=== PATIENT | male | born 1935 | race Caucasian/White ===

== ENCOUNTER → 2019-05-17 15:00 | Outpatient (CLI) | payer MEDICARE, OTHER, SELFPAY ==
--- NOTE | 2019-05-17 15:18 | RAD_ITS ---
STUDY: X-RAY - LUMBAR SPINE REASON FOR EXAM: Male, 83 years old. Low back pain and stenosis TECHNIQUE: 4 view(s) of the lumbar spine were obtained. COMPARISON: None FINDINGS: Normal alignment. Diffuse degenerative disc and facet disease. Multiple lateral and anterior osteophytes. No compression deformities. No abnormal motion between flexion and extension. Left hip arthroplasty. RAD/Lumbar Spine 2 or 3 Views IMPRESSION: Multilevel degenerative disease as described. No abnormal motion between flexion and extension. Electronically Signed: Vince Castillo MD at 16:01 EDT Tel , Service support ,
--- NOTE | 2019-05-17 15:31 | CT_ITS ---
STUDY: CT LUMBAR SPINE WITHOUT CONTRAST REASON FOR EXAM: Male, 83 years old. Spinal stenosis RADIATION DOSAGE (If Supplied By Facility): CTDIvol = ( 35.92 ) mGy, DLP = ( 5291.79 ) mGycm TECHNIQUE: The patient was scanned in a multi detector CT scanner. High resolution transaxial imaging was performed. Images were obtained from L1 to L5. Sagittal and coronal images were reconstructed. Individualized dose optimization techniques were used for this CT. COMPARISON: None FINDINGS: Normal lumbar lordosis. There is no substantial scoliosis. Diffuse lateral and anterior osteophytes. Diffuse demineralization. L1-2: Disc osteophyte complex with mild central canal and bilateral foraminal stenoses. L2-3: Disc osteophyte complex with moderate left foraminal stenosis. L3-4: Disc osteophyte complex with mild central canal and moderate bilateral foraminal stenoses. L4-5: Disc osteophyte complex with moderate central canal and bilateral foraminal stenoses. L5-S1: Disc osteophyte complex with moderate bilateral foraminal stenoses. Normal visualized paraspinous soft tissue structures. Left hip arthroplasty. Bilateral renal cysts. Vascular calcifications. Prostatomegaly and prostate calcifications. CT/Spine Lumbar without Contrast IMPRESSION: Multilevel degenerative disease as described. Moderate foraminal stenoses on the left at L2-3, and bilaterally from L3-4 through L5-S1. Moderate central canal stenosis at L4-5. Electronically Signed: Vince Castillo MD at 16:26 EDT Tel , Service support ,
== END ==
PROVIDERS: Family Provider Family Medicine; PCP Family Medicine
DX: M48.061 Spinal stenosis, lumbar region without neurogenic claudication (principal)
CPT/HCPCS: 72100; 72131

== ENCOUNTER → 2019-05-17 15:36 | Outpatient (CLI) | payer MEDICARE, OTHER, SELFPAY ==
--- NOTE | 2019-05-17 15:51 | MRI_ITS ---
HISTORY:right hip pain, leg weakness, MRI EXAMINATION OF THERight HIP COMPARISON: None TECHNIQUE: Large [id number] coronal T1 STIR and axial STIR and small [id number]-[id number] axial fat-suppressed T2 fat-suppressed proton density and sagittal fat-suppressed proton density # of images including paperwork:210 FINDINGS: Bones: Postsurgical changes of the left. This may be secondary to left femoral head prosthesis or left total hip arthroplasty. Metallic artifact obscures visualization There is no evidence of an acute fracture or dislocation No abnormal signal is seen within the right femur proximally or the acetabulum There is foci of decreased signal on all pulse sequences seen within the right ilium compatible with a bone island. No additional osseous abnormalities are noted.. Musculotendinous structures: Insertional tendinosis is seen involving the left gluteus minimus muscle. There is mild atrophy involving the bilateral gluteus medius and minimus musculature. There is fluid surrounding the gluteus medius tendon at its insertion with probable partial tear. There is also abnormal signal seen at the origin of the conjoined tendon long head of biceps femoris and semitendinosus bilaterally suggesting intrasubstance tear/tendinosis.. Intrapelvic contents: Intrapelvic contents are normal in appearance without mass lesion or other abnormality. Hip joint and bursae: There is no significant right hip joint effusion. No evidence of avascular necrosis of the right femoral head there are small collar osteophyte seen at the head neck junction. Minimal osseous edema is seen at the posterior superior acetabulum. No iliopsoas bursal fluid collection. There is a trace trochanteric bursal fluid collection on the right. Question tiny anterior superior labral tear seen on image 12 series 8 however it does not extend through the labrum and there is no evidence of apparent labral cyst Neurovascular structures: No intrinsic or extrinsic mass along the course of the sciatic or femoral nerve is identified. No arterial aneurysm is identified. MRI/Lower Ext Joint Only (Routine) IMPRESSION: Postsurgical changes of the left hip Bone island within the right ilium Probable insertional tendinosis involving the left gluteus minimus muscle. There is fluid signal surrounding the insertion of the gluteus medius tendon on the right which may represent a small partial tear There is also a trace amount of fluid within the trochanteric bursa on the right Abnormal signal at the origin of the conjoined tendon biceps from Holden and semitendinosus on the ischial tuberosities bilaterally slightly greater on the left. This may be secondary to intrasubstance tear but no avulsion is noted. Question tiny superior anterior partial labral tear without evidence of upper labral cyst Minimal edema is seen within the posterior posterior superior acetabulum Collar osteophytes are seen at the head neck junction of the right hip at 2214 Reported and signed by: Citlalli Love DO Electronically Signed: Citlalli Love DO at 22:13 EDT Tel , Service support ,
== END ==
PROVIDERS: Family Provider Family Medicine; PCP Family Medicine
DX: M48.061 Spinal stenosis, lumbar region without neurogenic claudication (principal)
CPT/HCPCS: 72100; 72131; 73721

== ENCOUNTER 2019-08-03 23:13 | Emergency (ER) | payer MEDICARE, OTHER, SELFPAY ==
[2019-08-03 23:15] VITALS: BP 115/41; PULSE 76; RESP 18; TEMP 36.6; O2SAT 96; BMI 35.9
--- NOTE | 2019-08-04 00:01 | CT_ITS ---
STUDY: CT BRAIN WITHOUT CONTRAST REASON FOR EXAM: Male, 84 years old. Fell flat on face on Wednesday, headache and nausea now RADIATION DOSAGE (If Supplied By Facility): CTDIvol = ( 44.99 ) mGy, DLP = ( 863.60 ) mGycm TECHNIQUE: Transaxial CT imaging of the brain was performed without administration of intravenous contrast material. Individualized dose optimization techniques were used for this CT. COMPARISON: No relevant priors. FINDINGS: Normal soft tissue structures. Normal calvarium. There is mild cerebral atrophy with widening of the extra-axial spaces and ventricular dilatation. There are areas of decreased attenuation within the white matter tracts of the supratentorial brain, consistent with microvascular disease changes. Normal basal ganglia and thalami. Normal brainstem. Normal cerebellum. There is no intracranial hemorrhage. There are no findings of an acute ischemic infarction. There is mucoperiosteal inflammatory disease of the paranasal sinuses consistent with mild chronic sinusitis. The bilateral mastoid air cells are clear. CT/Brain/Head without Contrast IMPRESSION: Chronic involutional changes of the brain. There is no acute intracranial pathology. Electronically Signed: Yadira Dyson MD at 0:35 EST , Service support ,
--- NOTE | 2019-08-04 00:02 | ED.VIS.GEN ---
History of Present Illness Chief Complaint: Head Injury Narrative: Patient is an 84-year-old male who presents after head injury. He fell on Wednesday evening. He was outside. He lost his balance and fell forward hitting his left forehead. No loss of consciousness. Since that time he has had a mild headache which he rates as 2-3 out of 10 as well as some nausea and dizziness. He is not anticoagulated. His family became concerned with his symptoms so brought him here for further evaluation. No vomiting. Patient is on no anticoagulants. Past Medical History - Allergies and Home Meds Allergies/Adverse Reactions: Allergies No Known Allergies Allergy (Verified 08/03/19 23:17) Primary Care Physician: Meño Perea MD [Primary Care Provider] - Past Medical History: - - Hypertension Review of Systems ROS: Unable to Obtain General: Denies: Fever Cardiovascular: Denies: Chest pain Respiratory: Denies: Dyspnea Gastrointestinal: Reports: Nausea Neurological: Reports: Headache Physical Exam Vital Signs/Narrative: Vital Signs Temp Pulse Resp BP Pulse Ox 08/03/19 23:15 97.9 F 76 18 115/41 L 96 Inital Vital Signs reviewed: Yes General: Well nourished Head: Normocephalic Eyes: EOMI ENT: Moist mucous membranes Neck: Supple Cardiovascular: Regular rate, Regular rhythm Respiratory: No distress Skin: Normal color Neurological: Alert, Oriented x3, Normal Strength, Normal Sensation Psychological: Normal affect Diagnostic/Tx/Re-eval Impressions Brain CT 08/04/19 00:01 IMPRESSION: Chronic involutional changes of the brain. There is no acute intracranial pathology. Electronically Signed: Yadira Dyson MD at 0:35 EST , Service support , 08/04/19 00:01 CT Head [Brain/Head without Contrast] [CT] Stat - Medical Decision Making CT shows chronic changes, no acute pathology. Patient was advised on signs and symptoms to monitor for as well as supportive care. Patient discharged. ED Disposition - Plan for ED Patient: Disposition: Home or Assisted Living Diagnosis: Closed head injury Instructions: HEAD INJURY, No Wake-Up (Adult) Referrals: Meño Perea MD [Primary Care Provider] -
[2019-08-04 00:49] VITALS: RESP 18
== END 2019-08-04 00:50 | disposition home or self-care (01) ==
PROVIDERS: Emergency Provider Emergency Medicine; Family Provider Family Medicine; PCP Family Medicine
DX: S09.90XA Unspecified injury of head, initial encounter (principal); W18.39XA Other fall on same level, initial encounter; Y93.9 Activity, unspecified
CPT/HCPCS: 70450; 99282

== ENCOUNTER 2021-09-29 18:30 | Inpatient (IN) | payer MEDICARE, OTHER, SELFPAY ==
[2021-09-29 18:33] VITALS: BP 158/79; PULSE 85; RESP 18; TEMP 36.1; O2SAT 93; BMI 32.8
[2021-09-29 19:26] VITALS: BP 153/78; PULSE 87; RESP 20; O2SAT 96
--- NOTE | 2021-09-29 19:28 | EKG12_ITS ---
Test Reason : CONFUSION Blood Pressure : / mmHG Vent. Rate : 091 BPM Atrial Rate : 091 BPM P-R Int : 144 ms QRS Dur : 088 ms QT Int : 338 ms P-R-T Axes : 049 -36 048 degrees QTc Int : 415 ms Normal sinus rhythm Left axis deviation Nonspecific ST abnormality Abnormal ECG Confirmed by LAUREL BRYANT, TREY ([id number]), science editor MARCI OROZCO ([id number]) on 09/30/2021 11:27:40 AM Referred By: MEAGAN Confirmed By:TREY BARRAGAN MD
--- NOTE | 2021-09-29 19:39 | RAD_ITS ---
STUDY: X-RAY CHEST REASON FOR EXAM: Male, 86 years old. weakness TECHNIQUE: AP portable COMPARISON: None. FINDINGS: There is minor discoid atelectasis or scarring in both lower lobes.. There is no demonstrated pleural abnormality. Heart is mildly enlarged. Normal mediastinum and alfie. Normal visualized pulmonary arteries. Tortuous mildly calcified aortic arch and descending thoracic aorta. Dorsal spine and shoulders demonstrate degenerative change. Normal visualized ribs, and clavicles.. There is no demonstrated abnormality of the visualized soft tissue structures of the upper abdomen. RAD/Chest 1 View (Portable) IMPRESSION: ASHD. Mild bibasilar discoid atelectasis or scarring. Electronically Signed: Calvin Ivan MD at 21:08 EST , Service support ,
--- NOTE | 2021-09-29 19:42 | CT_ITS ---
STUDY: CT BRAIN WITHOUT CONTRAST REASON FOR EXAM: Male, 86 years old. confusion RADIATION DOSAGE (If Supplied By Facility): CTDIvol = ( 44.99 ) mGy, DLP = ( 880.47 ) mGycm TECHNIQUE: Transaxial CT imaging of the brain was performed without administration of intravenous contrast material. Individualized dose optimization techniques were used for this CT. COMPARISON: 08/04/2019. FINDINGS: Normal soft tissue structures. Normal calvarium. Minor calcific plaquing of the cavernous carotids Mild atrophy and periventricular white matter ischemic changes. Normal basal ganglia and thalami. Normal brainstem. Normal cerebellum. There is no intracranial hemorrhage. There are no findings of an acute ischemic infarction. There is moderate mucosal thickening of the ethmoid air cells CT/Brain/Head without Contrast IMPRESSION: Mild atrophy and periventricular white matter ischemic change. No acute bleed. If concern for acute infarct MRI recommended Electronically Signed: Clavin Ivan MD at 21:06 EST , Service support ,
[2021-09-29 20:37] LABS: Mucous, Urine 0 SEEN /hpf (<or=2+); Squamous Epithelial Cells - UA 0 SEEN /hpf (0-5)
[2021-09-29 20:38] LABS: ALB/GLOB Ratio 0.7 RATIO (0.9-2.4); AST(SGOT) 34 U/L (15-37); Alanine Aminotransfer ALT/SGPT 20 U/L (16-61); Albumin, Serum 3.1 g/dL (3.2-5.0); Alkaline Phosphatase 49 U/L (45-117); Anion Gap 8 (5-15); BUN 25 mg/dL (7-18); BUN/Creat Ratio 21.4 RATIO (10-20); Calcium,Total 8.8 mg/dL (8.5-10.1); Chloride 97 mmol/L (98-107); Creatinine, Serum 1.17 mg/dL (0.70-1.30); EST Glomerular Filtration Rate 63 mL/min (>60); Est Glom Filt Rate - Afr Amer 76 mL/min (>60); Estimated Creatinine Clearance 49.74 ml/min; Globulin 4.5 g/dL (2.2-4.2); Glucose 127 mg/dL (74-106); Potassium 4.3 mmol/L (3.5-5.1); Protein, Total 7.6 g/dL (6.4-8.2); Sodium Level 129 mmol/L (136-145); Troponin-I HS 24 pg/mL (3.0-78.0)
[2021-09-29 20:42] LABS: Color, Urine Yellow (Yellow); Glucose, Dipstick Normal (Normal); Ketone-Dipstick 15 mg/dl (Negative); Leukocyte Esterase-Dipstick Negative /ul (Negative); Nitrite-Dipstick Negative (Negative); Occult Blood-Urine 150 /ul (Negative); Protein-Dipstick 100 mg/dl (Negative); Urine Bilirubin Dipstick Negative (Negative); Urine Clarity Clear (Clear); Urine Urobilinogen Normal (Normal)
[2021-09-29 20:52] LABS: Absolute Lymphocyte Count 0.86 X10^3/uL (0.83-4.51); Absolute Neutrophil Count 3.5 X10^3/uL (2.0-7.7); Basophil# 0.01 X10^3/uL; Basophil% 0.2 % (0-1); Hemoglobin 12.9 g/dL (13.0-16.5); Lymphocyte # 0.86 X10^3/ul (0.83-4.51); Lymphocyte % 17.9 % (19-41); Mean Corp Hgb Conc 33.1 g/dL (32-36); Mean Corpuscular Hgb 29.1 pg (27.0-32.0); Mean Corpuscular Volume 87.8 fL (80-94); Mean Platelet Vol. 10.6 fl (6.2-12.0); Monocyte# 0.38 X10^3/uL; Monocyte% 7.9 % (0-10); NRBC Flagged by Analyzer 0 % (0-5); Neutrophil # 3.48 X10^3/uL (2.7-7.7); Neutrophil % 72.3 % (47-70); Platelet Count 208 K/mm3 (150-450); RBC Distribution Width CV 14.4 % (11.6-14.6); RBC Distribution Width SD 46.2 fl (35.1-43.9); Red Blood Count 4.44 M/mm3 (4.6-6.2); White Blood Count 4.8 K/mm3 (4.4-11.0)
[2021-09-29 20:54] LABS: Bacteria RARE /hpf (None Seen); Red Blood Cells-Urine 10-25 SEEN /hpf (0-5); White Blood Cells 0-5 SEEN /hpf (0-5)
--- NOTE | 2021-09-29 21:03 | HP.PCM.HOS_ITS ---
HPI - General General Date of Admission: 09/29/21 HPI Narrative HARINI AUGUSTE, is a 86 M with a significant history of heart disease on spironolactone and tadalafil; and hypertension who presents to the emergency department with a 4-day history of progressively worsening Covid-like symptoms. His Covid-like symptoms are productive cough; weakness; malaise; and anorexia. Patient typically lives alone but he has been too weak to take care of himself. Actually home health care was planned on the same day of presentation. On the same day of presentation the patient was lethargic and confused so a decision was made to bring patient to the hospital. Reportedly patient has actually been fighting off coming to the hospital. COVID-19 vaccination status: Patient is unvaccinated. Son who was at the bedside did not want remdesivir. Patient son asked whether patient will be given monoclonal antibody. [facility] Medical History Anemia Chronic pain Heart failure Hypertension Home Medications lisinopril 5 mg PO DAILY 09/29/21 [History Last Taken Unknown] metoprolol succinate 25 mg PO DAILY 09/29/21 [History Last Taken Unknown] potassium chloride 10 meq PO DAILY 09/29/21 [History Last Taken Unknown] spironolactone 50 mg PO BID 09/29/21 [History Last Taken Unknown] tadalafil 5 mg PO DAILY 09/29/21 [History Last Taken Unknown] tamsulosin 0.8 mg PO DAILY 09/29/21 [History Last Taken Unknown] Allergy/AdvReac Type Severity Reaction Status Date / Time No Known Allergies Allergy Verified 09/29/21 18:37 Family History Other Brain tumor Heart disease Surgical History H/O knee surgery History of hip surgery Previous back surgery Social History Smoking Status: Never smoker ROS ROS Narrative Constitutional: Reports fever and chills. Reports fatigue. Reports anorexia. Eyes: Denies blurry vision, change in eye color, change in vision, discharge from eye(s), double vision, erythema, eye pain, loss of vision or other HEENT: Denies abnormal hearing, dysphagia, ear pain, epistaxis, headache(s), hearing loss, nasal congestion, nasal discharge, post nasal drip, sinus pressure, sore throat or other Cardiovascular: Denies chest pain or palpitations. Respiratory/Chest: Reports shortness of breath. Reports a productive cough. Reports mild wheezes. Gastrointestinal: Denies abdominal pain, coffee ground emesis, constipation, diarrhea, dyspepsia, hematemesis, hematochezia, loose stools, melena, nausea, vomiting or other Genitourinary: Denies burning urination, difficulty urinating, dysuria, hematuria, nocturia, urinary frequency, urinary hesitancy, urinary incontinence, urinary urgency or other Musculoskeletal: Denies arthralgias, back pain, joint pain, joint stiffness, joint swelling, neck pain or other Neurologic: Reports confusion. Denies abnormal gait, abnormal speech, disequilibrium, dizziness, focal weakness, headache(s), numbness, paresthesias, seizure-like activity, seizures, syncope, tingling, tremor(s) or other Psychiatric: Denies anxiety, depression, homicidal ideation, suicidal ideation or other Endocrinology: Denies change in body appearance, cold intolerance, excessive sweating, heat intolerance, polydipsia, polyuria or other Hematologic/Lymphatic: Denies anemia, easy bleeding, easy bruising, lymphadenopathy or other Integumentary: Denies rashes Allergic/Immunologic: Denies rhinitis, hives, eczema, asthma or other Vital Signs Vital Signs Vital Signs: 09/29/21 18:33 09/29/21 18:54 09/29/21 19:26 Temperature 97.0 F L Temperature Source Temporal Pulse Rate 85 87 Respiratory Rate 18 20 H Respiratory Effort Short of Breath Respiratory Pattern Normal Blood Pressure 158/79 H 153/78 H Blood Pressure Mean 105 103 Pulse Ox 93 96 Oxygen Delivery Method Room Air Nasal Cannula Oxygen Flow Rate (L/min) 2 Weight Weight: 110 kg Body Mass Index (BMI) 32.8 Physical Exam Narrative Physical exam: General: Well-nourished, well-developed. Head: Normocephalic, atraumatic, no tenderness Eyes: PERRLA, EOMI ENT, no trauma, moist mucous membranes, no rhinorrhea Neck: Nontender, full range of motion, no spinal tenderness, deformities, step- off CVS: Regular rate and rhythm. S1-S2 present. No murmur, gallop or rub. Respiratory : Tachypnea, mild anterior wheezes. Posterior lung lauren clear. Abdomen: Soft, nontender, nondistended, normal bowel sounds, no masses : Deferred Back: Nontender, no CVA tenderness, no midline spinal tenderness, deformities, step-offs Extremities: Extremities have bilateral edema. Nontender full range of motion, no trauma Skin: Normal color, no trauma, abrasions Neuro: Alert, oriented, cranial nerves II through XII grossly intact. Psychiatry: Normal mood. Normal affect. Not depressed. Not anxious. Results Lab / Micro Data Result Diagrams: 09/29/21 18:55 09/29/21 18:55 Labs: Laboratory Results - last 24 hr 09/29/21 18:55: WBC 4.8, RBC 4.44 L, Hgb 12.9 L, Hct 39.0 L, MCV 87.8, MCH 29.1, MCHC 33.1, RDW Std Deviation 46.2 H, RDW Coeff of Mansi 14.4, Plt Count 208, MPV 10.6, Immature Gran % (Auto) 1.700 H, Neut % (Auto) 72.3 H, Lymph % (Auto) 17.9 L, [place] % (Auto) 7.9, Eos % (Auto) 0.0, Baso % (Auto) 0.2, Absolute Neuts (auto) 3.5, Absolute Lymphs (auto) 0.86, Nucleated RBC % 0 09/29/21 18:55: Sodium 129 L, Potassium 4.3, Chloride 97 L, Carbon Dioxide 24.0, Anion Gap 8, BUN 25 H, Creatinine 1.17, Estim Creat Clear Calc 49.74, Est GFR (MDRD) Af Amer 76, Est GFR (MDRD) Non-Af 63, BUN/Creatinine Ratio 21.4 H, Glucose 127 H, Calcium 8.8, Total Bilirubin 0.40, AST 34, ALT 20, Alkaline Phosphatase 49, Troponin I High Sens 24, Total Protein 7.6, Albumin 3.1 L, Globulin 4.5 H, Albumin/Globulin Ratio 0.7 L 09/29/21 20:30: Urine Color Yellow, Urine Clarity Clear, Urine pH 5.0, Ur S pecific [place] 1.020, Urine Protein 100 H, Urine Glucose (UA) Normal, Urine Ketones 15 H, Urine Occult Blood 150 H, Urine Nitrite Negative, Urine Bilirubin Negative, Urine Urobilinogen Normal, Ur Leukocyte Esterase Negative, Urine RBC 10-25 SEEN, Urine WBC 0-5 SEEN, Ur Squamous Epith Cells 0 SEEN, Urine Bacteria RARE, Urine Mucus 0 SEEN Micro: Microbiology 09/29/21 19:40 Nasal Secretion SARS-CoV-2 Antigen (Rapid) - Final SARS-CoV-2 (COVID 19) Assessment & Plan Assessment/Plan (1) Pneumonia due to COVID-19 virus: PLAN: Pneumonia due to COVID-19 virus Actual chest x-ray image was independently interpreted. Chest x-ray with mild bibasilar infiltrates. Oxygen saturation of 93% on room air. Rapid Covid antigen was positive. Brain CT with no acute disease. Decadron ordered emergency department in continued. Family does not want r emdesivir. CBC reviewed showed normal white count with bandemia of 1.7%; neutrophils 82.3% and lymphopenia of 17.9. Hyponatremia Sodium of 129. Hold diuretics. Trend BMP. Debility secondary Covid PT and OT to evaluate and treat. Hypertension Blood pressure is not within goal Lisinopril and metoprolol continued. Hold diuretics for hyponatremia. As needed hydralazine ordered. Trend blood pressure and adjust blood pressure medications. DVT prophylaxis: Subcutaneous Lovenox ordered. Charges/Coding Visit Charges Inpatient E&M: 61555 Init Hosp L3
--- NOTE | 2021-09-29 21:14 | EX.ED.DYSGE1 ---
HPI History of Present Illness Chief Complaint: Alt LOC Informant: patient and family Narrative Narrative: Patient is an 86-year-old male with history of hypertension and BPH presenting with altered mental status and generalized weakness. Patient is in the ER with his [id number]. She does have a past few days she has had a cold with stuffy nose and generalized weakness. He is also had a cough. Overnight he became lethargic and had decreased responsiveness to others. He had multiple episodes of urinary incontinence today which is abnormal for him. He had decreased oral intake. Earlier this week EMS was called out to the house who did a welfare check and felt that his vital signs are normal. He declined transport at that time. Patient was supposed to have home health start today however he was so ill that he came to the emergency room instead. No known sick exposures reported. [facility] Medical History Anemia Chronic pain Heart failure Hypertension Home Medications lisinopril 5 mg PO DAILY 09/29/21 [History Last Taken Unknown] metoprolol succinate 25 mg PO DAILY 09/29/21 [History Last Taken Unknown] potassium chloride 10 meq PO DAILY 09/29/21 [History Last Taken Unknown] spironolactone 50 mg PO BID 09/29/21 [History Last Taken Unknown] tadalafil 5 mg PO DAILY 09/29/21 [History Last Taken Unknown] tamsulosin 0.8 mg PO DAILY 09/29/21 [History Last Taken Unknown] Allergy/AdvReac Type Severity Reaction Status Date / Time No Known Allergies Allergy Verified 09/29/21 18:37 Family History Other Brain tumor Heart disease Surgical History H/O knee surgery History of hip surgery Previous back surgery Social History Smoking Status: Never smoker ROS ROS ED Review of Systems ROS Unobtainable: due to encephalopathy ENT ENT ED: Reports rhinorrhea Respiratory/Chest Respiratory/Chest: Reports cough Neurologic Neurologic: Reports weakness EXAM Physical Exam Const Vital Signs: 09/29/21 18:33 09/29/21 18:54 09/29/21 19:26 Temperature 97.0 F L Temperature Source Temporal Pulse Rate 85 87 Respiratory Rate 18 20 H Respiratory Effort Short of Breath Respiratory Pattern Normal Blood Pressure 158/79 H 153/78 H Blood Pressure Mean 105 103 Pulse Ox 93 96 Oxygen Delivery Method Room Air Nasal Cannula Oxygen Flow Rate (L/min) 2 Positive well nourished and well developed General Appearance ED: well developed and NAD HEENT Reports dry mucous membranes Negative for trauma Mouth ED: Yes dry mucous membranes Mouth: dry mucous membranes Eyes PERRL and EOMs intact bilaterally Neck supple and no JVD Chest Wall inspection of chest normal Resp Resp Narrative: Diminished and coarse breath sounds throughout. Tachypnea Cardio regular rate, regular rhythm and no murmurs GI normal to inspection, nondistended, normoactive bowel sounds and non-tender Palpation: soft Extremity normal to inspection General Extremety ED: Negative for edema or tenderness General Extremity: Negative for edema Neuro Sensorium / Orientation: alert and orientation impaired Motor Exam: general weakness Psych mental status grossly normal Skin no rashes or lesions noted and no wounds MDM MDM MDM Narrative Medical decision making narrative: Patient evaluated for generalized weakness. In the ER he has coarse breath sounds, wet cough and is tachypneic. His Covid test is positive. X-ray interpreted by myself is appears consistent with a multifocal infiltrate. Patient has a hyponatremia of 129. No other significant electrolyte abnormalities or laboratory abnormalities. Urinalysis is not consistent with infection. Patient is 90% on room air. He is placed on supplemental oxygen. Given his generalized weakness and encephalopathy as well as COVID-19 infection he will be admitted to the hospital. Family is agreeable with this plan of care. Lab Data Attestation: I reviewed the patient's lab results. Labs: Laboratory Results - last 24 hr 09/29/21 09/29/21 09/29/21 18:55 18:55 20:30 WBC 4.8 RBC 4.44 L Hgb 12.9 L Hct 39.0 L MCV 87.8 MCH 29.1 MCHC 33.1 RDW Std Deviation 46.2 H RDW Coeff of Mansi 14.4 Plt Count 208 MPV 10.6 Immature Gran % (Auto) 1.700 H Neut % (Auto) 72.3 H Lymph % (Auto) 17.9 L [place] % (Auto) 7.9 Eos % (Auto) 0.0 Baso % (Auto) 0.2 Absolute Neuts (auto) 3.5 Absolute Lymphs (auto) 0.86 Nucleated RBC % 0 Sodium 129 L Potassium 4.3 Chloride 97 L Carbon Dioxide 24.0 Anion Gap 8 BUN 25 H Creatinine 1.17 Estim Creat Clear Calc 49.74 Est GFR (MDRD) Af Amer 76 Est GFR (MDRD) Non-Af 63 BUN/Creatinine Ratio 21.4 H Glucose 127 H Calcium 8.8 Total Bilirubin 0.40 AST 34 ALT 20 Alkaline Phosphatase 49 Troponin I High Sens 24 Total Protein 7.6 Albumin 3.1 L Globulin 4.5 H Albumin/Globulin Ratio 0.7 L Urine Color Yellow Urine Clarity Clear Urine pH 5.0 Ur Specific [place] 1.020 Urine Protein 100 H Urine Glucose (UA) Normal Urine Ketones 15 H Urine Occult Blood 150 H Urine Nitrite Negative Urine Bilirubin Negative Urine Urobilinogen Normal Ur Leukocyte Esterase Negative Urine RBC 10-25 SEEN Urine WBC 0-5 SEEN Ur Squamous Epith Cells 0 SEEN Urine Bacteria RARE Urine Mucus 0 SEEN Radiography Chest X-Ray - ED: 1 View, Read by ED Physician, Right Infiltrate and Left Infiltrate Diagnostic Testing: Clinical Impression(s) from Imaging Studies Chest X-Ray 09/29/21 19:39 IMPRESSION: ASHD. Mild bibasilar discoid atelectasis or scarring. Electronically Signed: Calvin Ivan MD at 21:08 EST , Service support , Brain CT 09/29/21 19:42 IMPRESSION: Mild atrophy and periventricular white matter ischemic change. No acute bleed. If concern for acute infarct MRI recommended Electronically Signed: Calvin Ivan MD at 21:06 EST , Service support , Rhythm Strip Rhythm Strip: Sinus Rhythm Rate: 91 Ectopy: None EKG Initial EKG: Attestation: I personally reviewed and interpreted this EKG as follows: Interpretation: Sinus Rhythm Comments: Normal sinus rhythm at a rate of 91 Left axis deviation Normal intervals Normal ST segments Poor baseline due to artifact Discharge Plan Triage Chief Complaint: Alt LOC ED Provider: Yarelis Lacy Dx/Rx/DC Orders Clinical Impression: Pneumonia due to COVID-19 virus, Encephalopathy acute, Generalized muscle weakness Primary Care Provider: Meño Perea Disposition Disposition: Acute Care Hospital [facility] [place] Discharge Date/Time: 09/29/21 21:56
[2021-09-29] MEDS: dexAMETHasone 4 MG/ML Vial 6 MG IV (21:19)
[2021-09-29 21:24] VITALS: BP 171/90; PULSE 87; RESP 22; TEMP 36.7; O2SAT 95
[2021-09-29 22:15] VITALS: BMI 32.8
[2021-09-29 22:18] VITALS: BP 177/86; PULSE 96; RESP 18; TEMP 39.3; O2SAT 96
[2021-09-29] MEDS: Ondansetron 4 MG/2 ML Vial IV (23:01)
[2021-09-29] MEDS: 0.9% Saline Lock 10 ML Syringe IV ×2 (23:01→23:23)
[2021-09-29] MEDS: Acetaminophen 325 MG Tablet 650 MG PO (23:17)
[2021-09-29] MEDS: Enoxaparin 30 MG/0.3 ML Syringe SC (23:20)
[2021-09-29 23:23] VITALS: PULSE 85
[2021-09-29] MEDS: guaiFENesin 600 MG Tablet PO (23:23)
[2021-09-29] MEDS: hydrALAZINE 20 MG/ML Vial 10 MG IV (23:23)
[2021-09-29] MEDS: Spironolactone 50 MG Tablet PO (23:23)
[2021-09-29 23:29] VITALS: BP 167/82; PULSE 85; RESP 18; TEMP 39.3; O2SAT 98
[2021-09-30] VITALS (10 sets, daily range): BP systolic 102–126; BP diastolic 55–76; PULSE 66–86; RESP 18–26; TEMP 36.4–37.1; O2SAT 91–97
[2021-09-30] MEDS: Nystatin Powder 15gm Bottle 1 APPLIC TOPICAL ×3 (01:02→20:33)
[2021-09-30] MEDS: Menthol/Lanolin/Calamine/Znox 113 GM Tube 1 APPLIC TOPICAL ×3 (01:02→20:33)
--- NOTE | 2021-09-30 01:24 | PCS.PANDOC ---
PANDEMIC DOCUMENTATION INITIATED: Date: 09/29/2020 Time:
[2021-09-30] MEDS: Acetaminophen 325 MG Tablet 650 MG PO (05:45)
--- NOTE | 2021-09-30 07:52 | PCM.PN.HOSP ---
Subjective Subjective The patient is admitted with 4 days symptoms of cough, weakness malaise, anorexia. Patient was lethargic and confused with increased reaction and respond time. Chest x-ray shows mild bibasilar infiltrates patient has history of heart disease and only spironolactone. Objective Data Objective Data Vital Signs: Vital Signs Temp Pulse Resp BP Pulse Ox 98.6 F 75 18 126/55 H 95 09/30/21 05:48 09/30/21 05:48 09/30/21 05:48 09/30/21 05:48 09/30/21 05:48 Oxygen Flow Rate (L/min) 2 Oxygen Delivery Method Nasal Cannula Weight: 242 lb 8.136 oz Body Mass Index (BMI) 32.8 Lab / Micro Data Result Diagrams: 09/30/21 07:20 09/30/21 07:20 Labs: Laboratory Results - last 24 hr 09/29/21 18:55: WBC 4.8, RBC 4.44 L, Hgb 12.9 L, Hct 39.0 L, MCV 87.8, MCH 29.1, MCHC 33.1, RDW Std Deviation 46.2 H, RDW Coeff of Mansi 14.4, Plt Count 208, MPV 10.6, Immature Gran % (Auto) 1.700 H, Neut % (Auto) 72.3 H, Lymph % (Auto) 17.9 L, [place] % (Auto) 7.9, Eos % (Auto) 0.0, Baso % (Auto) 0.2, Absolute Neuts (auto) 3.5, Absolute Lymphs (auto) 0.86, Nucleated RBC % 0 09/29/21 18:55: Sodium 129 L, Potassium 4.3, Chloride 97 L, Carbon Dioxide 24.0, Anion Gap 8, BUN 25 H, Creatinine 1.17, Estim Creat Clear Calc 49.74, Est GFR (MDRD) Af Amer 76, Est GFR (MDRD) Non-Af 63, BUN/Creatinine Ratio 21.4 H, Glucose 127 H, Calcium 8.8, Total Bilirubin 0.40, AST 34, ALT 20, Alkaline Phosphatase 49, Troponin I High Sens 24, Total Protein 7.6, Albumin 3.1 L, Globulin 4.5 H, Albumin/Globulin Ratio 0.7 L 09/29/21 20:30: Urine Color Yellow, Urine Clarity Clear, Urine pH 5.0, Ur Specific [place] 1.020, Urine Protein 100 H, Urine Glucose (UA) Normal, Urine Ketones 15 H, Urine Occult Blood 150 H, Urine Nitrite Negative, Urine Bilirubin Negative, Urine Urobilinogen Normal, Ur Leukocyte Esterase Negative, Urine RBC 10-25 SEEN, Urine WBC 0-5 SEEN, Ur Squamous Epith Cells 0 SEEN, Urine Bacteria RARE, Urine Mucus 0 SEEN Micro: Microbiology 09/29/21 19:40 Nasal Secretion SARS-CoV-2 Antigen (Rapid) - Final SARS-CoV-2 (COVID 19) Radiography Diagnostic Testing: Radiology Impression Chest X-Ray 09/29/21 19:39 IMPRESSION: ASHD. Mild bibasilar discoid atelectasis or scarring. Electronically Signed: Calvin Ivan MD at 21:08 EST , Service support , Brain CT 09/29/21 19:42 IMPRESSION: Mild atrophy and periventricular white matter ischemic change. No acute bleed. If concern for acute infarct MRI recommended Electronically Signed: Calvin Ivan MD at 21:06 EST , Service support , Rhythm Strip Rhythm Strip: Sinus Rhythm Rate: 91 Ectopy: None Physical Exam Narrative General: Awake but confused and disoriented to time. Increased time to respond and understand. HEENT: Atraumatic, PERRLA, EOMI, Normocephalic Oral: No Gingival or Mucosal Lesions/ Ulcerations Neck: Supple, No JVD, Negative Carotid Bruits Lungs: Air entry diminished in bilateral lung bases. Mild expiratory rhonchi on lung bases on 3 L of oxygen Cardiovascular: Regular rate, Regular Rhythm, Normal S1, Normal S2, No murmurs Abdomen: Bowel Sounds Present, Soft, Non Tender, Non-Distended : No renal angle tenderness. No suprapubic tenderness. Extremities: No edema, Capillary Refill Less than 3 Seconds Skin: No rashes, No breakdown Musculoskeletal: No Tenderness to Palpation of Joints or Extremities Neurological: Cranial nerves II-XII grossly intact, DTR 2+/4 and Symmetrical, no focal deficit Psych/Mental Status: Flat affect. Needs multiple repetitions to understand Assessment & Plan Assessment/Plan (1) Pneumonia due to COVID-19 virus: PLAN: Pneumonia due to COVID-19 virus: Chest x-ray shows mild bibasilar infiltrates clinically reviewed. Inflammatory markers procalcitonin, ferritin, LDH, D-dimer ordered. Rapid COVID-[address] brain does not show acute intracranial abnormality. Family does not want remdesivir. CBC reviewed showed normal white count with bandemia of 1.7%; neutrophils 82.3% and lymphopenia of 5%, ALC 0.34 thousand Hyponatremia: Admitted with sodium 129, repeat sodium 131.Hold diuretics. K4.2. Discontinue spironolactone as Lasix was discontinued which might result in 2 hyperkalemia Trend BMP. Debility secondary Covid PT and OT to evaluate and treat. Hypertension: Blood pressure was elevated at time of admission. Most recent 126/76 Lisinopril and metoprolol continued. Hold diuretics for hyponatremia. As needed hydralazine ordered. DVT prophylaxis: Subcutaneous Lovenox ordered. Charges/Coding Visit Charges Inpatient E&M: 61413 Subs Hosp L2
[2021-09-30 07:58] LABS: Absolute Lymphocyte Count 0.34 X10^3/uL (0.83-4.51); Absolute Neutrophil Count 5.9 X10^3/uL (2.0-7.7); Basophil# 0.01 X10^3/uL; Basophil% 0.1 % (0-1); Hematocrit 37.3 % (40-54); Hemoglobin 12.3 g/dL (13.0-16.5); Lymphocyte # 0.34 X10^3/ul (0.83-4.51); Mean Platelet Vol. 9.7 fl (6.2-12.0); Monocyte# 0.37 X10^3/uL; Monocyte% 5.5 % (0-10); NRBC Flagged by Analyzer 0 % (0-5); Neutrophil # 5.94 X10^3/uL (2.7-7.7); Neutrophil % 88.2 % (47-70); POSITIVE DIFFERENTIAL YES; Platelet Count 163 K/mm3 (150-450); RBC Distribution Width CV 14.4 % (11.6-14.6); RBC Distribution Width SD 46.4 fl (35.1-43.9); Red Blood Count 4.24 M/mm3 (4.6-6.2); White Blood Count 6.7 K/mm3 (4.4-11.0)
[2021-09-30 08:03] LABS: Differential Indicated SCAN CRITERIA MET
[2021-09-30 08:32] LABS: ALB/GLOB Ratio 0.6 RATIO (0.9-2.4); AST(SGOT) 30 U/L (15-37); Alanine Aminotransfer ALT/SGPT 18 U/L (16-61); Albumin, Serum 2.5 g/dL (3.2-5.0); Alkaline Phosphatase 39 U/L (45-117); Anion Gap 9 (5-15); BUN 25 mg/dL (7-18); BUN/Creat Ratio 23.8 RATIO (10-20); Calcium,Total 8.2 mg/dL (8.5-10.1); Chloride 100 mmol/L (98-107); Creatinine, Serum 1.05 mg/dL (0.70-1.30); EST Glomerular Filtration Rate 71 mL/min (>60); Est Glom Filt Rate - Afr Amer 86 mL/min (>60); Estimated Creatinine Clearance 55.43 ml/min; Globulin 4.1 g/dL (2.2-4.2); Glucose 178 mg/dL (74-106); Potassium 4.2 mmol/L (3.5-5.1); Protein, Total 6.6 g/dL (6.4-8.2); Sodium Level 131 mmol/L (136-145)
[2021-09-30 08:40] LABS: Differential Comment SCANNED
[2021-09-30] MEDS: Enoxaparin 30 MG/0.3 ML Syringe SC ×2 (09:36→20:34)
[2021-09-30] MEDS: Metoprolol(XL)Succ 25 MG Tablet PO (09:37)
[2021-09-30] MEDS: dexAMETHasone 4 MG Tablet 6 MG PO (09:37)
[2021-09-30] MEDS: Lisinopril 5 MG Tablet PO (09:37)
[2021-09-30] MEDS: Tamsulosin HCl 0.4 MG Capsule 0.8 MG PO (09:38)
[2021-09-30] MEDS: guaiFENesin 600 MG Tablet PO ×2 (09:38→20:34)
[2021-09-30] MEDS: Spironolactone 50 MG Tablet PO (09:38)
[2021-09-30 09:51] LABS: D-Dimer Quantitative (DVT/PE) 7.98 FEU/ug/m (0.27-0.49)
[2021-09-30 09:57] LABS: Procalcitonin 1.14 ng/mL (0.00-0.09)
--- NOTE | 2021-09-30 09:57 | CT_ITS ---
STUDY: CTA CHEST REASON FOR EXAM: Male, 86 years old. COVID 19 PNEUMONIA With high D-Dimer RADIATION DOSAGE (If Supplied By Facility): CTDIvol = ( 15.04 ) mGy, DLP = ( 499.78 ) mGycm TECHNIQUE: The examination was performed with the intravenous administration of IV 100mL Isovue-370. Post-processing of the angiographic images was performed, with multiplanar reformation and 3D reconstruction. Individualized dose optimization techniques were used for this CT. COMPARISON: Comparison is made with prior chest radiograph dated 09/29/2021. FINDINGS: Normal enhancement of the main pulmonary artery and right and left pulmonary arteries. Normal enhancement of the bilateral peripheral pulmonary arteries. There is no demonstrated pulmonary embolism. Normal thoracic aorta and visualized great vessels. There is no demonstrated aortic dissection. There are calcifications of the coronary arteries. Normal mediastinum. Normal hilar regions. Normal visualized trachea and bronchi. The lungs are well expanded. Left lower lobe consolidation. Patchy infiltrates in the right lower lobe as well as in the posterior aspect of the right upper lobe. Normal pleura. Normal chest wall structures. There are degenerative changes of thoracic spine. Degenerative changes of the shoulder joints. Nodular enlargement of the left adrenal gland suggestive of possible adenoma. CT/CTA Chest W/WO Contrast IMPRESSION: Left lower lobe consolidation. Patchy infiltrates in the right lower lobe as well as in the posterior aspect of the right upper lobe. Electronically Signed: Ken Mott MD at 11:03 EST , Service support ,
[2021-09-30 09:59] LABS: Ferritin 1506 ng/mL (26-388); LDH 282 U/L (87-241); Magnesium 2.4 mg/dL (1.6-2.6); Phosphorus 3.5 mg/dL (2.5-4.9)
--- NOTE | 2021-09-30 11:45 | CASEMGMT ---
Addendum entered by China Perrin 09/30/21 16:07: TC from pt son who states he prefers HHC in the following order: [facility], [facility] and [facility]. Made him aware this RN CM will discuss with patient for final decision. He verbalizes understanding. Addendum entered by China Perrin 09/30/21 13:19: TC to pt son Jerry. He states pt has hired private aides through [facility]. Pt is not receiving skilled HHC. Discussed this as an option. He requested that this RN CM email him the list that will be given to the patient. Emailed at this time. Original Note: RN CM Assessment: Face to Face with pt for initial transition planning/care coordination assessment. RN JENA introduced self and role at [facility], pt voices understanding and consents to assessment. Pt is A/O x and answers all questions appropriately at this time, although slow to respond. Care providers, pharmacy, and demographics verified/updated. Admitting Dx: COVID PNA PCP:[facility] Specialists: Pt denies. Preferred Pharmacy: [facility] Insurance: [facility] Prescription Benefit: yes LW/HPOA: Pt states that he does have a LW/DPOA and his DPOA is his son Jerry Knight. He is aware that this is not on file at [facility] and he may bring in to be scanned into the chart. LNOK: Jerry Knight, son; Rozina Knight, rachel Living Arrangements: Pt lives alone in a two story house with a couple of steps to enter. Pt reports he is I in ADL's and denies concerns at home. Transportation: Pt states he drives some and his son also transports him to medical appts. Pt denies concerns with transportation. DME/HHC/SNF: Pt has 2 walkers, 2 w/c, 3-4 canes at home. He states he was supposed to have HHC start yesterday and someone was out but he did not know which agency she was from. Pt states his son would know and he would be agreeable to this RN CM calling him to find out. Pt denies hx of SNF stays. Pt states he was first tested for COVID at [facility]. He has family who can provide him with groceries and supplies. Verbally provided pt with a local in network list of DME companies should pt need oxygen upon dc, pt has no preference. Pt states he wants to go home. He is agreeable to having therapy in the home if it is recommended. Pt states no concerns with going home at time of dc. Pt states no further concerns/needs. CM to follow. Advised pt to ask CM if any further question/concerns/needs arise, voices understanding. Pt Goal: Home with resumption of HHC Plan: Home with resumption of HHC and add therapy if he does not already have, follow for home O2.
[2021-09-30] MEDS: 0.9% Normal Saline 1,000 ML 50 ML IV (12:03)
--- NOTE | 2021-09-30 16:31 | CHAPLAIN ---
Type of Pastoral Visit ___ Initial Visit ___ Follow-up Visit ___ On-call Visit ___ General Patient Visit ___ Spiritual Assessment ___ Family Conference ___ Bereavement ___ Rapid Response ___ Code Blue _x__ Other (describe below) Pastoral Care Referral From ___ Patient _x__ Family ___ Nurse ___ Physician ___ Porcelain Turner ___ Emergency Registrar ___ Other (describe below) Sacrament/Intervention ___ Active listening ___ Anointing ___ Amish ___ Bereavement ___ Communion ___ Laura exploration ___ ___ Life review ___ Prayer ___ Reconciliation ___ Sacrament of Sick ___ Supportive presence ___ Wedding _x__ Other (describe below) Pastoral Comments family contacted this manager winter to ask for support for patient; this manager winter sent in a note through the nurse; patient is in isolation room; discussed his care with his nurse and this manager winter will continue to follow condition of pt and be able for service to him
[2021-10-01] VITALS (8 sets, daily range): BP systolic 145–164; BP diastolic 66–81; PULSE 61–97; RESP 18–20; TEMP 36.3–37.7; O2SAT 94–98
[2021-10-01 06:50] LABS: Absolute Lymphocyte Count 0.57 X10^3/uL (0.83-4.51); Absolute Neutrophil Count 6.8 X10^3/uL (2.0-7.7); Basophil# 0.01 X10^3/uL; Basophil% 0.1 % (0-1); Hematocrit 37.2 % (40-54); Hemoglobin 12.2 g/dL (13.0-16.5); Lymphocyte # 0.57 X10^3/ul (0.83-4.51); Mean Corp Hgb Conc 32.8 g/dL (32-36); Mean Corpuscular Hgb 29.2 pg (27.0-32.0); Mean Platelet Vol. 9.7 fl (6.2-12.0); Monocyte# 0.64 X10^3/uL; Monocyte% 7.8 % (0-10); NRBC Flagged by Analyzer 0 % (0-5); Neutrophil # 6.77 X10^3/uL (2.7-7.7); Neutrophil % 82.9 % (47-70); POSITIVE DIFFERENTIAL YES; Platelet Count 199 K/mm3 (150-450); RBC Distribution Width CV 14.3 % (11.6-14.6); RBC Distribution Width SD 46.2 fl (35.1-43.9); Red Blood Count 4.18 M/mm3 (4.6-6.2); White Blood Count 8.2 K/mm3 (4.4-11.0)
[2021-10-01 06:52] LABS: Differential Indicated SCAN CRITERIA MET
[2021-10-01 07:14] LABS: ALB/GLOB Ratio 0.6 RATIO (0.9-2.4); AST(SGOT) 29 U/L (15-37); Alanine Aminotransfer ALT/SGPT 15 U/L (16-61); Albumin, Serum 2.5 g/dL (3.2-5.0); Alkaline Phosphatase 40 U/L (45-117); Anion Gap 7 (5-15); BUN 42 mg/dL (7-18); BUN/Creat Ratio 33.6 RATIO (10-20); Calcium,Total 8.7 mg/dL (8.5-10.1); Chloride 100 mmol/L (98-107); Creatinine, Serum 1.25 mg/dL (0.70-1.30); EST Glomerular Filtration Rate 58 mL/min (>60); Est Glom Filt Rate - Afr Amer 70 mL/min (>60); Estimated Creatinine Clearance 46.56 ml/min; Globulin 4.1 g/dL (2.2-4.2); Glucose 134 mg/dL (74-106); Potassium 4.5 mmol/L (3.5-5.1); Protein, Total 6.6 g/dL (6.4-8.2); Sodium Level 131 mmol/L (136-145)
[2021-10-01 07:16] LABS: Differential Comment SCANNED
--- NOTE | 2021-10-01 10:15 | CASEMGMT ---
WEI BELLA in to pt room to discuss dc planning. Charge nurse made this WEI BELLA aware that pt needed 2-3 people for trf to bed from chair. Discussed this with pt. He states he does feel wobbly when he gets up. Discussed him getting s/t therapy for strengthening prior to returning home. Patient was provided a list of SNF providers including quality and resource use data and consistent with the patient?s preferred geographic region, medical needs, and insurance network. Pt is aware that [facility] is the only facility taking patient's with COVID right now. Pt is agreeable to this. Pt with flat affect and slow to respond. Made pt aware that this WEI BELLA spoke with his son yesterday when HHC was the plan. He would like his son to be aware of s/t facility placement as well. Pt was on his phone scrolling, WEI BELLA asked if he would like to call his son and put him on speaker and we could discuss this. He states he does not want that, he would prefer RN JENA to call him. Notified SW as well.
[2021-10-01] MEDS: Menthol/Lanolin/Calamine/Znox 113 GM Tube 1 APPLIC TOPICAL ×2 (10:22→21:45)
[2021-10-01] MEDS: Tamsulosin HCl 0.4 MG Capsule 0.8 MG PO (10:23)
[2021-10-01] MEDS: Lisinopril 5 MG Tablet PO (10:24)
[2021-10-01] MEDS: Nystatin Powder 15gm Bottle 1 APPLIC TOPICAL ×2 (10:24→21:45)
[2021-10-01] MEDS: guaiFENesin 600 MG Tablet PO ×2 (10:24→21:44)
[2021-10-01] MEDS: Enoxaparin 30 MG/0.3 ML Syringe SC ×2 (10:25→21:44)
[2021-10-01] MEDS: dexAMETHasone 4 MG Tablet 6 MG PO (10:25)
[2021-10-01] MEDS: Metoprolol(XL)Succ 25 MG Tablet PO (10:39)
--- NOTE | 2021-10-01 11:30 | CASEMGMT ---
Addendum entered by Svetlana Leos 10/01/21 13:42: Social Work SW received an email from [facility], she states they can take pt. SW let physician know. SW called son Jerry, let him know pt is accepted but will not be going today. Pt states understanding. [facility] Original Note: Social Work CM had spoken w/pt, he is agreeable to [facility], also agreeable for CM/SW to check w/pt's son to confirm plan. SW called son Jerry Knight, in regard to discharge plan for pt. SW explained to son that pt is not moving very well, reviewed PT notes w/son. SW explained CM did speak w/pt about going somewhere for rehab, and he was agreeable to this. SW explained to son that there is only one facility in the area taking pts with COVID, which is [facility]. Son agreeable to have referral sent. SW did also explain the Medicare coverage benefit for [facility] facility. SW to keep son informed on the referral. SW emailed [facility] and faxed referral, will continue to follow. [facility]
--- NOTE | 2021-10-01 17:03 | PN.HOSP_ITS ---
Subjective Subjective Patient states he is overall feeling okay. He denies any significant shortness of breath. He does however report some intermittent cough. Overall it sounds as if his cough is not particularly problematic for him. He required significant assistance with physical therapy today. He is currently on 3 L of nasal cannula with oxygen saturations in the low to mid 90s. [facility] when he is medically stable and ready. Objective Data Objective Data Vital Signs: Vital Signs Temp Pulse Resp BP Pulse Ox 98.4 F 85 20 H 149/66 H 94 10/01/21 14:06 10/01/21 14:06 10/01/21 14:06 10/01/21 14:06 10/01/21 14:30 Oxygen Flow Rate (L/min) 3 Oxygen Delivery Method Nasal Cannula Weight: 110 kg Body Mass Index (BMI) 32.8 Intake & Output: Intake and Output for Last 24 Hours 09/29/21 09/30/21 10/01/21 23:59 23:59 23:59 Intake Total 1650 / 1650 Balance 1650 / 1650 Lab / Micro Data Result Diagrams: 10/01/21 06:40 10/01/21 06:40 Labs: Laboratory Results - last 24 hr 10/01/21 06:40: WBC 8.2, RBC 4.18 L, Hgb 12.2 L, Hct 37.2 L, MCV 89.0, MCH 29.2, MCHC 32.8, RDW Std Deviation 46.2 H, RDW Coeff of Mansi 14.3, Plt Count 199, MPV 9.7, Immature Gran % (Auto) 2.200 H, Neut % (Auto) 82.9 H, Lymph % (Auto) 7.0 L, [place] % (Auto) 7.8, Eos % (Auto) 0.0, Baso % (Auto) 0.1, Absolute Neuts (auto) 6.8, Absolute Lymphs (auto) 0.57 L, Nucleated RBC % 0, Differential Comment SCANNED 10/01/21 06:40: Sodium 131 L, Potassium 4.5, Chloride 100, Carbon Dioxide 24.0, Anion Gap 7, BUN 42 H, Creatinine 1.25, Estim Creat Clear Calc 46.56, Est GFR (MDRD) Af Amer 70, Est GFR (MDRD) Non-Af 58 L, BUN/Creatinine Ratio 33.6 H, Glucose 134 H, Calcium 8.7, Total Bilirubin 0.30, AST 29, ALT 15 L, Alkaline Phosphatase 40 L, Total Protein 6.6, Albumin 2.5 L, Globulin 4.1, Albumin/Globulin Ratio 0.6 L Micro: Microbiology 09/29/21 19:40 Nasal Secretion SARS-CoV-2 Antigen (Rapid) - Final SARS-CoV-2 (COVID 19) Rhythm Strip Rhythm Strip: Sinus Rhythm Rate: 91 Ectopy: None Physical Exam Const alert, oriented x3 and no apparent distress Constitutional Narrative: Obese elderly white male sitting up in bed watching television, appears comfortable and nontoxic Exam Limitations: no limitations HEENT head/scalp atraumatic, moist oral mucous membranes and oropharynx normal HEENT Narrative: Mallampati 3, no thrush Head and Scalp: normocephalic Resp normal respiratory effort, no retractions, no use of accessory muscles and clear to auscultation bilaterally Resp Narrative: Diffusely diminished but clear Auscultation: Negative for crackles, rales, rhonchi or wheezes Cardio regular rate, regular rhythm, S1 normal heart sound, S2 normal heart sound, no murmurs, no rub, no gallops, no clicks and no JVD GI normal to inspection, nondistended, normoactive bowel sounds, soft to palpation, non-tender and non-distended Extremity no clubbing, cyanosis or edema Peripheral Pulses: Yes pulses 2+ throughout Skin no rashes or lesions noted, no wounds, skin turgor normal, no jaundice, no p etechiae and no mottling Neuro oriented x3, CN's II-XII intact bilaterally, moves all extremities and no focal motor deficits Neuro Narrative: Generalized weakness Sensorium / Orientation: awake, alert, oriented to person, oriented to place and oriented to time Speech: speech normal Assessment & Plan Assessment/Plan (1) Acute respiratory failure with hypoxia: (2) Pneumonia due to COVID-19 virus: (3) Encephalopathy acute: (4) Generalized muscle weakness: (5) Hyponatremia: (6) Elevated d-dimer: PLAN: Acute hypoxic respiratory failure secondary to COVID-19 pneumonia -Symptoms started 09/26/2021 and patient will therefore need isolation until 10/16/2020 -Currently on 3 L nasal cannula--> titrate as needed and wean as able -Patient is unvaccinated -Continue Decadron day 3 of 10 -Family did not want patient to have remdesivir -Patient is not a candidate for monoclonal antibody giving oxygen needs -Continue incentive spirometer and Pep therapy -Mobilization as able -Patient will likely need discharge to facility when he is medically stable Metabolic encephalopathy -Much improved -Patient is currently alert and oriented x3 but responses are somewhat slow sometimes -I suspect slow response time may be related to his poor hearing -Continue to monitor Acute hyponatremia -Sodium levels have improved some since admission -Stable at 131 -Continue to monitor Elevated D-dimer -CTA of chest is negative -Continue empiric prophylactic dose Lovenox Generalized weakness -Continue PT and OT services -Plan currently is for skilled at discharge Hypertension -Continue home lisinopril -Continue home metoprolol -Continue home Aldactone BPH -Continue home Flomax DVT prophylaxis -Continue subcu Lovenox CODE STATUS -Full code however this was unverified on admission will need verified Charges/Coding Visit Charges Inpatient E&M: 09982 Subs Hosp L2
[2021-10-02] VITALS (8 sets, daily range): BP systolic 130–150; BP diastolic 59–79; PULSE 53–93; RESP 18–20; TEMP 36.4–36.7; O2SAT 86–95
[2021-10-02 06:55] LABS: Hemoglobin 11.8 g/dL (13.0-16.5); Mean Corp Hgb Conc 33.7 g/dL (32-36); Mean Corpuscular Hgb 29.1 pg (27.0-32.0); Mean Corpuscular Volume 86.4 fL (80-94); Mean Platelet Vol. 9.9 fl (6.2-12.0); POSITIVE COUNT YES; POSITIVE DIFFERENTIAL YES; POSITIVE MORPHOLOGY YES; Platelet Count 210 K/mm3 (150-450); RBC Distribution Width CV 14.6 % (11.6-14.6); RBC Distribution Width SD 46.4 fl (35.1-43.9); Red Blood Count 4.05 M/mm3 (4.6-6.2); White Blood Count 6.8 K/mm3 (4.4-11.0)
[2021-10-02 07:05] LABS: Differential Indicated MANUAL DIFF
[2021-10-02 07:28] LABS: ALB/GLOB Ratio 0.5 RATIO (0.9-2.4); AST(SGOT) 40 U/L (15-37); Alanine Aminotransfer ALT/SGPT 22 U/L (16-61); Albumin, Serum 2.3 g/dL (3.2-5.0); Alkaline Phosphatase 36 U/L (45-117); Anion Gap 7 (5-15); BUN 39 mg/dL (7-18); Calcium,Total 8.7 mg/dL (8.5-10.1); Chloride 98 mmol/L (98-107); EST Glomerular Filtration Rate 75 mL/min (>60); Est Glom Filt Rate - Afr Amer 91 mL/min (>60); Globulin 4.2 g/dL (2.2-4.2); Glucose 120 mg/dL (74-106); Potassium 4.7 mmol/L (3.5-5.1); Protein, Total 6.5 g/dL (6.4-8.2); Sodium Level 131 mmol/L (136-145)
[2021-10-02 08:20] LABS: Lymphocyte 7 % (19-41); Monocyte 7 % (0-10); Myelocyte 1 % (0-0); Neutrophil-Band 5 % (0-5); Neutrophil-Segmented 80 % (47-70); Platelet Estimate ADEQUATE (ADEQ); Red Cell Morphology NORM C+C NORMAL (NORM C&C); Total Cells Counted 100 (MANUAL DIFF)
[2021-10-02 08:21] LABS: Absolute Lymphocyte Count 0.48 X10^3/uL (0.83-4.51); Absolute Neutrophil Count 5.8 X10^3/uL (2.0-7.7)
[2021-10-02] MEDS: Lisinopril 5 MG Tablet PO (10:18)
[2021-10-02] MEDS: Metoprolol(XL)Succ 25 MG Tablet PO (10:18)
[2021-10-02] MEDS: dexAMETHasone 4 MG Tablet 6 MG PO (10:18)
[2021-10-02] MEDS: Tamsulosin HCl 0.4 MG Capsule 0.8 MG PO (10:18)
[2021-10-02] MEDS: guaiFENesin 600 MG Tablet PO (10:18)
[2021-10-02] MEDS: Enoxaparin 30 MG/0.3 ML Syringe SC (10:19)
[2021-10-02] MEDS: Menthol/Lanolin/Calamine/Znox 113 GM Tube 1 APPLIC TOPICAL (10:19)
[2021-10-02] MEDS: Nystatin Powder 15gm Bottle 1 APPLIC TOPICAL (10:24)
--- NOTE | 2021-10-02 11:45 | PCM.DC.SUM ---
Providers Date of Admission: 09/29/21 Primary Care Physician: Dr. Meño Perea MD Reason For Visit: COVID PNEUMONIA Diagnosis Discharge Diagnosis (1) Acute respiratory failure with hypoxia: Status: Acute Code(s): J96.01 - Acute respiratory failure with hypoxia (2) Pneumonia due to COVID-19 virus: Status: Acute Code(s): U07.1 - COVID-19; J12.82 - Pneumonia due to coronavirus disease 2019 (3) Encephalopathy acute: Status: Acute Code(s): G93.40 - Encephalopathy, unspecified (4) Generalized muscle weakness: Status: Acute Code(s): M62.81 - Muscle weakness (generalized) (5) Hyponatremia: Status: Acute Code(s): E87.1 - Hypo-osmolality and hyponatremia (6) Elevated d-dimer: Status: Acute Code(s): R79.89 - Other specified abnormal findings of blood chemistry Medications at Discharge Home Medications lisinopril 5 mg PO DAILY 09/29/21 metoprolol succinate 25 mg PO DAILY 09/29/21 potassium chloride 10 meq PO DAILY 09/29/21 spironolactone 50 mg PO BID 09/29/21 tadalafil 5 mg PO DAILY 09/29/21 tamsulosin 0.8 mg PO DAILY 09/29/21 dexamethasone 6 mg PO DAILY #6 tab 10/02/21 enoxaparin 30 mg SUBCUT BID #0 ml 10/02/21 guaifenesin [Mucus Relief ER] 600 mg PO BID #0 tab 10/02/21 nystatin [Nyamyc] 1 applic TOPICAL BID #0 g 10/02/21 sennosides-docusate sodium [Stool Softener-Stimulant Laxat] 2 tab PO BID PRN PRN #0 tab 10/02/21 Hospital Course Operations None Procedures None Summary of Care Provided Minutes Spent on Discharge: 36 Hospital Course: Mr. Knight is an 86-year-old white male who presented to the emergency department on 09/29/2020 with a chief complaint of shortness of breath. Upon admission he reported a 4-day history of progressively worsening symptoms that were consistent with Covid. He complained of productive cough, weakness, malaise, and anorexia. Evidently the patient typically lives alone but has been too weak to take care of himself and home health care had been arranged for his day of presentation. On the day he presented to the emergency department he was lethargic and confused. He had not been vaccinated for Covid and family did not want him to receive remdesivir. In the emergency department he was given IV fluids and started on Decadron. Family did ask about monoclonal antibody infusion but unfortunately with him requiring oxygen this was not an option at this time. He was admitted to the medical surgical floor and treated with supportive care including dexamethasone, Mucinex, pulmonary toilet, incentive spirometry, Pep therapy, and DVT prophylaxis. His confusion improved throughout his hospitalization. During his course he required no more than 3 L nasal cannula during his hospitalization and was able to be titrated to 2 L at rest and 3 L with exertion on the day of discharge. He had acute hyponatremia that was mild on admission and stable on discharge at 131. I suspect this is related to his acute COVID-19 infection. His D-dimer was elevated on admission and a CTA of his chest was performed but negative for pulmonary embolism. He was maintained on empiric prophylactic dose Lovenox during his entire hospital course. He was evaluated by physical and occupational therapy services and they deemed him appropriate for skilled therapy at discharge. He was maintained on his home medications and discharged [facility] in stable condition on 10/02/2020. We did recommend vaccination after he is out of quarantine. Patient will acquire quarantine for his COVID-19 infection until 10/16/2020. Discharge diagnoses: Acute hypoxic respiratory failure COVID-19 pneumonia Metabolic encephalopathy-resolved Acute hyponatremia-mild Elevated D-dimer BPH Hypertension Erectile dysfunction Debility Physical Exam Const alert, oriented x3 and no apparent distress Constitutional Narrative: Obese elderly white male sitting up in bed watching television, appears comfortable and nontoxic General Appearance: cooperative, comfortable, well kempt and well developed Exam Limitations: no limitations HEENT normocephalic, head/scalp atraumatic, moist oral mucous membranes and oropharynx normal HEENT Narrative: Extremely hard of hearing Eyes PERRL, EOMs intact bilaterally and conjunctivae normal Eyes Narrative: No scleral icterus Neck no lymphadenopathy, supple and no JVD Neck Narrative: Trachea midline, no thyroid enlargement Resp normal respiratory effort, no retractions, no use of accessory muscles and clear to auscultation bilaterally Resp Narrative: Diffusely diminished but clear Auscultation: Negative for crackles, rales, rhonchi or wheezes Cardio regular rate, regular rhythm, S1 normal heart sound, S2 normal heart sound, no murmurs, no rub, no gallops, no clicks and no JVD GI normal to inspection, nondistended, normoactive bowel sounds, soft to palpation, non-tender and non-distended Extremity no clubbing, cyanosis or edema Skin no rashes or lesions noted, no wounds, skin turgor normal, no jaundice, no petechiae and no mottling Neuro oriented x3, CN's II-XII intact bilaterally, moves all extremities and no focal motor deficits Neuro Narrative: Generalized weakness, exam is limited by hearing loss Sensorium / Orientation: awake and alert Speech: speech normal Psych affect normal Psych Narrative: Appropriate interaction when patient can hear you Weight / BMI Weight Weight: 110 kg Body Mass Index (BMI) 32.8 ABG / Lab / Microbiology Data Result Diagrams: 10/02/21 06:00 10/02/21 06:00 Laboratory: Laboratory Results - last 24 hr 10/02/21 06:00: WBC 6.8, RBC 4.05 L, Hgb 11.8 L, Hct 35.0 L, MCV 86.4, MCH 29.1, MCHC 33.7, RDW Std Deviation 46.4 H, RDW Coeff of Mansi 14.6, Plt Count 210, MPV 9.9, Neut % (Auto) Not Reportable, Absolute Neuts (auto) 5.8, Absolute Lymphs (auto) 0.48 L, Total Counted 100, Neutrophils % (Manual) 80 H, Band Neutrophils % 5, Lymphocytes % (Manual) 7 L, Monocytes % (Manual) 7, Myelocytes % 1 H, Diff Path Review January foll, Platelet Estimate ADEQUATE, RBC Morphology NORM C+C 10/02/21 06:00: Sodium 131 L, Potassium 4.7, Chloride 98, Carbon Dioxide 26.0, Anion Gap 7, BUN 39 H, Creatinine 1.00, Estim Creat Clear Calc 58.20, Est GFR (MDRD) Af Amer 91, Est GFR (MDRD) Non-Af 75, BUN/Creatinine Ratio 39.0 H, Glucose 120 H, Calcium 8.7, Total Bilirubin 0.40, AST 40 H, ALT 22, Alkaline Phosphatase 36 L, Total Protein 6.5, Albumin 2.3 L, Globulin 4.2, Albumin/Globulin Ratio 0.5 L Microbiology: Microbiology 09/29/21 19:40 Nasal Secretion SARS-CoV-2 Antigen (Rapid) - Final SARS-CoV-2 (COVID 19) D/C Instructions Discharge Diet: Low fat / Low cholesterol Discharge Activity: Return to Normal Activity Meaningful Use Info Meaningful Use Diagnoses (Choose all that apply): None applicable Discharge Plan Admission Admit Date/Time: 09/29/21 21:08 Primary Reason for Your Visit: Acute hypoxic respiratory failure secondary to COVID-19 Attending Provider: Suzi Fonseca Primary Care Provider: Meño Perea Instructions Additional Instructions / Restrictions: 1. Patient will need quarantine until 10/16/2020 2. Recommend vaccination once out of quarantine Discharge Orders/Prescriptions Prescriptions: New dexamethasone 4 mg Tablet 6 mg PO DAILY Qty: 6 RF: 0 sennosides-docusate sodium [Stool Softener-Stimulant Laxat] 8.6-50 mg Tablet 2 tab PO BID PRN PRN (Reason: Constipation) Qty: 0 RF: 0 nystatin [Nyamyc] 100,000 unit/gram Powder 1 applic topical BID Qty: 0 RF: 0 enoxaparin 30 mg/0.3 mL Syringe 30 mg subcut BID Qty: 0 RF: 0 guaifenesin [Mucus Relief ER] 600 mg Tablet Extended Release 12hr 600 mg PO BID Qty: 0 RF: 0 Continued tamsulosin 0.4 mg capsule 0.8 mg PO DAILY RF: 0 metoprolol succinate 25 mg tablet extended release 24 hr 25 mg PO DAILY RF: 0 potassium chloride 10 mEq tablet extended release 10 meq PO DAILY RF: 0 lisinopril 5 mg tablet 5 mg PO DAILY RF: 0 spironolactone 50 mg tablet 50 mg PO BID RF: 0 tadalafil 5 mg tablet 5 mg PO DAILY RF: 0 Referrals / Follow Up: Meño Perea MD [Primary Care Provider] - Within 1 Month Disposition Disposition (needs filled in before D/C Order can be placed): Assisted Facility Charges/Coding Visit Charges Inpatient E&M: 37869 SNF Disch >30 Min
--- NOTE | 2021-10-02 11:57 | PCM.TXEXTCAR ---
Diet 09/30/21 14:24 Diet: Regular - General Food consistency:: Regular Liquid Consistency:: Regular/Thin Type of Dietary Supplement:: Ensure Enlive Is pt able to select menu?: No Diet Comments: 8 oz ensure enlive w/ meals tid Routine Orders/Code Status O2 Liters per Minute: 2 at rest and 3 with exertion O2 Frequency: Continuous Keep PO Greater than or Equal to (%): 92 Routine Lab Work: CBC and BMP Code Status: Full Code Wound(s) LEFT BUTTOCK: Wound Type: Pressure Injury RT LOWER EXT: Wound Type: Abrasion Therapies Weight Bearing: Full weight bearing Physical Therapy: Eval and Treat Occupational Therapy: Eval and Treat Problem/Diagnosis (1) Acute respiratory failure with hypoxia: Status: Acute (2) Pneumonia due to COVID-19 virus: Status: Acute (3) Encephalopathy acute: Status: Acute (4) Generalized muscle weakness: Status: Acute (5) Hyponatremia: Status: Acute (6) Elevated d-dimer: Status: Acute Allergies/Procedures Done in Hospital Allergies No Known Allergies Allergy (Verified 09/29/21 18:37) Procedures: None Type of Care/Length of Stay Estimated LOS: Convalescent Care Less Than 30 days Type of Care Needed: Skilled Rehab Potential: Good Prognosis: Good Additional Orders/Day of Discharge Day of Discharge: 10/02/21 Dietary and Speech Recommendations Dietitian Recommendations/Changes: Will liberalize diet to Regular w/ ensure enlive at meals for increased nutrition if consumed Discharge Plan Admission Admit Date/Time: 09/29/21 21:08 Primary Reason for Your Visit: Acute hypoxic respiratory failure secondary to COVID-19 Attending Provider: Suzi Fonseca Primary Care Provider: Mñeo Perea Instructions Additional Instructions / Restrictions: 1. Patient will need quarantine until 10/16/2020 2. Recommend vaccination once out of quarantine Discharge Orders/Prescriptions Prescriptions: New dexamethasone 4 mg Tablet 6 mg PO DAILY Qty: 6 RF: 0 sennosides-docusate sodium [Stool Softener-Stimulant Laxat] 8.6-50 mg Tablet 2 tab PO BID PRN PRN (Reason: Constipation) Qty: 0 RF: 0 nystatin [Nyamyc] 100,000 unit/gram Powder 1 applic topical BID Qty: 0 RF: 0 enoxaparin 30 mg/0.3 mL Syringe 30 mg subcut BID Qty: 0 RF: 0 guaifenesin [Mucus Relief ER] 600 mg Tablet Extended Release 12hr 600 mg PO BID Qty: 0 RF: 0 Continued tamsulosin 0.4 mg capsule 0.8 mg PO DAILY RF: 0 metoprolol succinate 25 mg tablet extended release 24 hr 25 mg PO DAILY RF: 0 potassium chloride 10 mEq tablet extended release 10 meq PO DAILY RF: 0 lisinopril 5 mg tablet 5 mg PO DAILY RF: 0 spironolactone 50 mg tablet 50 mg PO BID RF: 0 tadalafil 5 mg tablet 5 mg PO DAILY RF: 0 Referrals / Follow Up: Meño Perea MD [Primary Care Provider] - Within 1 Month Disposition Disposition (needs filled in before D/C Order can be placed): Shelter Facility
--- NOTE | 2021-10-02 13:35 | CASEMGMT ---
Addendum entered by Svetlana Leos 10/02/21 16:07: Transport was set up for 2:30pm. [facility] Addendum entered by Svetlana Leos 10/02/21 15:22: Social Work Pt did go to [facility], convalescent stay, skilled level of care. [facility] Addendum entered by Svetlana Leos 10/02/21 14:22: Social Work SW did reach [facility], they are aware of pt's pickup time. [facility] Addendum entered by Svetlana Leos 10/02/21 14:13: Social Work SW did leave a message for [facility] both on her work and cell phone, and sent an email letting her know time of pickup. SW tried to call the facility several times and nobody answered the phone. [facility] Original Note: Pt ready for discharge today to [facility]. SW completed hospital exemption, faxed this along with all discharge paperwork to [facility]. MIKEL set up a pm ambulance w/Physicians. MIKEL let pt's son, pt, bedside RN and [facility] know time of pickup. No further needs anticipated. [facility]
[2021-10-03 10:09] LABS: Pathologist Review Reviewed
--- NOTE | 2021-10-03 14:55 | CASEMGMT ---
Social Work SW received a call from pt's daughter, Jia Valladares([phone]). She is concerned about pt's care over at [facility], asking about pt how to get pt to another facility. She states that there are no nurses around, no physician has been in, no therapy has been in to see pt. Daughter states that if pt's other daughter wasn't there ,nobody would even be helping him to eat. She is concerned on whether or not he was ready to leave the hospital. SW offered support to daughter. SW explained that [facility] is the only facility in [facility] taking COVID patients. If family is concerned he is not well medically, they can ask [facility] to send him back to the hospital. Otherwise, [facility] may need to assist them in getting pt into another facility. SW again explained that all of the other facilities are further away, SW explained SW could assist and could give them names of other facilities, but ultimately [facility] will need to help to transfer pt. SW did explain pt and son Jerry were both agreeable to referral to [facility]. SW explained will call [facility] to express family's concerns and let her know what they say. SW called [facility], left a message for [facility] in admissions. SW called back, spoke w/Sangita, the executive services administrator. SW let her know the family's concerns. She is going to go see the pt and daughter Jennifer who is in the room. SW called daughter Jia to let her know that the executive services administrator is going in to see pt and Jennifer. Jia states a nurse practitioner did come in to see pt so they were feeling a little bit better about things at this time. [facility] again reiterated if they feel pt is not medically stable they can request pt be sent back to the hospital. Pt's daughter Jia states understanding. No further needs at this time. SW will speak w/family should they call back. [facility]
== END 2021-10-02 14:42 | disposition skilled nursing facility (03) | DRG 177 ==
LOC: ED 21:23 → MS3 21:47
PROVIDERS: Internal Medicine; Admitting Provider Hospitalist; Emergency Provider Emergency Medicine; PCP Family Medicine; Visit Provider Internal Medicine
DX: U07.1 COVID-19 (principal); J96.01 Acute respiratory failure with hypoxia; J12.82 Pneumonia due to coronavirus disease 2019; G93.41 Metabolic encephalopathy; E87.1 Hypo-osmolality and hyponatremia; I11.0 Hypertensive heart disease with heart failure; I50.9 Heart failure, unspecified; N40.0 Benign prostatic hyperplasia without lower urinary tract symptoms; I51.9 Heart disease, unspecified; Z79.899 Other long term (current) drug therapy
CPT/HCPCS: 36415; 70450; 71045; 71275; 80053; 81001; 82728; 83615; 83735; 84100; 84145; 84484; 85025; 85379; 86140; 87426; 93005; 94762; 97163; 97166; 97530; 97535; 99251; 99285; J7030; Q9967; A4216; G0463; J2405

== ENCOUNTER 2023-05-26 16:41 | Inpatient (IN) | payer MEDICARE, OTHER, SELFPAY ==
[2023-05-26] VITALS (9 sets, daily range): BP systolic 117–223; BP diastolic 56–182; PULSE 69–87; RESP 18–82; TEMP 36.3–36.6; O2SAT 23–98; BMI 39.6; BMI 40.8
--- NOTE | 2023-05-26 16:55 | RAD_ITS ---
INDICATION: Trauma, fall with ankle bruising and swelling EXAMINATION/TECHNIQUE: X-RAY - RIGHT XR Ankle 2 Views 2 VIEWS COMPARISON: None. FINDINGS: SOFT TISSUES: Diffuse ankle swelling. No radiopaque foreign body. BONES/JOINTS: Angulated and displaced fracture of the distal fibula. Mortise joint disrupted with talar tilt and anterolateral displacement of the talus. . No sclerotic or destructive changes observed. RAD/Ankle 2 Views IMPRESSION: Fracture of the distal fibula with disruption of the mortise joint and subluxation of the talus. Electronically Signed: Jered Joshi MD at 17:37 EDT ,
--- NOTE | 2023-05-26 16:57 | ED.VIS.LOWEX ---
HPI History of Present Illness Chief Complaint: Lower Extremity Injury Narrative Narrative: 87-year-old male past medical history of generalized muscle weakness, hypertension, presents with injury to his right ankle that he sustained 2 days ago. He was at home, and walking, and he has the spells where his legs give out from under him. He fell onto his right ankle, straight down. He had an ankle deformity, where x-rays were obtained on Wednesday, last evening around 7 PM. According to his daughter, we got the report and sent him to the emergency department for further evaluation and treatment. He has been unable to get out of bed because of the right ankle deformity. He denies actually striking his head or loss of consciousness from his fall on Wednesday. He has been taking Tylenol for pain which he usually takes 2 tablets daily. He presents because additionally he only gets 2 hours of home health care at a time. He will most likely need admission for rehab after his ankle injury. [facility] Medical History Anemia Chronic pain Elevated d-dimer Heart failure Hypertension Pneumonia due to COVID-19 virus Home Medications lisinopril 5 mg tablet 5 mg PO DAILY 09/29/21 [History Last Taken Unknown] metoprolol succinate 25 mg tablet,extended release 24 hr 25 mg PO DAILY 09/29/21 [History Last Taken Unknown] potassium chloride 10 mEq tablet,extended release 10 meq PO DAILY 09/29/21 [History Last Taken Unknown] spironolactone 50 mg tablet 50 mg PO BID 09/29/21 [History Last Taken Unknown] tadalafil 5 mg tablet 5 mg PO DAILY 09/29/21 [History Last Taken Unknown] tamsulosin 0.4 mg capsule 0.8 mg PO DAILY 09/29/21 [History Last Taken Unknown] dexamethasone 4 mg tablet 6 mg (1.5 x 4 mg) PO DAILY #6 tabs 10/02/21 [Rx Last Taken Unknown] enoxaparin 30 mg/0.3 mL subcutaneous syringe 30 mg (0.3 mL) subcut BID #0 mL 10/02/21 [Rx Last Taken Unknown] guaifenesin 600 mg tablet, extended release 12 hr (Mucus Relief ER) 600 mg PO BID #0 tabs 10/02/21 [Rx Last Taken Unknown] nystatin 100,000 unit/gram topical powder (Nyamyc) 1 applic topical BID #0 grams 10/02/21 [Rx Last Taken Unknown] sennosides 8.6 mg-docusate sodium 50 mg tablet (Stool Softener-Stimulant Laxative) 2 tab PO BID PRN PRN Constipation #0 tabs 10/02/21 [Rx Last Taken Unknown] Allergy/AdvReac Type Severity Reaction Status Date / Time No Known Allergies Allergy Verified 09/29/21 18:37 Family History Other Brain tumor Heart disease Surgical History H/O knee surgery History of hip surgery Previous back surgery Social History Smoking Status: Never smoker ROS ROS ED ROS Narrative Constitutional: No fever, no chills. HEENT: No sore throat. No neck pain. No loss of vision. No rhinorrhea. Cardiovascular: No chest pain. No palpitations. No pedal edema. Respiratory: No cough, no shortness of breath. Abdominal: No abdominal pain. No nausea. No vomiting. Genitourinary: No dysuria. No hematuria. Musculoskeletal: No myalgias. Right ankle pain and deformity. Neurologic: No headaches. No dizziness. No lightheadedness. Skin: No rash. No change in color. Psychiatric: No depression. No anxiety. EXAM Physical Exam Narrative Exam Narrative: Afebrile. Vital signs noted. HEENT: Normocephalic. Atraumatic. PERRL, EOMI. Neck soft and supple. No point tenderness or step off. Cardiovascular: Regular rate and rhythm. No murmurs, rubs, or gallops appreciated. Respiratory: No tachypnea. Lungs clear to auscultation bilaterally. Gastrointestinal: Abdomen soft, nontender, with normoactive bowel sounds. No rebound or guarding. Neurological: Awake. Alert. Nonfocal, nonlateralizing. Skin: No rash. Normal color. No pallor. Musculoskeletal: No pedal edema. Right lower extremity with Donta splint, mild edema. Positive ecchymosis and fracture blisters. Positive deformity with external rotation of right ankle. Onychial mycosis Const Vital Signs: 08/30/23 16:41 05/26/23 18:03 05/26/23 18:05 Temperature 97.4 F L Temperature Source Temporal Pulse Rate 87 84 Pulse Rate [1] 78 Pulse Rate [2] 74 Pulse Rate [3] 76 Respiratory Rate 18 18 Respiratory Rate [1] 82 H Respiratory Rate [2] 23 H Respiratory Rate [3] 21 H Blood Pressure 125/61 H 147/135 H Blood Pressure [2] 175/130 H Blood Pressure [3] 193/176 H Blood Pressure Mean 82 Pulse Ox 93 95 Oxygen Delivery Method Room Air Room Air Oxygen Delivery Method [1] Nasal Cannula Oxygen Delivery Method [2] Nasal Cannula Oxygen Delivery Method [3] Room Air Oxygen Flow Rate (L/min) [1] 91 Oxygen Flow Rate (L/min) [2] 3 05/26/23 18:17 05/26/23 18:22 05/26/23 18:27 Temperature Temperature Source Pulse Rate Pulse Rate [1] Pulse Rate [2] Pulse Rate [3] Respiratory Rate Respiratory Rate [1] Respiratory Rate [2] Respiratory Rate [3] Blood Pressure Blood Pressure [2] Blood Pressure [3] Blood Pressure Mean Pulse Ox Oxygen Delivery Method Room Air Room Air Room Air Oxygen Delivery Method [1] Oxygen Delivery Method [2] Oxygen Delivery Method [3] Oxygen Flow Rate (L/min) [1] Oxygen Flow Rate (L/min) [2] 05/26/23 18:37 Temperature Temperature Source Pulse Rate 69 Pulse Rate [1] Pulse Rate [2] Pulse Rate [3] Respiratory Rate 18 Respiratory Rate [1] Respiratory Rate [2] Respiratory Rate [3] Blood Pressure 130/73 H Blood Pressure [2] Blood Pressure [3] Blood Pressure Mean 92 Pulse Ox Oxygen Delivery Method Oxygen Delivery Method [1] Oxygen Delivery Method [2] Oxygen Delivery Method [3] Oxygen Flow Rate (L/min) [1] Oxygen Flow Rate (L/min) [2] MDM MDM MDM Narrative Medical decision making narrative: Patient given a [place] tablet for analgesia. I reviewed the x-ray report on his daughter's telephone which shows a distal fibula fracture and questionable ankle mortise widening. His splint will be taken off as it is a temporary splint, and x-rays obtained again. I also obtain baseline laboratories and chest x-ray in the event that orthopedics is consulted and he needs to be admitted for placement afterwards if he is to have surgery as an inpatient. I reviewed the patient's laboratory work, he has normal white count of 10.2, hemoglobin stable at 11.1 with hematocrit 33.8, platelet count normal at 199. While sodium is slightly low at 133, he was administered IV fluids. BUN of 25 and creatinine at 1.45 which seems to be chronic for him. Glucose is appropriately elevated at 134 with a normal anion gap of 6. High-sensitivity troponin is normal at 9. EKG was obtained and interpreted by myself independently as normal sinus rhythm at 84 bpm without ectopy or acute ST changes. No STEMI. No significant change from EKG dated September 29, 2021. Chest x-ray in 1 view presurgical was obtained and interpreted by myself as no evidence of an acute process, no consolidation or pneumothorax. I reviewed the radiology report which confirms my independent interpretation. I did remove his splint initially and obtained x-rays of the right ankle in 3 views. On my interpretation there is fracture dislocation with fracture of the distal fibula and displacement of the talus. I reviewed the radiology report which confirms my independent interpretation. I discussed the patient with Dr. Elias with podiatry who is present in the ED. Procedural sedation will be performed and patient placed in a sugar-tong and posterior splint using Ortho-Glass with the aid of Dr. Elias. See procedure notes for details. I reviewed and interpreted his postreduction x-rays and 3 views of the right ankle which shows near anatomical alignment and he is now in a splint. He was examined pre and post splint and remains neurovascularly intact. At this point in time, given his need for admission and surgery, patient was discussed with Dr. Quesada for admission to the medical surgical floor. Patient is in stable condition. History & Record Review Discussion w/independent historian: Patient and Family Additional record(s) reviewed:: Prior ED visit Lab Data Attestation: I reviewed the patient's lab results. Labs: Laboratory Results - last 24 hr 05/26/23 17:10 WBC 10.2 RBC 3.53 L Hgb 11.1 L Hct 33.8 L MCV 95.8 H MCH 31.4 MCHC 32.8 RDW Std Deviation 51.3 H RDW Coeff of Mansi 14.6 Plt Count 199 MPV 10.6 Immature Gran % (Auto) 1.700 H Neut % (Auto) 71.3 H Lymph % (Auto) 15.6 L [place] % (Auto) 8.3 Eos % (Auto) 2.8 Baso % (Auto) 0.3 Absolute Neuts (auto) 7.3 Absolute Lymphs (auto) 1.60 Nucleated RBC % 0 Sodium 133 L Potassium 4.5 Chloride 98 Carbon Dioxide 29.0 Anion Gap 6 BUN 25 H Creatinine 1.45 H Estim Creat Clear Calc 37.06 Est GFR (MDRD) Af Amer 59 L Est GFR (MDRD) Non-Af 49 L BUN/Creatinine Ratio 17.2 Glucose 134 H Calcium 8.9 Troponin I High Sens 9 Radiography Diagnostic Testing: Clinical Impression(s) from Imaging Studies Ankle X-Ray 05/26/23 16:55 IMPRESSION: Fracture of the distal fibula with disruption of the mortise joint and subluxation of the talus. Electronically Signed: Jered Joshi MD at 17:37 EDT Reading Location ID and State: [facility] later [facility] / [place] Tel , Service support , Chest X-Ray 05/26/23 17:23 IMPRESSION: Rotated study without acute consolidative process. Cardiomegaly. Electronically Signed: Jered Joshi MD at 17:39 EDT Reading Location ID and State: [facility] / [place] Tel , Service support , Ankle X-Ray 05/26/23 18:18 IMPRESSION: Examination in splint with near anatomic reduction of the distal fibular fracture and the mortise joint. Small cortical avulsion fracture of the posterior tibial articular surface and likely of the medial aspect of the talus. Electronically Signed: Jered Joshi MD at 18:30 EDT Reading Location ID and State: [facility] / [place] Tel , Service support , Procedures Lower Extremity Splints Lower Extremity Splint: Orthoglass and Stirrup (With posterior portion) Splint Fabrication: Fabricated Location: Right Procedural Sedation Closed Reduction: Consent Signed: Yes Any Problems With Anesthesia: No You/Your family experience fever (hyperthermia) w/anesthesia: Unknown Sedation medication: Propofol Dose: 90 Route: IV Total Moderate Sedation Units: 11 Maliampati Score: Class III ASA Classification: III Discharge Plan Triage Chief Complaint: Lower Extremity Injury ED Provider: Jesús Healy Dx/Rx/DC Orders Primary Care Provider: Meño Perea
[2023-05-26] MEDS: HYDROcodone Bitartrate/Apap 5/325 Tablet PO (17:17)
--- NOTE | 2023-05-26 17:23 | RAD_ITS ---
INDICATION: CAD EXAMINATION/TECHNIQUE: X-RAY - portable upright AP chest x-ray COMPARISON: 09/29/2021 FINDINGS: LINES/DEVICES: None. LUNGS: Patient significantly rotated. No consolidation, vascular congestion or pleural effusion. MEDIASTINUM AND CARDIOVASCULAR STRUCTURES: Enlargement of the cardiac silhouette. Mediastinum distorted by marked rotation. BONES AND SOFT TISSUES: Unremarkable. RAD/Chest 1 View (Portable) IMPRESSION: Rotated study without acute consolidative process. Cardiomegaly. Electronically Signed: Jered Joshi MD at 17:39 EDT ,
[2023-05-26 17:26] LABS: Absolute Neutrophil Count 7.3 X10^3/uL (2.0-7.7); Basophil# 0.03 X10^3/uL; Basophil% 0.3 % (0-1); Eosinophil# 0.29 X10^3/uL; Eosinophils% 2.8 % (0-5); Hematocrit 33.8 % (40-54); Hemoglobin 11.1 g/dL (13.0-16.5); Lymphocyte % 15.6 % (19-41); Mean Corp Hgb Conc 32.8 g/dL (32-36); Mean Corpuscular Hgb 31.4 pg (27.0-32.0); Mean Corpuscular Volume 95.8 fL (80-94); Mean Platelet Vol. 10.6 fl (6.2-12.0); Monocyte# 0.85 X10^3/uL; Monocyte% 8.3 % (0-10); NRBC Flagged by Analyzer 0 % (0-5); Neutrophil # 7.29 X10^3/uL (2.7-7.7); Neutrophil % 71.3 % (47-70); Platelet Count 199 K/mm3 (150-450); RBC Distribution Width CV 14.6 % (11.6-14.6); RBC Distribution Width SD 51.3 fl (35.1-43.9); Red Blood Count 3.53 M/mm3 (4.6-6.2); White Blood Count 10.2 K/mm3 (4.4-11.0)
[2023-05-26] MEDS: Morphine 4 MG/ML Syringe IV (17:39)
[2023-05-26 17:47] LABS: Anion Gap 6 (5-15); BUN 25 mg/dL (7-18); BUN/Creat Ratio 17.2 RATIO (10-20); Calcium,Total 8.9 mg/dL (8.5-10.1); Chloride 98 mmol/L (98-107); Creatinine, Serum 1.45 mg/dL (0.70-1.30); EST Glomerular Filtration Rate 49 mL/min (>60); Est Glom Filt Rate - Afr Amer 59 mL/min (>60); Estimated Creatinine Clearance 37.06 ml/min; Glucose 134 mg/dL (74-106); Potassium 4.5 mmol/L (3.5-5.1); Sodium Level 133 mmol/L (136-145); Troponin-I HS 9 pg/mL (3.0-78.0)
[2023-05-26] MEDS: Propofol 200 MG/20 ML Vial 20 MG IV BOLUS (18:00)
--- NOTE | 2023-05-26 18:18 | RAD_ITS ---
INDICATION: post reduction EXAMINATION/TECHNIQUE: X-RAY - RIGHT XR Ankle Min 3 Views 3 VIEWS COMPARISON: Right ankle series earlier same day FINDINGS: 3 views of the right ankle obtained in a fiberglass splint which overlies and obscures fine bony detail show near anatomic reduction of the distal fibular fracture with decreased lateral subluxation of the talus. Lateral view shows nondisplaced cortical avulsion fracture of the posterior articular surface of the tibia. Small osseous fragments are present medial to the talus. RAD/Ankle min 3 Views IMPRESSION: Examination in splint with near anatomic reduction of the distal fibular fracture and the mortise joint. Small cortical avulsion fracture of the posterior tibial articular surface and likely of the medial aspect of the talus. Electronically Signed: Jered Joshi MD at 18:30 EDT ,
--- NOTE | 2023-05-26 18:49 | PCM.CONS.GEN ---
Assessment & Plan Assessment/Plan (1) Fracture dislocation of right ankle joint: QUALIFIERS: Encounter type: initial encounter Fracture type: closed Qualified Code(s): S82.891A - Other fracture of right lower leg, initial encounter for closed fracture PLAN: Patient was examined and evaluated. All findings were discussed with the patient. All questions were answered to the patient's satisfaction. Patient was seen and interviewed in the emergency department. Patient was educated on his dislocated ankle fracture to the right lower extremity and the need for close reduction while in the emergency room. Patient and his daughter were understanding. Chart review and consent signed for closed reduction under sedation. Close reduction of the right lower extremity dislocated ankle was performed, a well-padded posterior and sugar-tong splint was applied and postreduction films were obtained. Postreduction films show the talus to be sitting into the tibia and the fibula to be out to length. The medial malleolus has been reduced and not tenting the skin. Patient will be admitted under medicine and podiatry, Dr. Elias will be consulted for application external fixator. Please clear the patient medically with all available risks. I will plan to take the patient Wednesday for delta frame application, right lower extremity. Please reach out to Dr. Elias with any questions or concerns. Thank you for the consult! (2) Closed fibular fracture: QUALIFIERS: Encounter type: initial encounter Fibula location: distal Fracture morphology: other fracture Laterality: right Qualified Code(s): S82.831A - Other fracture of upper and lower end of right fibula, initial encounter for closed fracture (3) Partial tear of ligament of lateral aspect of ankle: (4) Tear of deltoid ligament of ankle: QUALIFIERS: Encounter type: initial encounter Laterality: right Qualified Code(s): S93.421A - Sprain of deltoid ligament of right ankle, initial encounter (5) Syndesmotic disruption of right ankle: QUALIFIERS: Encounter type: initial encounter Qualified Code(s): S93.431A - Sprain of tibiofibular ligament of right ankle, initial encounter HPI Consult Data Date of Consult: 05/26/23 HPI Narrative Reason for Consultation: Dislocated ankle fracture, right HPI Narrative: HARINI AUGUSTE, is a 87 M who presents To the emergency department at [facility] has a past medical history of generalized weakness, hypertension. Patient states that he injured his right ankle 2 days ago and presents today with his daughter for evaluation. Patient states he slipped and fell in his bathroom and when he tried to get back up and walk he can only walk a few steps without having extreme pain. He admits that his legs give out from time to time causing him to fall. Per the patient's daughter she states he falls about 1 time per month. Patient was aware that he had ankle deformity, he was seen on Wednesday where he had x-rays and was told to follow-up to the emergency department for further evaluation and treatment. Since the injury the patient has been unable to get out of bed and walk secondary to pain. He has been treating his pain with Tylenol. He also admits that he gets additional 2 hours of home care per day. He denies constitutional symptoms. No other pedal complaints at this time. [facility] Medical History Anemia Chronic pain Elevated d-dimer Heart failure Hypertension Pneumonia due to COVID-19 virus Home Medications lisinopril 5 mg tablet 5 mg PO DAILY 09/29/21 [History Last Taken Unknown] metoprolol succinate 25 mg tablet,extended release 24 hr 25 mg PO DAILY 09/29/21 [History Last Taken Unknown] potassium chloride 10 mEq tablet,extended release 10 meq PO DAILY 09/29/21 [History Last Taken Unknown] spironolactone 50 mg tablet 50 mg PO BID 09/29/21 [History Last Taken Unknown] tadalafil 5 mg tablet 5 mg PO DAILY 09/29/21 [History Last Taken Unknown] tamsulosin 0.4 mg capsule 0.8 mg PO DAILY 09/29/21 [History Last Taken Unknown] dexamethasone 4 mg tablet 6 mg (1.5 x 4 mg) PO DAILY #6 tabs 10/02/21 [Rx Last Taken Unknown] enoxaparin 30 mg/0.3 mL subcutaneous syringe 30 mg (0.3 mL) subcut BID #0 mL 10/02/21 [Rx Last Taken Unknown] guaifenesin 600 mg tablet, extended release 12 hr (Mucus Relief ER) 600 mg PO BID #0 tabs 10/02/21 [Rx Last Taken Unknown] nystatin 100,000 unit/gram topical powder (Nyamyc) 1 applic topical BID #0 grams 10/02/21 [Rx Last Taken Unknown] sennosides 8.6 mg-docusate sodium 50 mg tablet (Stool Softener-Stimulant Laxative) 2 tab PO BID PRN PRN Constipation #0 tabs 10/02/21 [Rx Last Taken Unknown] Allergy/AdvReac Type Severity Reaction Status Date / Time No Known Allergies Allergy Verified 09/29/21 18:37 Family History Other Brain tumor Heart disease Surgical History H/O knee surgery History of hip surgery Previous back surgery Social History Smoking Status: Never smoker Physical Exam Narrative Vascular: DP and PT pulses are faintly palpable secondary to edema. CFT is brisk. Erythema and ecchymosis present to the right ankle. Neurological: Light touch and epicritic station is intact. Patient reacts to painful stimuli. Dermatological: Nonpitting edema appreciated to the right lower extremity. Evidence of ecchymosis and erythema to the medial malleolus. No ecchymosis or erythema appreciated to the lateral malleolus. Evidence of skin necrosis appreciated medially to the ankle of the right lower extremity secondary to skin tenting. No evidence of ecchymosis appreciated to the plantar foot. Hemorrhagic fracture blisters appreciated medially. No evidence of open wound to the right lower extremity. Musculoskeletal: Muscle strength is deferred secondary to dislocated ankle of the right lower extremity. Pain on palpation to the fibula and medial malleolus. Active and passive range of motion of the digits is present without pain. No pain with calf compression. Lab / Micro Data 05/26/23 17:10 05/26/23 17:10 Labs: Laboratory Results - last 24 hr 05/26/23 17:10: WBC 10.2, RBC 3.53 L, Hgb 11.1 L, Hct 33.8 L, MCV 95.8 H, MCH 31.4, MCHC 32.8, RDW Std Deviation 51.3 H, RDW Coeff of Mansi 14.6, Plt Count 199, MPV 10.6, Immature Gran % (Auto) 1.700 H, Neut % (Auto) 71.3 H, Lymph % (Auto) 15.6 L, [place] % (Auto) 8.3, Eos % (Auto) 2.8, Baso % (Auto) 0.3, Absolute Neuts (auto) 7.3, Absolute Lymphs (auto) 1.60, Nucleated RBC % 0, Sodium 133 L, Potassium 4.5, Chloride 98, Carbon Dioxide 29.0, Anion Gap 6, BUN 25 H, Creatinine 1.45 H, Estim Creat Clear Calc 37.06, Est GFR (MDRD) Af Amer 59 L, Est GFR (MDRD) Non-Af 49 L, BUN/Creatinine Ratio 17.2, Glucose 134 H, Calcium 8.9, Troponin I High Sens 9 Radiology Impression Ankle X-Ray 05/26/23 16:55 IMPRESSION: Fracture of the distal fibula with disruption of the mortise joint and subluxation of the talus. Electronically Signed: Jered Joshi MD at 17:37 EDT Reading Location ID and State: [facility] / [place] Tel , Service support , Chest X-Ray 05/26/23 17:23 IMPRESSION: Rotated study without acute consolidative process. Cardiomegaly. Electronically Signed: Jered Joshi MD at 17:39 EDT Reading Location ID and State: [facility] / [place] Tel , Service support , Ankle X-Ray 05/26/23 18:18 IMPRESSION: Examination in splint with near anatomic reduction of the distal fibular fracture and the mortise joint. Small cortical avulsion fracture of the posterior tibial articular surface and likely of the medial aspect of the talus. Electronically Signed: Jered Joshi MD at 18:30 EDT Reading Location ID and State: [facility] / [place] Tel , Service support ,
--- NOTE | 2023-05-26 19:45 | HP.PCM.HOS_ITS ---
HPI - General General Date of Admission: 05/26/23 Date of Service: 05/26/23 Chief Complaint: Right ankle fracture HPI Narrative HARINI AUGUSTE, is a 87 M with a significant history of heart disease on spironolactone; Furosemide and tadalafil; and hypertension who presents to the emergency department with fracture of his right ankle. Of note patient has home health services for few hours per day. Of note 2 days ago he fell and injured his right ankle. Outpatient x-ray showed right ankle fracture. Patient's PCP sent patient to the emergency department because of the reports of the x-ray showing fracture. At the emergency department patient was seen by podiatry and his right ankle was splinted. Patient will be admitted socially and on Wednesday has a surgery where a frame would be placed on his right ankle. [facility] Medical History Anemia Chronic pain Elevated d-dimer Heart failure Hypertension Pneumonia due to COVID-19 virus Home Medications lisinopril 5 mg tablet 5 mg PO DAILY htn 09/29/21 [History Last Taken Unknown] metoprolol succinate 25 mg tablet,extended release 24 hr 12.5 mg PO DAILY htn 09/29/21 [History Last Taken Unknown] potassium chloride 10 mEq tablet,extended release 10 meq PO DAILY supplement 09/29/21 [History Last Taken Unknown] spironolactone 50 mg tablet 50 mg PO BID diur 09/29/21 [History Last Taken Unknown] tadalafil 5 mg tablet 2.5 mg PO DAILY bp 09/29/21 [History Last Taken Unknown] tamsulosin 0.4 mg capsule 0.8 mg PO DAILY urine 09/29/21 [History Last Taken Unknown] acetaminophen 650 mg tablet,extended release (8 Hour Pain Reliever) 650 mg PO Q12H PRN pain 05/26/23 [History Last Taken Unknown] famotidine 20 mg tablet (Acid Controller) 20 mg PO BID gi 05/26/23 [History Last Taken Unknown] furosemide 40 mg tablet 80 mg PO DAILY diuretic 05/26/23 [History Last Taken Unknown] sennosides 8.6 mg-docusate sodium 50 mg tablet (Stool Softener-Stimulant Laxative) 2 tab PO DAILY Constipation 05/26/23 [History Last Taken Unknown] Allergy/AdvReac Type Severity Reaction Status Date / Time No Known Allergies Allergy Verified 09/29/21 18:37 Family History Other Brain tumor Heart disease Surgical History H/O knee surgery History of hip surgery Previous back surgery Social History Smoking Status: Never smoker ROS ROS Narrative Pertinent positives and pertinent negatives as noted in HPI. All other systems were reviewed and are negative Vital Signs Vital Signs Vital Signs: 05/26/23 16:41 05/26/23 18:03 05/26/23 18:05 Temperature 97.4 F L Temperature Source Temporal Pulse Rate 87 84 Pulse Rate [1] 78 Pulse Rate [2] 74 Pulse Rate [3] 76 Respiratory Rate 18 18 Respiratory Rate [1] 82 H Respiratory Rate [2] 23 H Respiratory Rate [3] 21 H Blood Pressure 125/61 H 147/135 H Blood Pressure [2] 175/130 H Blood Pressure [3] 193/176 H Blood Pressure Mean 82 Pulse Ox 93 95 Oxygen Delivery Method Room Air Room Air Oxygen Delivery Method [1] Nasal Cannula Oxygen Delivery Method [2] Nasal Cannula Oxygen Delivery Method [3] Room Air Oxygen Flow Rate (L/min) [1] 91 Oxygen Flow Rate (L/min) [2] 3 05/26/23 18:17 05/26/23 18:22 05/26/23 18:27 Temperature Temperature Source Pulse Rate Pulse Rate [1] Pulse Rate [2] Pulse Rate [3] Respiratory Rate Respiratory Rate [1] Respiratory Rate [2] Respiratory Rate [3] Blood Pressure Blood Pressure [2] Blood Pressure [3] Blood Pressure Mean Pulse Ox Oxygen Delivery Method Room Air Room Air Room Air Oxygen Delivery Method [1] Oxygen Delivery Method [2] Oxygen Delivery Method [3] Oxygen Flow Rate (L/min) [1] Oxygen Flow Rate (L/min) [2] 05/26/23 18:37 Temperature Temperature Source Pulse Rate 69 Pulse Rate [1] Pulse Rate [2] Pulse Rate [3] Respiratory Rate 18 Respiratory Rate [1] Respiratory Rate [2] Respiratory Rate [3] Blood Pressure 130/73 H Blood Pressure [2] Blood Pressure [3] Blood Pressure Mean 92 Pulse Ox Oxygen Delivery Method Oxygen Delivery Method [1] Oxygen Delivery Method [2] Oxygen Delivery Method [3] Oxygen Flow Rate (L/min) [1] Oxygen Flow Rate (L/min) [2] Weight Weight: 125.5 kg Body Mass Index (BMI) 39.6 Physical Exam Narrative Physical exam: General: Well-nourished, well-developed. Head: Normocephalic, atraumatic, no tenderness Eyes: Vision is grossly intact. EOMI ENT, no trauma, moist mucous membranes, no rhinorrhea Neck: Nontender, No thyromegaly. CVS: Regular rate and rhythm. S1-S2 present. No murmur, gallop or rub. Respiratory : clear to auscultation bilaterally, chest wall nontender Abdomen: Soft, nontender, nondistended, normal bowel sounds, no masses : Deferred Back: Nontender, no CVA tenderness, no midline spinal tenderness, deformities, step-offs Extremities: Right lower leg and ankle in splint. Left lower leg and ankle without splint. Edema of left foot. Skin: Normal color, no trauma, abrasions Neuro: Alert, oriented, cranial nerves II through XII grossly intact. Psychiatry: Normal mood. Normal affect. Not depressed. Not anxious. Results Lab / Micro Data 05/26/23 17:10 05/26/23 17:10 Labs: Laboratory Results - last 24 hr 05/26/23 17:10: WBC 10.2, RBC 3.53 L, Hgb 11.1 L, Hct 33.8 L, MCV 95.8 H, MCH 31.4, MCHC 32.8, RDW Std Deviation 51.3 H, RDW Coeff of Mansi 14.6, Plt Count 199, MPV 10.6, Immature Gran % (Auto) 1.700 H, Neut % (Auto) 71.3 H, Lymph % (Auto) 15.6 L, [place] % (Auto) 8.3, Eos % (Auto) 2.8, Baso % (Auto) 0.3, Absolute Neuts (auto) 7.3, Absolute Lymphs (auto) 1.60, Nucleated RBC % 0, Sodium 133 L, Potassium 4.5, Chloride 98, Carbon Dioxide 29.0, Anion Gap 6, BUN 25 H, Creatinine 1.45 H, Estim Creat Clear Calc 37.06, Est GFR (MDRD) Af Amer 59 L, Est GFR (MDRD) Non-Af 49 L, BUN/Creatinine Ratio 17.2, Glucose 134 H, Calcium 8.9, Troponin I High Sens 9 Radiology Impression Ankle X-Ray 05/26/23 16:55 IMPRESSION: Fracture of the distal fibula with disruption of the mortise joint and subluxation of the talus. Electronically Signed: Jered Joshi MD at 17:37 EDT , Chest X-Ray 05/26/23 17:23 IMPRESSION: Rotated study without acute consolidative process. Cardiomegaly. Electronically Signed: Jered Joshi MD at 17:39 EDT , Ankle X-Ray 05/26/23 18:18 IMPRESSION: Examination in splint with near anatomic reduction of the distal fibular fracture and the mortise joint. Small cortical avulsion fracture of the posterior tibial articular surface and likely of the medial aspect of the talus. Electronically Signed: Jered Joshi MD at 18:30 EDT , Assessment & Plan Assessment/Plan (1) Inability to ambulate due to ankle or foot: (2) Closed fibular fracture: QUALIFIERS: Encounter type: initial encounter Fibula location: distal Fracture morphology: other fracture Laterality: right Qualified Code(s): S82.831A - Other fracture of upper and lower end of right fibula, initial encounter for closed fracture (3) Fracture dislocation of right ankle joint: QUALIFIERS: Encounter type: initial encounter Fracture type: closed Qualified Code(s): S82.891A - Other fracture of right lower leg, initial encounter for closed fracture PLAN: Plan Acute Fracture dislocation of right ankle Ankle x-ray at the emergency department showed distal fibula with disruption of the mortise joint and subluxation of the talus. Interpreted by radiology. X-ray image was also interpreted by hospitalist, I agree. Splinted at the emergency department by podiatry and with a plan for podiatry to go back and put a frame on ankle on 05/28/2023. PRN Tylenol; as needed oxycodone and as needed morphine ordered for pain with parameters. Bowel protocol and antiemetics in place. Preoperative surgical evaluation: EKG showed sinus rhythm with no ST or T wave abnormalities. Check vitamin D level. Troponin is negative ACS NSQIP surgical risk calculator with above average cardiopulmonary risk and other complications for intense ankle surgery with intubation. Without intubation and for light ankle procedure his risk will be significantly lower. 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 BUN is 25. BUN over creatinine 17.2. Hold home diuretics. Hold lisinopril. IV fluids was considered but hold off at this time. Trend BMP. Hyponatremia Chronic Trend BMP. Hypertension Blood pressure is not within goal Home blood pressure medication continued.Home Blood pressure medications with nephrotoxic effect held. As needed hydralazine ordered. Trend blood pressure and adjust blood pressure medications. Chronic heart failure Unclear whether systolic or diastolic. Stable Hold Furosemide, lisinopril and Aldactone for JESÚS. DVT prophylaxis Subcutaneous Lovenox ordered. Time spent in the patient's overall evaluation,decision-making process, review of diagnostic data, adjustment of management, discussion with other providers, nursing nursing and ancillary staff involved in patient's care documentation, 65 minutes. Charges/Coding Visit Charges Inpatient E&M: 46548 Init Hosp L3
[2023-05-26] MEDS: oxyCODONE 5 MG Tablet PO (21:14)
[2023-05-26] MEDS: Acetaminophen 325 MG Tablet 650 MG PO (21:15)
[2023-05-27 04:07] VITALS: BP 113/51; PULSE 69; RESP 17; TEMP 36.7; O2SAT 95
--- NOTE | 2023-05-27 06:00 | EKG12_ITS ---
Test Reason : Blood Pressure : / mmHG Vent. Rate : 084 BPM Atrial Rate : 084 BPM P-R Int : 170 ms QRS Dur : 088 ms QT Int : 364 ms P-R-T Axes : 046 -34 067 degrees QTc Int : 430 ms Normal sinus rhythm Left axis deviation Abnormal ECG Confirmed by FEROZ BUNN ([id number]), sports editor MARCI OROZCO ([id number]) on 06/10/2023 12:01:44 PM Referred By: Confirmed By:FEROZ BUNN
--- NOTE | 2023-05-27 06:53 | PCM.PROGNOTE ---
Subjective Subjective Mr. Knight is a 87-year-old male seen at bedside today for evaluation status post closed reduction of the right lower extremity dislocated ankle fracture. Patient admits to minimal pain at time of interview. He states that he still impressed how we were able to reposition his foot under the leg. The posterior splint is left clean dry and intact. Patient is resting comfortably. He denies any constitutional symptoms. No other pedal complaints at this time. Objective Data Objective Data Vital Signs: Vital Signs Temp Pulse Resp BP Pulse Ox O2 Del Method O2 Flow Rate 98.1 F 69 17 113/51 L 95 Room Air 3 05/27/23 04:07 05/27/23 04:07 05/27/23 04:07 05/27/23 04:07 05/27/23 04:07 05/27/23 04:07 05/26/23 18:05 Oxygen Flow Rate (L/min) [1] 91 Oxygen Flow Rate (L/min) [2] 3 Oxygen Delivery Method [1] Nasal Cannula Oxygen Delivery Method [3] Room Air Oxygen Delivery Method [2] Nasal Cannula Oxygen Delivery Method Room Air Weight: 129.075 kg Body Mass Index (BMI) 40.8 Intake & Output: Intake and Output for Last 24 Hours 05/25/23 05/26/23 05/27/23 23:59 23:59 23:59 Intake Total 240 / 240 Output Total 200 / 200 Balance 40 / 40 Lab / Micro Data Attestation: I reviewed the patient's lab results. 05/27/23 06:30 05/27/23 06:30 Labs: Laboratory Results - last 24 hr 05/26/23 17:10: WBC 10.2, RBC 3.53 L, Hgb 11.1 L, Hct 33.8 L, MCV 95.8 H, MCH 31.4, MCHC 32.8, RDW Std Deviation 51.3 H, RDW Coeff of Mansi 14.6, Plt Count 199, MPV 10.6, Immature Gran % (Auto) 1.700 H, Neut % (Auto) 71.3 H, Lymph % (Auto) 15.6 L, [place] % (Auto) 8.3, Eos % (Auto) 2.8, Baso % (Auto) 0.3, Absolute Neuts (auto) 7.3, Absolute Lymphs (auto) 1.60, Nucleated RBC % 0, Sodium 133 L, Potassium 4.5, Chloride 98, Carbon Dioxide 29.0, Anion Gap 6, BUN 25 H, Creatinine 1.45 H, Estim Creat Clear Calc 37.06, Est GFR (MDRD) Af Amer 59 L, Est GFR (MDRD) Non-Af 49 L, BUN/Creatinine Ratio 17.2, Glucose 134 H, Calcium 8.9, Troponin I High Sens 9 Radiography Diagnostic Testing: Radiology Impression Ankle X-Ray 05/26/23 16:55 IMPRESSION: Fracture of the distal fibula with disruption of the mortise joint and subluxation of the talus. Electronically Signed: Jered Joshi MD at 17:37 EDT , Chest X-Ray 05/26/23 17:23 IMPRESSION: Rotated study without acute consolidative process. Cardiomegaly. Electronically Signed: Jered Joshi MD at 17:39 EDT , Ankle X-Ray 05/26/23 18:18 IMPRESSION: Examination in splint with near anatomic reduction of the distal fibular fracture and the mortise joint. Small cortical avulsion fracture of the posterior tibial articular surface and likely of the medial aspect of the talus. Electronically Signed: Jered Joshi MD at 18:30 EDT , Physical Exam Narrative Vascular: DP and PT pulses are triphasic on Doppler to the left lower extremity, DP and PT pulses are biphasic on Doppler to the right lower extremity. CFT is brisk to all digits bilateral. Nonpitting edema is appreciated bilateral. Nonpitting edema with hemosiderin deposits appreciated bilateral. Neurological: Light touch and epicritic sensation is intact bilateral. Dermatological: Nonpitting edema appreciated bilateral lower extremity. Toenails 1 through 5 are thickened, elongated, discolored with evidence of subungual debris's at. No strikethrough to the right lower extremity posterior splint. Musculoskeletal: Mild pain to palpation to toenails 1 through 5 bilateral. Active and passive range of motion is present with some pain. No pain with calf compression bilateral. Const alert, oriented x3 and no apparent distress Assessment & Plan Assessment/Plan (1) Fracture dislocation of right ankle joint: QUALIFIERS: Encounter type: initial encounter Fracture type: closed Qualified Code(s): S82.891A - Other fracture of right lower leg, initial encounter for closed fracture PLAN: Patient was examined evaluated. All findings were discussed with the patient. All questions were answered to the patient satisfaction. Leave right lower extremity posterior splint clean dry and intact and continue to elevate. We will order TY hose for the left lower extremity. Delta frame application to right lower extremity will be Wednesday. Patient is cleared by medicine. Patient to be n.p.o. at midnight tonight. We will either do the procedure under monitored anesthesia care or LMA per anesthesia protocol. Risk and benefits discussed with the patient and he would like to move forward with the procedure. After surgery we will recommend TCU placement if the patient is eligible. Patient is grateful for his care. I will continue to follow while patient is in house. Please reach out to Dr. Elias with any questions or concerns. Thank you for letting me be involved in the patient's care! (2) Closed fibular fracture: QUALIFIERS: Encounter type: initial encounter Fibula location: distal Fracture morphology: other fracture Laterality: right Qualified Code(s): S82.831A - Other fracture of upper and lower end of right fibula, initial encounter for closed fracture (3) Partial tear of ligament of lateral aspect of ankle: (4) Tear of deltoid ligament of ankle: QUALIFIERS: Encounter type: initial encounter Laterality: right Qualified Code(s): S93.421A - Sprain of deltoid ligament of right ankle, initial encounter (5) Syndesmotic disruption of right ankle: QUALIFIERS: Encounter type: initial encounter Qualified Code(s): S93.431A - Sprain of tibiofibular ligament of right ankle, initial encounter (6) Inability to ambulate due to ankle or foot: (7) Tinea unguium: PLAN: Toenails 1 through 5 bilateral debrided down to normal levels with sterile double-action nail nipper without incident. Patient expressed great relief after debridement.
[2023-05-27 06:56] LABS: Absolute Neutrophil Count 7.1 X10^3/uL (2.0-7.7); Basophil# 0.04 X10^3/uL; Basophil% 0.4 % (0-1); Eosinophil# 0.26 X10^3/uL; Eosinophils% 2.6 % (0-5); Hematocrit 31.7 % (40-54); Hemoglobin 9.8 g/dL (13.0-16.5); Mean Corp Hgb Conc 30.9 g/dL (32-36); Mean Corpuscular Hgb 29.8 pg (27.0-32.0); Mean Corpuscular Volume 96.4 fL (80-94); Mean Platelet Vol. 10.8 fl (6.2-12.0); Monocyte# 0.98 X10^3/uL; Monocyte% 9.8 % (0-10); NRBC Flagged by Analyzer 0 % (0-5); Neutrophil # 7.07 X10^3/uL (2.7-7.7); Platelet Count 188 K/mm3 (150-450); RBC Distribution Width CV 14.3 % (11.6-14.6); RBC Distribution Width SD 50.7 fl (35.1-43.9); Red Blood Count 3.29 M/mm3 (4.6-6.2)
[2023-05-27 07:20] LABS: Anion Gap 5 (5-15); BUN 24 mg/dL (7-18); BUN/Creat Ratio 18.8 RATIO (10-20); Calcium,Total 8.7 mg/dL (8.5-10.1); Chloride 100 mmol/L (98-107); Creatinine, Serum 1.28 mg/dL (0.70-1.30); EST Glomerular Filtration Rate 56 mL/min (>60); Est Glom Filt Rate - Afr Amer 68 mL/min (>60); Estimated Creatinine Clearance 41.98 ml/min; Glucose 102 mg/dL (74-106); Potassium 4.4 mmol/L (3.5-5.1); Sodium Level 133 mmol/L (136-145)
--- NOTE | 2023-05-27 08:11 | CT_ITS ---
STUDY: CT RIGHT ANKLE WITHOUT CONTRAST REASON FOR EXAM: Male, 87 years old. Right ankle fracture RADIATION DOSAGE (If Supplied By Facility): CTDIvol = ( 15.35 ) mGy, DLP = ( 388.30 ) mGycm TECHNIQUE: Thin section transaxial imaging of the ankle was obtained, with sagittal and coronal reconstructed images. Individualized dose optimization techniques were used for this CT. COMPARISON: X-ray of the right ankle dated May 26, 2023 FINDINGS: Redemonstration of acute oblique fracture through the most distal shaft of the fibula with mild displacement. An acute oblique corner fractures also present at the posterior distal aspect of the tibia/malleolus. There is also mild lateral subluxation of the talus in relation to the tibial plafond and abnormal widening of the medial clear space up to 5.7 mm. No additional acute fractures of the ankle or midfoot bony structures are present. The bony structures are moderately demineralized. Mild degenerative changes are present throughout the tarsal bones and at the TMT articulations. Mild to moderate soft tissue swelling is present in the lower leg and ankle and included portions of the foot. There is significant fatty atrophy of the muscles of the right lower extremity. Moderate atherosclerotic calcifications are also present. A large plantar calcaneal spur is present with fragmentation and thickening of the underlying plantar fascia of the central cord. The Achilles tendon is grossly intact. Normal tibiotalar articulation and talar dome. CT/Extremity Lower without Contra IMPRESSION: 1. Redemonstration of acute oblique fracture through the most distal shaft of the fibula with mild displacement. An acute oblique corner fractures also present at the posterior distal aspect of the tibia/malleolus. 2. There is also mild lateral subluxation of the talus in relation to the tibial plafond and abnormal widening of the medial clear space up to 5.7 mm. No additional acute fractures of the ankle or midfoot bony structures are present. Electronically Signed: Viktor Olson MD at 10:49 EDT ,
[2023-05-27 08:33] LABS: Vitamin D,25 Hydroxy 47.1 ng/mL
[2023-05-27 10:00] VITALS: BP 129/52; PULSE 86; RESP 18; TEMP 36.8; O2SAT 94
[2023-05-27] MEDS: Enoxaparin 40 MG/0.4 ML Syringe SC (10:01)
[2023-05-27] MEDS: Tamsulosin HCl 0.4 MG Capsule 0.8 MG PO (10:02)
[2023-05-27 10:03] VITALS: PULSE 86
[2023-05-27] MEDS: Metoprolol(XL)Succ 25 MG Tablet 12.5 MG PO (10:03)
[2023-05-27] MEDS: TADALAFIL 5 MG 2.5 MG PO (10:03)
[2023-05-27] MEDS: Famotidine 20 MG Tablet PO (10:04)
[2023-05-27] MEDS: Senna/Docusate Sodium 1 Tablet 2 TABLET PO (10:04)
[2023-05-27 11:11] VITALS: O2SAT 95
--- NOTE | 2023-05-27 12:45 | CASEMGMT ---
WEI BELLA Assessment: Face to Face with pt for initial transition planning/care coordination assessment. WEI BELLA introduced self and role at [facility], pt voices understanding and consents to assessment. Pt is A/O x4 and answers all questions appropriately at this time. Pt sitting up in bed in no distress. Care providers, pharmacy, and demographics verified/updated. Admitting Dx: ankle fracture, inability to ambulate PCP:Brit Specialists:laura Elias [facility]acy: [facility] Insurance: [facility] Prescription Benefit: yes LNOK: Jerry Knight, son; Rozina Knight, rachel Living Arrangements: Pt lives alone in a two story home with ramps to enter. Pt states he has an aide for bathing, preparation of some meals and she does some laundry. Pt dtr obtains groceries for pt. Pt denies concerns at home but states that he cannot return home after this surgery. Transportation: Pt does not drive. Pt son transports him to medical appts. DME/HHC/SNF: Pt has grab bars in the bathroom, cane, FWW that he typically uses and shower chair. Pt has [employer] aides 3x/wk for 2 hours per day that he pays privately for. Pt is also active with [facility] for therapy. Pt has been to [facility] in the past. Pt states he is interested in a list of options for SNF. States he does not feel he can manage at home post surgery. Pt states he did like [facility] though. Pt states no further concerns/needs. CM to follow. Advised pt to ask CM if any further question/concerns/needs arise, voices understanding. Pt Goal: SNF Plan: SNF, updated SW
[2023-05-27 14:48] LABS: Bacteria 0 SEEN /hpf (None Seen); Mucous, Urine 0 SEEN /hpf (<or=2+); Red Blood Cells-Urine 0 SEEN /hpf (0-5); Squamous Epithelial Cells - UA 0 SEEN /hpf (0-5)
[2023-05-27 15:00] LABS: Color, Urine Yellow (Yellow); Glucose, Dipstick Normal (Normal); Ketone-Dipstick Negative (Negative); Leukocyte Esterase-Dipstick 25 /ul (Negative); Nitrite-Dipstick Negative (Negative); Occult Blood-Urine Negative /ul (Negative); Protein-Dipstick 15 mg/dl (Negative); Urine Bilirubin Dipstick Negative (Negative); Urine Clarity Clear (Clear); Urine Urobilinogen Normal (Normal)
[2023-05-27] MEDS: Ensure Plus High Protein 120 ML LIQUID PO (15:00)
[2023-05-27 15:07] LABS: White Blood Cells 0-5 SEEN /hpf (0-5)
[2023-05-27 15:08] VITALS: BP 121/62; PULSE 88; RESP 18; TEMP 37.2; O2SAT 95
--- NOTE | 2023-05-27 15:28 | CASEMGMT ---
Social Work SW spoke with pt regarding advance directives. Pt is uncertain if he has completed these documents and is not interested in completing at this time. SW provided pt with a AD rack card and information on advance directives. Pt aware SW can assist with documents if he chooses. JAMIE Escalante
--- NOTE | 2023-05-27 15:32 | CASEMGMT ---
Social Work SW received referral from physician and RNCM that pt will need SNF at time of dc. SW met with pt and introduced self and role of SW. SW spoke with pt about discharge plan. Surgery scheduled for Wednesday with a follow up surgery in two weeks. Pt is unable to return home alone after initial surgery. A list of SNF providers including quality and resource use data and consistent with the patient?s preferred geographic region, medical needs, and insurance network were provided from the [employer] Guide. Pt preferred provider is [facility]. MIKEL spoke with Olive in TCU and notified of pt's wishes. Pt will be reviewed after he has surgery and therapy. Plan: TCU, pending acceptance JAMIE Escalante
--- NOTE | 2023-05-27 16:03 | PCM.PN.HOSP ---
Reason for Visit Reason for Visit: Diagnoses Difficulty in walking, not elsewhere classified (05/26/23) Other fracture of upper and lower end of right fibula, initial encounter for closed fracture (05/26/23) Other fracture of right lower leg, initial encounter for closed fracture (05/26/23) Sprain of deltoid ligament of right ankle, initial encounter (05/26/23) Sprain of tibiofibular ligament of right ankle, initial encounter (05/26/23) Sprain of other ligament of unspecified ankle, initial encounter (05/26/23) Subjective Subjective Patient was seen and examined today, explained to him that he would have to go to a [facility] facility in between his 2 ankle surgeries, he is due to have ankle surgery tomorrow and then will be brought back in approximately 2 weeks for another surgery. I talked with podiatric surgery about his care today. Objective Data Objective Data Vital Signs: Vital Signs Temp Pulse Resp BP Pulse Ox O2 Del Method O2 Flow Rate 98.9 F 88 18 121/62 H 95 Room Air 3 05/27/23 15:08 05/27/23 15:08 05/27/23 15:08 05/27/23 15:08 05/27/23 15:08 05/27/23 15:08 05/26/23 18:05 Oxygen Flow Rate (L/min) [1] 91 Oxygen Flow Rate (L/min) [2] 3 Oxygen Delivery Method [1] Nasal Cannula Oxygen Delivery Method [3] Room Air Oxygen Delivery Method [2] Nasal Cannula Oxygen Delivery Method Room Air Weight: 129.075 kg Body Mass Index (BMI) 40.8 Intake & Output: Intake and Output for Last 24 Hours 05/25/23 05/26/23 05/27/23 23:59 23:59 23:59 Intake Total 240 / 240 Output Total 200 / 200 Balance 40 / 40 Lab / Micro Data 05/27/23 06:30 05/27/23 06:30 Labs: Laboratory Results - last 24 hr 05/26/23 17:10: WBC 10.2, RBC 3.53 L, Hgb 11.1 L, Hct 33.8 L, MCV 95.8 H, MCH 31.4, MCHC 32.8, RDW Std Deviation 51.3 H, RDW Coeff of Mansi 14.6, Plt Count 199, MPV 10.6, Immature Gran % (Auto) 1.700 H, Neut % (Auto) 71.3 H, Lymph % (Auto) 15.6 L, [place] % (Auto) 8.3, Eos % (Auto) 2.8, Baso % (Auto) 0.3, Absolute Neuts (auto) 7.3, Absolute Lymphs (auto) 1.60, Nucleated RBC % 0, Sodium 133 L, Potassium 4.5, Chloride 98, Carbon Dioxide 29.0, Anion Gap 6, BUN 25 H, Creatinine 1.45 H, Estim Creat Clear Calc 37.06, Est GFR (MDRD) Af Amer 59 L, Est GFR (MDRD) Non-Af 49 L, BUN/Creatinine Ratio 17.2, Glucose 134 H, Calcium 8.9, Troponin I High Sens 9 05/27/23 06:30: WBC 10.0, RBC 3.29 L, Hgb 9.8 L, Hct 31.7 L, MCV 96.4 H, MCH 29.8, MCHC 30.9 L D, RDW Std Deviation 50.7 H, RDW Coeff of Mansi 14.3, Plt Count 188, MPV 10.8, Immature Gran % (Auto) 2.200 H, Neut % (Auto) 71.0 H, Lymph % (Auto) 14.0 L, [place] % (Auto) 9.8, Eos % (Auto) 2.6, Baso % (Auto) 0.4, Absolute Neuts (auto) 7.1, Absolute Lymphs (auto) 1.40, Nucleated RBC % 0, Sodium 133 L, Potassium 4.4, Chloride 100, Carbon Dioxide 28.0, Anion Gap 5, BUN 24 H, Creatinine 1.28, Estim Creat Clear Calc 41.98, Est GFR (MDRD) Af Amer 68, Est GFR (MDRD) Non-Af 56 L, BUN/Creatinine Ratio 18.8, Glucose 102, Calcium 8.7, Vitamin D 25-Hydroxy 47.1 05/27/23 14:30: Urine Color Yellow, Urine Clarity Clear, Urine pH 6.0, Ur Specific [place] 1.020, Urine Protein 15 H, Urine Glucose (UA) Normal, Urine Ketones Negative, Urine Occult Blood Negative, Urine Nitrite Negative, Urine Bilirubin Negative, Urine Urobilinogen Normal, Ur Leukocyte Esterase 25 H, Urine RBC 0 SEEN, Urine WBC 0-5 SEEN, Ur Squamous Epith Cells 0 SEEN, Urine Bacteria 0 SEEN, Urine Mucus 0 SEEN Radiography Diagnostic Testing: Radiology Impression Ankle X-Ray 05/26/23 16:55 IMPRESSION: Fracture of the distal fibula with disruption of the mortise joint and subluxation of the talus. Electronically Signed: Jered Joshi MD at 17:37 EDT , Chest X-Ray 05/26/23 17:23 IMPRESSION: Rotated study without acute consolidative process. Cardiomegaly. Electronically Signed: Jered Joshi MD at 17:39 EDT , Ankle X-Ray 05/26/23 18:18 IMPRESSION: Examination in splint with near anatomic reduction of the distal fibular fracture and the mortise joint. Small cortical avulsion fracture of the posterior tibial articular surface and likely of the medial aspect of the talus. Electronically Signed: Jered Joshi MD at 18:30 EDT , Lower Extremity CT 05/27/23 08:11 IMPRESSION: 1. Redemonstration of acute oblique fracture through the most distal shaft of the fibula with mild displacement. An acute oblique corner fractures also present at the posterior distal aspect of the tibia/malleolus. 2. There is also mild lateral subluxation of the talus in relation to the tibial plafond and abnormal widening of the medial clear space up to 5.7 mm. No additional acute fractures of the ankle or midfoot bony structures are present. Electronically Signed: Viktor Olson MD at 10:49 EDT , Physical Exam Const alert, oriented x3 and no apparent distress Constitutional Narrative: Patient is morbidly obese, he appears younger than his stated age General Appearance: cooperative, well kempt and well developed Orientation / Consciousness: awake, oriented to person and oriented to place HEENT normocephalic, head/scalp atraumatic and moist oral mucous membranes Eyes PERRL, EOMs intact bilaterally and conjunctivae normal Neck supple, no JVD, thyroid normal and no carotid bruits General: trachea midline Resp normal respiratory effort, no retractions, no use of accessory muscles and clear to auscultation bilaterally Auscultation: Negative for rales, rhonchi or wheezes Cardio regular rate, regular rhythm, S1 normal heart sound, S2 normal heart sound, no murmurs, no rub and no gallops GI normal to inspection, nondistended, normoactive bowel sounds, soft to palpation, non-tender and non-distended Extremity no clubbing, cyanosis or edema Skin no rashes or lesions noted General Skin Exam: no breakdown Neuro oriented x3, CN's II-XII intact bilaterally, no focal motor deficits and no sensory deficits noted Sensorium / Orientation: awake, alert, oriented to person and oriented to place Speech: speech normal Psych affect normal Assessment & Plan Assessment/Plan (1) Closed fibular fracture: QUALIFIERS: Encounter type: initial encounter Fibula location: distal Fracture morphology: other fracture Laterality: right Qualified Code(s): S82.831A - Other fracture of upper and lower end of right fibula, initial encounter for closed fracture PLAN: Plan #1 fracture dislocation of right ankle joint-patient will undergo delta frame application to right lower extremity on Wednesday, according to podiatry he will need an additional surgery in approximately 2 weeks. Fracture care per podiatry. Patient will need to undergo a staged surgical repair. Patient had a fracture of the distal fibula with disruption of the mortise joint and subluxation of the talus. He will need an external fixator placed. #2 closed fibular fracture-management per podiatric surgery #3 syndesmotic disruption of the right ankle-management per podiatric surgery #4 essential hypertension-patient will remain on lisinopril, furosemide, and metoprolol, blood pressure will be monitored, evaluated, assessed, and treated #5 chronic congestive heart failure with preserved ejection fraction-patient will remain on spironolactone, Lasix, metoprolol, and lisinopril, monitor, evaluate, assess and treat #6 morbid obesity-complicates care, medical course, recovery, and prognosis Total clinical time spent by myself addressing the patient's medical issues, reviewing the data, and collaborating with patient's care team: 35 minutes Charges/Coding Visit Charges Inpatient E&M: 03712 Subs Hosp L2
[2023-05-27 21:08] VITALS: BP 141/72; PULSE 72; RESP 16; TEMP 37; O2SAT 95
[2023-05-28] VITALS (12 sets, daily range): BP systolic 103–136; BP diastolic 48–90; PULSE 63–81; RESP 16–18; TEMP 36.3–36.8; O2SAT 93–100
[2023-05-28] MEDS: Morphine 4 MG/ML Syringe IV (04:59)
--- NOTE | 2023-05-28 11:57 | NURSING ---
pt off floor for surgery
[2023-05-28] MEDS: Lactated Ringers 1,000 ML 15 ML IV (12:36)
[2023-05-28] MEDS: Bupivacaine Mpf 0.5% 30 ML VIAL (13:04)
--- NOTE | 2023-05-28 13:25 | RAD_ITS ---
STUDY: X-RAY - RIGHT ANKLE REASON FOR EXAM: Male, 87 years old presents for documentation radiation use during placement of an external fixator. TECHNIQUE: AP and lateral view(s) of the ankle. COMPARISON: Preoperative radiographs of the right ankle dated May 26, 2023. FINDINGS: There is persistent displaced spiral fracture of the distal fibular diaphysis. Distal tibia is within normal limits in appearance. Soft tissue swelling. Total exposure time: 30 seconds. Total Air Kerma (mGy): 0.76. RAD/Ankle 2 Views IMPRESSION: Documentation of fluoroscopic use during placement of external fixator. Electronically Signed: Kalpana Goldberg MD at 16:53 EDT ,
--- NOTE | 2023-05-28 15:01 | PCM.OPRPT ---
Problems Associated Problem List Diagnoses (1) Fracture dislocation of right ankle joint: (2) Closed fibular fracture: (3) Syndesmotic disruption of right ankle: Report of Operation Date of Procedure: 05/28/23 Pre-Operative Diagnosis: Dislocated ankle fracture, right lower extremity Post-Operative Diagnosis: Dislocated ankle fracture, right lower extremity Surgery/Procedure Performed:: Application of external fixator, dislocated right lower extremity ankle fracture Description of Surgical Findings:: The right lower extremity fibula was maintained in the coronal and sagittal planes with application of external fixator. Adequate application of the external fixator to the right lower extremity, with the right foot maintained in a rectus position. Surgeon: Seb Elias canceling and cutting control clerk: None canceling and cutting control clerk: Jackson Patel Type of Anesthesia: Block,Regional and Spinal/Supplemental Anesthesiologist: Dm Barbosa Special Medications: None Specimen's removed: None Drains: None Estimated Blood Loss (mL): 10 cc Fluids Replaced: 115 mL Description of Procedure: Indications For Operation: Mr. Graff is a 87-year-old male who was seen in the emergency room on 05/26/2023 for dislocated right lower extremity ankle fracture. Patient's initial injury was at home while in his bathroom where he slipped and fell breaking his ankle, date of initial injury was 05/24/2023. Prior to his arrival he was seen by his outside provider who had taken x-rays and ordered the patient to follow-up at the emergency department for further evaluation and admission secondary to his dislocated ankle fracture. Once the patient was in the hospital/emergency department he was evaluated and had his right lower extremity closed reduced and splinted by the emergency team as well as podiatry, Dr. Elias. Patient was then admitted to the hospital for medical management and medical clearance to go under a staged procedure, stage I being application of external fixator followed by stage II, open reduction internal fixation right ankle fracture once the soft tissue envelope on the right lower extremity is viable for incision placement. Due to the nature of the patient's dislocated fracture and soft tissue and MD necessary at this time to take the patient to the operating room for application of external fixator to the right lower extremity. The nature of the problem, anticipated procedures, postop recovery/imbalances and risk/complications include but not limited to infection, wound healing complications, hypertrophic scarring, numbness, tingling, chronic pain, CRPS, over and under correction, recurrence of deformity, DVT and or PE and the need for further surgery have been discussed in great detail with the patient. All questions have been answered to the patient's satisfaction. There are no guarantees given as to the outcome of the procedure. Description of Procedure: The patient was identified in the preoperative holding area, chart reviewed and consent signed. The right leg was identified and marked at the surgical site of the patient. Under mild sedation the patient was taken to the operating room where he was transferred to the operating table in supine position, the patient was placed in a hunched over position for the anesthesia team to administer spinal anesthesia. He received 3 g of Ancef for antibiotic prophylaxis. A 10 cc saphenous block to the right lower extremity was administered using 0.5% Marcaine plain. A time-out was then undertaken verifying the correct patient, extremity, visibility of preoperative markings, availability of the equipment, and administration of the preoperative antibiotics. No tourniquet was used. Once verified by the surgeon, anesthesia and the circulating personnel, the right lower extremity was prepped and draped in normal aseptic fashion. At this point, intraoperative fluoroscopy was used to identify the fracture site as well as the ankle and the appropriate starting point in the tibia. Following identification, 2 5mm Schanz pins were placed in the tibia bi-cortically, which were checked under fluoroscopy. Next, using fluoroscopy the appropriate starting point on calcaneus was used for the transcalcaneal crossing pin. Once identified, a single central threaded calcaneal pin was placed across the calcaneus parallel to the joint surface. After placement of all the pins, external fixator/frame was then applied and traction with attempts to get and hold the distal fibular fracture out to length. It was noted and checked with fluoroscopy that the fracture fragment/fibula was in adequate position in the sagittal and coronal planes, external fixator apparatus was then locked in place with the manufactures T-handle and per the grinder brake lining's recommendations. X-ray images were taken to verify correct placement of the hardware and adequate alignment of the fracture again. The excess of the Schanz pins were then cut with a sterile pin cutter and blue caps were placed over the blunt ends. The proximal stab incision was closed with 3-0 nylon in simple interrupted suture technique. The Schanz pin and calcaneal crossing pin sits were dressed with Betadine soaked gauze, dry sterile dressing, web roll, the posterior splint reapplied and secured in place with two 4 inch Himanshu bandages. The patient tolerated the procedure and spinal anesthesia well and parent satisfied condition and was transported to the PACU for the morning prior to discharge back to the floor. Vital signs stable and vascular status intact all digits bilateral. Need for skilled family service assistant: Jackson Patel DPM was critical to the outcome of the case. During the course of the procedure the family service assistant physician played a vital role. His intimate knowledge of my steps in the procedure aided in safe and expedient completion of the procedure. The family service assistant surgeon played a vital role in positioning particularly in obtaining the appropriate positioning. The family service assistant surgeon was also vital in the retraction of soft tissues during the exposure and protecting vital structures when needed. The surgeon was also vital and obtaining fracture reduction and assisting with hardware placement throughout the case. Post Operative Plan: Weightbearing: Nonweightbearing operative extremity Antibiotics: 3 g Ancef x 1 dose given preoperatively DVT Prophylaxis: Lovenox 40 mg daily [place]: None Dressing: External fixator, maintain splint, keep it clean dry and intact. X-Rays: Post-operative films taken on the operating room. Pain Medication: Acetaminophen 650 mg, Oxycodone 5 mg PRN, Morphine 4 mg IV Q4H PRN Follow-up: Social work for discharge planning. Recommend TCU placement Grafts/Implants Used: None Procedure Start Time: 13:45 Procedure Stop Time: 14:15 Complications None Admit VTE Documentation VTE Present on Admission: Yes VTE Mechan Device Prophylaxis: SCD's VTE Pharm Prophylaxis ordered?: Yes
[2023-05-28] MEDS: Acetaminophen 325 MG Tablet 650 MG PO (17:04)
--- NOTE | 2023-05-28 18:59 | CASEMGMT ---
Social Work Checked throughout the day on patient's status for surgery. As surgery was in the afternoon, PT/OT could not be ordered until later in the day. Olive in [facility] is aware of referral but unable to start determination process on acceptance until after PT/OT evaluations are done. Handoff to for Wednesday regarding need to message Olive when evaluations are in. As this is the weekend time frame, this may impact when receive an answer about admission acceptance. Plan: Pending referral to [facility]. -MARTHA Kiser
--- NOTE | 2023-05-28 19:14 | PCM.PN.HOSP ---
Reason for Visit Reason for Visit: Diagnoses Tinea unguium (05/26/23) Difficulty in walking, not elsewhere classified (05/26/23) Other fracture of upper and lower end of right fibula, initial encounter for closed fracture (05/26/23) Other fracture of right lower leg, initial encounter for closed fracture (05/26/23) Sprain of deltoid ligament of right ankle, initial encounter (05/26/23) Sprain of tibiofibular ligament of right ankle, initial encounter (05/26/23) Sprain of other ligament of unspecified ankle, initial encounter (05/26/23) Subjective Subjective Patient was seen and examined today prior to his surgery today, he appeared medically stable for surgery. Patient does not complain of any shortness of breath, fever, or chills. Objective Data Objective Data Vital Signs: Vital Signs Temp Pulse Resp BP Pulse Ox O2 Del Method O2 Flow Rate 98.2 F 78 18 130/62 H 99 Room Air 3 05/28/23 18:11 05/28/23 18:11 05/28/23 18:11 05/28/23 18:11 05/28/23 18:11 05/28/23 18:11 05/26/23 18:05 Oxygen Flow Rate (L/min) [1] 91 Oxygen Flow Rate (L/min) [2] 3 Oxygen Delivery Method [1] Nasal Cannula Oxygen Delivery Method [3] Room Air Oxygen Delivery Method [2] Nasal Cannula Oxygen Delivery Method Room Air Weight: 129 kg Body Mass Index (BMI) 40.8 Intake & Output: Intake and Output for Last 24 Hours 05/26/23 05/27/23 05/28/23 23:59 23:59 23:59 Intake Total 240 / 240 480.5 / 480.5 Output Total 200 / 200 350 / 350 Balance 40 / 40 130.5 / 130.5 Lab / Micro Data 05/27/23 06:30 05/27/23 06:30 Radiography Diagnostic Testing: Radiology Impression Ankle X-Ray 05/28/23 13:25 IMPRESSION: Documentation of fluoroscopic use during placement of external fixator. Electronically Signed: Kalpana Goldberg MD at 16:53 EDT , Physical Exam Narrative alert, oriented x3 and no apparent distress Constitutional Narrative: Patient is morbidly obese, he appears younger than his stated age General Appearance: cooperative, well kempt and well developed Orientation / Consciousness: awake, oriented to person and oriented to place HEENT normocephalic, head/scalp atraumatic and moist oral mucous membranes Eyes PERRL, EOMs intact bilaterally and conjunctivae normal Neck supple, no JVD, thyroid normal and no carotid bruits General: trachea midline Resp normal respiratory effort, no retractions, no use of accessory muscles and clear to auscultation bilaterally Auscultation: Negative for rales, rhonchi or wheezes Cardio regular rate, regular rhythm, S1 normal heart sound, S2 normal heart sound, no murmurs, no rub and no gallops GI normal to inspection, nondistended, normoactive bowel sounds, soft to palpation, non-tender and non-distended Extremity no clubbing, cyanosis or edema, right lower extremity has a splint in place Skin no rashes or lesions noted General Skin Exam: no breakdown Neuro oriented x3, CN's II-XII intact bilaterally, no focal motor deficits and no sensory deficits noted Sensorium / Orientation: awake, alert, oriented to person and oriented to place Speech: speech normal Psych affect normal Assessment & Plan Assessment/Plan (1) Closed fibular fracture: QUALIFIERS: Encounter type: initial encounter Fibula location: distal Fracture morphology: other fracture Laterality: right Qualified Code(s): S82.831A - Other fracture of upper and lower end of right fibula, initial encounter for closed fracture PLAN: Plan #1 fracture dislocation of right ankle joint-patient will undergo delta frame application to right lower extremity today, according to podiatry, he will need an additional surgery in approximately 2 weeks. Fracture care per podiatry. Patient will need to undergo a staged surgical repair. Patient had a fracture of the distal fibula with disruption of the mortise joint and subluxation of the talus. He will need an external fixator placed today. #2 closed fibular fracture-management per podiatric surgery #3 syndesmotic disruption of the right ankle-management per podiatric surgery #4 essential hypertension-patient will remain on lisinopril, furosemide, and metoprolol, blood pressure will be monitored, evaluated, assessed, and treated #5 chronic congestive heart failure with preserved ejection fraction-patient will remain on spironolactone, Lasix, metoprolol, and lisinopril, monitor, evaluate, assess and treat #6 morbid obesity-complicates care, medical course, recovery, and prognosis Total clinical time spent by myself addressing the patient's medical issues, reviewing the data, and collaborating with patient's care team: 25 minutes Charges/Coding Visit Charges Inpatient E&M: 18252 [facility] Hosp L1
[2023-05-28] MEDS: oxyCODONE 5 MG Tablet PO (21:08)
[2023-05-29] VITALS (9 sets, daily range): BP systolic 107–149; BP diastolic 52–78; PULSE 77–87; RESP 16–20; TEMP 36.6–37.2; O2SAT 88–99
[2023-05-29] MEDS: oxyCODONE 5 MG Tablet PO ×3 (03:11→18:00)
[2023-05-29] MEDS: Ensure Plus High Protein 120 ML LIQUID PO ×2 (09:33→17:57)
[2023-05-29] MEDS: Tamsulosin HCl 0.4 MG Capsule 0.8 MG PO (09:35)
[2023-05-29] MEDS: Metoprolol(XL)Succ 25 MG Tablet 12.5 MG PO (09:35)
[2023-05-29] MEDS: Enoxaparin 40 MG/0.4 ML Syringe SC (09:35)
[2023-05-29] MEDS: Famotidine 20 MG Tablet PO (09:36)
[2023-05-29] MEDS: TADALAFIL 5 MG 2.5 MG PO (09:38)
[2023-05-29] MEDS: Senna/Docusate Sodium 1 Tablet 2 TABLET PO (09:40)
[2023-05-29] MEDS: Lisinopril 5 MG Tablet PO (09:44)
[2023-05-29] MEDS: Potassium Chloride Oral Tablet 10 MEQ PO (09:44)
[2023-05-29] MEDS: Furosemide 80 MG Tablet PO (09:45)
[2023-05-29] MEDS: Acetaminophen 325 MG Tablet 650 MG PO ×2 (09:52→18:01)
--- NOTE | 2023-05-29 12:42 | PCM.PN.SRG ---
Subjective Subjective Mr. Graff is a 87-year-old male seen at bedside today. Patient is status post application of external fixator to right lower extremity. Date of surgery was 05/28/2023. Patient is recovering well. He admits to minimal pain except with movement of the right lower extremity. Patient admits to voiding and passing gas. He is negative for bowel movement. He denies any nausea, vomiting, fever, chills, diarrhea, shortness of breath and/or chest pain. No other pedal complaints at this time. Objective Data Objective Data Vital Signs: Vital Signs Temp Pulse Resp BP Pulse Ox O2 Del Method O2 Flow Rate 98.9 F 84 17 149/67 H 93 Room Air 3 05/29/23 09:30 05/29/23 09:35 05/29/23 09:30 05/29/23 09:30 05/29/23 09:30 05/29/23 09:30 05/26/23 18:05 Oxygen Flow Rate (L/min) [1] 91 Oxygen Flow Rate (L/min) [2] 3 Oxygen Delivery Method [1] Nasal Cannula Oxygen Delivery Method [3] Room Air Oxygen Delivery Method [2] Nasal Cannula Oxygen Delivery Method Room Air Weight: 129 kg Body Mass Index (BMI) 40.8 Intake & Output: Intake and Output for Last 24 Hours 05/27/23 05/28/23 05/29/23 23:59 23:59 23:59 Intake Total 240 / 240 480.5 / 480.5 0 / 0 Output Total 200 / 200 350 / 650 550 / 550 Balance 40 / 40 130.5 / -169.5 -550 / -550 Lab / Micro Data Attestation: I reviewed the patient's lab results. 05/27/23 06:30 05/27/23 06:30 Radiography Diagnostic Testing: Radiology Impression Ankle X-Ray 05/28/23 13:25 IMPRESSION: Documentation of fluoroscopic use during placement of external fixator. Electronically Signed: Kalpana Goldberg MD at 16:53 EDT , Physical Exam Narrative Neurovascular status unchanged. External fixator to the right lower extremity stable with no evidence of loosening hardware. No evidence of pin site erythema, drainage or infection. Evidence of blanchable erythema appreciated to the mid leg. Nonpitting edema is appreciated to the right lower extremity. No active sanguinous drainage noted at the level of the pin sites. Active and passive range of motion of the digits is present without pain or crepitus. No pain with calf compression. Const alert, oriented x3 and no apparent distress Assessment & Plan Assessment/Plan (1) Fracture dislocation of right ankle joint: QUALIFIERS: Encounter type: initial encounter Fracture type: closed Qualified Code(s): S82.891A - Other fracture of right lower leg, initial encounter for closed fracture PLAN: Patient was examined evaluated. All findings were discussed with the patient. All questions were answered to the patient satisfaction. Right lower extremity dressing was changed today and the external fixator as well as the pin sites were inspected. There is no evidence of soft tissue infection present right lower extremity. The pins and the pin sites were cleaned with isopropyl alcohol. The pin sites were dressed with Betadine soaked gauze, dry sterile dressing, Mahendra wrap, specialist cast padding and two 4 inch Himanshu is. Patient was instructed to continue to elevate his right lower extremity to help decrease pain and swelling. He was understanding of this. -Please keep the right lower extremity dressing clean dry and intact and do not remove. Dr. Elias will change dressing personally. We are just waiting for pre-CERT to return for the patient to transfer to the TCU where he will stay for approximately 2 weeks. Plan will be to ORIF the right lower extremity/fibula fracture 06/14/2023. I will continue to follow the patient while in house and when he transfers to the TCU. Patient is understanding of this postoperative care. Please reach out to Dr. Seb Elias with any questions or concerns. (2) Closed fibular fracture: QUALIFIERS: Encounter type: initial encounter Fibula location: distal Fracture morphology: other fracture Laterality: right Qualified Code(s): S82.831A - Other fracture of upper and lower end of right fibula, initial encounter for closed fracture (3) Partial tear of ligament of lateral aspect of ankle: (4) Tear of deltoid ligament of ankle: QUALIFIERS: Encounter type: initial encounter Laterality: right Qualified Code(s): S93.421A - Sprain of deltoid ligament of right ankle, initial encounter (5) Syndesmotic disruption of right ankle: QUALIFIERS: Encounter type: initial encounter Qualified Code(s): S93.431A - Sprain of tibiofibular ligament of right ankle, initial encounter (6) Inability to ambulate due to ankle or foot:
[2023-05-29] MEDS: Ondansetron 4 MG/2 ML Vial IV (15:39)
--- NOTE | 2023-05-29 15:47 | NURSING ---
Pt bed was soaked. Incont. Primofit on now. Pt vomited said he was nauseated and in pain. Nausea medicine given but then when this RN came back to room with Morphine, pt denied pain.
--- NOTE | 2023-05-29 17:51 | PN.HOSP_ITS ---
Reason for Visit Reason for Visit: Diagnoses Tinea unguium (05/26/23) Difficulty in walking, not elsewhere classified (05/26/23) Other fracture of upper and lower end of right fibula, initial encounter for closed fracture (05/26/23) Other fracture of right lower leg, initial encounter for closed fracture (05/26/23) Sprain of deltoid ligament of right ankle, initial encounter (05/26/23) Sprain of tibiofibular ligament of right ankle, initial encounter (05/26/23) Sprain of other ligament of unspecified ankle, initial encounter (05/26/23) Subjective Subjective Seen and examined today, I talked with Dr. Elias about his care. Patient has an external fixator in place on the right foot and ankle area. Objective Data Objective Data Vital Signs: Vital Signs Temp Pulse Resp BP Pulse Ox O2 Del Method O2 Flow Rate 98.2 F 86 17 121/52 H 88 Room Air 2 05/29/23 15:30 05/29/23 15:30 05/29/23 15:30 05/29/23 15:30 05/29/23 15:57 05/29/23 15:57 05/29/23 15:54 Oxygen Flow Rate (L/min) [1] 91 Oxygen Flow Rate (L/min) [2] 3 Oxygen Flow Rate (L/min) 2 Oxygen Delivery Method [1] Nasal Cannula Oxygen Delivery Method [3] Room Air Oxygen Delivery Method [2] Nasal Cannula Oxygen Delivery Method Room Air Weight: 129 kg Body Mass Index (BMI) 40.8 Intake & Output: Intake and Output for Last 24 Hours 05/27/23 05/28/23 05/29/23 23:59 23:59 23:59 Intake Total 240 / 240 480.5 / 480.5 240 / 240 Output Total 200 / 200 350 / 650 550 / 550 Balance 40 / 40 130.5 / -169.5 -310 / -310 Lab / Micro Data 05/27/23 06:30 05/27/23 06:30 Physical Exam Narrative alert, oriented x3 and no apparent distress Constitutional Narrative: Patient is morbidly obese, he appears younger than his stated age General Appearance: cooperative, well kempt and well developed Orientation / Consciousness: awake, oriented to person and oriented to place HEENT normocephalic, head/scalp atraumatic and moist oral mucous membranes Eyes PERRL, EOMs intact bilaterally and conjunctivae normal Neck supple, no JVD, thyroid normal and no carotid bruits General: trachea midline Resp normal respiratory effort, no retractions, no use of accessory muscles and clear to auscultation bilaterally Auscultation: Negative for rales, rhonchi or wheezes Cardio regular rate, regular rhythm, S1 normal heart sound, S2 normal heart sound, no murmurs, no rub and no gallops GI normal to inspection, nondistended, normoactive bowel sounds, soft to palpation, non-tender and non-distended Extremity Patient has an external fixator in place on his lower leg on the right Skin no rashes or lesions noted General Skin Exam: no breakdown Neuro oriented x3, CN's II-XII intact bilaterally, no focal motor deficits and no sensory deficits noted Sensorium / Orientation: awake, alert, oriented to person and oriented to place Speech: speech normal Psych affect normal Assessment & Plan Assessment/Plan (1) Closed fibular fracture: QUALIFIERS: Encounter type: initial encounter Fibula location: distal Fracture morphology: other fracture Laterality: right Qualified Code(s): S82.831A - Other fracture of upper and lower end of right fibula, initial encounter for closed fracture PLAN: Plan #1 fracture dislocation of right ankle joint-update #1 application of external f ixator-podiatry is participating in his care, PT and OT will see the patient #2 closed fibular fracture-management per podiatric surgery #3 syndesmotic disruption of the right ankle-management per podiatric surgery #4 essential hypertension-patient will remain on lisinopril, furosemide, and metoprolol, blood pressure will be monitored, evaluated, assessed, and treated #5 chronic congestive heart failure with preserved ejection fraction-patient will remain on spironolactone, Lasix, metoprolol, and lisinopril, monitor, evaluate, assess and treat #6 morbid obesity-complicates care, medical course, recovery, and prognosis Total clinical time spent by myself addressing the patient's medical issues, reviewing the data, and collaborating with patient's care team: 25 minutes Charges/Coding Visit Charges Inpatient E&M: 10739 Subs Hosp L1
--- NOTE | 2023-05-29 22:06 | CASEMGMT ---
Social Work PT/OT evaluations available and TCU notified. Pt is still pending review by TCU. Due to holiday weekend, status will likely be unknown until Friday 06/01. Kelly Tejeda MSW, [employer]
[2023-05-30] VITALS (7 sets, daily range): BP systolic 102–128; BP diastolic 56–60; PULSE 67–83; RESP 16–20; TEMP 36.6–37.2; O2SAT 95–100
[2023-05-30] MEDS: Ondansetron 4 MG/2 ML Vial IV ×2 (07:25→14:48)
[2023-05-30] MEDS: Morphine 4 MG/ML Syringe IV (07:26)
[2023-05-30] MEDS: Famotidine 20 MG Tablet PO (07:47)
[2023-05-30] MEDS: Furosemide 80 MG Tablet PO (07:47)
[2023-05-30] MEDS: Lisinopril 5 MG Tablet PO (07:47)
[2023-05-30] MEDS: Enoxaparin 40 MG/0.4 ML Syringe SC (07:48)
[2023-05-30] MEDS: Potassium Chloride Oral Tablet 10 MEQ PO (07:48)
[2023-05-30] MEDS: Tamsulosin HCl 0.4 MG Capsule 0.8 MG PO (07:48)
[2023-05-30] MEDS: Metoprolol(XL)Succ 25 MG Tablet 12.5 MG PO (07:49)
[2023-05-30] MEDS: Senna/Docusate Sodium 1 Tablet 2 TABLET PO (07:50)
[2023-05-30] MEDS: TADALAFIL 5 MG 2.5 MG PO (07:51)
[2023-05-30] MEDS: Ensure Plus High Protein 120 ML LIQUID PO ×3 (07:53→17:12)
[2023-05-30] MEDS: oxyCODONE 5 MG Tablet PO (10:41)
[2023-05-30] MEDS: 0.9% Normal Saline 1,000 ML 125 ML IV ×2 (10:51→18:19)
--- NOTE | 2023-05-30 14:18 | PCM.PN.HOSP ---
Reason for Visit Reason for Visit: Diagnoses Tinea unguium (05/26/23) Difficulty in walking, not elsewhere classified (05/26/23) Other fracture of upper and lower end of right fibula, initial encounter for closed fracture (05/26/23) Other fracture of right lower leg, initial encounter for closed fracture (05/26/23) Sprain of deltoid ligament of right ankle, initial encounter (05/26/23) Sprain of tibiofibular ligament of right ankle, initial encounter (05/26/23) Sprain of other ligament of unspecified ankle, initial encounter (05/26/23) Subjective Subjective Patient was seen and examined today, he was complaining of back pain earlier today and we administered morphine, he also has oxycodone, he states the back pain is not new. Objective Data Objective Data Vital Signs: Vital Signs Temp Pulse Resp BP Pulse Ox O2 Del Method O2 Flow Rate 98.1 F 82 16 102/56 L 96 Nasal Cannula 2 05/30/23 11:54 05/30/23 11:54 05/30/23 11:54 05/30/23 11:54 05/30/23 11:54 05/30/23 13:28 05/30/23 13:39 Oxygen Flow Rate (L/min) [1] 91 Oxygen Flow Rate (L/min) [2] 3 Oxygen Flow Rate (L/min) 2 Oxygen Delivery Method [1] Nasal Cannula Oxygen Delivery Method [3] Room Air Oxygen Delivery Method [2] Nasal Cannula Oxygen Delivery Method Nasal Cannula Weight: 129 kg Body Mass Index (BMI) 40.8 Intake & Output: Intake and Output for Last 24 Hours 05/28/23 05/29/23 05/30/23 23:59 23:59 23:59 Intake Total 480.5 / 480.5 480 / 480 240 / 240 Output Total 350 / 650 550 / 550 150 / 150 Balance 130.5 / -169.5 -70 / -70 90 / 90 Lab / Micro Data 05/27/23 06:30 05/27/23 06:30 Physical Exam Narrative alert, oriented x3 and no apparent distress Constitutional Narrative: Patient is morbidly obese, he appears younger than his stated age General Appearance: cooperative, well kempt and well developed Orientation / Consciousness: awake, oriented to person and oriented to place HEENT normocephalic, head/scalp atraumatic and moist oral mucous membranes Eyes PERRL, EOMs intact bilaterally and conjunctivae normal Neck supple, no JVD, thyroid normal and no carotid bruits General: trachea midline Resp normal respiratory effort, no retractions, no use of accessory muscles and clear to auscultation bilaterally Auscultation: Negative for rales, rhonchi or wheezes Cardio regular rate, regular rhythm, S1 normal heart sound, S2 normal heart sound, no murmurs, no rub and no gallops GI normal to inspection, nondistended, normoactive bowel sounds, soft to palpation, non-tender and non-distended Extremity Patient has an external fixator in place on his lower leg on the right Skin no rashes or lesions noted General Skin Exam: no breakdown Neuro oriented x3, CN's II-XII intact bilaterally, no focal motor deficits and no sensory deficits noted Sensorium / Orientation: awake, alert, oriented to person and oriented to place Speech: speech normal Psych affect normal Assessment & Plan Assessment/Plan (1) Inability to ambulate due to ankle or foot: (2) Closed fibular fracture: QUALIFIERS: Encounter type: initial encounter Fibula location: distal Fracture morphology: other fracture Laterality: right Qualified Code(s): S82.831A - Other fracture of upper and lower end of right fibula, initial encounter for closed fracture PLAN: Plan #1 fracture dislocation of right ankle joint-postop day #2 application of external fixator-podiatry is participating in his care, PT and OT will see the patient, patient will need temporary placement in a correction facility for short-term inpatient rehab services #2 closed fibular fracture-management per podiatric surgery #3 syndesmotic disruption of the right ankle-management per podiatric surgery #4 essential hypertension-patient will remain on lisinopril, furosemide, and metoprolol, blood pressure will be monitored, evaluated, assessed, and treated #5 chronic congestive heart failure with preserved ejection fraction-patient will remain on spironolactone, Lasix, metoprolol, and lisinopril, monitor, evaluate, assess and treat #6 morbid obesity-complicates care, medical course, recovery, and prognosis #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
[2023-05-30] MEDS: Menthol/Lanolin/Calamine/Znox 113 GM Tube 1 APPLIC TOPICAL (14:49)
[2023-05-31] VITALS (7 sets, daily range): BP systolic 106–124; BP diastolic 45–77; PULSE 67–82; RESP 16–18; TEMP 36.3–36.8; O2SAT 94–100
[2023-05-31] MEDS: 0.9% Normal Saline 1,000 ML 125 ML IV ×2 (02:22→10:00)
[2023-05-31] MEDS: TADALAFIL 5 MG 2.5 MG PO (07:36)
[2023-05-31] MEDS: Tamsulosin HCl 0.4 MG Capsule 0.8 MG PO (07:37)
[2023-05-31] MEDS: Metoprolol(XL)Succ 25 MG Tablet 12.5 MG PO (07:38)
[2023-05-31] MEDS: Furosemide 80 MG Tablet PO (07:39)
[2023-05-31] MEDS: Potassium Chloride Oral Tablet 10 MEQ PO (07:39)
[2023-05-31] MEDS: Enoxaparin 40 MG/0.4 ML Syringe SC (07:39)
[2023-05-31] MEDS: Famotidine 20 MG Tablet PO (07:39)
[2023-05-31] MEDS: Lisinopril 5 MG Tablet PO (07:40)
[2023-05-31] MEDS: Ensure Plus High Protein 120 ML LIQUID PO ×3 (07:41→16:44)
[2023-05-31] MEDS: Acetaminophen 325 MG Tablet 650 MG PO (07:45)
[2023-05-31] MEDS: oxyCODONE 5 MG Tablet PO (07:45)
--- NOTE | 2023-05-31 09:39 | PN.SURG_ITS ---
Subjective Subjective Mr. Graff is a 87-year-old male who is status post application of external fixator secondary to dislocation right ankle fracture. Date of surgery: 05/28/2023. Patient seen today at bedside. He admits to minimal pain to the right lower extremity. He admits most of his pain is from his back. He believes that due to the increase in pain in his back with moving around with physical therapy and Occupational Therapy it caused him to vomit. Otherwise he denies any constitutional symptoms at time of interview. He continues to rest and elevate his right lower extremity as instructed. No other pedal complaints. Objective Data Objective Data Vital Signs: Vital Signs Temp Pulse Resp BP Pulse Ox O2 Del Method O2 Flow Rate 98.3 F 73 16 110/69 95 Nasal Cannula 2 05/31/23 08:42 05/31/23 08:42 05/31/23 08:42 05/31/23 08:42 05/31/23 08:42 05/31/23 08:42 05/31/23 08:42 Oxygen Flow Rate (L/min) [1] 91 Oxygen Flow Rate (L/min) [2] 3 Oxygen Flow Rate (L/min) 2 Oxygen Delivery Method [1] Nasal Cannula Oxygen Delivery Method [3] Room Air Oxygen Delivery Method [2] Nasal Cannula Oxygen Delivery Method Nasal Cannula Weight: 129 kg Body Mass Index (BMI) 40.8 Intake & Output: Intake and Output for Last 24 Hours 05/29/23 05/30/23 05/31/23 23:59 23:59 23:59 Intake Total 480 / 480 1423.33 / 1423.33 1500 / 1500 Output Total 550 / 550 500 / 875 375 / 375 Balance -70 / -70 923.33 / 548.33 1125 / 1125 Lab / Micro Data Attestation: I reviewed the patient's lab results. 05/27/23 06:30 05/27/23 06:30 Physical Exam Narrative Neurovascular status unchanged. External fixator stable to the right lower extremity with no evidence of loosening hardware. No evidence of pin site eryth pepe or infection. Evidence of blanchable erythema appreciated to right lower extremity mid leg which is improved. Nonpitting edema appreciated to the dorsum right foot. No evidence of sanguinous drainage to all pin sites. Active and passive range of motion to the digits is present without pain or crepitus. No pain with calf compression. Const oriented x3 and no apparent distress Assessment & Plan Assessment/Plan (1) Fracture dislocation of right ankle joint: QUALIFIERS: Encounter type: initial encounter Fracture type: closed Qualified Code(s): S82.891A - Other fracture of right lower leg, initial encounter for closed fracture PLAN: Patient was examined evaluated. All findings were discussed with the patient. All questions were answered to the patient satisfaction. Right lower extremity external fixator as well as posterior splint was changed without incident. Pin care was done with isopropyl alcohol. Pin sites were dressed with Betadine paint, Betadine soaked gauze, drain sponges, cast padding and an 2 Upper Sorbian Himanshu bandages to secure and hold the posterior splint in place. Continue to keep the right lower extremity dressing/splint clean dry and intact. Dr. Elias will continue to change the external fixator personally. Awaiting pre-CERT for the patient to be transferred to the TCU. We will plan for open reduction internal fixation right ankle fracture with removal of external fixator on 06/14/2023. We will continue to follow patient when transferred to the TCU. Please reach out to Dr. Nam Gomez with any questions or concerns. (2) Closed fibular fracture: QUALIFIERS: Encounter type: initial encounter Fibula location: distal Fracture morphology: other fracture Laterality: right Qualified Code(s): S82.831A - Other fracture of upper and lower end of right fibula, initial encounter for closed fracture (3) Partial tear of ligament of lateral aspect of ankle: (4) Tear of deltoid ligament of ankle: QUALIFIERS: Encounter type: initial encounter Laterality: right Qualified Code(s): S93.421A - Sprain of deltoid ligament of right ankle, initial encounter (5) Syndesmotic disruption of right ankle: QUALIFIERS: Encounter type: initial encounter Qualified Code(s): S93.431A - Sprain of tibiofibular ligament of right ankle, initial encounter (6) Inability to ambulate due to ankle or foot:
--- NOTE | 2023-05-31 15:13 | PCM.PN.HOSP ---
Reason for Visit Reason for Visit: Diagnoses Tinea unguium (05/26/23) Difficulty in walking, not elsewhere classified (05/26/23) Other fracture of upper and lower end of right fibula, initial encounter for closed fracture (05/26/23) Other fracture of right lower leg, initial encounter for closed fracture (05/26/23) Sprain of deltoid ligament of right ankle, initial encounter (05/26/23) Sprain of tibiofibular ligament of right ankle, initial encounter (05/26/23) Sprain of other ligament of unspecified ankle, initial encounter (05/26/23) Subjective Subjective Patient was seen and examined today, I discussed his care with Dr. Elias today, patient has no complaints of any shortness of breath, fever, or chills. Objective Data Objective Data Vital Signs: Vital Signs Temp Pulse Resp BP Pulse Ox O2 Del Method O2 Flow Rate 97.8 F 67 16 111/56 L 98 Nasal Cannula 2 05/31/23 11:28 05/31/23 11:28 05/31/23 11:28 05/31/23 11:28 05/31/23 11:28 05/31/23 11:28 05/31/23 11:28 Oxygen Flow Rate (L/min) [1] 91 Oxygen Flow Rate (L/min) [2] 3 Oxygen Flow Rate (L/min) 2 Oxygen Delivery Method [1] Nasal Cannula Oxygen Delivery Method [3] Room Air Oxygen Delivery Method [2] Nasal Cannula Oxygen Delivery Method Nasal Cannula Weight: 129 kg Body Mass Index (BMI) 40.8 Intake & Output: Intake and Output for Last 24 Hours 05/29/23 05/30/23 05/31/23 23:59 23:59 23:59 Intake Total 480 / 480 1423.33 / 1423.33 2604.17 / 2604.17 Output Total 550 / 550 500 / 875 875 / 875 Balance -70 / -70 923.33 / 548.33 1729.17 / 1729.17 Lab / Micro Data 05/27/23 06:30 05/27/23 06:30 Physical Exam Narrative alert, oriented x3 and no apparent distress Constitutional Narrative: Patient is morbidly obese, he appears younger than his stated age General Appearance: cooperative, well kempt and well developed Orientation / Consciousness: awake, oriented to person and oriented to place HEENT normocephalic, head/scalp atraumatic and moist oral mucous membranes Eyes PERRL, EOMs intact bilaterally and conjunctivae normal Neck supple, no JVD, thyroid normal and no carotid bruits General: trachea midline Resp normal respiratory effort, no retractions, no use of accessory muscles and clear to auscultation bilaterally Auscultation: Negative for rales, rhonchi or wheezes Cardio regular rate, regular rhythm, S1 normal heart sound, S2 normal heart sound, no murmurs, no rub and no gallops GI normal to inspection, nondistended, normoactive bowel sounds, soft to palpation, non-tender and non-distended Extremity Patient has an external fixator in place on his lower leg on the right Skin no rashes or lesions noted General Skin Exam: no breakdown Neuro oriented x3, CN's II-XII intact bilaterally, no focal motor deficits and no sensory deficits noted Sensorium / Orientation: awake, alert, oriented to person and oriented to place Speech: speech normal Psych affect normal Assessment & Plan Assessment/Plan (1) Closed fibular fracture: QUALIFIERS: Encounter type: initial encounter Fibula location: distal Fracture morphology: other fracture Laterality: right Qualified Code(s): S82.831A - Other fracture of upper and lower end of right fibula, initial encounter for closed fracture (2) Inability to ambulate due to ankle or foot: PLAN: Plan #1 fracture dislocation of right ankle joint-postop day #3 application of external fixator-podiatry is participating in his care, PT and OT will see the patient, patient will need temporary placement in a retirement facility for short-term inpatient rehab services #2 closed fibular fracture-management per podiatric surgery #3 syndesmotic disruption of the right ankle-management per podiatric surgery #4 essential hypertension-patient will remain on lisinopril, furosemide, and metoprolol, blood pressure will be monitored, evaluated, assessed, and treated #5 chronic congestive heart failure with preserved ejection fraction-patient will remain on spironolactone, Lasix, metoprolol, and lisinopril, monitor, evaluate, assess and treat #6 morbid obesity-complicates care, medical course, recovery, and prognosis #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 Total clinical time spent by myself addressing the patient's medical issues, reviewing the data, and collaborating with patient's care team: 25 minutes Charges/Coding Visit Charges Inpatient E&M: 95532 Subs Hosp L1
--- NOTE | 2023-06-01 08:51 | WOUNDNOTE ---
wound photo: bilateral buttocks
[2023-06-01 09:29] VITALS: BP 130/103; PULSE 87; RESP 18; TEMP 36.4; O2SAT 99
[2023-06-01] MEDS: Famotidine 20 MG Tablet PO (09:44)
[2023-06-01] MEDS: Enoxaparin 40 MG/0.4 ML Syringe SC (09:44)
[2023-06-01] MEDS: Furosemide 80 MG Tablet PO (09:44)
[2023-06-01] MEDS: Tamsulosin HCl 0.4 MG Capsule 0.8 MG PO (09:44)
[2023-06-01] MEDS: Potassium Chloride Oral Tablet 10 MEQ PO (09:44)
[2023-06-01] MEDS: Lisinopril 5 MG Tablet PO (09:44)
[2023-06-01] MEDS: Senna/Docusate Sodium 1 Tablet 2 TABLET PO (09:44)
[2023-06-01 09:45] VITALS: PULSE 87
[2023-06-01] MEDS: Metoprolol(XL)Succ 25 MG Tablet 12.5 MG PO (09:45)
--- NOTE | 2023-06-01 09:57 | CASEMGMT ---
Addendum entered by Remedios Blanco 06/01/23 10:31: [facility] pt when medically ready. Pt, son and physician updated. JAMIE Escalante Original Note: Social Work Per Kerry in TCU, pt has been denied for admission. SW met with pt and son Jerry and discussed discharge plan. Pt updated that TCU cannot accept and next preferred providers are [facility] then [facility]. DC nurses medical assistants phlebotomists updated and to send referral. Plan: [facility], pending acceptance JAMIE Escalante
--- NOTE | 2023-06-01 10:09 | CASEMGMT ---
Discharge Planning Referral sent to [facility] via [facility]. Sammi Montiel, Discharge Planning Asst.
[2023-06-01] MEDS: Ensure Plus High Protein 120 ML LIQUID PO (11:25)
[2023-06-01] MEDS: oxyCODONE 5 MG Tablet PO (11:25)
--- NOTE | 2023-06-01 11:41 | PCM.TXEXTCAR ---
Diet Diet Order/Speech Therapy: 05/29/23 07:26 Diet: Regular - General Is pt able to select menu?: yes Routine Orders/Code Status Code Status: Full Code Wound(s) left arm: Wound Type: Skin Tear RIGHT LEG: Wound Type: Surgical Incision Dressing Change: No dressing change, contact podiatry if any bleeding or discharge buttock: Wound Type: Pressure Injury left buttock: Wound Type: pressure/shear right buttock: Wound Type: pressure/shear Therapies Weight Bearing: Non weight bearing (Right foot/leg) Physical Therapy: Eval and Treat Occupational Therapy: Eval and Treat Problem/Diagnosis (1) Closed fibular fracture: Status: Acute Code(s): S82.409A - Unspecified fracture of shaft of unspecified fibula, initial encounter for closed fracture (2) Inability to ambulate due to ankle or foot: Status: Acute Code(s): R26.2 - Difficulty in walking, not elsewhere classified (3) Fracture dislocation of right ankle joint: Status: Acute Code(s): S82.891A - Other fracture of right lower leg, initial encounter for closed fracture Plan #1 fracture dislocation of right ankle joint-postop day #4 application of external fixator-podiatry is participating in his care, PT and OT will see the patient, patient will need temporary placement in a retirement facility for short-term inpatient rehab services #2 closed fibular fracture-management per podiatric surgery #3 syndesmotic disruption of the right ankle-management per podiatric surgery #4 essential hypertension-patient will remain on lisinopril, furosemide, and metoprolol, blood pressure will be monitored, evaluated, assessed, and treated #5 chronic congestive heart failure with preserved ejection fraction-patient will remain on spironolactone, Lasix, metoprolol, and lisinopril, monitor, evaluate, assess and treat #6 morbid obesity-complicates care, medical course, recovery, and prognosis #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 Total clinical time spent by myself addressing the patient's medical issues, reviewing the data, and collaborating with patient's care team: 25 minutes Allergies/Procedures Done in Hospital Allergies No Known Allergies Allergy (Verified 09/29/21 18:37) Procedures: - (Application of external fixator right lower extremity ankle fracture/dislocation) Type of Care/Length of Stay Estimated LOS: Convalescent Care Less Than 30 days Type of Care Needed: Skilled Rehab Potential: Good Prognosis: Good Additional Orders/Day of Discharge H&P will serve as current which was dated: 05/26/23 Day of Discharge: 06/01/23 Dietary and Speech Recommendations Dietitian Recommendations/Changes: Recommend 237mL Ensure Surgery BID s/p surgery to help with healing. Discharge Plan Admission Admit Date/Time: 05/26/23 19:31 Primary Reason for Your Visit: Right ankle fracture/dislocation Attending Provider: Andrew Gandara Primary Care Provider: Meño Perea Consulting Providers: Yony Quesada; Seb Elias Discharge Orders/Prescriptions Prescriptions: New acetaminophen 325 mg Tablet 650 mg PO Q6H PRN PRN (Reason: Pain 1-10 Or Fever>100.7) Qty: 0 0RF oxycodone 5 mg Tablet 5 - 10 mg PO Q6H PRN PRN (Reason: Pain Score 4-7) 3 Days Qty: 14 0RF enoxaparin 40 mg/0.4 mL Syringe 40 mg subcut DAILY Qty: 0 0RF Ensure Plus High Protein 0.08 gram-1.5 kcal/mL Liquid 120 ml PO TIDCM Qty: 0 0RF Continued tamsulosin 0.4 mg capsule 0.8 mg PO DAILY metoprolol succinate 25 mg tablet extended release 24 hr 12.5 mg PO DAILY potassium chloride 10 mEq tablet extended release 10 meq PO DAILY lisinopril 5 mg tablet 5 mg PO DAILY spironolactone 50 mg tablet 50 mg PO BID Rx Instructions: am and 4 pm tadalafil 5 mg tablet 2.5 mg PO DAILY furosemide 40 mg tablet 80 mg PO DAILY sennosides-docusate sodium [Stool Softener-Stimulant Laxat] 8.6-50 mg Tablet 2 tab PO DAILY famotidine [Acid Controller] 20 mg tablet 20 mg PO BID Discontinued acetaminophen [8 Hour Pain Reliever] 650 mg tablet extended release 650 mg PO Q12H PRN (Reason: pain) Referrals / Follow Up: Meño Perea MD [Primary Care Provider] - Seb Elias DPM [Med Staff - Active Staff] - In 1 Week (Call his office to confirm appointment time) Disposition Disposition (needs filled in before D/C Order can be placed): [facility] (1) Closed fibular fracture Qualifiers: Encounter type: initial encounter Fibula location: distal Fracture morphology: other fracture Laterality: right Qualified Code(s): S82.831A - Other fracture of upper and lower end of right fibula, initial encounter for closed fracture (3) Fracture dislocation of right ankle joint Qualifiers: Encounter type: initial encounter Fracture type: closed Qualified Code(s): S82.891A - Other fracture of right lower leg, initial encounter for closed fracture
[2023-06-01 11:44] VITALS: O2SAT 97
--- NOTE | 2023-06-01 11:56 | DS.PCM_ITS ---
Providers Date of Admission: 05/26/23 Date of Discharge: 06/01/23 Primary Care Physician: Dr. 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 Routine Comment: Reason for Consult:: wounds to buttock Reason For Visit: ANKLE FRACTURE, INABILITY TO AMBULATE Diagnosis Discharge Diagnosis (1) Closed fibular fracture: Status: Acute Code(s): S82.409A - Unspecified fracture of shaft of unspecified fibula, initial encounte r for closed fracture Qualifiers: Encounter type: initial encounter Fibula location: distal Fracture morphology: other fracture Laterality: right Qualified Code(s): S82.831A - Other fracture of upper and lower end of right fibula, initial encounter for closed fracture (2) Inability to ambulate due to ankle or foot: Status: Acute Code(s): R26.2 - Difficulty in walking, not elsewhere classified (3) Fracture dislocation of right ankle joint: Status: Acute Code(s): S82.891A - Other fracture of right lower leg, initial encounter for closed fracture Qualifiers: Encounter type: initial encounter Fracture type: closed Qualified Code(s): S82.891A - Other fracture of right lower leg, initial encounter for closed fracture Plan #1 fracture dislocation of right ankle joint-postop day #4 application of external fixator-podiatry is participating in his care, PT and OT will see the patient, patient will need temporary placement in a penitentiary facility for short-term inpatient rehab services #2 closed fibular fracture-management per podiatric surgery #3 syndesmotic disruption of the right ankle-management per podiatric surgery #4 essential hypertension-patient will remain on lisinopril, furosemide, and metoprolol, blood pressure will be monitored, evaluated, assessed, and treated #5 chronic congestive heart failure with preserved ejection fraction-patient will remain on spironolactone, Lasix, metoprolol, and lisinopril, monitor, evaluate, assess and treat #6 morbid obesity-complicates care, medical course, recovery, and prognosis #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 Total clinical time spent by myself addressing the patient's medical issues, reviewing the data, and collaborating with patient's care team: 25 minutes Medications at Discharge Home Medications lisinopril 5 mg tablet 5 mg PO DAILY htn 09/29/21 metoprolol succinate 25 mg tablet,extended release 24 hr 12.5 mg PO DAILY htn 09/29/21 potassium chloride 10 mEq tablet,extended release 10 meq PO DAILY supplement 09/29/21 spironolactone 50 mg tablet 50 mg PO BID diur 09/29/21 tadalafil 5 mg tablet 2.5 mg PO DAILY bp 09/29/21 tamsulosin 0.4 mg capsule 0.8 mg PO DAILY urine 09/29/21 famotidine 20 mg tablet (Acid Controller) 20 mg PO BID gi 05/26/23 furosemide 40 mg tablet 80 mg PO DAILY diuretic 05/26/23 sennosides 8.6 mg-docusate sodium 50 mg tablet (Stool Softener-Stimulant Laxative) 2 tab PO DAILY Constipation 05/26/23 acetaminophen 325 mg tablet 650 mg (2 x 325 mg) PO Q6H PRN PRN Pain 1-10 Or Fever>100.7 #0 tabs 06/01/23 enoxaparin 40 mg/0.4 mL subcutaneous syringe 40 mg (0.4 mL) subcut DAILY #0 mL 06/01/23 food supplemt, lactose-reduced 0.08 gram-1.5 kcal/mL oral liquid (Ensure Plus High Protein) 120 ml PO TIDCM #0 mL 06/01/23 oxycodone 5 mg tablet 5 - 10 mg (1 - 2 x 5 mg) PO Q6H PRN PRN Pain Score 4-7 3 days #14 tabs 06/01/23 Hospital Course Operations - (Application of an external fixator over the right ankle and lower leg) Procedures None Summary of Care Provided Minutes Spent on Discharge: 33 Hospital Course: This 88-year-old white male was seen in the emergency room at [facility] for evaluation of a right ankle injury he sustained approximately 2 days prior, there was no obvious ankle deformity noted on examination, x-rays were obtained the day before as an outpatient and the patient was called and notified to go to the emergency room for further evaluation. X-rays obtained showed a dislocated right ankle with evidence of a fibular fracture, podiatry was contacted and the patient had a reduction of his right ankle and he was jimmy vince in the splint. Patient was admitted to [facility], on 05/28/2023, he underwent placement of an external fixator on the right ankle, there were no complications during the surgery and postop the patient had no untoward events. He was seen by PT and OT, arranges were made for the patient to be accepted at a penitentiary facility for skilled rehab services. On 06/01/2023, patient was seen and examined:alert, oriented x3 and no apparent distress Constitutional Narrative: Patient is morbidly obese, he appears younger than his stated age General Appearance: cooperative, well kempt and well developed Orientation / Consciousness: awake, oriented to person and oriented to place HEENT normocephalic, head/scalp atraumatic and moist oral mucous membranes Eyes PERRL, EOMs intact bilaterally and conjunctivae normal Neck supple, no JVD, thyroid normal and no carotid bruits General: trachea midline Resp normal respiratory effort, no retractions, no use of accessory muscles and clear to auscultation bilaterally Auscultation: Negative for rales, rhonchi or wheezes Cardio regular rate, regular rhythm, S1 normal heart sound, S2 normal heart sound, no murmurs, no rub and no gallops GI normal to inspection, nondistended, normoactive bowel sounds, soft to palpation, non-tender and non-distended Extremity Patient has an external fixator in place on his lower leg on the right Skin no rashes or lesions noted General Skin Exam: no breakdown Neuro oriented x3, CN's II-XII intact bilaterally, no focal motor deficits and no sensory deficits noted Sensorium / Orientation: awake, alert, oriented to person and oriented to place Speech: speech normal Psych affect normal Patient appears in stable condition for transfer to an extended Care facility fo r inpatient rehab services on 06/01/2023. Weight / BMI Weight Weight: 129 kg Body Mass Index (BMI) 40.8 ABG / Lab / Microbiology Data 05/27/23 06:30 05/27/23 06:30 Meaningful Use Info Meaningful Use Diagnoses (Choose all that apply): None applicable Discharge Plan Admission Admit Date/Time: 05/26/23 19:31 Primary Reason for Your Visit: Right ankle fracture/dislocation Attending Provider: Andrew Gandara Primary Care Provider: Meño Perea Consulting Providers: Yony Quesada; Seb Elias Instructions Additional Instructions / Restrictions: Follow-up: Patient is to follow-up with Dr. Seb Elias on 06/07/2023 at the office. Please call [phone] for appointment and time. External fixator, right lower extremity bleeding instructions 1. Remove all Himanshu bandages, gauze and wraps. Set posterior splint to the side. 2. Wipe all 4 pin sites with isopropyl alcohol, allowed to dry. Apply Betadine paint to all 4 pin sites. 3. There is only 1 pin that we will need Betadine soak because, distal tibial pin. Cover all 4 pin sites with small drain sponge. 4. Wrap leg with 3 inch Mahendra 5. Wrap leg with cast padding 6. Apply posterior splint carefully 7. Secure posterior splint with two 4 inch Himanshu bandage from distal to proximal. Compression strength should only be approximately 25 to 30%. -If you have any questions please reach out to Dr. Seb Carpenter at [phone] or call my cell phone at [phone]. Discharge Orders/Prescriptions Prescriptions: New acetaminophen 325 mg Tablet 650 mg PO Q6H PRN PRN (Reason: Pain 1-10 Or Fever>100.7) Qty: 0 0RF oxycodone 5 mg Tablet 5 - 10 mg PO Q6H PRN PRN (Reason: Pain Score 4-7) 3 Days Qty: 14 0RF enoxaparin 40 mg/0.4 mL Syringe 40 mg subcut DAILY Qty: 0 0RF Ensure Plus High Protein 0.08 gram-1.5 kcal/mL Liquid 120 ml PO TIDCM Qty: 0 0RF Continued tamsulosin 0.4 mg capsule 0.8 mg PO DAILY metoprolol succinate 25 mg tablet extended release 24 hr 12.5 mg PO DAILY potassium chloride 10 mEq tablet extended release 10 meq PO DAILY lisinopril 5 mg tablet 5 mg PO DAILY spironolactone 50 mg tablet 50 mg PO BID Rx Instructions: am and 4 pm tadalafil 5 mg tablet 2.5 mg PO DAILY furosemide 40 mg tablet 80 mg PO DAILY sennosides-docusate sodium [Stool Softener-Stimulant Laxat] 8.6-50 mg Tablet 2 tab PO DAILY famotidine [Acid Controller] 20 mg tablet 20 mg PO BID Discontinued acetaminophen [8 Hour Pain Reliever] 650 mg tablet extended release 650 mg PO Q12H PRN (Reason: pain) Referrals / Follow Up: Meño Perea MD [Primary Care Provider] - Seb Elias DPM [Med Staff - Active Staff] - In 1 Week (Call his office to confirm appointment time, appointment date 06/07/2023) Disposition Disposition (needs filled in before D/C Order can be placed): Care Home Facility Charges/Coding Visit Charges Inpatient E&M: 01288 Disch Hosp >30min
--- NOTE | 2023-06-01 13:14 | CASEMGMT ---
Discharge Planning Discharge orders, signed med list, [id number], and transport time sent to [facility] via [facility]. [facility] will transport patient by cot at 3p. Nursing, SW, patient, and son updated. Sammi Montiel, Discharge Planning Asst.
[2023-06-01 15:41] VITALS: BP 108/62; PULSE 87; RESP 16; TEMP 36.3; O2SAT 94
--- NOTE | 2023-06-01 15:51 | NURSING ---
report called to Fannie Quinteros
== END 2023-06-01 15:56 | disposition skilled nursing facility (03) | DRG 493 ==
LOC: ED 19:29 → MS3 19:45
PROVIDERS: Podiatrist Foot & Ankle Surgery; Admitting Provider Hospitalist; Emergency Provider Emergency Medicine; PCP Family Medicine; Visit Provider Internal Medicine
PROC: 0QSJ35Z Reposition Right Fibula with External Fixation Device, Percutaneous Approach (ICD-10-PCS; CPT 27814; principal; 2023-05-28 12:45)
DX: S82.831A Other fracture of upper and lower end of right fibula, initial encounter for closed fracture (principal); N17.9 Acute kidney failure, unspecified; I13.0 Hypertensive heart and chronic kidney disease with heart failure and stage 1 through stage 4 chronic kidney disease, or unspecified chronic kidney disease; E87.1 Hypo-osmolality and hyponatremia; I50.32 Chronic diastolic (congestive) heart failure; Z68.41 Body mass index [BMI] 40.0-44.9, adult; B35.1 Tinea unguium; N18.31 Chronic kidney disease, stage 3a; E66.01 Morbid (severe) obesity due to excess calories; S93.431A Sprain of tibiofibular ligament of right ankle, initial encounter; M51.36 Other intervertebral disc degeneration, lumbar region; W01.0XXA Fall on same level from slipping, tripping and stumbling without subsequent striking against object, initial encounter; S93.421A Sprain of deltoid ligament of right ankle, initial encounter; M47.816 Spondylosis without myelopathy or radiculopathy, lumbar region; G89.29 Other chronic pain; R29.6 Repeated falls; R09.02 Hypoxemia; Z79.891 Long term (current) use of opiate analgesic; Z79.899 Other long term (current) drug therapy; Z86.16 Personal history of COVID-19
CPT/HCPCS: 29505; 36415; 71045; 73600; 73610; 73700; 76000; 80048; 81001; 82306; 84484; 85025; 93005; 94668; 97163; 97166; 97530; 97535; 99152; 99285; J7030; J7120; A4216; J2405

== ENCOUNTER 2023-06-16 05:52 | Day surgery (SDC) | payer MEDICARE, OTHER, SELFPAY ==
[2023-06-16] VITALS (12 sets, daily range): BP systolic 95–114; BP diastolic 42–74; PULSE 74–93; RESP 16–18; TEMP 36.1–36.6; O2SAT 91–97; BMI 35.1
[2023-06-16] MEDS: Lactated Ringers 1,000 ML 15 ML IV (06:48)
--- NOTE | 2023-06-16 06:54 | NURSING ---
THIS NURSE CALLED [facility] AND SPOKE WITH DANNA SHARMA WHO IS TAKING CARE OF TO DETERMINE WHAT MEDICATIONS HE RECEIVED THIS MORNING AND HIS NPO STATUS. PER TYPE CUTTER HE HAD LISINOPRIL, METOPROLOL, AND PEPCID THIS MORNING WITH A SIP OF WATER AND HAS BEEN NPO WINCE BEFORE MIDNIGHT. WILL UPDATE MED LIST WITH THIS INFORMATION.
[2023-06-16] MEDS: Cefazolin 3 GM in 0.9% Normal Saline (100mL Bag) 100 ML IV (07:41)
--- NOTE | 2023-06-16 08:15 | RAD_ITS ---
STUDY: X-RAY - RIGHT ANKLE REASON FOR EXAM: Male, 88 years old. FX TECHNIQUE: 6 intraoperative view(s) of the ankle. COMPARISON: None. FINDINGS: Intraoperative fluoroscopic services provided for ORIF of the distal fibular fracture. There is good alignment. RAD/Ankle 2 Views IMPRESSION: Intraoperative fluoroscopic services provided for ORIF of the distal fibular fracture. There is good alignment. Electronically Signed: Ken Mott MD at 14:39 EDT ,
[2023-06-16] MEDS: Bupivacaine Mpf 0.5% 30 ML VIAL (10:14)
--- NOTE | 2023-06-16 11:07 | SUR.PHASEI ---
case managament called per family request about placing pt in another nursing on d/c. the CM said that they will have to have pt go back to [facility] and than be placed elsewhere bc of type of surgery that pt had today being outpt. family aware that CM is coming to talk with them. aware of family's concerns as well
--- NOTE | 2023-06-16 12:00 | CASEMGMT ---
Social Work Called by WEI Gibbs in who alerted this advertising copywriter that family had questions about moving patient to a different [facility]. Patient is from [facility] and at [facility] for a scheduled outpatient procedure. Met with patient's son and daughter in . Patient in recovery area, so not yet back into the room. Son and daughter expressed dissatisfaction with [facility], concerns with staffing ratios, so interested in getting patient to a new [facility] before patient eventually returns home. Educated family on how to do a facility to facility transfer, and steps to take for this. Son has been in contact with [facility] who reportedly has beds. Educated that [facility] will need to send the referral information over and then [facility] can determine whether can meet patient's needs. Provided a list of SNFs for patient's geographical region, including Medicare quality data and star ratings, so family would have other options to look if [facility] does not work out. Family accepting of education provided. This advertising copywriter also urged and encouraged family to have a conversation with [facility] automotive accessory installer regarding concerns thus far at the [facility]. Educated that it is important for the facility to be aware of concerns, so that can work on correcting and/or improving care. Let family know there is an ombudsman if feel safety concern, which family indicated that do not feel concerns are safety/abuse issues at [facility], so would not need the ombudsman information. No other services requested or indicated. -MARTHA Kiser
--- NOTE | 2023-06-16 13:16 | SUR.PHASEII ---
report called to Becka marcus
--- NOTE | 2023-06-16 14:20 | PCM.OPRPT ---
Problems Associated Problem List Diagnoses (1) Closed fibular fracture: (2) Syndesmotic disruption of right ankle: (3) Fracture dislocation of right ankle joint: Report of Operation Date of Procedure: 06/16/23 Pre-Operative Diagnosis: 1. Dislocated right lower extremity ankle fracture status post application of external fixator 2. Syndesmotic rupture, right lower extremity 3. Pain, right ankle Post-Operative Diagnosis: 1. Dislocated right lower extremity ankle fracture status post application of external fixator 2. Syndesmotic rupture, right lower extremity 3. Pain, right ankle Surgery/Procedure Performed:: 1. Removal of external fixator, right lower extremity 2. Debridement of bone, right lower extremity 3. Delayed primary closure, right lower extremity 4. Open reduction internal fixation of fibular fracture, right lower extremity 5. Stress views, right lower extremity 6. Syndesmotic repair, right lower extremity 7. Application of AO splint, right lower extremity Description of Surgical Findings:: 1. Complete removal of external fixator, right lower extremity 2. Delayed primary closure from the previous incision of the external fixator, right lower extremity 3. Anatomical reduction of the distal fibular fracture into anatomical position right ankle, using Arthrex fibula lock nail 4. Right lower extremity stress views show instability of the syndesmosis. 5. Repair of the right lower extremity syndesmosis with Arthrex tight rope x2 Surgeon: Seb Elias power and recovery superintendent: Jackson Patel Type of Anesthesia: Block,Regional, Local and Spinal Anesthesiologist: Vinayak Peace Special Medications: None Specimen's removed: None Drains: None Estimated Blood Loss (mL): 20 cc Fluids Replaced: Per anesthesia Description of Procedure: Indications For Operation: Mr. Knight is a 88-year-old male who was admitted to [facility] for open reduction internal fixation of the dislocated fibular fracture with application of external fixator. Patient has been status post approximately 18 days since his initial operation and due to the suppleness of the soft tissue it had been deemed necessary at this time to take the patient to the operating room for removal of external fixator, debridement down to bone, delayed primary closure, open reduction internal fixation of the distal fibular fracture, stress views with syndesmotic repair all of the right lower extremity. The nature of the problem, anticipated procedures, postop recovery/convalences and risk/complications include but not limited to infection, wound healing complications, hypertrophic scarring, numbness, tingling, chronic pain, CRPS, over and under correction, recurrence of deformity, DVT and or PE and the need for further surgery have been discussed in great detail with the patient. All questions have been answered to the patient's satisfaction. There are no guarantees given as to the outcome of the procedure. Description of Procedure: Under mild sedation, the patient was brought into the operating room and placed on the operating table in supine position. Once the patient was under spinal anesthesia, the right lower extremity was blocked at the level of the saphenous nerve using approximately 10 cc 0.5% Marcaine plain. The patient will be getting a popliteal block by anesthesia in the PACU after the procedure. Next, a timeout was then undertaken verifying the correct patient, extremity, visibility of preoperative markings, availability of the equipment. A well-padded thigh tourniquet was donned to the right thigh. Next, attention was directed to the right lower extremity. Using the Improve Digital T-handle, the external fixator of right lower extremity was removed without incident. Next, the 2 tibial half pins were removed without incident followed by the calcaneal transfixation pin without incident. Using a small curette excisional debridement down to and including bone was carried out at the 2 proximal tibial half pin sites as well as the calcaneal transfixation pin site. All openings were flushed with copious ban of normal saline. Delayed primary closure was done at the 2 tibial locations as well as the medial and lateral calcaneus. Next, attention was directed to the right lower extremity. Using fluoroscopy the ankle joint, fibula as well as the syndesmosis was marked out prior to incision. Using point point reduction clamps, attempt to reduce the displaced fracture percutaneously was attempted without success. Next, using a #15 blade a 2.0 cm incision was made over the distal fracture of the fibula of the right lower extremity. Using lobster claws fracture was reduced back into anatomical alignment. Next, a small stab incision was placed at the inferior aspect of the fibula, the 1.6 mm guidewire with tissue protector was advanced up the fibula approximately 15 to 20 mm. Next, using fluoroscopy the guidewire was checked in AP and lateral views to make sure that it was in the medullary canal of the fibula. Next, using the 6.2 mm tapered reamer with tissue protector, the fluids were buried approximately 3 mm into the fibula. Next, 3.2 mm followed by a 4.0 mm reamer was used over the guidewire through the tissue protector until the depth indicator collar was well within the bone and chatter was noted. This was confirmed via fluoroscopy in 2 planes. The fibula canal was assembled on the back table. Next, the fibula nail measuring 3.8 x 130 mm was inserted to the reamed out canal and the fibula and malleted into place per the Arthrex recommendations with the rep in the room. A temporary 1 6 K wire was placed at one of the and the holes for temporary fixation. Next, the fibular nail talons were deployed for proximal stability. Next, 3 to 7 mm cortical screws were placed in the distal holes of the fibular nail. Next, using fluoroscopy, stress views of the syndesmosis was observed in the dorsiflexion external rotation method of the right lower extremity and showed instability with large gapping between the fibula and tibia. Next, 2 Arthrex tight ropes were placed in the 2 distal and proximal holes of the fibula nail per the lining maker hand's recommendation. After placement of the tight ropes there showed excellent tib-fib overlap which was checked with fluoroscopy. The right lower extremity was wiped clean and patted dry. All percutaneous incisions were closed with 2-0 nylon in simple interrupted suture technique. The lateral incision was closed with layers using 2-0 Vicryl in running suture technique. Following this layer, a 4 x 4 application of biovance amniotic graft was applied. The right thigh tourniquet was deflated at 90 minutes and showed excellent reperfusion to the right lower extremity. The dermal layer was reapproximated using 2-0 Vicryl in buried suture technique. The skin is reapproximated using 2-0 nylon in simple interrupted suture technique. The right lower extremities were cleaned and patted dry. Jumpstart was applied to all incisions. This jumpstart was covered with moist 4 x 4's followed by dry sterile dressing, cast padding to 4 inch Himanshu bandage and application of a AO splint was done to the right lower extremity. The patient tolerated the procedure and anesthesia well in apparent satisfactory condition and was transported to the PACU for further monitoring prior to discharge back to the floor. Vital signs stable and vascular status intact to all digits bilateral. Need for skilled assistant project manager: Jackson Patel DPM was critical to the outcome of the case. During the course of the procedure the assistant project manager physician played a vital role. His intimate knowledge of my steps in the procedure aided in safe and expedient completion of the procedure. The assistant project manager surgeon played a vital role in positioning particularly in obtaining the appropriate positioning. The assistant project manager surgeon was also vital in the retraction of soft tissues during the exposure and protecting vital structures when needed. The surgeon was also vital and obtaining fracture reduction and assisting with hardware placement throughout the case. Post Operative Plan: Weightbearing: Nonweightbearing operative extremity, right lower extremity Antibiotics: 3 g Ancef x 1 dose given preoperatively DVT Prophylaxis: 81 mg aspirin twice daily for 30 days [place]: None Dressing: Jumpstart, moist 4 x 4's, dry sterile dressing, application of AO splint right lower extremity X-Rays: Post-operative films taken on the operating room. Pain Medication: Percocet 01/27/2025 dispense 28 tabs every 6 hours as needed for pain. Follow-up: Patient to follow-up [address] Elias in office. Grafts/Implants Used: 1. Bio Guerrero cell matrix graft Complications None Admit VTE Documentation VTE Present on Admission: No VTE Mechan Device Prophylaxis: SCD's VTE Pharm Prophylaxis ordered?: No
== END 2023-06-16 14:40 | disposition skilled nursing facility (03) ==
LOC: SDC 05:54 → AC 05:56
PROVIDERS: PCP Family Medicine; Referring Provider Podiatrist Foot & Ankle Surgery; Visit Provider Podiatrist Foot & Ankle Surgery
PROC: (CPT 27814; principal; 2023-06-16 07:15)
DX: S82.831A Other fracture of upper and lower end of right fibula, initial encounter for closed fracture (principal); I10 Essential (primary) hypertension; K21.9 Gastro-esophageal reflux disease without esophagitis; G89.29 Other chronic pain; Z79.899 Other long term (current) drug therapy; Z86.16 Personal history of COVID-19; X58.XXXA Exposure to other specified factors, initial encounter
CPT/HCPCS: 27792; 20694; 27829; 64445; 01480; 73600; 76000; C1713; J7120; J2405

== ENCOUNTER → 2023-09-21 | Outpatient (REF) | payer MEDICARE, OTHER, SELFPAY ==
[2023-09-21 08:06] LABS: Anion Gap 4 (5-15); BUN 24 mg/dL (7-18); Calcium,Total 9.2 mg/dL (8.5-10.1); Chloride 102 mmol/L (98-107); Creatinine, Serum 0.96 mg/dL (0.70-1.30); EST Glomerular Filtration Rate 79 mL/min (>60); Est Glom Filt Rate - Afr Amer 95 mL/min (>60); Glucose 90 mg/dL (74-106); Potassium 4.1 mmol/L (3.5-5.1); Sodium Level 133 mmol/L (136-145)
[2023-09-21 08:07] LABS: Hematocrit 33.6 % (40-54); Hemoglobin 10.2 g/dL (13.0-16.5); Mean Corp Hgb Conc 30.4 g/dL (32-36); Mean Corpuscular Hgb 25.6 pg (27.0-32.0); Mean Corpuscular Volume 84.2 fL (80-94); Mean Platelet Vol. 9.9 fl (6.2-12.0); POSITIVE COUNT YES; POSITIVE MORPHOLOGY YES; Platelet Count 304 K/mm3 (150-450); RBC Distribution Width CV 17.4 % (11.6-14.6); RBC Distribution Width SD 53.6 fl (35.1-43.9); Red Blood Count 3.99 M/mm3 (4.6-6.2); White Blood Count 8.5 K/mm3 (4.4-11.0)
[2023-09-21 08:19] LABS: Differential Indicated MANUAL DIFF
[2023-09-21 10:10] LABS: Eosinophil 4 % (0-5); Lymphocyte 23 % (19-41); Monocyte 5 % (0-10); Myelocyte 2 % (0-0); Neutrophil-Segmented 66 % (47-70); Total Cells Counted 100 (MANUAL DIFF)
[2023-09-21 10:11] LABS: Absolute Lymphocyte Count 1.96 X10^3/uL (0.83-4.51); Absolute Neutrophil Count 5.6 X10^3/uL (2.0-7.7); Platelet Estimate ADEQUATE (ADEQ); Red Cell Morphology NORM C+C NORMAL (NORM C&C)
[2023-09-22 13:20] LABS: Pathologist Review Reviewed
--- OUTSIDE RECORDS SUMMARY | 2023-09-22 19:04 | XMS RPT_ITS | CCD ---
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 Caden Perea Primary Care UnavailDr. Caden Pacheco Attending Unavaila Dr. Caden Johnson Primary Care UnavailJEANNETTE Hammond Attending Unavailable REBECCA MENA MD Attending Unavailable REBECCA MENA MD Primary Care Unavailable REBECCA MENA MD Admitting Unavailable Medications Current Medications Medication Drug Class(es) Dates Sig (Normalized) Sig (Original) acetaminophen 325 mg oral capsule (3 sources) Start: 10-10-2021 Tylenol 325 mg oral capsule Dose : 650 mg =, Oral, q4h, PRN Pain, scale 1-3, 0 Refill(s) Start Date: 10/10/21 Status: Ordered Completed/Discontinued Medications Medication Drug Class(es) Dates Sig (Normalized) Sig (Original) aspirin 81 mg delayed release oral tablet (9 sources) Nonsteroidal Anti-inflammatory Drug End: 05-19-2019 take 1 tablet by mouth once daily aspirin 81 MG EC tablet Take 81 mg by mouth daily. 0 05/19/2019 Discontinued (Therapy completed) 0.4 ml enoxaparin sodium 100 mg/ml prefilled syringe (1 source) Low Molecular Weight Heparin Start: 10-10-2021 End: 11-09-2021 inject 0.4 mL by subcutaneous injection once daily Lovenox 40 mg/0.4 mL injectable solution Dose : 40 mg = 0.4 mL, Subcutaneous, qDay, # 12 mL, 0 Refill(s), other reason (Rx) Start Date: 10/10/21 Stop Date: 11/09/21 Status: Ordered furosemide 40 mg oral tablet (13 sources) Loop Diuretic Start: 08-07-2022 take 1 tablet by mouth once daily furosemide 40 mg oral tablet ; 1 tab(s) orally once a day Quantity: 7 Refills: 0 Ordered: 07-Aug-2022 Jeannette Scott Start: 07-Aug-2022 Generic Substitution Allowed Comments: Avoid prolonged or excessive exposure to direct and/or artificial sunlight while taking this medication.It is very important that you take or use this exactly as directed. Do not skip doses or discontinue unless directed by your doctor.It may be advisable to drink a full glass orange juice or eat a banana daily while taking this medication. Problems Active Problems Problem Classification Problem Date Documented Da te Episodic/Chronic Blindness and vision defects (2 sources) Bilateral regular astigmatism; Translations: [Regular astigmatism, bilateral] Episodic Cataract (1 source) Bilateral senile combined form cataracts of eyes; Translations: [Combined forms of age-related cataract, bilateral] Onset: 03-14-2015 10-14-2017 Chronic Congestive heart failure; nonhypertensive (1 source) Unspecified systolic (congestive) heart failure; Translations: [Unspecified systolic (congestive) heart failure] Onset: 09-27-2022 Chronic Coronary atherosclerosis and other heart disease (3 sources) Atherosclerotic heart disease of [place] coronary artery without angina pectoris; Translations: [Atherosclerotic heart disease of [place] coronary artery without angina pectoris] Onset: 09-27-2022 Chronic Esophageal disorders (1 source) Gastro-esophageal reflux disease without esophagitis; Translations: [Gastro-esophageal reflux disease without esophagitis] Onset: 08-08-2022 Chronic Essential hypertension (13 sources) Hypertensive disorder; Translations: [Essential hypertension] Onset: 11-01-2020 11-05-2017 Chronic Glaucoma (1 source) Ocular hypertension; Translations: [Ocular hypertension, bilateral] Onset: 10-21-2016 10-14-2017 Chronic Hyperplasia of prostate (1 source) Benign prostatic hypertrophy without outflow obstruction; Translations: [Benign prostatic hyperplasia without lower urinary tract symptoms] Onset: 10-05-2021 Chronic Inflammation; infection of eye (except that caused by tuberculosis or sexually transmitteddisease) (1 source) Chronic iritis of left eye; Translations: [Chronic iridocyclitis, left eye] Onset: 06-14-2014 06-14-2014 Chronic Malaise and fatigue (1 source) Asthenia; Translations: [Weakness] Onset: 10-08-2021 Episodic Other circulatory disease (2 sources) History of cerebrovascular disease; Translations: [Personal history of other diseases of the circulatory system] Onset: 10-08-2021 Episodic Other connective tissue disease (2 sources) Swelling of lower limb; Translations: [Swelling of limb] 08-07-2022 Episodic Other connective tissue disease (2 sources) Other specified soft tissue disorders; Translations: [Other specified soft tissue disorders] Onset: 08-08-2022 Episodic Other connective tissue disease (1 source) Cramp and spasm; Translations: [Cramp and spasm] Onset: 08-08-2022 Episodic Other diseases of veins and lymphatics (1 source) Lymphedema, not elsewhere classified; Translations: [Lymphedema, not elsewhere classified] Onset: 08-08-2022 Chronic Other eye disorders (1 source) Glaucomatous atrophy of optic disc; Translations: [Glaucomatous optic atrophy, unspecified eye] Onset: 06-14-2014 06-14-2014 Chronic Other eye disorders (1 source) Atrophy of iris of left eye; Translations: [Iris atrophy (essential) (progressive), left eye] Onset: 05-06-2022 05-06-2022 Episodic Other gastrointestinal disorders (1 source) Swollen abdomen; Translations: [Abdominal distension (gaseous)] Onset: 10-06-2021 Episodic Other lower respiratory disease (2 sources) Shortness of breath; Translations: [Shortness of breath] Onset: 08-08-2022 Episodic Other nutritional; endocrine; and metabolic disorders (1 source) Obesity; Translations: [Obesity, unspecified] Onset: 10-05-2021 Chronic Residual codes; unclassified (1 source) Disorientated; Translations: [Disorientation, unspecified] Onset: 10-10-2021 Episodic Residual codes; unclassified (2 sources) Localized edema; Translations: [Localized edema] Onset: 08-10-2022 Episodic Residual codes; unclassified (1 source) Edema, unspecified; Translations: [Edema, unspecified] Onset: 08-10-2022 Episodic Skin and subcutaneous tissue infections (2 sources) Cellulitis of right lower limb; Translations: [Cellulitis of left lower limb] Onset: 08-08-2022 Episodic Unclassified (2 sources) SWELLING ND SORENESS IN BOTH LEGS AND FEET 08-07-2022 Past or Other Problems Problem Classification Problem Date Documented Da te Episodic/Chronic Inflammation; infection of eye (except that caused by tuberculosis or sexually transmitteddisease) (1 source) Uveitis; Translations: [Zoster iridocyclitis] Onset: 06-14-2014 11-01-2020 Episodic Other aftercare (2 sources) 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; Translations: [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] Onset: 08-08-2022 Episodic Other nervous system disorders (1 source) History of ocular zoster; Translations: [Personal history of other diseases of the nervous system and sense organs] Onset: 10-21-2016 10-21-2016 Episodic Spondylosis; intervertebral disc disorders; other back problems (2 sources) Spinal stenosis of lumbar region; Translations: [Spinal stenosis, lumbar region, without neurogenic claudication] Episodic Viral infection (1 source) Disease caused by 2019-nCoV; Translations: [COVID-19] Onset: 10-05-2021 Results Test Name Value Interpretation Reference Range Facil ity Vital Signs Date Time Vital Sign Value Performing Clinician Facility 08-08-2022 00:00-0500 Diastolic blood pressure 67 mm[Hg] Caden Perea Other Phone: [facility] 08-08-2022 00:00-0500 Heart rate 69 /min Caden Dukekaykay Other Phone: [facility] 08-08-2022 00:00-0500 Respiratory rate 18 /min Caden Jmlisa Other Phone: [facility] 08-08-2022 00:00-0500 SaO2% (BldA) [Mass fraction] 97 % Caden Dukekaykay Other Phone: [facility] 08-08-2022 00:00-0500 Systolic blood pressure 119 mm[Hg] Caden Dukekaykay Other Phone: [facility] 08-07-2022 19:46-0500 Body height 172.7 cm Caden Dukekaykay Other Phone: [facility] 08-07-2022 19:46-0500 Body temperature 98.06 [degF] Caden Dukekaykay Other Phone: [facility] 08-07-2022 19:46-0500 Body weight 109.1 kg Caden Dukekaykay Other Phone: [facility] 10-10-2021 08:59-0500 Heart rate 88 /min ADE CRUZ [employer] [facility] 10-10-2021 06:08-0500 Diastolic blood pressure 78 mm[Hg] ADE CRUZ [employer] [facility] 10-10-2021 06:08-0500 Heart rate 62 /min ADE CRUZ [employer] [facility] 10-10-2021 06:08-0500 Mean blood pressure 99 mm[Hg] ADE CRUZ [employer] [facility] 10-10-2021 06:08-0500 Systolic blood pressure 140 mm[Hg] ADE CRUZ [employer] [facility] 10-10-2021 00:10-0500 Reason For Taking VItal Signs ADE CR[employer]Z [employer] [facility] 10-10-2021 00:10-0500 Respiratory rate 20 /min ADE PERALTABENEDICTO [employer] [facility] 10-09-2021 23:38-0500 Body temperature 97.88 [degF] ADE PERALTABENEDICTO [employer] [facility] 10-09-2021 23:38-0500 Diastolic blood pressure 73 mm[Hg] ADE ANNAErnst [employer] [facility] 10-09-2021 23:38-0500 Heart rate 70 /min ADE ANNAErnst [employer] [facility] 10-09-2021 23:38-0500 Mean blood pressure 91 mm[Hg] ADE ANNAN [employer] [facility] 10-09-2021 23:38-0500 Reason For Taking VItal Signs ADE ANNAErnst [employer] [facility] 10-09-2021 23:38-0500 Respiratory rate 22 /min ADE CRUZ [employer] [facility] 10-09-2021 23:38-0500 Systolic blood pressure 128 mm[Hg] ADE CR[employer]Z [employer] [facility] 10-09-2021 20:43-0500 Reason For Taking VItal Signs ADE CR[employer]Z [employer] [facility] 10-09-2021 20:10-0500 Respiratory rate 18 /min ADE CRUZ [employer] [facility] 10-09-2021 19:30-0500 Body temperature 97.52 [degF] ADE CRUZ [employer] [facility] 10-09-2021 19:30-0500 Diastolic blood pressure 71 mm[Hg] ADE CR[employer]Z [employer] [facility] 10-09-2021 19:30-0500 Heart rate 77 /min ADE CRUZ [employer] [facility] 10-09-2021 19:30-0500 Mean blood pressure 90 mm[Hg] ADE CRUZ [employer] [facility] 10-09-2021 19:30-0500 Systolic blood pressure 129 mm[Hg] ADE CRUZ [employer] [facility] 10-09-2021 15:28-0500 Body temperature 98.24 [degF] ADEDELFINO ANNAN [employer] [facility] 10-09-2021 12:27-0500 Body temperature 97.88 [degF] ADE FABIANNEN [employer] [facility] 10-09-2021 09:18-0500 Heart rate 76 /min ADEDELFINO ANNAN [employer] [facility] 10-09-2021 08:58-0500 Heart rate 78 /min ADEDELFINO PERALTANEN [employer] [facility] 10-05-2021 23:49-0500 Body temperature 100.04 [degF] ADEDELFINO ANNAN [employer] [facility] 10-05-2021 19:17-0500 Body height 182.8 cm ADEDELFINO ANNAN [employer] [facility] 10-05-2021 19:17-0500 Body weight 110 kg ADEDELFINO ANNAN [employer] [facility] 10-05-2021 19:17-0500 Body weight 32.92 kg/m2 ADEDELFINO ANNAN [employer] [facility] 10-05-2021 16:21-0500 Heart rate 87 /min ADEDELFINO ANNAN [employer] [facility] 10-05-2021 11:56-0500 SaO2% (BldA) [Mass fraction] 99 % ADE CRUZ [employer] [facility] 10-05-2021 11:42-0500 Heart rate 110 /min ADE CR[employer]Z [employer] [facility] 05-19-2019 13:10-0400 BMI (Body Mass Index) 33.47 [facility] 13:10-0400 Body [facility] 108.86 [facility]-2019 13:10-0400 Height 180.3 [facility] 04-25-2019 11:58-0400 BMI (Body Mass Index) 33.47 kg/m2 [facility] 04-25-2019 11:58-0400 Body [facility] 108.86 [facility] 04-25-2019 11:58-0400 Height 180.3 [facility] 11-09-2017 08:53-0500 BMI (Body Mass Index) 33.72 kg/m2 Axel Shelley [facility] Work Phone: 11-09-2017 08:53-0500 BP Diastolic 100 mm[Hg] Axel Shelley [facility] Work Phone: 11-09-2017 08:53-0500 BP Systolic 190 mm[Hg] Axel Shelley [facility] Work Phone: 11-09-2017 08:53-0500 Height 177.8 cm Axel Shelley [facility] Work Phone: 11-09-2017 08:53-0500 Pulse (Heart Rate) 59 /min Axel Shelley [facility] Work Phone: 11-09-2017 08:53-0500 Weight 106.59 kg Axel Shelley [facility] Work Phone: 11-05-2017 07:59-0500 BMI (Body Mass Index) 33.72 kg/m2 Axel Shelley [facility] Work Phone: 11-05-2017 07:59-0500 BP Diastolic 88 mm[Hg] Axel Shelley [facility] Work Phone: 11-05-2017 07:59-0500 BP Systolic 157 mm[Hg] Axel Shelley [employer] Work Phone: 11-05-2017 07:59-0500 Height 177.8 cm Axel Shelley [facility] Work Phone: 11-05-2017 07:59-0500 Pulse (Heart Rate) 73 /min Axel Shelley [facility] Work Phone: 11-05-2017 07:59-0500 Pulse Oximetry 94 % Axel Shelley [facility] Work Phone: 11-05-2017 07:59-0500 Weight 106.59 kg Axel Shelley [facility] Work Phone: Encounters Encounter Date Encounter Type Care Provider Facility Start: 09-27-2022 End: 06-05-2023 [facility] Start: 08-10-[address] Caden Perea Facility:[id number] Start: 08-07-2022 End: 08-08-2022 Emergency department patient visit Jeannette Lebroncori [facility] Emergency 14 Start: 05-21-2022 End: 05-21-2022 Patient encounter procedure Awais Rosario OD Work Phone: Optometry Procedures Date Procedure Procedure Detail Performing Clinician Start: 11-02-2017 End: 11-02-2017 Tte w/doppler, complete External Transcr ibed Plan of Treatment Date Care Activity Detail Author Start: 05-28-2022 Influenza vaccination INFLUENZA (#1) [facility] Start: 02-04-2022 COVID-19 VACCINE (2 - Pfizer series) COVID-19 VACCINE (2 - Pfizer series) [facility] Start: 09-27-2021 ADVANCE DIRECTIVE DISCUSSION ADVANCE DIRECTIVE DISCUSSION [facility] Start: 05-28-2020 Influenza vaccination given Sequential Influenza Vaccine (#1) [facility] Start: 03-20-2020 Pneumococcal vaccination PNEUMOCOCCAL VACCINE AGE 65+ (2 of 2 - PPSV23) [facility] Start: 05-28-2019 Influenza vaccination given SEQUENTIAL INFLUENZA VACCINE (#1) [facility] Start: 12-03-2017 Ambulatory 12/03/2017 Office Visit Cardiology Axel Shelley, DO [address] [place] [address] [phone] [facility] Start: 11-09-2017 End: 11-09-2017 Ambulatory [facility] Start: 11-05-2017 Ambulatory 11/05/2017 Office Visit Cardiology Caden Perea MD [address] [place] [address] [phone] Axel Shelley, [address] [facility] [address] [place] [address] [phone] [facility] Start: 05-28-2017 Influenza vaccination SEQUENTIAL INFLUENZA VACCINE (#1) [facility] Work Phone: Start: 2000 Pneumococcal vaccination PNEUMOCOCCAL VACCINE AGE 65+ (1 of 2 - PCV13) [facility] Work Phone: Start: 2000 PNEUMOCOCCAL: 65+ (1 - PCV) PNEUMOCOCCAL: 65+ (1 - PCV) [facility] Start: 1995 Zoster vacc, sc ZOSTER VACCINE [facility] Work Phone: Start: 1985 Administration of herpes zoster vaccine Zoster Vaccines (1 of 2) [facility] Start: 1985 SHINGRIX VACCINE (1 of 2) SHINGRIX VACCINE (1 of 2) [facility] Start: 1980 DIABETES SCREEN DIABETES SCREEN [facility] Start: 1954 Urine microalbumin profile DTAP,TDAP,TD (1 - Tdap) [facility] Start: 1947 Adolescent depression screening assessment Depression Screening (PHQ9) [facility] Start: 1938 History and physical examination, annual for health maintenance Wellness Visit [facility] Start: 1935 Fall risk assessment Falls Risk Assessment [facility] Start: 1935 End: 1935 Tetanus vaccination [facility] Work Phone: End: 01-03-2019 Carotid Duplex Carotid Duplex Routine ZHANG (dyspnea on exertion) Essential hypertension Bruit of right carotid artery Acute congestive heart failure, unspecified congestive heart failure type (HCC) 1 Occurrences starting 11/05/2017 until 01/03/2019 [facility] Work Phone: End: 11-05-2018 NM Myocardial Perfusion Multiple SPECT NM Myocardial Perfusion Multiple SPECT Routine ZHANG (dyspnea on exertion) Essential hypertension Bruit of right carotid artery Acute congestive heart failure, unspecified congestive heart failure type (HCC) 1 Occurrences starting 11/05/2017 until 11/05/2018 [facility] Immunization Date Immunization Notes Care Provider Jatinder lewis 08-14-2021 influenza virus vaccine, unspecified formulation ADE CRUZ [employer] [facility] 07-20-2019 influenza virus vaccine, unspecified formulation ADE FABIANBENEDICTO [employer] [facility] 03-20-2019 pneumococcal conjuga te vaccine, 13 valent ADE CRUZ [employer] [facility] Payers Date Payer Category Payer Unknown [id number] 2017 Unknown AARP [employer] [id number] 2017-Present [id number] 2015 Private Health Insurance [facility] AARP SUPPLEMENT [id number] 2015-Present [phone] [address] [place] [address] Indemnity [id number] 2000 Medicare [id number] 2000 Medicare [id number] 2000 Medicare MEDICARE MEDICAR E PART A & B [id number] 2000-Present [place] xxxxxxxxxx [id number] 2000 Medicare MEDICARE MEDICAR E PART A & B [id number] 2000-Present [place] [id number] 2000 Medicare MEDICARE MEDICAR E A AND B [id number] 2000-Present [phone] [address] [address] [place] [address] Medicare [id number] 2000 Unknown [id number] 2000 Unknown 1935 Unknown [id number] 1935 Unknown [id number] 1935 Unknown [id number] 1935 Unknown [id number] 1935 Unknown [id number] 1935 Unknown [id number] 1935 Unknown [id number] Social History Date Type Detail Facility Start: 06-14-2014 End: 11-09-2017 Tobacco smoking status NHIS Never smoker [facility] Start: 1935 Sex Assigned At Not on file [employer] Work Phone: Start: 11-03-2017 End: 11-04-2017 Tobacco smoking status WAIS Unknown if ever smoked [facility] Work Phone: Start: 05-19-2019 End: 05-21-2022 Alcohol intake Current non-drinker of alcohol (finding) [facility] Start: 06-14-2014 End: 05-19-2019 Tobacco use and exposure Never used [facility] Sex Assigned At Male [facility] Start: 05-11-2022 End: 05-21-2022 Exposure to SARS-CoV-2 (event) Not sure [facility] Clinical Notes 03-14-2015 to 05-21-2022 Patient InstructionsAwais Rosario II, OD - 05/21/2022 10:19 AM EDT Note Date & Type Note Facility 05-21-2022 Note HNO ID: [id number] Author: Awais Rosario II, OD Service: ? 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 Continue care with Dr. Vera I have confirmed and edited as necessary the relevant ophthalmic history, ROS, and the neuro exam findings as obtained by others. I have seen and examined Harini Auguste. I have discussed the case and the management of this patient's care with the Resident/Fellow, if applicable. I also have reviewed and agree with the assessment and plan as stated above and agree with all of its relevant components. Awais Rosario II, CONSTANTINE [facility] 05-21-2022 Instructions Awais Rosario II, OD - 05/21/2022 10:21 AM EDT Assessment and Plan H52.223 Regular astigmatism, bilateral (primary encounter diagnosis) H52.4 Presbyopia Comment: Update glasses to maximize visual performance. Continue care with Dr. Vera I have confirmed and edited as necessary the relevant ophthalmic history, ROS, and the neuro exam findings as obtained by others. I have seen and examined Harini Auguste. I have discussed the case and the management of this patient's care with the Resident/Fellow, if applicable. I also have reviewed and agree with the assessment and plan as stated above and agree with all of its relevant components. Awais Rosario II, OD documented in this encounter [facility] 05-21-2022 History of Present illness Narrative Assessment and Plan H52.223 Regular astigmatism, bilateral (primary encounter diagnosis) H52.4 Presbyopia Comment: Update glasses to maximize visual performance. Continue care with Dr. Vera I have confirmed and edited as necessary the relevant ophthalmic history, ROS, and the neuro exam findings as obtained by others. I have seen and examined Harini Auguste. I have discussed the case and the management of this patient's care with the Resident/Fellow, if applicable. I also have reviewed and agree with the assessment and plan as stated above and agree with all of its relevant components. Awais Rosario II, OD documented in this encounter [facility] 05-06-2022 Note HNO ID: [id number] Author: Ajith Vera MD Service: ? Author Type: Physician Type: Progress Notes Filed: 05/06/2022 11:14 AM Note Text: ASSESSMENT/PLAN: 1. 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 Combined form of age-related cataract, both eyes - ICD9: 366.19, ICD10: H25.813 -Not visually significant/ monitor - patient to see Dr. Awais Rosario for updated refraction and glasses 3. 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 Chalazion of right upper eyelid - ICD9: 373.2, ICD10: H00.11 - monitor 5. Essential hypertension - ICD9: 401.9, ICD10: I10 I have confirmed and edited as necessary the relevant ophthalmic history, review of systems, surgical history, and ophthalmological examination findings as obtained by the ophthalmic technical staff. I have seen and examined Harini Auguste. I have discussed the examination findings, diagnosis, and treatment options with Harini Auguste and/or his family. I have also reviewed and agree with the assessment and plan as stated above and agree with all its relevant components. I gave the patient the opportunity to ask questions about the findings, diagnosis, and treatment options. ] Ajith Vera MD [facility] 10-10-2021 Note . MICRO - Microbiology PROCEDURE: Blood Culture (bacterial) [*1] SOURCE: Blood BODY SITE: COLLECTED DATE/TIME: 10/05/2021 11:40 EST RECEIVED DATE/TIME: 10/05/2021 13:52 EST START DATE/TIME: 10/05/2021 13:52 EST FREE TEXT SOURCE: FINAL REPORTS Final Report [] Verified Date/Time/Personnel: 10/10/2021 13:59 EST Blood Culture: No Growth at 5 days. PRELIMINARY REPORTS Preliminary Report [] Verified Date/Time/Personnel: 10/05/2021 14:59 EST Culture has been received in lab and is no growth to date. Routine cultures are held for 5 days. Performing Locations *1: This test was performed at: [facility], [address] [place] [address], [id number] , [facility] ([place]) 10-10-2021 Note . MICRO - Microbiology PROCEDURE: Blood Culture (bacterial) [*1] SOURCE: Blood BODY SITE: COLLECTED DATE/TIME: 10/05/2021 11:40 EST RECEIVED DATE/TIME: 10/05/2021 13:52 EST START DATE/TIME: 10/05/2021 13:52 EST FREE TEXT SOURCE: FINAL REPORTS Final Report [] Verified Date/Time/Personnel: 10/10/2021 13:59 EST Blood Culture: No Growth at 5 days. PRELIMINARY REPORTS Preliminary Report [] Verified Date/Time/Personnel: 10/05/2021 14:59 EST Culture has been received in lab and is no growth to date. Routine cultures are held for 5 days. Performing Locations *1: This test was performed at: [facility], [address] [place] [address], [facility] , [facility] ([place]) 10-10-2021 Hospital Discharge instructions Patient Education 10/10/2021 09:12:29 COVID-19 COVID-19 COVID-19 is a respiratory infection that is caused by a virus called severe acute respiratory syndrome coronavirus 2 (SARS-CoV-2). The disease is also known as coronavirus disease or novel coronavirus. In some people, the virus may not cause any symptoms. In others, it may cause a serious infection. The infection can get worse quickly and can lead to complications, such as: Pneumonia, or infection of the lungs. Acute respiratory distress syndrome or ARDS. This is fluid build-up in the lungs. Acute respiratory failure. This is a condition in which there is not enough oxygen passing from the lungs to the body. Sepsis or septic shock. This is a serious bodily reaction to an infection. Blood clotting problems. Secondary infections due to bacteria or fungus. The virus that causes COVID-19 is contagious. This means that it can spread from person to person through droplets from coughs and sneezes (respiratory secretions). What are the causes? This illness is caused by a virus. You may catch the virus by: Breathing in droplets from an infected person's cough or sneeze. Touching something, like a table or a doorknob, that was exposed to the virus (contaminated) and then touching your mouth, nose, or eyes. What increases the risk? Risk for infection You are more likely to be infected with this virus if you: Live in or travel to an area with a COVID-19 outbreak. Come in contact with a sick person who recently traveled to an area with a COVID-19 outbreak. Provide care for or live with a person who is infected with COVID-19. Risk for serious illness You are more likely to become seriously ill from the virus if you: Are 65 years of age or older. Have a long-term disease that lowers your body's ability to fight infection (immunocompromised). Live in a snf or long-term care facility. Have a long-term (chronic) disease such as: ?Chronic lung disease, including chronic obstructive pulmonary disease or asthma ?Heart disease. ?Diabetes. ?Chronic kidney disease. ?Liver disease. Are obese. What are the signs or symptoms? Symptoms of this condition can range from mild to severe. Symptoms may appear any time from 2 to 14 days after being exposed to the virus. They include: A fever. A cough. Difficulty breathing. Chills. Muscle pains. A sore throat. Loss of taste or smell. Some people may also have stomach problems, such as nausea, vomiting, or diarrhea. Other people may not have any symptoms of COVID-19. How is this diagnosed? This condition may be diagnosed based on: Your signs and symptoms, especially if: ?You live in an area with a COVID-19 outbreak. ?You recently traveled to or from an area where the virus is common. ?You provide care for or live with a person who was diagnosed with COVID-19. A physical exam. Lab tests, which may include: ?A nasal swab to take a sample of fluid from your nose. ?A throat swab to take a sample of fluid from your throat. ?A sample of mucus from your lungs (sputum). ?Blood tests. Imaging tests, which may include, X-rays, CT scan, or ultrasound. How is this treated? At present, there is no medicine to treat COVID-19. Medicines that treat other diseases are being used on a trial basis to see if they are effective against COVID-19. Your health care provider will talk with you about ways to treat your symptoms. For most people, the infection is mild and can be managed at home with rest, fluids, and rvpy-hnq-nhamuuh medicines. Treatment for a serious infection usually takes places in a hospital intensive care unit (ICU). It may include one or more of the following treatments. These treatments are given until your symptoms improve. Receiving fluids and medicines through an IV. Supplemental oxygen. Extra oxygen is given through a tube in the nose, a face mask, or a hollingsworth. Positioning you to lie on your stomach (prone position). This makes it easier for oxygen to get into the lungs. Continuous positive airway pressure (CPAP) or bi-level positive airway pressure (BPAP) machine. This treatment uses mild air pressure to keep the airways open. A tube that is connected to a motor delivers oxygen to the body. Ventilator. This treatment moves air into and out of the lungs by using a tube that is placed in your windpipe. Tracheostomy. This is a procedure to create a hole in the neck so that a breathing tube can be inserted. Extracorporeal membrane oxygenation (ECMO). This procedure gives the lungs a chance to recover by taking over the functions of the heart and lungs. It supplies oxygen to the body and removes carbon dioxide. Follow these instructions at home: Lifestyle If you are sick, stay home except to get medical care. Your health care provider will tell you how long to stay home. Call your health care provider before you go for medical care. Rest at home as told by your health care provider. Do not use any products that contain nicotine or tobacco, such as cigarettes, e-cigarettes, and chewing tobacco. If you need help quitting, ask your health care provider. Return to your normal activities as told by your health care provider. Ask your health care provider what activities are safe for you. General instructions Take owdr-bmm-npsfckv and prescription medicines only as told by your health care provider. Drink enough fluid to keep your urine pale yellow. Keep all follow-up visits as told by your health care provider. This is important. How is this prevented? There is no vaccine to help prevent COVID-19 infection. However, there are steps you can take to protect yourself and others from this virus. To protect yourself: Do not travel to areas where COVID-19 is a risk. The areas where COVID-19 is reported change often. To identify high-risk areas and travel restrictions, check the CDC travel website: wwwnc.cdc.gov/travel/notices If you live in, or must travel to, an area where COVID-19 is a risk, take precautions to avoid infection. ?Stay away from people who are sick. ?Wash your hands often with soap and water for 20 seconds. If soap and water are not available, use an alcohol-based hand grain elevator clerk. ?Avoid touching your mouth, face, eyes, or nose. ?Avoid going out in public, follow guidance from your state and local health authorities. ?If you must go out in public, wear a cloth face covering or face mask. ?Disinfect objects and surfaces that are frequently touched every day. This may include: ?Counters and tables. ?Doorknobs and light switches. ?Sinks and faucets. ?Electronics, such as phones, remote controls, keyboards, computers, and tablets. To protect others: If you have symptoms of COVID-19, take steps to prevent the virus from spreading to others. If you think you have a COVID-19 infection, contact your health care provider right away. Tell your health care team that you think you may have a COVID-19 infection. Stay home. Leave your house only to seek medical care. Do not use public transport. Do not travel while you are sick. Wash your hands often with soap and water for 20 seconds. If soap and water are not available, use alcohol-based hand grain elevator clerk. Stay away from other members of your household. Let healthy household members care for children and pets, if possible. If you have to care for children or pets, wash your hands often and wear a mask. If possible, stay in your own room, separate from others. Use a different bathroom. Make sure that all people in your household wash their hands well and often. Cough or sneeze into a tissue or your sleeve or elbow. Do not cough or sneeze into your hand or into the air. Wear a cloth face covering or face mask. Where to find more information Centers for Disease Control and Prevention: www.cdc.gov/coronavirus/2019-nco v/index.html World Health Organization: www.who.int/health-topics/rueda virus Contact a health care provider if: You live in or have traveled to an area where COVID-19 is a risk and you have symptoms of the infection. You have had contact with someone who has COVID-19 and you have symptoms of the infection. Get help right away if: You have trouble breathing. You have pain or pressure in your chest. You have confusion. You have bluish lips and fingernails. You have difficulty waking from sleep. You have symptoms that get worse. These symptoms may represent a serious problem that is an emergency. Do not wait to see if the symptoms will go away. Get medical help right away. Call your local emergency services (911 in the [place] Do not drive yourself to the hospital. Let the emergency medical personnel know if you think you have COVID-19. Summary COVID-19 is a respiratory infection that is caused by a virus. It is also known as coronavirus disease or novel coronavirus. It can cause serious infections, such as pneumonia, acute respiratory distress syndrome, acute respiratory failure, or sepsis. The virus that causes COVID-19 is contagious. This means that it can spread from person to person through droplets from coughs and sneezes. You are more likely to develop a serious illness if you are 65 years of age or older, have a weak immunity, live in a snf, or have chronic disease. There is no medicine to treat COVID-19. Your health care provider will talk with you about ways to treat your symptoms. Take steps to protect yourself and others from infection. Wash your hands often and disinfect objects and surfaces that are frequently touched every day. Stay away from people who are sick and wear a mask if you are sick. This information is not intended to replace advice given to you by your health care provider. Make sure you discuss any questions you have with your health care provider. Document Released: 10/19/2019 Document Revised: 02/08/2020 Document Reviewed: 10/19/2019 [employer] Patient Education 2020 [employer] 10/10/2021 09:12:27 Delirium Delirium Delirium is a state of mental confusion. It comes on quickly and causes significant changes in a person's thinking and behavior. People with delirium usually have trouble paying attention to what is going on or knowing where they are. They may become very withdrawn or very emotional and unable to sit still. They may even see or feel things that are not there (hallucinations). Delirium is a sign of a serious underlying medical condition. What are the causes? Delirium occurs when something suddenly affects the signals that the brain sends out. Brain signals can be affected by anything that puts severe stress on the body and brain and causes brain chemicals to be out of balance. The most common causes of delirium include: Infections. These may be bacterial, viral, fungal, or protozoal. Medicines. These include many kwfu-wvm-rtftpsl and prescription medicines. Recreational drugs. Substance withdrawal. This occurs with sudden discontinuation of alcohol, certain medicines, or recreational drugs. Surgery. Sudden vascular events, such as stroke, brain hemorrhage, and severe migraine. Other brain disorders, such as tumors, seizures, and physical head trauma. Metabolic disorders, such as kidney or liver failure. Low blood oxygen (anoxia). This may occur with lung disease, cardiac arrest, or carbon monoxide poisoning. Hormone imbalances (endocrinopathies), such as an overactive thyroid (hyperthyroidism) or underactive thyroid (hypothyroidism). Vitamin deficiencies. What increases the risk? This condition is more likely to develop in: Children. Older people. People who live alone. People who have vision loss or hearing loss. People who have existing brain disease, such as dementia. People who have long-lasting (chronic) medical conditions, such as heart disease. People who are hospitalized for long periods of time. What are the signs or symptoms? Delirium starts with a sudden change in a person's thinking or behavior. Symptoms come and go (fluctuate) over time, and they are often worse at the end of the day. Symptoms include: Not being able to stay awake (drowsiness) or pay attention. Being confused about places, time, and people. Forgetfulness. Having extreme energy levels. These may be low or high. Changes in sleep patterns. Extreme mood swings, such as anger or anxiety. Focusing on things or ideas that are not important. Rambling and senseless talking. Difficulty speaking, understanding speech, or both. Hallucinations. Tremor or unsteady gait. How is this diagnosed? People with delirium may not realize that they have the condition. Often, a family member or health care provider is the first person to notice the changes. The health care provider will obtain a detailed history of current symptoms, medical issues, medicines, and recreational drug use. The health care provider will perform a mental status examination by: Asking questions to check for confusion. Watching for abnormal behavior. The health care provider may perform a physical exam and order lab tests or additional studies to determine the cause of the delirium. How is this treated? Treatment of delirium depends on the cause and severity. Delirium usually goes away within days or weeks of treating the underlying cause. In the meantime, the person should not be left alone because he or she may accidentally cause self-harm. Treatment includes supportive care, such as: Increased light during the day and decreased light at night. Low noise level. Uninterrupted sleep. A regular daily schedule. Clocks and calendars to help with orientation. Familiar objects, including the person's pictures and clothing. Frequent visits from familiar family and friends. Healthy diet. Exercise. In more severe cases of delirium, medicine may be prescribed to help the person to keep calm and think more clearly. Follow these instructions at home: Any supportive care should be continued as told by the health care provider. All medicines should be used as told by the health care provider. This is important. The health care provider should be consulted before ghpb-jjs-rujioie medicines, herbs, or supplements are used. All follow-up visits should be kept as told by the health care provider. This is important. Alcohol and recreational drugs should be avoided as told by the health care provider. Contact a health care provider if: Symptoms do not get better or they become worse. New symptoms of delirium develop. Caring for the person at home does not seem safe. Eating, drinking, or communicating stops. There are side effects of medicines, such as changes in sleep patterns, dizziness, weight gain, restlessness, movement changes, or tremors. Get help right away if: Serious thoughts occur about self-harm or about hurting others. There are serious side effects of medicine, such as: ?Swelling of the face, lips, tongue, or throat. ?Fever, confusion, muscle spasms, or seizures. This information is not intended to replace advice given to you by your health care provider. Make sure you discuss any questions you have with your health care provider. Document Released: 06/07/2013 Document Revised: 02/18/2017 Document Reviewed: 11/06/2015 [employer] Interactive Patient Education 2019 [employer] Follow Up Care 10/05/2021 10:58:46 With:INDY ROCK MD Address: When:5 to 7 days [facility] 10-07-2021 Note . MICRO - Microbiology PROCEDURE: Urine Culture [*1] SOURCE: Urine, Greenwood Catheter BODY SITE: COLLECTED DATE/TIME: 10/05/2021 11:40 EST RECEIVED DATE/TIME: 10/05/2021 13:53 EST START DATE/TIME: 10/05/2021 13:53 EST FREE TEXT SOURCE: FINAL REPORTS Final Report [] Verified Date/Time/Personnel: 10/07/2021 07:48 EST No growth at 48 hours. PRELIMINARY REPORTS Preliminary Report [] Verified Date/Time/Personnel: 10/06/2021 11:03 EST No growth to date Performing Locations *1: This test was performed at: [facility], [address] [place] [address], [facility] , [facility] ([place]) 1. Acute hypoxemic respirato ry failure due to COVID-19 2. HTN (hypertension) 3. BPH (benign prostatic hyperplasia) Acute Hypoxemic Respiratory failure secondary to Covid-19 Pneumonia Patient's POA adamantly declines remdesivir. Today /10 of dexamethasone as patient has been receiving this since his admission to [facility]. Continue supportive measures with oxygen therapy, wean oxygen as tolerated keep saturations greater than 92%. Encourage use of incentive spirometer hourly while awake. Will trend COVID labs/inflammatory markers. HTN-continue home dose of lisinopril 5 mg daily as well as metoprolol succinate. SBP goal 140 or less. BPH-continue home dose of tamsulosin. Obesity complicates all aspects of care GI prophylaxis: Pepcid 20 mg twice daily DVT prophylaxis: Subcutaneous Lovenox Labs, diagnostics, and previous progress notes reviewed as noted in HPI or A/P. Code Status:DNRCCA/DNI Plan of care discussed with patient. All questions answered. Patient verbalizes understanding is agreeable to plan of care. Discussed with collaborating physician, Dr. Lin Cronin This document was transcribed using a voice recognition software and may contain typographical errors. [facility] 11-05-2021 NoteHNO ID: [id number] Author: Ajith Vera MD Service: ? Author Type: Physician Type: Progress Notes Filed: 08/01/2021 11:49 AM Note Text: ASSESSMENT/PLAN: 1. Combined form of age-related cataract, both eyes - ICD9: 366.19, ICD10: H25.813 (primary diagnosis) -Not visually significant/ monitor. 2. Ocular hypertension, bilateral - ICD9: 365.04, ICD10: H40.053 -stable/ monitor. - TROPICAMIDE 1 % EYE DROPS - FLUORESCEIN 0.25 %-BENOXINATE 0.4 % EYE DROPS - PROPARACAINE 0.5 % EYE DROPS - VISUAL FIELD 24-2 OU (BOTH EYES) - FUNDUS PHOTOS OU (BOTH EYES) - FUNDUS PHOTOS OU (BOTH EYES) 3. History of herpes zoster keratoconjunctivitis - ICD9: V12.49, ICD10: Z86.69 -stable/ monitor. 4. Essential hypertension - ICD9: 401.9, ICD10: I10 -stable/ monitor. Ajith Vera MD I have confirmed and edited as necessary the relevant ophthalmic history, review of systems, surgical history, and ophthalmological examination findings as obtained by the ophthalmic technical staff. I have seen and examined Harini Auguste. I have discussed the examination findings, diagnosis, and treatment options with Harini Auguste and/or his family. I have also reviewed and agree with the assessment and plan as stated above and agree with all its relevant components. 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 06/14/2014 10/21/2016 documented as of this encounter (statuses as of 05/21/2022) [facility] Regular astigmatism, bilateral- Primary Presbyopia [facility] N[facility] No data available for this section [facility] Assessments Diagnosis ZHANG (dyspnea on exertion) Other dyspnea and respiratory abnormality Essential hypertension Unspecified essential hypertension Bruit of right carotid arter y Acute congestive heart failu re, unspecified congestive heart failure type (HCC) Diagnosis ZHANG (dyspnea on exertion) Other dyspnea and respiratory abnormality Essential hypertension Unspecified essential hypertension Bruit of right carotid arter y Acute congestive heart failu re, unspecified congestive heart failure type (HCC) Diagnosis ZHANG (dyspnea on exertion) - Primary Other dyspnea and respiratory abnormality Essential hypertension Unspecified essential hypertension Bruit of right carotid arter y Acute congestive heart failu re, unspecified congestive heart failure type (HCC) Diagnosis Acute congestive heart failu re, unspecified congestive heart failure type (HCC) Shortness of breath Diagnosis Spinal stenosis, lumbar region, without neurogenic claudication- Primary Summary Purpose Family History No Family History Records FoundNo Family History Records FoundNo Family History Records FoundNo Family History Records FoundNo Family History Records FoundNo Family History Records FoundNo Family History Records FoundNo Family History Records Found Advance Directives No Advanced Directives Records FoundDocuments on File Type Date Recorded Patient Phlebotomy Lab Assistant Expl anation Advance Directives and Living Will History of Present Illness * Axel Sapp MD - 04/25/2019 12:30 PM EDT CONSULT NOTE Patient Name: Harini Auguste Encounter Date: MR #: [id number] : 1935 Physicians: Caden Perea MD (Family); No ref. provider found (Referring) Chief Complaint/Reason for Visit: Leg pain on the right History of Present Illness: Harini Auguste is a 83 y.o. male who is seen in office consultation for right leg pain is intermittent and tends to be when he lifts up his right leg (to get into a truck. Sitting or lying down will help. Standing and walking will make his pain worse. The pain tends to come and go and sitting here in the office he says he has no pain. When it is present it starts in the right hip region raise down the leg to just below the knee into the velez not into the foot. No red flag signs are present. 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 History: Past Medical History: Diagnosis Date CHF (congestive heart failure) (HCC) Hypertension Past Surgical History: Procedure Laterality Date HIP SURGERY Left KNEE SURGERY Bilateral Family History Problem Relation Age of Onset Heart disease Father Social History Socioeconomic History Marital status: Spouse name: Not on file Number of children: Not on file Years of education: Not on file Highest education level: Not on file Occupational History Not on file Social Needs Financial resource strain: Not on file Food insecurity: Worry: Not on file Inability: Not on file Transportation needs: Medical: Not on file Non-medical: Not on file Tobacco Use Smoking status: Never Smoker Smokeless tobacco: Never Used Substance and Sexual Activity Alcohol use: No Drug use: No Sexual activity: Not on file Lifestyle Physical activity: Days per week: Not on file Minutes per session: Not on file Stress: Not on file Relationships Social connections: Talks on phone: Not on file Gets together: Not on file Attends roman catholic service: Not on file Active member of club or organization: Not on file Attends meetings of clubs or organizations: Not on file Relationship status: Not on file Other Topics Concern Not on file Social History Narrative Not on file Allergy Information: I have reviewed the patient's allergies. Patient has no known allergies. Home Medications: Outpatient Medications as of 04/25/2019 Medication Sig furosemide (LASIX) 20 MG tablet Take 20 mg by mouth daily. lisinopril (PRINIVIL,ZESTRIL) 5 MG tablet Take 5 mg by mouth daily . potassium chloride (K-DUR) 10 MEQ CR tablet Take 1 tablet by mouth daily . selenium 200 mcg cap Take 200 mcg by mouth daily. spironolactone (ALDACTONE) 50 MG tablet Take 50 mg by mouth daily . ascorbic acid, vitamin C, (vitamin C) 1000 MG tablet Take 1,000 mg by mouth daily. aspirin 81 MG EC tablet Take 81 mg by mouth daily. coenzyme Q10 (CO Q-10) 100 mg capsule Take 200 mg by mouth daily. cyanocobalamin (vitamin B-12) 500 MCG tablet Take 500 mcg by mouth daily. lisinopril (PRINIVIL,ZESTRIL) 10 MG tablet Take 10 mg by mouth daily. magnesium 200 mg Tab Take by mouth. potassium chloride (MICRO-K) 10 MEQ CR capsule Take 10 mEq by mouth daily. VITAMIN A/VITAMIN D2/COD LIVER (VITAMINS A & D ORAL) Take by mouth. vitamin E 400 UNIT capsule Take 400 Units by mouth daily. Review of Systems: A twelve system ROS was reviewed with the patient today and is negative except for the symptoms noted in the HPI. These systems include constitutional, cardiovascular, respiratory, musculoskeletal, neurological, eyes, integumentary, allergic, hematologic, and gastrointestinal. Physical Examination: Vital Signs: Ht 5' 11 Wt 108.9 kg (240 lb) BMI 33.47 kg/m Neuro exam: Awake and alert, oriented to name, place, and time. Gaze conjugate, EOMI. PERRL @ 3mm. Speech clear and appropriate. Face symmetrical. Tongue midline. Motor strength 5/5 to all extremities. Cervical exam: Motor strength 5/5 bilateral delt/biceps/it training specialist/intrinsics/triceps. Sensation intact and equal throughout to light touch and pain Lumbar exam: Motor strength 5/5 bilateral hip flexors/knee flexion/knee extension/dorsiflexion/plantarflexion/EHL. Sensation intact and equal throughout to light touch and pain Reflexes: 2+/4 biceps/brachioradialis/patellar, downgoing Babinski's, negative Couch's, no clonusnoted Laboratory and Additional Data Reviewed: I personally reviewed the films and the reports. Patient has an MRI scan which shows a autologous fusion from L2-L5. There is a broad-based left disc herniation with some effacement left L2 III nerve complex. There is also a very large osteophyte likely impinging on the right L2 nerve root. There is a slight retrolisthesis at L5-S1 but it does appear that the right L5 nerve is open in the distal foramen. Diagnosis: L5 retrolisthesis Assessment and Plan: I would like to do several things the first would be an MRI scan of the right hip to rule out bursitis or intrinsic hip pathology. 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 If surgery is offered it would likely be an L5-S1 fusion as his pain localizes more to L5 and does to L1 to given the location. Vijay get these studies at his local hospital and see him back here in consultation. Thank you very much for allowing me to assist in his care. Axel Sapp MD [facility] [address] [place] [address] [place] [address] Office [phone] documented in this encounter* Axel Sapp MD - 05/19/2019 1:54 PM EDT Mr. Auguste presents today to review his studies. He has no significant interval change complain of back pain and right lower extremity pain into the hip. No neurologic weakness is present distally. Neurologically him shows 5-5 strength in lower extremities. He is obviously rigid and has decreasedrange of motion with 1+ and hyperreflexic reflexes throughout. He has multiple studies which are reviewed both report the films. His MRI of the right hip performed on the shows multiple areas of biceps tendon and muscle fraying possibly some tendon tears. There is some edema in the acetabulum and a possible labral tear. 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 His CT scan confirms this with flowing osteophytes throughout his thoracolumbar and lumbosacral spine. This point any lumbar intervention would likely be doomed to failure. 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 Surgery wouldlikely not be appropriate given his lack of weakness. It may be prudent to consider hip replacementsince that prior surgery did help significantly. Surgery should likely be reserved for neurologic deficit given this picture. I feel unlikely that we will address his current pain levels with a multilevel lumbar decompression. Thank you very much for allowing me to assist in his care. documented in this encounter Additional Source Comments Yanique Goldberg, RN - 11/09/2017 9:48 AM EST Nursing Notes (unrecognized section and content) Resting ECG sinus bradycardia. Tolerated lexiscan well, denies CP/SOB with medication.in this encounter (unrecognized sect ion and content) No Status Records FoundNo Status Records FoundNo Status Records FoundNo Status Records FoundNo Status Records FoundNo Status Records FoundNo Status Records FoundNo Status Records Found INFORMATION SOURCE (unrecogn ized section and content) DATE CREATED AUTHOR AUTHOR'S ORGANIZ ATION 11/14/2018 [facility] DATE CREATED AUTHOR AUTHOR'S ORGANIZ ATION 04/03/2019 [facility] DATE CREATED AUTHOR AUTHOR'S ORGANIZ ATION 05/19/2019 [facility] DATE CREATED AUTHOR AUTHOR'S ORGANIZ ATION 02/21/2022 [facility] ([place] DATE CREATED AUTHOR AUTHOR'S ORGANIZ ATION 05/23/2022 [facility] DATE CREATED AUTHOR AUTHOR'S ORGANIZ ATION 08/12/2022 [facility] DATE CREATED AUTHOR AUTHOR'S ORGANIZ ATION 07/03/2023 [facility] Reason for Visit (unrecogniz ed section and content) Reason Comments Follow-up Review new downloade d MRI, CT, plain films Reason Comments Refraction Source Comments (unrecognize d section and content) In the event this informatio n is protected by the Federal Confidentiality of Alcohol and Drug Abuse Patient Records regulations: The Federal rules restrict any use of the information to criminally investigate or prosecute any alcohol or drug abuse patient.[facility] Care Teams (unrecognized sec tion and content) <item> Privacy Markings (unrecogniz ed section and content) Section Author: Sima Colindres PROHIBITION ON REDISCLOSURE OF CONFIDENTIAL INFORMATION This notice accompanies a disclosure of information concerning a client made to you with the consent of such client. FOR RECORDS PERTAINING TO PATIENTS WHO ARE OR HAVE BEEN ENROLLED IN A CHEMICAL DEPENDENCY/SUBSTANCEABUSE PROGRAM, SOME INFORMATION MAY BE OMITTED. This clinical summary was aggregated from multiple sources. Caution should be exercised in using it in the provision of clinical care. This summary normalizes information from multiple sources, and as a consequence, information in this document may materially change the coding, format and clinical context of patient data. In addition, data may be omitted in some cases. CLINICAL DECISIONS SHOULD BE BASED ON THE PRIMARY CLINICAL RECORDS. [facility] provides no warranty or guarantee of the accuracy or completeness of information in this document.
== END ==
LOC: OLS.WHLEAS 05:00
PROVIDERS: PCP Family Medicine; Visit Provider Nurse Practitioner Adult Health
DX: I25.10 Atherosclerotic heart disease of native coronary artery without angina pectoris (principal)
CPT/HCPCS: 36415; 80048; 85025

== ENCOUNTER → 2023-10-04 | Outpatient (REF) | payer MEDICARE, OTHER, SELFPAY ==
[2023-10-04 08:44] LABS: Absolute Lymphocyte Count 2.37 X10^3/uL (0.83-4.51); Absolute Neutrophil Count 6.4 X10^3/uL (2.0-7.7); Basophil# 0.04 X10^3/uL; Basophil% 0.4 % (0-1); Eosinophil# 0.21 X10^3/uL; Eosinophils% 2.1 % (0-5); Hematocrit 32.9 % (40-54); Hemoglobin 9.9 g/dL (13.0-16.5); Lymphocyte # 2.37 X10^3/ul (0.83-4.51); Lymphocyte % 23.6 % (19-41); Mean Corp Hgb Conc 30.1 g/dL (32-36); Mean Corpuscular Hgb 25.2 pg (27.0-32.0); Mean Corpuscular Volume 83.7 fL (80-94); Monocyte# 0.83 X10^3/uL; Monocyte% 8.3 % (0-10); NRBC Flagged by Analyzer 0 % (0-5); Neutrophil # 6.42 X10^3/uL (2.7-7.7); Platelet Count 285 K/mm3 (150-450); RBC Distribution Width SD 54.7 fl (35.1-43.9); Red Blood Count 3.93 M/mm3 (4.6-6.2)
[2023-10-04 09:02] LABS: Anion Gap 6 (5-15); BUN 16 mg/dL (7-18); BUN/Creat Ratio 16.4 RATIO (10-20); Chloride 100 mmol/L (98-107); Creatinine, Serum 0.98 mg/dL (0.70-1.30); EST Glomerular Filtration Rate 77 mL/min (>60); Est Glom Filt Rate - Afr Amer 93 mL/min (>60); Glucose 90 mg/dL (74-106); Potassium 4.1 mmol/L (3.5-5.1); Sodium Level 135 mmol/L (136-145)
== END ==
LOC: OLS.WHLEAS 05:00
PROVIDERS: PCP Family Medicine; Visit Provider Nurse Practitioner Adult Health
DX: I25.10 Atherosclerotic heart disease of native coronary artery without angina pectoris (principal)
CPT/HCPCS: 36415; 80048; 85025

== ENCOUNTER → 2023-10-18 | Outpatient (REF) | payer MEDICARE, OTHER, SELFPAY ==
[2023-10-18 08:42] LABS: Absolute Lymphocyte Count 2.77 X10^3/uL (0.83-4.51); Absolute Neutrophil Count 4.9 X10^3/uL (2.0-7.7); Basophil# 0.06 X10^3/uL; Basophil% 0.7 % (0-1); Eosinophil# 0.44 X10^3/uL; Eosinophils% 4.9 % (0-5); Hematocrit 32.7 % (40-54); Hemoglobin 9.9 g/dL (13.0-16.5); Lymphocyte # 2.77 X10^3/ul (0.83-4.51); Mean Corp Hgb Conc 30.3 g/dL (32-36); Mean Corpuscular Volume 85.8 fL (80-94); Mean Platelet Vol. 10.2 fl (6.2-12.0); Monocyte# 0.64 X10^3/uL; Monocyte% 7.2 % (0-10); NRBC Flagged by Analyzer 0 % (0-5); Neutrophil # 4.85 X10^3/uL (2.7-7.7); Neutrophil % 54.2 % (47-70); Platelet Count 218 K/mm3 (150-450); RBC Distribution Width CV 19.3 % (11.6-14.6); RBC Distribution Width SD 59.7 fl (35.1-43.9); Red Blood Count 3.81 M/mm3 (4.6-6.2); White Blood Count 8.9 K/mm3 (4.4-11.0)
[2023-10-18 08:55] LABS: Anion Gap 5 (5-15); BUN 25 mg/dL (7-18); BUN/Creat Ratio 24.5 RATIO (10-20); Calcium,Total 9.1 mg/dL (8.5-10.1); Chloride 107 mmol/L (98-107); Creatinine, Serum 1.02 mg/dL (0.70-1.30); EST Glomerular Filtration Rate 73 mL/min (>60); Est Glom Filt Rate - Afr Amer 89 mL/min (>60); Glucose 88 mg/dL (74-106); Potassium 4.5 mmol/L (3.5-5.1); Sodium Level 137 mmol/L (136-145)
== END ==
LOC: OLS.WHLEAS 05:00
PROVIDERS: PCP Family Medicine; Visit Provider Internal Medicine
DX: I25.10 Atherosclerotic heart disease of native coronary artery without angina pectoris (principal)
CPT/HCPCS: 36415; 80048; 85025

== ENCOUNTER → 2023-11-01 | Outpatient (REF) | payer MEDICARE, OTHER, SELFPAY ==
--- OUTSIDE RECORDS SUMMARY | 2023-11-01 04:07 | XMS RPT_ITS | CCD ---
Author Name Unknown Address [address] [facility] [address] [place] [address] Organization [facility] Care Team Providers Care Ceramic Maker Demonstrator Name Role Phone Caden Perea Unavailable Caden Perea Unavailable Unavailable Caden Perea Unavailable Axel Santiago Gregory Unavailable Unavailable Caden Perea Primary Care Provider AXEL SAPP Attending Antonellav CADEN Jeffrey Primary Care Unavailable AXEL SAPP Attending CADEN Wallace Primary Care Unavailable AXEL SAPP Attending CADEN Wallace Primary Care Unavailable Caden Perea Primary Care Provider SHWETA BRYANT, INDY Nino Primary Care Physician [phone] Caden Perea Primary Care Provider Caden Perea [...] disease (3 sources) Atherosclerotic heart disease of [place] coronary artery without angina pectoris; Translations: [Atherosclerotic heart disease of [place] coronary artery without angina pectoris] Onset: 09-27-2022 [...] 11-01-2020 Episodic Other aftercare (2 sources) Other jail (current) drug therapy; Translations: [Other intermodal dispatcher (current) drug therapy] Onset: 08-08-2022 Episodic Other [...] pressure 67 mm[Hg] Caden Perea Other Phone: [facility] 08-08-2022 00:00-0500 Heart rate 69 /min Caden Dukekaykay Other Phone: [facility] 08-08-2022 00:00-0500 Respiratory rate 18 /min Caden Jmlisa Other Phone: [facility] 08-08-2022 00:00-0500 SaO2% (BldA) [Mass fraction] 97 % Caden Dukekaykay Other Phone: [facility] 08-08-2022 00:00-0500 Systolic blood pressure 119 mm[Hg] Caden Dukekaykay Other Phone: [facility] 08-07-2022 19:46-0500 Body height 172.7 cm Caden Dukekaykay Other Phone: [facility] 08-07-2022 19:46-0500 Body temperature 98.06 [degF] Caden Dukekaykay Other Phone: [facility] 08-07-2022 19:46-0500 Body weight 109.1 kg Caden Dukekaykay Other Phone: [facility] 10-10-2021 08:59-0500 Heart rate 88 /min 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 [employer]ENS[employer] PRESS [facility] 10-10-2021 06:08-0500 Diastolic blood pressure 78 mm[Hg] 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 H[employer] DENSITY PRESS [facility] 10-10-2021 06:08-0500 Heart rate 62 /min 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 H[employer] DENSITY PRESS [facility] 10-10-2021 06:08-0500 Mean blood pressure 99 mm[Hg] 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 H[employer] DENSITY PRESS [facility] 10-10-2021 06:08-0500 Systolic blood pressure 140 mm[Hg] 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 HIGH DENSITY PRESS [facility] 10-10-2021 00:10-0500 Reason For Taking VItal Signs 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 H[employer] DENSITY PRESS [facility] 10-10-2021 00:10-0500 Respiratory rate 20 /min ADE PERALTABENEDICTO JOB 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 H[employer] DENSITY PRESS [facility] 10-09-2021 23:38-0500 Body temperature 97.88 [degF] ADE PERALTABENEDICTO JOB P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 H[employer] D[employer]ITY PRESS [facility] 10-09-2021 23:38-0500 Diastolic blood pressure 73 mm[Hg] ADE ANNAErnst JOB P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 H[employer] D[employer]ITY PRESS [facility] 10-09-2021 23:38-0500 Heart rate 70 /min ADE ANNAErnst JOB P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 H[employer] DENSITY PRESS [facility] 10-09-2021 23:38-0500 Mean blood pressure 91 mm[Hg] ADE ANNAN JOB 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 H[employer] DENSITY PRESS [facility] 10-09-2021 23:38-0500 Reason For Taking VItal Signs ADE ANNAErnst JOB P[employer]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 H[employer] DENSITY PRESS [facility] 10-09-2021 23:38-0500 Respiratory rate 22 /min 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 H[employer] D[employer]ITY PRESS [facility] 10-09-2021 23:38-0500 Systolic blood pressure 128 mm[Hg] 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 H[employer] DENSITY PRESS [facility] 10-09-2021 20:43-0500 Reason For Taking VItal Signs 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 H[employer] D[employer]ITY PRESS [facility] 10-09-2021 20:10-0500 Respiratory rate 18 /min 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 H[employer] DENSITY PRESS [facility] 10-09-2021 19:30-0500 Body temperature 97.52 [degF] 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 H[employer] D[employer]ITY PRESS [facility] 10-09-2021 19:30-0500 Diastolic blood pressure 71 mm[Hg] 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 H[employer] D[employer]ITY PRESS [facility] 10-09-2021 19:30-0500 Heart rate 77 /min 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 HIGH DENSITY PRESS [facility] 10-09-2021 19:30-0500 Mean blood pressure 90 mm[Hg] 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 H[employer] DENSITY PRESS [facility] 10-09-2021 19:30-0500 Systolic blood pressure 129 mm[Hg] 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 HIGH DENSITY PRESS [facility] 10-09-2021 15:28-0500 Body temperature 98.24 [degF] ADEDELFINO ANNAN JOB P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 H[employer] DENSITY PRESS [facility] 10-09-2021 12:27-0500 Body temperature 97.88 [degF] ADE FABIANNEN JOB P[employer]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 HIGH DENSITY PRESS [facility] 10-09-2021 09:18-0500 Heart rate 76 /min ADEDELFINO ANNAN JOB P[employer] UP [employer]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 HIGH DENSITY PRESS [facility] 10-09-2021 08:58-0500 Heart rate 78 /min ADEDELFINO PERALTANEN JOB P[employer]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 HIGH DENSITY PRESS [facility] 10-05-2021 23:49-0500 Body temperature 100.04 [degF] ADEDELFINO ANNAN JOB P[employer]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 HIGH DENSITY PRESS [facility] 10-05-2021 19:17-0500 Body height 182.8 cm ADEDELFINO ANNAN JOB P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 HIGH DENSITY PRESS [facility] 10-05-2021 19:17-0500 Body weight 110 kg ADEDELFINO ANNAN JOB 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 H[employer] D[employer]ITY PRESS [facility] 10-05-2021 19:17-0500 Body weight 32.92 kg/m2 ADEDELFINO ANNAN JOB P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 HIGH DENSITY PRESS [facility] 10-05-2021 16:21-0500 Heart rate 87 /min ADEDELFINO ANNAN JOB P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 H[employer] DENSITY PRESS [facility] 10-05-2021 11:56-0500 SaO2% (BldA) [Mass fraction] 99 % 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 H[employer] DENSITY PRESS [facility] 10-05-2021 11:42-0500 Heart rate 110 /min 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 H[employer] DENSITY PRESS [facility] 05-19-2019 13:10-0400 BMI (Body Mass Index) 33.47 kg/m2 [facility] 13:10-0400 [facility] 13:10-0400 Height 180.3 cm [facility]-2019 11:58-0400 BMI (Body Mass Index) 33.47 kg/m2 [facility]2019 11:58-0400 Body [facility] 108.86 [facility]2019 11:58-0400 Height 180.3 [facility] 11-09-2017 08:53-0500 BMI (Body Mass Index) 33.72 kg/m2 Axel Shelley [facility] Work Phone: 11-09-2017 08:53-0500 BP Diastolic 100 mm[Hg] Axel Shelley [facility] Work Phone: 11-09-2017 08:53-0500 BP Systolic 190 mm[Hg] Axel Shelley [facility] Work Phone: 11-09-2017 08:53-0500 Height 177.8 cm Axel Shelley [facility] Work Phone: 11-09-2017 08:53-0500 Pulse (Heart Rate) 59 /min Axel Shelley [facility] Work Phone: 11-09-2017 08:53-0500 Weight 106.59 kg Axel Shelley [facility] Work Phone: 11-05-2017 07:59-0500 BMI (Body Mass Index) 33.72 kg/m2 Axel Shelley [facility] Work Phone: 11-05-2017 07:59-0500 BP Diastolic 88 mm[Hg] Axel Shelley [facility] Work Phone: 11-05-2017 07:59-0500 BP Systolic 157 mm[Hg] Axel Shelley [facility] Work Phone: 11-05-2017 07:59-0500 Height 177.8 cm Axel Shelley [facility] Work Phone: 11-05-2017 07:59-0500 Pulse (Heart Rate) 73 /min Axel Shelley [facility] Work Phone: 11-05-2017 07:59-0500 Pulse Oximetry 94 % Axel Shelley [facility] Work Phone: 11-05-2017 07:59-0500 Weight 106.59 kg Axel Shelley [facility] Work Phone: Encounters Encounter Date Encounter Type Care Provider Facility Start: 09-27-2022 End: 06-05-2023 [facility] Start: 08-10-[address] Caden Perea Facility:[id number] Start: 08-07-2022 End: 08-08-2022 Emergency department patient visit Jeannette Lebroncori [facility] Emergency 14 Start: 05-21-2022 End: 05-21-2022 Patient encounter procedure Awais Rosario OD Work Phone: Optometry Procedures Date Procedure Procedure Detail Performing Clinician Start: 11-02-2017 End: 11-02-2017 Tte w/doppler, complete External Transcr ibed Plan of Treatment Date Care Activity Detail Author Start: 05-28-2022 Influenza vaccination INFLUENZA (#1) [facility] Start: 02-04-2022 COVID-19 VACCINE (2 - Pfizer series) COVID-19 VACCINE (2 - Pfizer series) [facility] Start: 09-27-2021 ADVANCE DIRECTIVE DISCUSSION ADVANCE DIRECTIVE DISCUSSION [facility] Start: 05-28-2020 Influenza vaccination given Sequential Influenza Vaccine (#1) [facility] Start: 03-20-2020 Pneumococcal vaccination PNEUMOCOCCAL VACCINE AGE 65+ (2 of 2 - PPSV23) [facility] Start: 05-28-2019 Influenza vaccination given SEQUENTIAL INFLUENZA VACCINE (#1) [facility] Start: 12-03-2017 Ambulatory 12/03/2017 Office Visit Cardiology Axel Shelley, DO [address] [place] [address] [phone] [facility] Start: 11-09-2017 End: 11-09-2017 Ambulatory [facility] Start: 11-05-2017 Ambulatory 11/05/2017 Office Visit Cardiology Caden Perea MD [address] [place] [address] [phone] Axel Shelley, [address] [facility] [address] [place] [address] [phone] [facility] Start: 05-28-2017 Influenza vaccination SEQUENTIAL INFLUENZA VACCINE (#1) [facility] Work Phone: Start: 2000 Pneumococcal vaccination PNEUMOCOCCAL VACCINE AGE 65+ (1 of 2 - PCV13) [facility] Work Phone: Start: 2000 PNEUMOCOCCAL: 65+ (1 - PCV) PNEUMOCOCCAL: 65+ (1 - PCV) [facility] Start: 1995 Zoster vacc, sc ZOSTER VACCINE [facility] Work Phone: Start: 1985 Administration of herpes zoster vaccine Zoster Vaccines (1 of 2) [facility] Start: 1985 SHINGRIX VACCINE (1 of 2) SHINGRIX VACCINE (1 of 2) [facility] Start: 1980 DIABETES SCREEN DIABETES SCREEN [facility] Start: 1954 Urine microalbumin profile DTAP,TDAP,TD (1 - Tdap) [facility] Start: 1947 Adolescent depression screening assessment Depression Screening (PHQ9) [facility] Start: 1938 History and physical examination, annual for health maintenance Wellness Visit [facility] Start: 1935 Fall risk assessment Falls Risk Assessment [facility] Start: 1935 End: 1935 Tetanus vaccination [facility] Work Phone: End: 01-03-2019 Carotid Duplex Carotid Duplex Routine ZHANG (dyspnea on exertion) Essential hypertension Bruit of right carotid artery Acute congestive heart failure, unspecified congestive heart failure type (HCC) 1 Occurrences starting 11/05/2017 until 01/03/2019 [facility] Work Phone: End: 11-05-2018 NM Myocardial Perfusion Multiple SPECT NM Myocardial Perfusion Multiple SPECT Routine ZHANG (dyspnea on exertion) Essential hypertension Bruit of right carotid artery Acute congestive heart failure, unspecified congestive heart failure type (HCC) 1 Occurrences starting 11/05/2017 until 11/05/2018 [facility] Immunization Date Immunization Notes Care Provider Jatinder lewis 08-14-2021 influenza virus vaccine, unspecified formulation ADE CRUZ JOB P[employer] UP [employer] 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-TVTY [facility] 07-20-2019 influenza virus vaccine, unspecified formulation ADE FABIANBENEDICTO JOB P[employer]TER UP AND 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-TVTY [facility] 03-20-2019 pneumococcal conjuga te vaccine, 13 valent ADE CRUZ JOB P[employer] 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-TVTY [facility] Payers Date Payer Category Payer Unknown [id number] 2017 Unknown AARP A[employer] [id number] 2017-Present [id number] 2015 Private Health Insurance [facility] AARP SUPPLEMENT [id number] 2015-Present [phone] [address] [place] [address] Indemnity [id number] 2000 Medicare [id number] 3 2000 Medicare [id number] 2000 Medicare MEDICARE MEDICAR E PART A & B xxxxxxxxxx 2000-Present [place] xxxxxxxxxx [id number] 2000 Medicare MEDICARE MEDICAR E PART A & B [id number] 2000-Present [place] [id number] 2000 Medicare MEDICARE MEDICAR E A AND B [id number] 2000-Present [phone] [address] [address] [place] [address] Medicare [id number] 2000 Unknown [id number] 2000 Unknown 1935 Unknown [id number] 1935 Unknown [id number] 1935 Unknown [id number] 1935 Unknown [id number] 1935 Unknown [id number] 1935 Unknown [id number] 1935 Unknown [id number] Social History Date Type Detail Facility Start: 06-14-2014 End: 11-09-2017 Tobacco smoking status NHIS Never smoker [facility] Start: 1935 Sex Assigned At Not on file [facility] Work Phone: Start: 11-03-2017 End: 11-04-2017 Tobacco smoking status AZIS Unknown if ever smoked [facility] Work Phone: Start: 05-19-2019 End: 05-21-2022 Alcohol intake Current non-drinker of alcohol (finding) [facility] Start: 06-14-2014 End: 05-19-2019 Tobacco use and exposure Never used [facility] Sex Assigned At Male [facility] Start: 05-11-2022 End: 05-21-2022 Exposure to SARS-CoV-2 (event) Not sure [facility] Clinical Notes 03-14-2015 to 05-21-2022 Patient InstructionsAwais Rosario II, OD - 05/21/2022 10:19 AM EDT Note Date & Type Note Facility 05-21-2022 Note HNO ID: [id number] Author: Awais Rosario II, OD Service: ? Author Type: PERSONAL CHEF Type: Progress Notes Filed: 05/21/2022 10:21 AM [...] its relevant components. Awais Rosario II, CONSTANTINE [facility] 05-21-2022 Instructions Awais Rosario II, OD - [...] Rosario II, OD documented in this encounter [facility] 05-21-2022 History of Present illness [...] Rosario II, OD documented in this encounter [facility] 05-06-2022 Note HNO ID: [id number] Author: Ajith Vera MD Service: ? Author [...] and treatment options. ] Ajith Vera MD [facility] 10-10-2021 Note . MICRO - Microbiology PROCEDURE: [...] Locations *1: This test was performed at: [facility], [address] [place] [address], [address] , [facility] ([place]) 10-10-2021 Note . MICRO - Microbiology PROCEDURE: [...] Locations *1: This test was performed at: [facility], [address] [place] [address], [facility] , [facility] ([place] 10-10-2021 Hospital Discharge instructions Patient Education 10/10/2021 [...] to fight infection (immunocompromised). Live in a long term or long-term care facility. Have a long-term [...] managed at home with rest, fluids, and uwju-bkv-bouabsy medicines. Treatment for a serious infection usually [...] are safe for you. General instructions Take jvpa-rhb-taianpd and prescription medicines only as told by [...] are not available, use an alcohol-based hand plastic maker. ?Avoid touching your mouth, face, eyes, or [...] water are not available, use alcohol-based hand plastic maker. Stay away from other members of your [...] have a weak immunity, live in a long term, or have chronic disease. There is no [...] 10/19/2019 Document Revised: 02/08/2020 Document Reviewed: 10/19/2019 [employer] Patient Education 2020 [employer] 10/10/2021 09:12:27 Delirium Delirium Delirium is [...] fungal, or protozoal. Medicines. These include many qnti-lxo-vjddywy and prescription medicines. Recreational drugs. Substance withdrawal. [...] health care provider should be consulted before crkz-yjl-lulhlaj medicines, herbs, or supplements are used. All [...] 06/07/2013 Document Revised: 02/18/2017 Document Reviewed: 11/06/2015 [employer] Patient Education 2019 [employer] Follow Up Care 10/05/2021 10:58:46 With:INDY ROCK MD Address: When:5 to 7 days [facility] 10-07-2021 Note . MICRO - Microbiology PROCEDURE: [...] Locations *1: This test was performed at: [facility], [address] [place] [address], [facility] , [facility] ([place]) 1. Acute hypoxemic respirato ry failure due [...] recognition software and may contain typographical errors. [facility] 11-05-2021 NoteHNO ID: [id number] Author: Ajith Vera MD Service: ? 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 06/14/2014 10/21/2016 documented as of this encounter (statuses as of 05/21/2022) [facility] Regular astigmatism, bilateral- Primary Presbyopia [facility] N[facility] No data available for this section [facility] Assessments Diagnosis ZHANG (dyspnea on exertion) Other [...] FoundDocuments on File Type Date Recorded Patient Phlebotomist Prn Expl anation Advance Directives and Living Will History of Present Illness * Axel Sapp MD - 04/25/2019 12:30 PM EDT CONSULT NOTE Patient Name: Harini Auguste Encounter Date: MR #: [id number] : 1935 Physicians: Caden Perea MD (Family); [...] file Gets together: Not on file Attends scientologist service: Not on file Active member of [...] extremities. Cervical exam: Motor strength 5/5 bilateral delt/biceps/medical billing service/intrinsics/triceps. Sensation intact and equal throughout to light [...] assist in his care. Axel Sapp MD [facility] [address] [place] [address] [place] [address] Office [phone] documented in this encounter* Axel Sapp MD [...] DATE CREATED AUTHOR AUTHOR'S ORGANIZ ATION 11/14/2018 [facility] DATE CREATED AUTHOR AUTHOR'S ORGANIZ ATION 04/03/[address] [facility] DATE CREATED AUTHOR AUTHOR'S ORGANIZ ATION 05/19/2019 [facility] DATE CREATED AUTHOR AUTHOR'S ORGANIZ ATION 02/21/2022 [facility] DATE CREATED AUTHOR AUTHOR'S ORGANIZ ATION 05/23/2022 [facility] DATE CREATED AUTHOR AUTHOR'S ORGANIZ ATION 08/12/2022 [facility] DATE CREATED AUTHOR AUTHOR'S ORGANIZ ATION 07/03/2023 [facility] Reason for Visit (unrecogniz ed section [...] or prosecute any alcohol or drug abuse patient.[facility] Care Teams (unrecognized sec tion [...] BE BASED ON THE PRIMARY CLINICAL RECORDS. [facility]. provides no warranty or guarantee of the accuracy or completeness of information in this document.
[2023-11-01 07:01] LABS: Absolute Lymphocyte Count 2.42 X10^3/uL (0.83-4.51); Absolute Neutrophil Count 3.8 X10^3/uL (2.0-7.7); Basophil# 0.05 X10^3/uL; Basophil% 0.7 % (0-1); Eosinophil# 0.46 X10^3/uL; Eosinophils% 6.2 % (0-5); Hematocrit 34.3 % (40-54); Hemoglobin 10.3 g/dL (13.0-16.5); Lymphocyte # 2.42 X10^3/ul (0.83-4.51); Lymphocyte % 32.7 % (19-41); Mean Corpuscular Hgb 26.3 pg (27.0-32.0); Mean Corpuscular Volume 87.7 fL (80-94); Mean Platelet Vol. 10.6 fl (6.2-12.0); Monocyte# 0.62 X10^3/uL; Monocyte% 8.4 % (0-10); NRBC Flagged by Analyzer 0 % (0-5); Neutrophil # 3.77 X10^3/uL (2.7-7.7); Neutrophil % 50.8 % (47-70); Platelet Count 208 K/mm3 (150-450); RBC Distribution Width CV 19.9 % (11.6-14.6); RBC Distribution Width SD 64.8 fl (35.1-43.9); Red Blood Count 3.91 M/mm3 (4.6-6.2); White Blood Count 7.4 K/mm3 (4.4-11.0)
[2023-11-01 07:16] LABS: Anion Gap 4 (5-15); BUN 18 mg/dL (7-18); BUN/Creat Ratio 16.7 RATIO (10-20); Calcium,Total 8.8 mg/dL (8.5-10.1); Chloride 111 mmol/L (98-107); Creatinine, Serum 1.08 mg/dL (0.70-1.30); EST Glomerular Filtration Rate 69 mL/min (>60); Est Glom Filt Rate - Afr Amer 83 mL/min (>60); Glucose 92 mg/dL (74-106); Potassium 4.4 mmol/L (3.5-5.1); Sodium Level 142 mmol/L (136-145)
== END ==
LOC: OLS.WHLEAS 04:00
PROVIDERS: PCP Family Medicine; Visit Provider Internal Medicine
DX: I25.10 Atherosclerotic heart disease of native coronary artery without angina pectoris (principal)
CPT/HCPCS: 36415; 80048; 85025

== ENCOUNTER → 2023-11-15 | Outpatient (REF) | payer MEDICARE, OTHER, SELFPAY ==
--- OUTSIDE RECORDS SUMMARY | 2023-11-15 05:37 | XMS RPT_ITS | CCD ---
Author Name Unknown Address [address] [facility] [address] [place] [address] Organization [facility] Care Team Providers Care Privacy Officer Name Role Phone Caden Perea Unavailable [phone] Caden Perea Unavailable Unavailable Caden Perea Unavailable Axel Santiago Gregory Unavailable Unavailable Caden Perea Primary Care Provider AXEL SAPP Attending Antonellav CADEN Jeffrey Primary Care Unavailable AXEL SAPP Attending CADEN Wallace Primary Care Unavailable AXEL SAPP Attending CADEN Wallace Primary Care Unavailable Caden Perea Primary Care Provider HSWETA BRYANT, INDY Nino Primary Care Physician Caden Perea Primary Care Provider Caden Perea [...] disease (3 sources) Atherosclerotic heart disease of [place] coronary artery without angina pectoris; Translations: [Atherosclerotic heart disease of [place] coronary artery without angina pectoris] Onset: 09-27-2022 [...] 11-01-2020 Episodic Other aftercare (2 sources) Other intermediate card tender (current) drug therapy; Translations: [Other intermediate card tender (current) drug therapy] Onset: 08-08-2022 Episodic Other [...] pressure 67 mm[Hg] Caden Perea Other Phone: [facility] 08-08-2022 00:00-0500 Heart rate 69 /min Caden Dukekaykay Other Phone: [facility] 08-08-2022 00:00-0500 Respiratory rate 18 /min Caden Jmlisa Other Phone: [facility] 08-08-2022 00:00-0500 SaO2% (BldA) [Mass fraction] 97 % Caden Dukekaykay Other Phone: [facility] 08-08-2022 00:00-0500 Systolic blood pressure 119 mm[Hg] Caden Dukekaykay Other Phone: [facility] 08-07-2022 19:46-0500 Body height 172.7 cm Caden Dukekaykay Other Phone: [facility] 08-07-2022 19:46-0500 Body temperature 98.06 [degF] Caden Dukekaykay Other Phone: [facility] 08-07-2022 19:46-0500 Body weight 109.1 kg Caden Dukekaykay Other Phone: [facility] 10-10-2021 08:59-0500 Heart rate 88 /min 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 [facility] 10-10-2021 06:08-0500 Diastolic blood pressure 78 mm[Hg] 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 [facility] 10-10-2021 06:08-0500 Heart rate 62 /min 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 [facility] 10-10-2021 06:08-0500 Mean blood pressure 99 mm[Hg] 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 [facility] 10-10-2021 06:08-0500 Systolic blood pressure 140 mm[Hg] 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 [facility] 10-10-2021 00:10-0500 Reason For Taking VItal Signs 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 [facility] 10-10-2021 00:10-0500 Respiratory rate 20 /min ADE PERALTABENEDICTO [employer]REE [employer] SHR[employer]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 [facility] 10-09-2021 23:38-0500 Body temperature 97.88 [degF] ADE PERALTABENEDICTO [employer]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 [facility] 10-09-2021 23:38-0500 Diastolic blood pressure 73 mm[Hg] ADE ANNAErnst [employer]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 [facility] 10-09-2021 23:38-0500 Heart rate 70 /min ADE ANNAErnst [employer]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 [facility] 10-09-2021 23:38-0500 Mean blood pressure 91 mm[Hg] ADE ANNAN [employer]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 [facility] 10-09-2021 23:38-0500 Reason For Taking VItal Signs ADE ANNAErnst [employer]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 [facility] 10-09-2021 23:38-0500 Respiratory rate 22 /min 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 [facility] 10-09-2021 23:38-0500 Systolic blood pressure 128 mm[Hg] 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 [facility] 10-09-2021 20:43-0500 Reason For Taking VItal Signs 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 [facility] 10-09-2021 20:10-0500 Respiratory rate 18 /min 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 [facility] 10-09-2021 19:30-0500 Body temperature 97.52 [degF] 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 [facility] 10-09-2021 19:30-0500 Diastolic blood pressure 71 mm[Hg] AED 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 [facility] 10-09-2021 19:30-0500 Heart rate 77 /min 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 [facility] 10-09-2021 19:30-0500 Mean blood pressure 90 mm[Hg] 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 [facility] 10-09-2021 19:30-0500 Systolic blood pressure 129 mm[Hg] 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 [facility] 10-09-2021 15:28-0500 Body temperature 98.24 [degF] ADEDELFINO ANNAN [employer]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 [facility] 10-09-2021 12:27-0500 Body temperature 97.88 [degF] ADE FABIANNEN [employer]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 [facility] 10-09-2021 09:18-0500 Heart rate 76 /min ADEDELFINO ANNAN [employer]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 [facility] 10-09-2021 08:58-0500 Heart rate 78 /min ADEDELFINO PERALTANEN [employer]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 [facility] 10-05-2021 23:49-0500 Body temperature 100.04 [degF] ADEDELFINO ANNAN [employer]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 [facility] 10-05-2021 19:17-0500 Body height 182.8 cm ADEDELFINO ANNAN [employer]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 [facility] 10-05-2021 19:17-0500 Body weight 110 kg ADEDELFINO ANNAN [employer]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 [facility] 10-05-2021 19:17-0500 Body weight 32.92 kg/m2 ADEDELFINO ANNAN [employer]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 [facility] 10-05-2021 16:21-0500 Heart rate 87 /min ADEDELFINO ANNAN [employer]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 [facility] 10-05-2021 11:56-0500 SaO2% (BldA) [Mass fraction] 99 % 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 [facility] 10-05-2021 11:42-0500 Heart rate 110 /min 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 [facility] 05-19-2019 13:10-0400 BMI (Body Mass Index) 33.47 kg/m2 [facility] 13:10-0400 Body weight 108.86 kg [facility] 05-19-2019 13:10-0400 Height 180.3 cm [facility] 04-25-2019 11:58-0400 BMI (Body Mass Index) 33.47 kg/m2 [facility] 04-25-2019 11:58-0400 Body weight 108.86 kg [facility] 04-25-2019 11:58-0400 Height 180.3 cm [facility] 11-09-2017 08:53-0500 BMI (Body Mass Index) 33.72 kg/m2 Axel Shelley [facility] Work Phone: 11-09-2017 08:53-0500 BP Diastolic 100 mm[Hg] Axel Shelley [facility] Work Phone: 11-09-2017 08:53-0500 BP Systolic 190 mm[Hg] Axel Shelley [facility] Work Phone: 11-09-2017 08:53-0500 Height 177.8 cm Axel Shelley [facility] Work Phone: 11-09-2017 08:53-0500 Pulse (Heart Rate) 59 /min Axel Shelley [facility] Work Phone: 11-09-2017 08:53-0500 Weight 106.59 kg Axel Shelley [facility] Work Phone: 11-05-2017 07:59-0500 BMI (Body Mass Index) 33.72 kg/m2 Axel Shelley [facility] Work Phone: 11-05-2017 07:59-0500 BP Diastolic 88 mm[Hg] Axel Shelley [facility] Work Phone: 11-05-2017 07:59-0500 BP Systolic 157 mm[Hg] Axel Shelley [employer] Work Phone: 11-05-2017 07:59-0500 Height 177.8 cm Axel Shelley [facility] Work Phone: 11-05-2017 07:59-0500 Pulse (Heart Rate) 73 /min Axel Shelley [facility] Work Phone: 11-05-2017 07:59-0500 Pulse Oximetry 94 % Axel hSelley [facility] Work Phone: 11-05-2017 07:59-0500 Weight 106.59 kg Axel Shelley [facility] Work Phone: Encounters Encounter Date Encounter Type Care Provider Facility Start: 09-27-2022 End: 06-05-2023 [facility] Start: 08-10-[address] Caden Perea Facility:[id number] Start: 08-07-2022 End: 08-08-2022 Emergency department patient visit Jeannette Lebroncori [facility] Emergency 14 Start: 05-21-2022 End: 05-21-2022 Patient encounter procedure Awais Rosario OD Work Phone: Optometry Procedures Date Procedure Procedure Detail Performing Clinician Start: 11-02-2017 End: 11-02-2017 Tte w/doppler, complete External Transcr ibed Plan of Treatment Date Care Activity Detail Author Start: 05-28-2022 Influenza vaccination INFLUENZA (#1) [facility] Start: 02-04-2022 COVID-19 VACCINE (2 - Pfizer series) COVID-19 VACCINE (2 - Pfizer series) [facility] Start: 09-27-2021 ADVANCE DIRECTIVE DISCUSSION ADVANCE DIRECTIVE DISCUSSION [facility] Start: 05-28-2020 Influenza vaccination given Sequential Influenza Vaccine (#1) [facility] Start: 03-20-2020 Pneumococcal vaccination PNEUMOCOCCAL VACCINE AGE 65+ (2 of 2 - PPSV23) [facility] Start: 05-28-2019 Influenza vaccination given SEQUENTIAL INFLUENZA VACCINE (#1) [facility] Start: 12-03-2017 Ambulatory 12/03/2017 Office Visit Cardiology Axel Shelley, DO [address] [place] [address] [phone] [facility] Start: 11-09-2017 End: 11-09-2017 Ambulatory [facility] Start: 11-05-2017 Ambulatory 11/05/2017 Office Visit Cardiology Caden Perea MD [address] [place] [address] [phone] Axel Shelley, [address] [facility] [address] [place] [address] [phone] [facility] Start: 05-28-2017 Influenza vaccination SEQUENTIAL INFLUENZA VACCINE (#1) [facility] Work Phone: Start: 2000 Pneumococcal vaccination PNEUMOCOCCAL VACCINE AGE 65+ (1 of 2 - PCV13) [facility] Work Phone: Start: 2000 PNEUMOCOCCAL: 65+ (1 - PCV) PNEUMOCOCCAL: 65+ (1 - PCV) [facility] Start: 1995 Zoster vacc, sc ZOSTER VACCINE [facility] Work Phone: Start: 1985 Administration of herpes zoster vaccine Zoster Vaccines (1 of 2) [facility] Start: 1985 SHINGRIX VACCINE (1 of 2) SHINGRIX VACCINE (1 of 2) [facility] Start: 1980 DIABETES SCREEN DIABETES SCREEN [facility] Start: 1954 Urine microalbumin profile DTAP,TDAP,TD (1 - Tdap) [facility] Start: 1947 Adolescent depression screening assessment Depression Screening (PHQ9) [facility] Start: 1938 History and physical examination, annual for health maintenance Wellness Visit [facility] Start: 1935 Fall risk assessment Falls Risk Assessment [facility] Start: 1935 End: 1935 Tetanus vaccination [facility] Work Phone: End: 01-03-2019 Carotid Duplex Carotid Duplex Routine ZHANG (dyspnea on exertion) Essential hypertension Bruit of right carotid artery Acute congestive heart failure, unspecified congestive heart failure type (HCC) 1 Occurrences starting 11/05/2017 until 01/03/2019 [facility] Work Phone: End: 11-05-2018 NM Myocardial Perfusion Multiple SPECT NM Myocardial Perfusion Multiple SPECT Routine ZHANG (dyspnea on exertion) Essential hypertension Bruit of right carotid artery Acute congestive heart failure, unspecified congestive heart failure type (HCC) 1 Occurrences starting 11/05/2017 until 11/05/2018 [facility] Immunization Date Immunization Notes Care Provider Jatinder lewis 08-14-2021 influenza virus vaccine, unspecified formulation ADE CRUZ [employer] WORKER-[employer] [facility] 07-20-2019 influenza virus vaccine, unspecified formulation ADE FABIANBENEDICTO TREE AND SHRUB WORKER-[employer] [facility] 03-20-2019 pneumococcal conjuga te vaccine, 13 valent ADE CRUZ [employer] WORKER[employer] [facility] Payers Date Payer Category Payer Unknown [id number] 2017 Unknown [employer]ARP [employer] [id number] 2017-Present [id number] 2015 Private Health Insurance [facility] AARP SUPPLEMENT [id number] 2015-Present [phone] [address] [place] [address] Indemnity [id number] 2000 Medicare [id number] 3 2000 Medicare [id number] 2000 Medicare MEDICARE MEDICAR E PART A & B [id number] 2000-Present [place] xxxxxxxxxx [id number] 2000 Medicare MEDICARE MEDICAR E PART A & B [id number] 2000-Present [place] [id number] 2000 Medicare MEDICARE MEDICAR E A AND B [id number] 2000-Present [phone] [address] [address] [place] [address] Medicare [id number] 2000 Unknown [id number] 2000 Unknown 1935 Unknown [id number] 1935 Unknown [id number] 1935 Unknown [id number] 1935 Unknown [id number] 1935 Unknown [id number] 1935 Unknown [id number] 1935 Unknown [id number] Social History Date Type Detail Facility Start: 06-14-2014 End: 11-09-2017 Tobacco smoking status NHIS Never smoker [facility] Start: 1935 Sex Assigned At Not on file O [employer] Work Phone: Start: 11-03-2017 End: 11-04-2017 Tobacco smoking status MEIS Unknown if ever smoked [facility] Work Phone: Start: 05-19-2019 End: 05-21-2022 Alcohol intake Current non-drinker of alcohol (finding) [facility] Start: 06-14-2014 End: 05-19-2019 Tobacco use and exposure Never used [facility] Sex Assigned At Male [facility] Start: 05-11-2022 End: 05-21-2022 Exposure to SARS-CoV-2 (event) Not sure [facility] Clinical Notes 03-14-2015 to 05-21-2022 Patient InstructionsAwais Rosario II, OD - 05/21/2022 10:19 AM EDT Note Date & Type Note Facility 05-21-2022 Note HNO ID: [id number] Author: Awais Rosario II, OD Service: ? Author Type: SAMPLER OVENS Type: Progress Notes Filed: 05/21/2022 10:21 AM [...] its relevant components. Awais Rosario II, CONSTANTINE [facility] 05-21-2022 Instructions Awais Rosario II, OD [...] Rosario II, OD documented in this encounter [facility] 05-21-2022 History of Present illness Narrative Assessment [...] Rosario II, OD documented in this encounter [facility] 05-06-2022 Note HNO ID: [id number] Author: Ajith Vera MD Service: ? Author [...] and treatment options. ] Ajith Vera MD [facility] 10-10-2021 Note . MICRO - Microbiology [...] Locations *1: This test was performed at: [facility], [address] [place] [address], [id number] , [facility] [place] 10-10-2021 Note . MICRO - Microbiology PROCEDURE: [...] Locations *1: This test was performed at: [facility], [address] [place] [address], [facility] , [facility] [place] 10-10-2021 Hospital Discharge instructions Patient Education 10/10/2021 [...] to fight infection (immunocompromised). Live in a fci or long-term care facility. Have a long-term [...] managed at home with rest, fluids, and kcsj-haj-gzcjkhd medicines. Treatment for a serious infection usually [...] are safe for you. General instructions Take tfvs-cwg-incixya and prescription medicines only as told by [...] are not available, use an alcohol-based hand geological aide. ?Avoid touching your mouth, face, eyes, or [...] water are not available, use alcohol-based hand geological aide. Stay away from other members of your [...] have a weak immunity, live in a fci, or have chronic disease. There is no [...] 10/19/2019 Document Revised: 02/08/2020 Document Reviewed: 10/19/2019 [employer] Patient Education 2020 [employer] 10/10/2021 09:12:27 Delirium Delirium Delirium is [...] fungal, or protozoal. Medicines. These include many uctf-peb-tbcljtt and prescription medicines. Recreational drugs. Substance withdrawal. [...] health care provider should be consulted before lcro-sll-brdlerz medicines, herbs, or supplements are used. All [...] 06/07/2013 Document Revised: 02/18/2017 Document Reviewed: 11/06/2015 [employer] Interactive Patient Education 2019 [employer] Follow Up Care 10/05/2021 10:58:46 With:INDY ROCK MD Address: When:5 to 7 days [facility] 10-07-2021 Note . MICRO - Microbiology [...] Locations *1: This test was performed at: [facility], [address] [place] [address], [facility] , [facility] [place] 1. Acute hypoxemic respirato ry failure due to COVID-19 2. HTN (hypertension) 3. BPH (benign prostatic hyperplasia) Acute Hypoxemic Respiratory failure secondary to Covid-19 Pneumonia Patient's POA adamantly declines remdesivir. Today /10 of dexamethasone as patient has been receiving this since his admission to [facility]. Continue supportive measures with oxygen therapy, [...] recognition software and may contain typographical errors. [facility] 11-05-2021 NoteHNO ID: [id number] Author: Ajith Vera MD Service: ? 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 Cervical exam: Motor strength 5/5 bilateral delt/biceps/hedis coordinator/intrinsics/triceps. Sensation intact and equal throughout to light [...] assist in his care. Axel Sapp MD [facility] [address] [place] [address] [place] [address] Office [phone] documented in this encounter* Axel Sapp MD [...] DATE CREATED AUTHOR AUTHOR'S ORGANIZ ATION 11/14/2018 [facility] DATE CREATED AUTHOR AUTHOR'S ORGANIZ ATION 04/03/2019 [facility] DATE CREATED AUTHOR AUTHOR'S ORGANIZ ATION 05/19/2019 [facility] DATE CREATED AUTHOR AUTHOR'S ORGANIZ ATION 02/21/2022 [facility] DATE CREATED AUTHOR AUTHOR'S ORGANIZ ATION 05/23/2022 [facility] DATE CREATED AUTHOR AUTHOR'S ORGANIZ ATION 08/12/2022 [facility] DATE CREATED AUTHOR AUTHOR'S ORGANIZ ATION 07/03/2023 [facility] Reason for Visit (unrecogniz ed [...] or prosecute any alcohol or drug abuse patient.[facility] Care Teams (unrecognized sec tion and content) [...] BE BASED ON THE PRIMARY CLINICAL RECORDS. [facility] CenterLingosp[facility], Inc[facility]. provides no warranty or guarantee of the accuracy or completeness of information in this document.
[2023-11-15 08:10] LABS: Absolute Lymphocyte Count 2.06 X10^3/uL (0.83-4.51); Absolute Neutrophil Count 5.6 X10^3/uL (2.0-7.7); Basophil# 0.05 X10^3/uL; Basophil% 0.6 % (0-1); Eosinophil# 0.39 X10^3/uL; Eosinophils% 4.4 % (0-5); Hematocrit 36.1 % (40-54); Hemoglobin 10.7 g/dL (13.0-16.5); Lymphocyte # 2.06 X10^3/ul (0.83-4.51); Mean Corp Hgb Conc 29.6 g/dL (32-36); Mean Corpuscular Hgb 26.7 pg (27.0-32.0); Mean Platelet Vol. 10.8 fl (6.2-12.0); Monocyte# 0.71 X10^3/uL; Monocyte% 7.9 % (0-10); NRBC Flagged by Analyzer 0 % (0-5); Neutrophil # 5.61 X10^3/uL (2.7-7.7); Neutrophil % 62.6 % (47-70); Platelet Count 190 K/mm3 (150-450); RBC Distribution Width CV 19.3 % (11.6-14.6); RBC Distribution Width SD 64.5 fl (35.1-43.9); Red Blood Count 4.01 M/mm3 (4.6-6.2)
[2023-11-15 08:44] LABS: Anion Gap 3 (5-15); BUN 17 mg/dL (7-18); BUN/Creat Ratio 16.8 RATIO (10-20); Calcium,Total 8.8 mg/dL (8.5-10.1); Chloride 110 mmol/L (98-107); Creatinine, Serum 1.01 mg/dL (0.70-1.30); EST Glomerular Filtration Rate 74 mL/min (>60); Est Glom Filt Rate - Afr Amer 90 mL/min (>60); Glucose 95 mg/dL (74-106); Potassium 4.3 mmol/L (3.5-5.1); Sodium Level 141 mmol/L (136-145)
== END ==
LOC: OLS.WHLEAS 05:00
PROVIDERS: PCP Family Medicine; Visit Provider Internal Medicine
DX: I25.10 Atherosclerotic heart disease of native coronary artery without angina pectoris (principal); S82.401D Unspecified fracture of shaft of right fibula, subsequent encounter for closed fracture with routine healing
CPT/HCPCS: 36415; 80048; 85025

== ENCOUNTER → 2023-11-29 | Outpatient (REF) | payer MEDICARE, OTHER, SELFPAY ==
--- OUTSIDE RECORDS SUMMARY | 2023-11-29 05:08 | XMS RPT_ITS | CCD ---
Author Name Unknown Address [address] [facility] [address] [place] [address] Organization [facility] Care Team Providers Care Meteorology Teacher Name Role Phone Caden Perea Unavailable Caden Perea Unavailable Unavailable Caden Perea Unavailable Axel Santiago Gregory Unavailable Unavailable Caden Perea Primary Care Provider AXEL SAPP Attending Antonellav CADEN Jeffrey Primary Care Unavailable AXEL SAPP Attending CADEN Wallace Primary Care Unavailable AXEL SAPP Attending CADEN Wallace Primary Care Unavailable Caden Perea Primary Care Provider SHWETA BRYANT, INDY Nino Primary Care Physician Caden [...] disease (3 sources) Atherosclerotic heart disease of [place] coronary artery without angina pectoris; Translations: [Atherosclerotic heart disease of [place] coronary artery without angina pectoris] Onset: 09-27-2022 [...] 11-01-2020 Episodic Other aftercare (2 sources) 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; Translations: [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] Onset: 08-08-2022 Episodic Other [...] pressure 67 mm[Hg] Caden Perea Other Phone: [facility] 08-08-2022 00:00-0500 Heart rate 69 /min Caden Dukekaykay Other Phone: [facility] 08-08-2022 00:00-0500 Respiratory rate 18 /min Caden Jmlisa Other Phone: [facility] 08-08-2022 00:00-0500 SaO2% (BldA) [Mass fraction] 97 % Caden Dukekaykay Other Phone: [facility] 08-08-2022 00:00-0500 Systolic blood pressure 119 mm[Hg] Caden Dukekaykay Other Phone: [facility] 08-07-2022 19:46-0500 Body height 172.7 cm Caden Dukekaykay Other Phone: [facility] 08-07-2022 19:46-0500 Body temperature 98.06 [degF] Caden Dukekaykay Other Phone: [facility] 08-07-2022 19:46-0500 Body weight 109.1 kg Caden Dukekaykay Other Phone: [facility] 10-10-2021 08:59-0500 Heart rate 88 /min ADE CRUZ PUBLIC EVENTS FACILITIES RENTAL MANAGER-HOME SECURITY ALARM INSTALLER [facility] 10-10-2021 06:08-0500 Diastolic blood pressure 78 mm[Hg] ADE CRUZ PUBLIC EVENTS FACILITIES RENTAL MANAGER-HOME SECURITY ALARM INSTALLER [facility] 10-10-2021 06:08-0500 Heart rate 62 /min ADE CRUZ PUBLIC EVENTS FACILITIES RENTAL MANAGER-HOME SECURITY ALARM INSTALLER [facility] 10-10-2021 06:08-0500 Mean blood pressure 99 mm[Hg] ADE CRUZ PUBLIC EVENTS FACILITIES RENTAL MANAGER-HOME SECURITY ALARM INSTALLER [facility] 10-10-2021 06:08-0500 Systolic blood pressure 140 mm[Hg] ADE CRUZ PUBLIC EVENTS FACILITIES RENTAL MANAGER-HOME SECURITY ALARM INSTALLER [facility] 10-10-2021 00:10-0500 Reason For Taking VItal Signs ADE CRUZ PUBLIC EVENTS FACILITIES RENTAL MANAGER-HOME SECURITY ALARM INSTALLER [facility] 10-10-2021 00:10-0500 Respiratory rate 20 /min ADE PERALTABENEDICTO PUBLIC EVENTS FACILITIES RENTAL MANAGER-HOME SECURITY ALARM INSTALLER [facility] 10-09-2021 23:38-0500 Body temperature 97.88 [degF] ADE PERALTABENEDICTO PUBLIC EVENTS FACILITIES RENTAL MANAGER-HOME SECURITY ALARM INSTALLER [facility] 10-09-2021 23:38-0500 Diastolic blood pressure 73 mm[Hg] ADE ANNAErnst PUBLIC EVENTS FACILITIES RENTAL MANAGER-HOME SECURITY ALARM INSTALLER [facility] 10-09-2021 23:38-0500 Heart rate 70 /min ADE ANNAErnst PUBLIC EVENTS FACILITIES RENTAL MANAGER-HOME SECURITY ALARM INSTALLER [facility] 10-09-2021 23:38-0500 Mean blood pressure 91 mm[Hg] ADE ANNAN PUBLIC EVENTS FACILITIES RENTAL MANAGER-HOME SECURITY ALARM INSTALLER [facility] 10-09-2021 23:38-0500 Reason For Taking VItal Signs ADE ANNAErnst PUBLIC EVENTS FACILITIES RENTAL MANAGER-HOME SECURITY ALARM INSTALLER [facility] 10-09-2021 23:38-0500 Respiratory rate 22 /min ADE CRUZ PUBLIC EVENTS FACILITIES RENTAL MANAGER-HOME SECURITY ALARM INSTALLER [facility] 10-09-2021 23:38-0500 Systolic blood pressure 128 mm[Hg] ADE CRUZ PUBLIC EVENTS FACILITIES RENTAL MANAGER-HOME SECURITY ALARM INSTALLER [facility] 10-09-2021 20:43-0500 Reason For Taking VItal Signs ADE CRUZ PUBLIC EVENTS FACILITIES RENTAL MANAGER-HOME SECURITY ALARM INSTALLER [facility] 10-09-2021 20:10-0500 Respiratory rate 18 /min ADE CRUZ PUBLIC EVENTS FACILITIES RENTAL MANAGER-HOME SECURITY ALARM INSTALLER [facility] 10-09-2021 19:30-0500 Body temperature 97.52 [degF] ADE CRUZ PUBLIC EVENTS FACILITIES RENTAL MANAGER-HOME SECURITY ALARM INSTALLER [facility] 10-09-2021 19:30-0500 Diastolic blood pressure 71 mm[Hg] ADE CRUZ PUBLIC EVENTS FACILITIES RENTAL MANAGER-HOME SECURITY ALARM INSTALLER [facility] 10-09-2021 19:30-0500 Heart rate 77 /min ADE CRUZ PUBLIC EVENTS FACILITIES RENTAL MANAGER-HOME SECURITY ALARM INSTALLER [facility] 10-09-2021 19:30-0500 Mean blood pressure 90 mm[Hg] ADE CRUZ PUBLIC EVENTS FACILITIES RENTAL MANAGER-HOME SECURITY ALARM INSTALLER [facility] 10-09-2021 19:30-0500 Systolic blood pressure 129 mm[Hg] ADE CRUZ PUBLIC EVENTS FACILITIES RENTAL MANAGER-HOME SECURITY ALARM INSTALLER [facility] 10-09-2021 15:28-0500 Body temperature 98.24 [degF] ADEDELFINO ANNAN PUBLIC EVENTS FACILITIES RENTAL MANAGER-HOME SECURITY ALARM INSTALLER [facility] 10-09-2021 12:27-0500 Body temperature 97.88 [degF] ADE FABIANNEN PUBLIC EVENTS FACILITIES RENTAL MANAGER-HOME SECURITY ALARM INSTALLER [facility] 10-09-2021 09:18-0500 Heart rate 76 /min ADEDELFINO ANNAN PUBLIC EVENTS FACILITIES RENTAL MANAGER-HOME SECURITY ALARM INSTALLER [facility] 10-09-2021 08:58-0500 Heart rate 78 /min ADEDELFINO PERALTANEN PUBLIC EVENTS FACILITIES RENTAL MANAGER-HOME SECURITY ALARM INSTALLER [facility] 10-05-2021 23:49-0500 Body temperature 100.04 [degF] ADEDELFINO ANNAN PUBLIC EVENTS FACILITIES RENTAL MANAGER-HOME SECURITY ALARM INSTALLER [facility] 10-05-2021 19:17-0500 Body height 182.8 cm ADEDELFINO ANNAN PUBLIC EVENTS FACILITIES RENTAL MANAGER-HOME SECURITY ALARM INSTALLER [facility] 10-05-2021 19:17-0500 Body weight 110 kg ADEDELFINO ANNAN PUBLIC EVENTS FACILITIES RENTAL MANAGER-HOME SECURITY ALARM INSTALLER [facility] 10-05-2021 19:17-0500 Body weight 32.92 kg/m2 ADEDELFINO ANNAN PUBLIC EVENTS FACILITIES RENTAL MANAGER-HOME SECURITY ALARM INSTALLER [facility] 10-05-2021 16:21-0500 Heart rate 87 /min ADEDELFINO ANNAN PUBLIC EVENTS FACILITIES RENTAL MANAGER-HOME SECURITY ALARM INSTALLER [facility] 10-05-2021 11:56-0500 SaO2% (BldA) [Mass fraction] 99 % ADE CRUZ PUBLIC EVENTS FACILITIES RENTAL MANAGER-HOME SECURITY ALARM INSTALLER [facility] 10-05-2021 11:42-0500 Heart rate 110 /min ADE CRUZ PUBLIC EVENTS FACILITIES RENTAL MANAGER-HOME SECURITY ALARM INSTALLER [facility] 05-19-2019 13:10-0400 BMI (Body Mass Index) 33.47 kg/m2 [facility]-2019 13:10-0400 Body weight 108.86 [facility] 05-19-2019 13:10-0400 Height 180.[address] [facility] 04-25-2019 11:58-0400 BMI (Body Mass Index) 33.47 kg/m2 [facility] 04-25-2019 11:58-0400 Body weight 108.86 [facility] 04-25-2019 11:58-0400 Height 180.3 [address] 11-09-2017 08:53-0500 BMI (Body Mass Index) 33.72 kg/m2 Axel Shelley [facility] Work Phone: 11-09-2017 08:53-0500 BP Diastolic 100 mm[Hg] Axel Shelley [facility] Work Phone: 11-09-2017 08:53-0500 BP Systolic 190 mm[Hg] Axel Shelley [facility] Work Phone: 11-09-2017 08:53-0500 Height 177.8 cm Axel Shelley [facility] Work Phone: 11-09-2017 08:53-0500 Pulse (Heart Rate) 59 /min Axel Shelley [facility] Work Phone: 11-09-2017 08:53-0500 Weight 106.59 kg Axel Shelley [facility] Work Phone: 11-05-2017 07:59-0500 BMI (Body Mass Index) 33.72 kg/m2 Axel Shelley [facility] Work Phone: 11-05-2017 07:59-0500 BP Diastolic 88 mm[Hg] Axel Shelley [facility] Work Phone: 11-05-2017 07:59-0500 BP Systolic 157 mm[Hg] Axel Shelley [facility] Work Phone: 11-05-2017 07:59-0500 Height 177.8 cm Axel Shelley [facility] Work Phone: 11-05-2017 07:59-0500 Pulse (Heart Rate) 73 /min Axel Shelley [facility] Work Phone: 11-05-2017 07:59-0500 Pulse Oximetry 94 % Axel Shelley [facility] Work Phone: 11-05-2017 07:59-0500 Weight 106.59 kg Axel Shelley [facility] Work Phone: Encounters Encounter Date Encounter Type Care Provider Facility Start: 09-27-2022 End: 06-05-2023 [facility] Start: 08-10-[address] Caden Perea Facility:[id number] Start: 08-07-2022 End: 08-08-2022 Emergency department patient visit Jeannette Lebroncori [facility] Emergency 14 Start: 05-21-2022 End: 05-21-2022 Patient encounter procedure Awais Rosario OD Work Phone: Optometry Procedures Date Procedure Procedure Detail Performing Clinician Start: 11-02-2017 End: 11-02-2017 Tte w/doppler, complete External Transcr ibed Plan of Treatment Date Care Activity Detail Author Start: 05-28-2022 Influenza vaccination INFLUENZA (#1) [facility] Start: 02-04-2022 COVID-19 VACCINE (2 - Pfizer series) COVID-19 VACCINE (2 - Pfizer series) [facility] Start: 09-27-2021 ADVANCE DIRECTIVE DISCUSSION ADVANCE DIRECTIVE DISCUSSION [facility] Start: 05-28-2020 Influenza vaccination given Sequential Influenza Vaccine (#1) [facility] Start: 03-20-2020 Pneumococcal vaccination PNEUMOCOCCAL VACCINE AGE 65+ (2 of 2 - PPSV23) [facility] Start: 05-28-2019 Influenza vaccination given SEQUENTIAL INFLUENZA VACCINE (#1) [facility] Start: 12-03-2017 Ambulatory 12/03/2017 Office Visit Cardiology Axel Shelley, DO [address] [place] [address] [phone] [facility] Start: 11-09-2017 End: 11-09-2017 Ambulatory [facility] Start: 11-05-2017 Ambulatory 11/05/2017 Office Visit Cardiology Caden Perea MD [address] [place] [address] [phone] Axel Shelley, [address] [facility] [address] [place] [address] [phone] [facility] Start: 05-28-2017 Influenza vaccination SEQUENTIAL INFLUENZA VACCINE (#1) [facility] Work Phone: Start: 2000 Pneumococcal vaccination PNEUMOCOCCAL VACCINE AGE 65+ (1 of 2 - PCV13) [facility] Work Phone: Start: 2000 PNEUMOCOCCAL: 65+ (1 - PCV) PNEUMOCOCCAL: 65+ (1 - PCV) [facility] Start: 1995 Zoster vacc, sc ZOSTER VACCINE [facility] Work Phone: Start: 1985 Administration of herpes zoster vaccine Zoster Vaccines (1 of 2) [facility] Start: 1985 SHINGRIX VACCINE (1 of 2) SHINGRIX VACCINE (1 of 2) [facility] Start: 1980 DIABETES SCREEN DIABETES SCREEN [facility] Start: 1954 Urine microalbumin profile DTAP,TDAP,TD (1 - Tdap) [facility] Start: 1947 Adolescent depression screening assessment Depression Screening (PHQ9) [facility] Start: 1938 History and physical examination, annual for health maintenance Wellness Visit [facility] Start: 1935 Fall risk assessment Falls Risk Assessment [facility] Start: 1935 End: 1935 Tetanus vaccination [facility] Work Phone: End: 01-03-2019 Carotid Duplex Carotid Duplex Routine ZHANG (dyspnea on exertion) Essential hypertension Bruit of right carotid artery Acute congestive heart failure, unspecified congestive heart failure type (HCC) 1 Occurrences starting 11/05/2017 until 01/03/2019 [facility] Work Phone: End: 11-05-2018 NM Myocardial Perfusion Multiple SPECT NM Myocardial Perfusion Multiple SPECT Routine ZHANG (dyspnea on exertion) Essential hypertension Bruit of right carotid artery Acute congestive heart failure, unspecified congestive heart failure type (HCC) 1 Occurrences starting 11/05/2017 until 11/05/2018 [facility] Work Phone[facility] Immun[facility] Immunization Date Immunization Notes Care Provider Jatinder lewis 08-14-2021 influenza virus vaccine, unspecified formulation ADE CRUZ PUBLIC EVENTS FACILITIES RENTAL MANAGER-[employer] [facility] 07-20-2019 influenza virus vaccine, unspecified formulation ADE FABIANBENEDICTO PUBLIC EVENTS FACILITIES RENTAL MANAGER-[employer] [facility] 03-20-2019 pneumococcal conjuga te vaccine, 13 valent ADE CRUZ PUBLIC EVENTS FACILITIES RENTAL MANAGER-[employer] [facility] Payers Date Payer Category Payer Unknown [id number] 2017 Unknown AARP A[employer] [id number] 2017-Present [id number] 2015 Private Health Insurance [facility] AARP SUPPLEMENT [id number] 2015-Present [phone] [address] [place] [address] Indemnity [id number] 2000 Medicare [id number] 3 2000 Medicare [id number] 2000 Medicare MEDICARE MEDICAR E PART A & B xxxxxxxxxx 2000-Present [place] xxxxxxxxxx [id number] 2000 Medicare MEDICARE MEDICAR E PART A & B [id number] 2000-Present [place] [id number] 2000 Medicare MEDICARE MEDICAR E A AND B [id number] 2000-Present [phone] [address] [address] [place] [address] Medicare [id number] 2000 Unknown xxxxxxxxxxx [id number] 2000 Unknown 1935 Unknown [id number] 1935 Unknown [id number] 1935 Unknown [id number] 1935 Unknown [id number] 1935 Unknown [id number] 1935 Unknown [id number] 1935 Unknown [id number] Social History Date Type Detail Facility Start: 06-14-2014 End: 11-09-2017 Tobacco smoking status NHIS Never smoker [facility] Start: 1935 Sex Assigned At Not on file [facility] Work Phone: Start: 11-03-2017 End: 11-04-2017 Tobacco smoking status MOIS Unknown if ever smoked [facility] Work Phone: Start: 05-19-2019 End: 05-21-2022 Alcohol intake Current non-drinker of alcohol (finding) [facility] Start: 06-14-2014 End: 05-19-2019 Tobacco use and exposure Never used [facility] Sex Assigned At Male [facility] Start: 05-11-2022 End: 05-21-2022 Exposure to SARS-CoV-2 (event) Not sure [facility] Clinical Notes 03-14-2015 to 05-21-2022 Patient InstructionsAwais Rosario II, OD - 05/21/2022 10:19 AM EDT Note Date & Type Note Facility 05-21-2022 Note HNO ID: [id number] Author: Awais Rosario II, OD Service: ? Author Type: REVENUE ENFORCEMENT COLLECTION AGENT Type: Progress Notes Filed: 05/21/2022 10:21 AM [...] its relevant components. Awais Rosario II, CONSTANTINE [facility] 05-21-2022 Instructions Awais Rosario II, OD - [...] Rosario II, OD documented in this encounter [facility] 05-21-2022 History of Present illness Narrative [...] Rosario II, OD documented in this encounter [facility] 05-06-2022 Note HNO ID: [id number] Author: Ajith Vera MD Service: ? Author [...] and treatment options. ] Ajith Vera MD [facility] 10-10-2021 Note . MICRO - Microbiology PROCEDURE: [...] Locations *1: This test was performed at: [facility], [address] [place] [address], [id number] , [facility] ([place]) 10-10-2021 Note . MICRO - Microbiology PROCEDURE: [...] Locations *1: This test was performed at: [facility], [address] [place] [address], [facility] , [facility] ([place]) 10-10-2021 Hospital Discharge instructions Patient Education 10/10/2021 [...] to fight infection (immunocompromised). Live in a custodial or long-term care facility. Have a long-term [...] managed at home with rest, fluids, and eyeq-kcy-jlsamop medicines. Treatment for a serious infection usually [...] are safe for you. General instructions Take hnqd-hto-etnbgxq and prescription medicines only as told by [...] are not available, use an alcohol-based hand cyber security consultant. ?Avoid touching your mouth, face, eyes, or [...] water are not available, use alcohol-based hand cyber security consultant. Stay away from other members of your [...] have a weak immunity, live in a custodial, or have chronic disease. There is no [...] 10/19/2019 Document Revised: 02/08/2020 Document Reviewed: 10/19/2019 [email or web address] Patient Education 2020 [email or web address] 10/10/2021 09:12:27 Delirium Delirium Delirium is [...] fungal, or protozoal. Medicines. These include many afhl-agt-utgnzsp and prescription medicines. Recreational drugs. Substance withdrawal. [...] health care provider should be consulted before qffh-ohk-hdhxdua medicines, herbs, or supplements are used. All [...] 06/07/2013 Document Revised: 02/18/2017 Document Reviewed: 11/06/2015 [email or web address] Interactive Patient Education 2019 [email or web address] Follow Up Care 10/05/2021 10:58:46 With:INDY ROCK MD Address: When:5 to 7 days [facility] 10-07-2021 Note . MICRO - [...] Locations *1: This test was performed at: [facility], [address] [place] [address], [facility] , [facility] ([place]) 1. Acute hypoxemic respirato ry failure due [...] recognition software and may contain typographical errors. [facility] 11-05-2021 NoteHNO ID: [id number] Author: Ajith Vera MD Service: ? 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 Cervical exam: Motor strength 5/5 bilateral delt/biceps/improvement engineer/intrinsics/triceps. Sensation intact and equal throughout to light [...] assist in his care. Axel Sapp MD [facility] [address] [place] [address] [place] [address] Office [phone] documented in this encounter* Axel Sapp MD [...] DATE CREATED AUTHOR AUTHOR'S ORGANIZ ATION 11/14/2018 [facility] DATE CREATED AUTHOR AUTHOR'S ORGANIZ ATION 04/03/2019 [facility] DATE CREATED AUTHOR AUTHOR'S ORGANIZ ATION 05/19/2019 [facility] DATE CREATED AUTHOR AUTHOR'S ORGANIZ ATION 02/21/2022 [facility] DATE CREATED AUTHOR AUTHOR'S ORGANIZ ATION 05/23/2022 [facility] DATE CREATED AUTHOR AUTHOR'S ORGANIZ ATION 08/12/2022 [facility] DATE CREATED AUTHOR AUTHOR'S ORGANIZ ATION 07/03/2023 [facility] Reason for Visit (unrecogniz ed [...] or prosecute any alcohol or drug abuse patient.[facility] Care Teams (unrecognized sec tion and [...] BE BASED ON THE PRIMARY CLINICAL RECORDS. [facility]. provides no warranty or guarantee of the accuracy or completeness of information in this document.
[2023-11-29 07:22] LABS: Absolute Lymphocyte Count 2.43 X10^3/uL (0.83-4.51); Absolute Neutrophil Count 4.8 X10^3/uL (2.0-7.7); Basophil# 0.06 X10^3/uL; Basophil% 0.7 % (0-1); Eosinophil# 0.45 X10^3/uL; Eosinophils% 5.3 % (0-5); Hematocrit 34.1 % (40-54); Hemoglobin 10.6 g/dL (13.0-16.5); Lymphocyte # 2.43 X10^3/ul (0.83-4.51); Lymphocyte % 28.4 % (19-41); Mean Corp Hgb Conc 31.1 g/dL (32-36); Mean Corpuscular Hgb 27.7 pg (27.0-32.0); Mean Corpuscular Volume 89.3 fL (80-94); Mean Platelet Vol. 10.4 fl (6.2-12.0); Monocyte# 0.66 X10^3/uL; Monocyte% 7.7 % (0-10); NRBC Flagged by Analyzer 0 % (0-5); Neutrophil # 4.81 X10^3/uL (2.7-7.7); Neutrophil % 56.3 % (47-70); Platelet Count 195 K/mm3 (150-450); RBC Distribution Width CV 18.1 % (11.6-14.6); RBC Distribution Width SD 59.2 fl (35.1-43.9); Red Blood Count 3.82 M/mm3 (4.6-6.2); White Blood Count 8.6 K/mm3 (4.4-11.0)
[2023-11-29 07:33] LABS: Anion Gap 4 (5-15); BUN 21 mg/dL (7-18); Calcium,Total 8.7 mg/dL (8.5-10.1); Chloride 109 mmol/L (98-107); Creatinine, Serum 0.95 mg/dL (0.70-1.30); EST Glomerular Filtration Rate 79 mL/min (>60); Est Glom Filt Rate - Afr Amer 96 mL/min (>60); Glucose 92 mg/dL (74-106); Potassium 4.2 mmol/L (3.5-5.1); Sodium Level 139 mmol/L (136-145)
== END ==
LOC: OLS.WHLEAS 05:00
PROVIDERS: PCP Family Medicine; Visit Provider Internal Medicine
DX: I25.10 Atherosclerotic heart disease of native coronary artery without angina pectoris (principal)
CPT/HCPCS: 36415; 80048; 85025

== ENCOUNTER → 2023-12-13 | Outpatient (REF) | payer MEDICARE, OTHER, SELFPAY ==
[2023-12-13 08:14] LABS: Absolute Lymphocyte Count 2.42 X10^3/uL (0.83-4.51); Absolute Neutrophil Count 4.3 X10^3/uL (2.0-7.7); Basophil# 0.04 X10^3/uL; Basophil% 0.5 % (0-1); Eosinophil# 0.45 X10^3/uL; Eosinophils% 5.7 % (0-5); Hematocrit 35.8 % (40-54); Hemoglobin 11.3 g/dL (13.0-16.5); Lymphocyte # 2.42 X10^3/ul (0.83-4.51); Lymphocyte % 30.9 % (19-41); Mean Corp Hgb Conc 31.6 g/dL (32-36); Mean Corpuscular Volume 88.8 fL (80-94); Mean Platelet Vol. 11.1 fl (6.2-12.0); Monocyte# 0.55 X10^3/uL; NRBC Flagged by Analyzer 0 % (0-5); Neutrophil # 4.28 X10^3/uL (2.7-7.7); Neutrophil % 54.6 % (47-70); Platelet Count 184 K/mm3 (150-450); RBC Distribution Width CV 17.1 % (11.6-14.6); RBC Distribution Width SD 55.8 fl (35.1-43.9); Red Blood Count 4.03 M/mm3 (4.6-6.2); White Blood Count 7.8 K/mm3 (4.4-11.0)
[2023-12-13 08:30] LABS: Anion Gap 6 (5-15); BUN 15 mg/dL (7-18); Calcium,Total 8.5 mg/dL (8.5-10.1); Chloride 109 mmol/L (98-107); Creatinine, Serum 0.94 mg/dL (0.70-1.30); EST Glomerular Filtration Rate 81 mL/min (>60); Est Glom Filt Rate - Afr Amer 98 mL/min (>60); Glucose 92 mg/dL (74-106); Potassium 3.9 mmol/L (3.5-5.1); Sodium Level 139 mmol/L (136-145)
== END ==
LOC: OLS.WHLEAS 05:00
PROVIDERS: PCP Family Medicine; Visit Provider Internal Medicine
DX: I25.10 Atherosclerotic heart disease of native coronary artery without angina pectoris (principal)
CPT/HCPCS: 36415; 80048; 85025

== ENCOUNTER → 2023-12-27 | Outpatient (REF) | payer MEDICARE, OTHER, SELFPAY ==
[2023-12-27 09:42] LABS: Absolute Lymphocyte Count 0.96 X10^3/uL (0.83-4.51); Absolute Neutrophil Count 5.2 X10^3/uL (2.0-7.7); Basophil# 0.05 X10^3/uL; Basophil% 0.7 % (0-1); Eosinophil# 0.44 X10^3/uL; Hematocrit 35.4 % (40-54); Hemoglobin 11.1 g/dL (13.0-16.5); Lymphocyte # 0.96 X10^3/ul (0.83-4.51); Lymphocyte % 13.1 % (19-41); Mean Corp Hgb Conc 31.4 g/dL (32-36); Mean Corpuscular Hgb 28.3 pg (27.0-32.0); Mean Corpuscular Volume 90.3 fL (80-94); Mean Platelet Vol. 10.8 fl (6.2-12.0); Monocyte# 0.48 X10^3/uL; Monocyte% 6.6 % (0-10); NRBC Flagged by Analyzer 0 % (0-5); Neutrophil # 5.23 X10^3/uL (2.7-7.7); Neutrophil % 71.5 % (47-70); Platelet Count 193 K/mm3 (150-450); RBC Distribution Width CV 16.7 % (11.6-14.6); RBC Distribution Width SD 54.9 fl (35.1-43.9); Red Blood Count 3.92 M/mm3 (4.6-6.2); White Blood Count 7.3 K/mm3 (4.4-11.0)
[2023-12-27 10:25] LABS: AST(SGOT) 14 U/L (15-37); Alanine Aminotransfer ALT/SGPT 12 U/L (16-61); Albumin, Serum 3.1 g/dL (3.2-5.0); Alkaline Phosphatase 71 U/L (45-117); Anion Gap 4 (5-15); BUN 23 mg/dL (7-18); BUN/Creat Ratio 22.1 RATIO (10-20); Bilirubin, Direct 0.09 mg/dL (0.00-0.30); Calcium,Total 8.8 mg/dL (8.5-10.1); Chloride 106 mmol/L (98-107); Cholesterol 180 mg/dL (200); Creatinine, Serum 1.04 mg/dL (0.70-1.30); EST Glomerular Filtration Rate 72 mL/min (>60); Est Glom Filt Rate - Afr Amer 87 mL/min (>60); Globulin 3.8 g/dL (2.2-4.2); Glucose 87 mg/dL (74-106); High Density Lipoprotein 52 mg/dL; Potassium 4.1 mmol/L (3.5-5.1); Protein, Total 6.9 g/dL (6.4-8.2); Sodium Level 138 mmol/L (136-145); Triglycerides 112 mg/dL; Very Low Density Lipoprotein 22 mg/dL (5-40)
== END ==
LOC: OLS.WHLEAS 05:00
PROVIDERS: PCP Family Medicine; Visit Provider Nurse Practitioner Adult Health
DX: I25.10 Atherosclerotic heart disease of native coronary artery without angina pectoris (principal)
CPT/HCPCS: 36415; 80048; 80061; 80076; 85025

== ENCOUNTER → 2024-01-10 | Outpatient (REF) | payer MEDICARE, OTHER, SELFPAY ==
[2024-01-10 08:52] LABS: Absolute Lymphocyte Count 1.99 X10^3/uL (0.83-4.51); Absolute Neutrophil Count 5.2 X10^3/uL (2.0-7.7); Basophil# 0.04 X10^3/uL; Basophil% 0.5 % (0-1); Eosinophil# 0.44 X10^3/uL; Eosinophils% 5.2 % (0-5); Hematocrit 34.9 % (40-54); Hemoglobin 10.8 g/dL (13.0-16.5); Lymphocyte # 1.99 X10^3/ul (0.83-4.51); Lymphocyte % 23.4 % (19-41); Mean Corp Hgb Conc 30.9 g/dL (32-36); Mean Corpuscular Hgb 28.1 pg (27.0-32.0); Mean Corpuscular Volume 90.6 fL (80-94); Mean Platelet Vol. 10.8 fl (6.2-12.0); Monocyte# 0.68 X10^3/uL; NRBC Flagged by Analyzer 0 % (0-5); Neutrophil # 5.21 X10^3/uL (2.7-7.7); Neutrophil % 61.1 % (47-70); Platelet Count 214 K/mm3 (150-450); RBC Distribution Width CV 16.1 % (11.6-14.6); RBC Distribution Width SD 53.4 fl (35.1-43.9); Red Blood Count 3.85 M/mm3 (4.6-6.2); White Blood Count 8.5 K/mm3 (4.4-11.0)
[2024-01-10 09:06] LABS: Anion Gap 6 (5-15); BUN 28 mg/dL (7-18); BUN/Creat Ratio 25.5 RATIO (10-20); Calcium,Total 8.8 mg/dL (8.5-10.1); Chloride 104 mmol/L (98-107); EST Glomerular Filtration Rate 67 mL/min (>60); Est Glom Filt Rate - Afr Amer 81 mL/min (>60); Glucose 107 mg/dL (74-106); Potassium 4.1 mmol/L (3.5-5.1); Sodium Level 137 mmol/L (136-145)
== END ==
LOC: OLS.WHLEAS 05:00
PROVIDERS: Visit Provider Internal Medicine
DX: I25.10 Atherosclerotic heart disease of native coronary artery without angina pectoris (principal)
CPT/HCPCS: 36415; 80048; 85025

== ENCOUNTER → 2024-01-17 | Outpatient (REF) | payer MEDICARE, OTHER, SELFPAY ==
[2024-01-17 09:39] LABS: Anion Gap 6 (5-15); BUN 24 mg/dL (7-18); BUN/Creat Ratio 26.3 RATIO (10-20); Calcium,Total 8.3 mg/dL (8.5-10.1); Chloride 106 mmol/L (98-107); Creatinine, Serum 0.91 mg/dL (0.70-1.30); EST Glomerular Filtration Rate 83 mL/min (>60); Est Glom Filt Rate - Afr Amer 101 mL/min (>60); Glucose 99 mg/dL (74-106); Sodium Level 139 mmol/L (136-145)
== END ==
LOC: OLS.WHLEAS 05:00
PROVIDERS: Visit Provider Internal Medicine
DX: I10 Essential (primary) hypertension (principal)
CPT/HCPCS: 36415; 80048

== ENCOUNTER → 2024-01-24 | Outpatient (REF) | payer MEDICARE, OTHER, SELFPAY ==
[2024-01-24 08:10] LABS: Absolute Lymphocyte Count 2.37 X10^3/uL (0.83-4.51); Absolute Neutrophil Count 4.1 X10^3/uL (2.0-7.7); Basophil# 0.07 X10^3/uL; Basophil% 0.9 % (0-1); Eosinophil# 0.51 X10^3/uL; Eosinophils% 6.5 % (0-5); Hemoglobin 11.4 g/dL (13.0-16.5); Lymphocyte # 2.37 X10^3/ul (0.83-4.51); Lymphocyte % 30.3 % (19-41); Mean Corp Hgb Conc 30.8 g/dL (32-36); Mean Corpuscular Hgb 28.4 pg (27.0-32.0); Mean Platelet Vol. 11.5 fl (6.2-12.0); Monocyte# 0.54 X10^3/uL; Monocyte% 6.9 % (0-10); NRBC Flagged by Analyzer 0 % (0-5); Neutrophil # 4.14 X10^3/uL (2.7-7.7); POSITIVE COUNT YES; Platelet Count 185 K/mm3 (150-450); RBC Distribution Width CV 15.9 % (11.6-14.6); RBC Distribution Width SD 53.4 fl (35.1-43.9); Red Blood Count 4.02 M/mm3 (4.6-6.2); White Blood Count 7.8 K/mm3 (4.4-11.0)
[2024-01-24 08:32] LABS: Anion Gap 6 (5-15); BUN 24 mg/dL (7-18); BUN/Creat Ratio 21.8 RATIO (10-20); Calcium,Total 8.8 mg/dL (8.5-10.1); Chloride 106 mmol/L (98-107); EST Glomerular Filtration Rate 67 mL/min (>60); Est Glom Filt Rate - Afr Amer 81 mL/min (>60); Glucose 94 mg/dL (74-106); Potassium 4.5 mmol/L (3.5-5.1); Sodium Level 137 mmol/L (136-145)
== END ==
LOC: OLS.WHLEAS 05:00
PROVIDERS: Visit Provider Nurse Practitioner Adult Health
DX: I25.10 Atherosclerotic heart disease of native coronary artery without angina pectoris (principal)
CPT/HCPCS: 36415; 80048; 85025

== ENCOUNTER → 2024-02-07 | Outpatient (REF) | payer MEDICARE, OTHER, SELFPAY ==
[2024-02-07 08:36] LABS: Absolute Lymphocyte Count 2.55 X10^3/uL (0.83-4.51); Absolute Neutrophil Count 4.1 X10^3/uL (2.0-7.7); Basophil# 0.06 X10^3/uL; Basophil% 0.8 % (0-1); Eosinophil# 0.46 X10^3/uL; Eosinophils% 5.8 % (0-5); Hematocrit 36.6 % (40-54); Hemoglobin 11.1 g/dL (13.0-16.5); Lymphocyte # 2.55 X10^3/ul (0.83-4.51); Lymphocyte % 32.2 % (19-41); Mean Corp Hgb Conc 30.3 g/dL (32-36); Mean Corpuscular Hgb 28.5 pg (27.0-32.0); Mean Corpuscular Volume 93.8 fL (80-94); Mean Platelet Vol. 11.6 fl (6.2-12.0); Monocyte# 0.68 X10^3/uL; Monocyte% 8.6 % (0-10); NRBC Flagged by Analyzer 0 % (0-5); Neutrophil # 4.07 X10^3/uL (2.7-7.7); Neutrophil % 51.3 % (47-70); Platelet Count 197 K/mm3 (150-450); RBC Distribution Width CV 15.6 % (11.6-14.6); RBC Distribution Width SD 53.5 fl (35.1-43.9); White Blood Count 7.9 K/mm3 (4.4-11.0)
[2024-02-07 08:42] LABS: Anion Gap 4 (5-15); BUN 29 mg/dL (7-18); BUN/Creat Ratio 24.6 RATIO (10-20); Calcium,Total 8.9 mg/dL (8.5-10.1); Chloride 105 mmol/L (98-107); Creatinine, Serum 1.18 mg/dL (0.70-1.30); EST Glomerular Filtration Rate 62 mL/min (>60); Est Glom Filt Rate - Afr Amer 75 mL/min (>60); Glucose 88 mg/dL (74-106); Potassium 4.1 mmol/L (3.5-5.1); Sodium Level 138 mmol/L (136-145)
== END ==
LOC: OLS.WHLEAS 04:00
PROVIDERS: Referring Provider Internal Medicine; Visit Provider Internal Medicine
DX: I25.10 Atherosclerotic heart disease of native coronary artery without angina pectoris (principal)
CPT/HCPCS: 36415; 80048; 85025

== ENCOUNTER → 2024-02-22 | Outpatient (REF) | payer MEDICARE, OTHER, SELFPAY ==
[2024-02-22 08:31] LABS: Absolute Neutrophil Count 5.4 X10^3/uL (2.0-7.7); Basophil# 0.04 X10^3/uL; Basophil% 0.4 % (0-1); Eosinophil# 0.48 X10^3/uL; Eosinophils% 5.2 % (0-5); Hematocrit 35.2 % (40-54); Mean Corp Hgb Conc 31.3 g/dL (32-36); Mean Corpuscular Volume 92.9 fL (80-94); Mean Platelet Vol. 11.2 fl (6.2-12.0); Monocyte# 0.78 X10^3/uL; Monocyte% 8.5 % (0-10); NRBC Flagged by Analyzer 0 % (0-5); Neutrophil # 5.39 X10^3/uL (2.7-7.7); Neutrophil % 58.5 % (47-70); Platelet Count 191 K/mm3 (150-450); Red Blood Count 3.79 M/mm3 (4.6-6.2); White Blood Count 9.2 K/mm3 (4.4-11.0)
[2024-02-22 09:20] LABS: Anion Gap 5 (5-15); BUN 26 mg/dL (7-18); BUN/Creat Ratio 27.8 RATIO (10-20); Calcium,Total 8.9 mg/dL (8.5-10.1); Chloride 108 mmol/L (98-107); Creatinine, Serum 0.94 mg/dL (0.70-1.30); EST Glomerular Filtration Rate 81 mL/min (>60); Est Glom Filt Rate - Afr Amer 98 mL/min (>60); Glucose 88 mg/dL (74-106); Potassium 3.9 mmol/L (3.5-5.1); Sodium Level 138 mmol/L (136-145)
== END ==
LOC: OLS.WHLEAS 05:00
PROVIDERS: Visit Provider Internal Medicine
DX: I25.10 Atherosclerotic heart disease of native coronary artery without angina pectoris (principal)
CPT/HCPCS: 36415; 80048; 85025

== ENCOUNTER → 2024-02-28 | Outpatient (REF) | payer MEDICARE, OTHER, SELFPAY ==
[2024-02-28 07:33] LABS: Anion Gap 6 (5-15); BUN 26 mg/dL (7-18); Calcium,Total 9.1 mg/dL (8.5-10.1); Chloride 105 mmol/L (98-107); Creatinine, Serum 1.04 mg/dL (0.70-1.30); EST Glomerular Filtration Rate 72 mL/min (>60); Est Glom Filt Rate - Afr Amer 87 mL/min (>60); Glucose 95 mg/dL (74-106); Potassium 4.1 mmol/L (3.5-5.1); Sodium Level 137 mmol/L (136-145)
== END ==
LOC: OLS.WHLEAS 05:00
PROVIDERS: Visit Provider Internal Medicine
DX: R60.9 Edema, unspecified (principal); S82.401D Unspecified fracture of shaft of right fibula, subsequent encounter for closed fracture with routine healing
CPT/HCPCS: 36415; 80048

== ENCOUNTER → 2024-03-07 | Outpatient (REF) | payer MEDICARE, OTHER, SELFPAY ==
[2024-03-07 09:40] LABS: Absolute Lymphocyte Count 1.97 X10^3/uL (0.83-4.51); Absolute Neutrophil Count 4.8 X10^3/uL (2.0-7.7); Basophil# 0.03 X10^3/uL; Basophil% 0.4 % (0-1); Eosinophil# 0.37 X10^3/uL; Eosinophils% 4.7 % (0-5); Hematocrit 36.6 % (40-54); Hemoglobin 11.5 g/dL (13.0-16.5); Lymphocyte # 1.97 X10^3/ul (0.83-4.51); Lymphocyte % 25.2 % (19-41); Mean Corp Hgb Conc 31.4 g/dL (32-36); Mean Corpuscular Hgb 29.3 pg (27.0-32.0); Mean Corpuscular Volume 93.4 fL (80-94); Mean Platelet Vol. 11.3 fl (6.2-12.0); Monocyte# 0.58 X10^3/uL; Monocyte% 7.4 % (0-10); NRBC Flagged by Analyzer 0 % (0-5); Neutrophil % 61.4 % (47-70); Platelet Count 208 K/mm3 (150-450); RBC Distribution Width CV 14.8 % (11.6-14.6); RBC Distribution Width SD 50.6 fl (35.1-43.9); Red Blood Count 3.92 M/mm3 (4.6-6.2); White Blood Count 7.8 K/mm3 (4.4-11.0)
[2024-03-07 10:30] LABS: Anion Gap 7 (5-15); BUN 19 mg/dL (7-18); BUN/Creat Ratio 18.4 RATIO (10-20); Calcium,Total 9.1 mg/dL (8.5-10.1); Chloride 104 mmol/L (98-107); Creatinine, Serum 1.03 mg/dL (0.70-1.30); EST Glomerular Filtration Rate 72 mL/min (>60); Est Glom Filt Rate - Afr Amer 88 mL/min (>60); Glucose 89 mg/dL (74-106); Potassium 3.6 mmol/L (3.5-5.1); Sodium Level 137 mmol/L (136-145)
== END ==
LOC: OLS.WHLEAS 05:00
PROVIDERS: Visit Provider Internal Medicine
DX: I25.10 Atherosclerotic heart disease of native coronary artery without angina pectoris (principal)
CPT/HCPCS: 36415; 80048; 85025

== ENCOUNTER → 2024-03-21 | Outpatient (REF) | payer MEDICARE, OTHER, SELFPAY ==
[2024-03-21 09:18] LABS: Anion Gap 4 (5-15); BUN 26 mg/dL (7-18); BUN/Creat Ratio 24.5 RATIO (10-20); Calcium,Total 8.8 mg/dL (8.5-10.1); Chloride 105 mmol/L (98-107); Creatinine, Serum 1.06 mg/dL (0.70-1.30); EST Glomerular Filtration Rate 70 mL/min (>60); Est Glom Filt Rate - Afr Amer 85 mL/min (>60); Glucose 94 mg/dL (74-106); Potassium 4.2 mmol/L (3.5-5.1); Sodium Level 137 mmol/L (136-145)
[2024-03-21 09:30] LABS: Absolute Lymphocyte Count 1.66 X10^3/uL (0.83-4.51); Absolute Neutrophil Count 4.7 X10^3/uL (2.0-7.7); Basophil# 0.04 X10^3/uL; Basophil% 0.5 % (0-1); Eosinophil# 0.31 X10^3/uL; Eosinophils% 4.2 % (0-5); Hemoglobin 10.8 g/dL (13.0-16.5); Lymphocyte # 1.66 X10^3/ul (0.83-4.51); Lymphocyte % 22.7 % (19-41); Mean Corp Hgb Conc 30.9 g/dL (32-36); Mean Corpuscular Hgb 28.4 pg (27.0-32.0); Mean Corpuscular Volume 92.1 fL (80-94); Mean Platelet Vol. 11.3 fl (6.2-12.0); Monocyte# 0.57 X10^3/uL; Monocyte% 7.8 % (0-10); NRBC Flagged by Analyzer 0 % (0-5); Neutrophil # 4.66 X10^3/uL (2.7-7.7); Neutrophil % 63.8 % (47-70); Platelet Count 189 K/mm3 (150-450); RBC Distribution Width CV 14.9 % (11.6-14.6); RBC Distribution Width SD 50.1 fl (35.1-43.9); White Blood Count 7.3 K/mm3 (4.4-11.0)
== END ==
LOC: OLS.WHLEAS 06:40
PROVIDERS: Visit Provider Nurse Practitioner Adult Health
DX: I25.10 Atherosclerotic heart disease of native coronary artery without angina pectoris (principal)
CPT/HCPCS: 36415; 80048; 85025

== ENCOUNTER → 2024-04-04 | Outpatient (REF) | payer MEDICARE, OTHER, SELFPAY ==
[2024-04-04 09:15] LABS: Anion Gap 4 (5-15); BUN 24 mg/dL (7-18); BUN/Creat Ratio 24.7 RATIO (10-20); Calcium,Total 9.1 mg/dL (8.5-10.1); Chloride 105 mmol/L (98-107); Creatinine, Serum 0.97 mg/dL (0.70-1.30); EST Glomerular Filtration Rate 77 mL/min (>60); Est Glom Filt Rate - Afr Amer 94 mL/min (>60); Glucose 85 mg/dL (74-106); Potassium 4.3 mmol/L (3.5-5.1); Sodium Level 137 mmol/L (136-145)
== END ==
LOC: OLS.WHLEAS 05:00
PROVIDERS: Visit Provider Internal Medicine
DX: I25.10 Atherosclerotic heart disease of native coronary artery without angina pectoris (principal)
CPT/HCPCS: 36415; 80048

== ENCOUNTER → 2024-04-05 | Outpatient (REF) | payer MEDICARE, OTHER, SELFPAY ==
[2024-04-05 07:28] LABS: Absolute Lymphocyte Count 2.05 X10^3/uL (0.83-4.51); Absolute Neutrophil Count 4.1 X10^3/uL (2.0-7.7); Basophil# 0.03 X10^3/uL; Basophil% 0.4 % (0-1); Eosinophil# 0.43 X10^3/uL; Eosinophils% 5.8 % (0-5); Hematocrit 33.5 % (40-54); Hemoglobin 10.4 g/dL (13.0-16.5); Lymphocyte # 2.05 X10^3/ul (0.83-4.51); Lymphocyte % 27.7 % (19-41); Mean Corpuscular Hgb 28.7 pg (27.0-32.0); Mean Corpuscular Volume 92.3 fL (80-94); Mean Platelet Vol. 11.3 fl (6.2-12.0); Monocyte# 0.67 X10^3/uL; Monocyte% 9.1 % (0-10); NRBC Flagged by Analyzer 0 % (0-5); Neutrophil % 55.4 % (47-70); Platelet Count 173 K/mm3 (150-450); RBC Distribution Width CV 14.5 % (11.6-14.6); Red Blood Count 3.63 M/mm3 (4.6-6.2); White Blood Count 7.4 K/mm3 (4.4-11.0)
== END ==
LOC: OLS.WHLEAS 05:00
PROVIDERS: Visit Provider Internal Medicine
DX: I25.10 Atherosclerotic heart disease of native coronary artery without angina pectoris (principal)
CPT/HCPCS: 85025

== ENCOUNTER → 2024-04-18 | Outpatient (REF) | payer MEDICARE, OTHER, SELFPAY ==
[2024-04-18 08:11] LABS: Absolute Lymphocyte Count 1.96 X10^3/uL (0.83-4.51); Absolute Neutrophil Count 3.7 X10^3/uL (2.0-7.7); Basophil# 0.04 X10^3/uL; Basophil% 0.6 % (0-1); Eosinophil# 0.38 X10^3/uL; Eosinophils% 5.6 % (0-5); Hematocrit 32.4 % (40-54); Hemoglobin 10.2 g/dL (13.0-16.5); Lymphocyte # 1.96 X10^3/ul (0.83-4.51); Lymphocyte % 28.8 % (19-41); Mean Corp Hgb Conc 31.5 g/dL (32-36); Mean Corpuscular Hgb 28.7 pg (27.0-32.0); Mean Corpuscular Volume 91.3 fL (80-94); Mean Platelet Vol. 11.7 fl (6.2-12.0); Monocyte# 0.62 X10^3/uL; Monocyte% 9.1 % (0-10); NRBC Flagged by Analyzer 0 % (0-5); Neutrophil # 3.74 X10^3/uL (2.7-7.7); Neutrophil % 54.9 % (47-70); Platelet Count 178 K/mm3 (150-450); RBC Distribution Width CV 14.6 % (11.6-14.6); Red Blood Count 3.55 M/mm3 (4.6-6.2); White Blood Count 6.8 K/mm3 (4.4-11.0)
[2024-04-18 08:25] LABS: Anion Gap 4 (5-15); BUN 27 mg/dL (7-18); Calcium,Total 8.1 mg/dL (8.5-10.1); Chloride 108 mmol/L (98-107); Creatinine, Serum 1.08 mg/dL (0.70-1.30); EST Glomerular Filtration Rate 68 mL/min (>60); Est Glom Filt Rate - Afr Amer 83 mL/min (>60); Glucose 90 mg/dL (74-106); Potassium 3.6 mmol/L (3.5-5.1); Sodium Level 139 mmol/L (136-145)
== END ==
LOC: OLS.WHLEAS 05:00
PROVIDERS: Visit Provider Nurse Practitioner Adult Health
DX: I25.10 Atherosclerotic heart disease of native coronary artery without angina pectoris (principal)
CPT/HCPCS: 36415; 80048; 85025

== ENCOUNTER → 2024-05-02 | Outpatient (REF) | payer MEDICARE, OTHER, SELFPAY ==
[2024-05-02 10:52] LABS: Absolute Lymphocyte Count 1.58 X10^3/uL (0.83-4.51); Absolute Neutrophil Count 4.9 X10^3/uL (2.0-7.7); Basophil# 0.06 X10^3/uL; Basophil% 0.8 % (0-1); Eosinophil# 0.49 X10^3/uL; Eosinophils% 6.4 % (0-5); Hematocrit 35.4 % (40-54); Hemoglobin 11.1 g/dL (13.0-16.5); Lymphocyte # 1.58 X10^3/ul (0.83-4.51); Lymphocyte % 20.8 % (19-41); Mean Corp Hgb Conc 31.4 g/dL (32-36); Mean Corpuscular Hgb 28.6 pg (27.0-32.0); Mean Corpuscular Volume 91.2 fL (80-94); Mean Platelet Vol. 12.3 fl (6.2-12.0); Monocyte# 0.52 X10^3/uL; Monocyte% 6.8 % (0-10); NRBC Flagged by Analyzer 0 % (0-5); Neutrophil % 64.4 % (47-70); Platelet Count 175 K/mm3 (150-450); RBC Distribution Width CV 14.7 % (11.6-14.6); RBC Distribution Width SD 49.1 fl (35.1-43.9); Red Blood Count 3.88 M/mm3 (4.6-6.2); White Blood Count 7.6 K/mm3 (4.4-11.0)
[2024-05-02 11:03] LABS: Anion Gap 7 (5-15); BUN 23 mg/dL (7-18); BUN/Creat Ratio 22.5 RATIO (10-20); Calcium,Total 8.9 mg/dL (8.5-10.1); Chloride 106 mmol/L (98-107); Creatinine, Serum 1.02 mg/dL (0.70-1.30); EST Glomerular Filtration Rate 73 mL/min (>60); Est Glom Filt Rate - Afr Amer 89 mL/min (>60); Glucose 100 mg/dL (74-106); Sodium Level 139 mmol/L (136-145)
== END ==
LOC: OLS.WHLEAS 05:00
PROVIDERS: Visit Provider Internal Medicine
DX: I25.10 Atherosclerotic heart disease of native coronary artery without angina pectoris (principal)
CPT/HCPCS: 36415; 80048; 85025; J2405

== ENCOUNTER → 2024-05-16 05:00 | Outpatient (REF) | payer MEDICARE, OTHER, SELFPAY ==
[2024-05-16 08:16] LABS: Absolute Lymphocyte Count 2.29 X10^3/uL (0.83-4.51); Absolute Neutrophil Count 4.4 X10^3/uL (2.0-7.7); Basophil# 0.04 X10^3/uL; Basophil% 0.5 % (0-1); Eosinophil# 0.52 X10^3/uL; Eosinophils% 6.5 % (0-5); Hematocrit 38.3 % (40-54); Lymphocyte # 2.29 X10^3/ul (0.83-4.51); Lymphocyte % 28.7 % (19-41); Mean Corp Hgb Conc 31.3 g/dL (32-36); Mean Corpuscular Hgb 28.9 pg (27.0-32.0); Mean Corpuscular Volume 92.3 fL (80-94); Mean Platelet Vol. 11.8 fl (6.2-12.0); Monocyte# 0.58 X10^3/uL; Monocyte% 7.3 % (0-10); NRBC Flagged by Analyzer 0 % (0-5); Neutrophil # 4.42 X10^3/uL (2.7-7.7); Neutrophil % 55.2 % (47-70); Platelet Count 182 K/mm3 (150-450); RBC Distribution Width CV 14.6 % (11.6-14.6); RBC Distribution Width SD 49.2 fl (35.1-43.9); Red Blood Count 4.15 M/mm3 (4.6-6.2)
[2024-05-16 08:33] LABS: Anion Gap 6 (5-15); BUN 24 mg/dL (7-18); BUN/Creat Ratio 19.7 RATIO (10-20); Calcium,Total 9.2 mg/dL (8.5-10.1); Chloride 104 mmol/L (98-107); Creatinine, Serum 1.22 mg/dL (0.70-1.30); EST Glomerular Filtration Rate 60 mL/min (>60); Est Glom Filt Rate - Afr Amer 72 mL/min (>60); Glucose 93 mg/dL (74-106); Sodium Level 138 mmol/L (136-145)
== END ==
LOC: OLS.WHLEAS 05:00
PROVIDERS: Visit Provider Internal Medicine
DX: I25.10 Atherosclerotic heart disease of native coronary artery without angina pectoris (principal)
CPT/HCPCS: 36415; 80048; 85025

== ENCOUNTER → 2024-05-30 05:00 | Outpatient (REF) | payer MEDICARE, OTHER, SELFPAY ==
[2024-05-30 08:51] LABS: Absolute Lymphocyte Count 1.85 X10^3/uL (0.83-4.51); Absolute Neutrophil Count 4.9 X10^3/uL (2.0-7.7); Basophil# 0.04 X10^3/uL; Basophil% 0.5 % (0-1); Eosinophil# 0.43 X10^3/uL; Eosinophils% 5.5 % (0-5); Hemoglobin 11.8 g/dL (13.0-16.5); Lymphocyte # 1.85 X10^3/ul (0.83-4.51); Lymphocyte % 23.5 % (19-41); Mean Corp Hgb Conc 31.1 g/dL (32-36); Mean Corpuscular Hgb 28.5 pg (27.0-32.0); Mean Corpuscular Volume 91.8 fL (80-94); Mean Platelet Vol. 11.6 fl (6.2-12.0); Monocyte# 0.58 X10^3/uL; Monocyte% 7.4 % (0-10); NRBC Flagged by Analyzer 0 % (0-5); Neutrophil # 4.87 X10^3/uL (2.7-7.7); Platelet Count 193 K/mm3 (150-450); RBC Distribution Width CV 14.6 % (11.6-14.6); RBC Distribution Width SD 49.2 fl (35.1-43.9); Red Blood Count 4.14 M/mm3 (4.6-6.2); White Blood Count 7.9 K/mm3 (4.4-11.0)
[2024-05-30 09:36] LABS: AST(SGOT) 9 U/L (15-37); Alanine Aminotransfer ALT/SGPT 18 U/L (16-61); Albumin, Serum 3.5 g/dL (3.2-5.0); Alkaline Phosphatase 73 U/L (45-117); Anion Gap 9 (5-15); BUN 19 mg/dL (7-18); BUN/Creat Ratio 18.8 RATIO (10-20); Bilirubin, Direct 0.11 mg/dL (0.00-0.30); Calcium,Total 9.1 mg/dL (8.5-10.1); Chloride 104 mmol/L (98-107); Cholesterol 191 mg/dL (200); Creatinine, Serum 1.01 mg/dL (0.70-1.30); EST Glomerular Filtration Rate 74 mL/min (>60); Est Glom Filt Rate - Afr Amer 90 mL/min (>60); Globulin 4.2 g/dL (2.2-4.2); Glucose 92 mg/dL (74-106); High Density Lipoprotein 47 mg/dL; Potassium 3.9 mmol/L (3.5-5.1); Protein, Total 7.7 g/dL (6.4-8.2); Sodium Level 138 mmol/L (136-145); Triglycerides 145 mg/dL; Very Low Density Lipoprotein 29 mg/dL (5-40)
== END ==
LOC: OLS.WHLEAS 05:00
PROVIDERS: Visit Provider Internal Medicine
DX: I25.10 Atherosclerotic heart disease of native coronary artery without angina pectoris (principal)
CPT/HCPCS: 36415; 80048; 80061; 80076; 85025

== ENCOUNTER → 2024-06-13 05:00 | Outpatient (REF) | payer MEDICARE, OTHER, SELFPAY ==
[2024-06-13 08:28] LABS: Absolute Neutrophil Count 4.4 X10^3/uL (2.0-7.7); Basophil# 0.06 X10^3/uL; Basophil% 0.8 % (0-1); Eosinophils% 5.3 % (0-5); Hematocrit 34.9 % (40-54); Hemoglobin 10.7 g/dL (13.0-16.5); Lymphocyte % 25.3 % (19-41); Mean Corp Hgb Conc 30.7 g/dL (32-36); Mean Corpuscular Hgb 28.4 pg (27.0-32.0); Mean Corpuscular Volume 92.6 fL (80-94); Mean Platelet Vol. 12.2 fl (6.2-12.0); Monocyte# 0.71 X10^3/uL; Monocyte% 9.4 % (0-10); NRBC Flagged by Analyzer 0 % (0-5); Neutrophil # 4.35 X10^3/uL (2.7-7.7); Neutrophil % 57.9 % (47-70); Platelet Count 164 K/mm3 (150-450); RBC Distribution Width CV 15.1 % (11.6-14.6); RBC Distribution Width SD 50.3 fl (35.1-43.9); Red Blood Count 3.77 M/mm3 (4.6-6.2); White Blood Count 7.5 K/mm3 (4.4-11.0)
[2024-06-13 08:44] LABS: Anion Gap 7 (5-15); BUN 24 mg/dL (7-18); BUN/Creat Ratio 22.9 RATIO (10-20); Calcium,Total 8.9 mg/dL (8.5-10.1); Chloride 106 mmol/L (98-107); Creatinine, Serum 1.05 mg/dL (0.70-1.30); EST Glomerular Filtration Rate 71 mL/min (>60); Est Glom Filt Rate - Afr Amer 86 mL/min (>60); Glucose 88 mg/dL (74-106); Potassium 3.8 mmol/L (3.5-5.1); Sodium Level 139 mmol/L (136-145)
== END ==
LOC: OLS.WHLEAS 05:00
PROVIDERS: Visit Provider Internal Medicine
DX: I25.10 Atherosclerotic heart disease of native coronary artery without angina pectoris (principal)
CPT/HCPCS: 36415; 80048; 85025

== ENCOUNTER → 2024-06-27 05:00 | Outpatient (REF) | payer MEDICARE, OTHER, SELFPAY ==
[2024-06-27 09:18] LABS: Absolute Lymphocyte Count 2.15 X10^3/uL (0.83-4.51); Absolute Neutrophil Count 3.7 X10^3/uL (2.0-7.7); Basophil# 0.03 X10^3/uL; Basophil% 0.4 % (0-1); Eosinophil# 0.39 X10^3/uL; Eosinophils% 5.6 % (0-5); Hematocrit 38.3 % (40-54); Hemoglobin 11.8 g/dL (13.0-16.5); Lymphocyte # 2.15 X10^3/ul (0.83-4.51); Lymphocyte % 31.1 % (19-41); Mean Corp Hgb Conc 30.8 g/dL (32-36); Mean Corpuscular Hgb 28.3 pg (27.0-32.0); Mean Corpuscular Volume 91.8 fL (80-94); Mean Platelet Vol. 11.8 fl (6.2-12.0); Monocyte# 0.52 X10^3/uL; Monocyte% 7.5 % (0-10); NRBC Flagged by Analyzer 0 % (0-5); Neutrophil # 3.74 X10^3/uL (2.7-7.7); Neutrophil % 54.1 % (47-70); Platelet Count 189 K/mm3 (150-450); RBC Distribution Width SD 50.9 fl (35.1-43.9); Red Blood Count 4.17 M/mm3 (4.6-6.2); White Blood Count 6.9 K/mm3 (4.4-11.0)
[2024-06-27 09:36] LABS: Anion Gap 7 (5-15); BUN 24 mg/dL (7-18); BUN/Creat Ratio 23.8 RATIO (10-20); Calcium,Total 8.9 mg/dL (8.5-10.1); Chloride 106 mmol/L (98-107); Creatinine, Serum 1.01 mg/dL (0.70-1.30); EST Glomerular Filtration Rate 74 mL/min (>60); Est Glom Filt Rate - Afr Amer 89 mL/min (>60); Glucose 94 mg/dL (74-106); Potassium 3.8 mmol/L (3.5-5.1); Sodium Level 138 mmol/L (136-145)
== END ==
LOC: OLS.WHLEAS 05:00
PROVIDERS: Visit Provider Internal Medicine
DX: I25.10 Atherosclerotic heart disease of native coronary artery without angina pectoris (principal)
CPT/HCPCS: 36415; 80048; 85025

== ENCOUNTER → 2024-07-11 | Outpatient (REF) | payer MEDICARE, OTHER, SELFPAY ==
[2024-07-11 08:24] LABS: Absolute Lymphocyte Count 2.48 X10^3/uL (0.83-4.51); Basophil# 0.04 X10^3/uL; Basophil% 0.5 % (0-1); Eosinophil# 0.33 X10^3/uL; Eosinophils% 3.8 % (0-5); Hematocrit 37.4 % (40-54); Hemoglobin 11.6 g/dL (13.0-16.5); Lymphocyte # 2.48 X10^3/ul (0.83-4.51); Lymphocyte % 28.6 % (19-41); Mean Corpuscular Hgb 28.6 pg (27.0-32.0); Mean Corpuscular Volume 92.1 fL (80-94); Mean Platelet Vol. 11.6 fl (6.2-12.0); Monocyte% 8.1 % (0-10); NRBC Flagged by Analyzer 0 % (0-5); Neutrophil # 5.03 X10^3/uL (2.7-7.7); Platelet Count 184 K/mm3 (150-450); RBC Distribution Width CV 15.4 % (11.6-14.6); RBC Distribution Width SD 51.8 fl (35.1-43.9); Red Blood Count 4.06 M/mm3 (4.6-6.2); White Blood Count 8.7 K/mm3 (4.4-11.0)
[2024-07-11 08:40] LABS: Anion Gap 9 (5-15); BUN 25 mg/dL (7-18); BUN/Creat Ratio 23.8 RATIO (10-20); Calcium,Total 8.9 mg/dL (8.5-10.1); Chloride 107 mmol/L (98-107); Creatinine, Serum 1.05 mg/dL (0.70-1.30); EST Glomerular Filtration Rate 71 mL/min (>60); Est Glom Filt Rate - Afr Amer 86 mL/min (>60); Glucose 88 mg/dL (74-106); Potassium 4.4 mmol/L (3.5-5.1); Sodium Level 140 mmol/L (136-145)
== END ==
LOC: OLS.WHLEAS 05:00
PROVIDERS: PCP Internal Medicine; Visit Provider Internal Medicine
DX: I25.10 Atherosclerotic heart disease of native coronary artery without angina pectoris (principal)
CPT/HCPCS: 36415; 80048; 85025

== ENCOUNTER → 2024-07-25 | Outpatient (REF) | payer MEDICARE, OTHER, SELFPAY ==
[2024-07-25 08:31] LABS: Absolute Neutrophil Count 4.4 X10^3/uL (2.0-7.7); Basophil# 0.04 X10^3/uL; Basophil% 0.6 % (0-1); Eosinophil# 0.35 X10^3/uL; Eosinophils% 5.1 % (0-5); Hematocrit 34.8 % (40-54); Hemoglobin 10.9 g/dL (13.0-16.5); Lymphocyte % 20.5 % (19-41); Mean Corp Hgb Conc 31.3 g/dL (32-36); Mean Corpuscular Hgb 28.8 pg (27.0-32.0); Mean Corpuscular Volume 91.8 fL (80-94); Mean Platelet Vol. 12.1 fl (6.2-12.0); Monocyte% 8.8 % (0-10); NRBC Flagged by Analyzer 0 % (0-5); Neutrophil # 4.38 X10^3/uL (2.7-7.7); Platelet Count 153 K/mm3 (150-450); RBC Distribution Width CV 15.3 % (11.6-14.6); RBC Distribution Width SD 51.3 fl (35.1-43.9); Red Blood Count 3.79 M/mm3 (4.6-6.2); White Blood Count 6.8 K/mm3 (4.4-11.0)
[2024-07-25 08:44] LABS: Anion Gap 6 (5-15); BUN 27 mg/dL (7-18); BUN/Creat Ratio 28.3 RATIO (10-20); Calcium,Total 8.4 mg/dL (8.5-10.1); Chloride 107 mmol/L (98-107); Creatinine, Serum 0.95 mg/dL (0.70-1.30); EST Glomerular Filtration Rate 79 mL/min (>60); Est Glom Filt Rate - Afr Amer 96 mL/min (>60); Glucose 96 mg/dL (74-106); Potassium 3.9 mmol/L (3.5-5.1); Sodium Level 138 mmol/L (136-145)
== END ==
LOC: OLS.WHLEAS 05:00
PROVIDERS: PCP Internal Medicine; Visit Provider Internal Medicine
DX: I25.10 Atherosclerotic heart disease of native coronary artery without angina pectoris (principal)
CPT/HCPCS: 36415; 80048; 85025

== ENCOUNTER 2024-07-31 22:22 | Inpatient (IN) | payer MEDICARE, OTHER, SELFPAY ==
[2024-07-31 22:24] VITALS: BP 140/69; PULSE 102; RESP 30; TEMP 36.9; O2SAT 93; BMI 45.1
[2024-07-31 22:28] VITALS: BP 140/69; PULSE 102; RESP 30; TEMP 36.9; O2SAT 93
--- NOTE | 2024-07-31 22:39 | CT_ITS ---
EXAM: CT HEAD WITHOUT INTRAVENOUS CONTRAST CLINICAL INDICATION: confusion TECHNIQUE: Multiple axial images were obtained of the head without intravenous contrast. This CT exam was performed using one or more of the following dose reduction techniques: automated exposure control, adjustment of the mA and/or kV according to patient size, and/or use of iterative reconstruction technique. COMPARISON: 09/29/2021 FINDINGS: BRAIN AND EXTRA-AXIAL SPACES: Global parenchymal volume loss. There is non-specific periventricular hypoattenuation which is most commonly related to chronic microvascular ischemic disease in a patient of this age. There is no mass, mass-effect, or shift of the midline structures. No evidence of acute infarct or acute intracranial hemorrhage. There is no evidence of pathologic extra-axial fluid. There is no hydrocephalus. Patent basal cisterns. BONES/JOINTS: No significant abnormality. No discrete lytic or blastic abnormalities. VASCULATURE: Arteriosclerosis. SINUSES: Mucosal thickening in the paranasal sinuses. MASTOID AIR CELLS: No significant effusion. ORBITS: No acute findings. CT/Brain/Head without Contrast IMPRESSION: 1. No CT evidence of acute intracranial pathology. Chronic microvascular ischemic changes. 2. Mucosal thickening in the paranasal sinuses. Correlate for associated symptoms. Electronically Signed: Demetrio Campbell DO at 23:46 EST ,
--- NOTE | 2024-07-31 22:39 | EKG12_ITS ---
Test Reason : SOB Blood Pressure : */* mmHG Vent. Rate : 95 BPM Atrial Rate : 95 BPM P-R Int : 204 ms QRS Dur : 84 ms QT Int : 354 ms P-R-T Axes : 48 -36 32 degrees QTcB Int : 444 ms Normal sinus rhythm Left axis deviation Minimal voltage criteria for LVH, may be normal variant ( R in aVL ) Abnormal ECG Confirmed by Gt Hauser ([id number]), tape editor MARCI OROZCO ([id number]) on 08/01/2024 9:22:23 AM Referred By: JOSE Confirmed By: Gt Hauser
--- NOTE | 2024-07-31 22:40 | EDS_ITS ---
HPI History of Present Illness Chief Complaint: Shortness of Breath Informant: patient, family and EMS Narrative Narrative: Patient brought by EMS from [facility] reported increasing confusion and hypoxia. Son came in during my evaluation. Confirms history of heart failure denies any recent illness or cough. Reports patient not as mobile however can walk with assistance of a walker. He sleeps in a recliner. He has been not [place] since his ankle fracture a little over a year ago. Reported pulse ox down to the 70s, he is placed on oxygen. Does not wear home oxygen. Patient denies any chest pains or cough. During evaluation and nursing cleaning patient had a bout of emesis. [facility] Medical History (Updated 08/01/24 @ 02:[address] Primo Harris, DO) Left rotator cuff tear arthropathy Lives in [place] [facility] Uses wheelchair Gastric reflux Non-smoker History of CHF (congestive heart failure) Hx of fracture of ankle Tinea unguium Anemia Chronic pain Hypertension Pneumonia due to COVID-19 virus Home Medications ?Medication ?Instructions ?Recorded ?Last Taken ?Type sennosides 8.6 mg-docusate sodium 1 tab-cap PO DAILY Constipation 05/26/23 06/15/23 History 50 mg tablet (Stool Softener-Stimulant Laxative) ondansetron 4 mg disintegrating 4 mg PO Q4H PRN nausea and vomiting 07/29/23 Unknown History tablet acetaminophen 500 mg capsule 1,000 mg PO Q8H 07/31/24 Unknown History aspirin 81 mg capsule 81 mg PO DAILY 07/31/24 Unknown History calcium 500 mg (as 1 tab PO DAILY PRN Bone 07/31/24 Unknown History carbonate)-vitamin D3 15 mcg (600 unit) tablet (Os-He 500 + D3) fluticasone propionate 50 2 spray intranasal DAILY 07/31/24 Unknown History mcg/actuation nasal spray,suspension furosemide 20 mg tablet 20 mg PO DAILY 07/31/24 Unknown History hydrocortisone 2.5 % topical cream 1 applic topical BID 07/31/24 Unknown History loratadine 10 mg disintegrating 10 mg PO DAILY 07/31/24 Unknown History tablet (Alavert) potassium chloride 20 mEq 40 meq PO DAILY 07/31/24 Unknown History tablet,extended release(part/cryst) spironolactone 25 mg tablet 25 mg PO BID 07/31/24 Unknown History triamcinolone acetonide 0.1 % 1 applic topical BID 07/31/24 Unknown History topical cream Allergy/AdvReac Type Severity Reaction Status Date / Time No Known Allergies Allergy Verified 07/31/24 22:23 Family History Other Brain tumor Heart disease Surgical History H/O knee surgery History of hip surgery Previous back surgery Social History Smoking Status: Never smoker ROS ROS ED Constitutional Constitutional ED: Denies chills, fever(s) or sweats Eyes Eyes: Denies change in vision ENT ENT ED: Denies dysphagia or sore throat Cardiovascular Cardiovascular: Denies chest pain, leg edema, palpitations or racing heartbeat Respiratory/Chest Respiratory/Chest: Reports dyspnea; Denies cough or dyspnea on exertion Gastrointestinal Gastrointestinal: Reports vomiting; Denies abdominal pain, diarrhea or nausea Genitourinary Genitourinary ED: Denies dysuria, hematuria or urinary frequency Musculoskeletal Musculoskeletal: Denies back pain, extremity pain or neck pain Integumentary Denies rash or wounds Neurologic Neurologic: Denies headache(s), paresthesias or weakness EXAM Physical Exam Const Vital Signs: 07/31/24 22:24 07/31/24 22:28 07/31/24 22:52 Temperature 98.4 F 98.4 F Temperature Source Oral Oral Pulse Rate 102 H 102 H Respiratory Rate 30 H 30 H Respiratory Effort Respiratory Depth Respiratory Pattern Blood Pressure 140/69 H 140/69 H Blood Pressure Mean 92 92 Pulse Ox 93 93 93 Oxygen Delivery Method Room Air Room Air Room Air 07/31/24 22:54 07/31/24 23:28 08/01/24 00:00 Temperature 97.9 F 97.9 F Temperature Source Oral Oral Pulse Rate 93 93 Respiratory Rate 18 22 H Respiratory Effort Short of Breath Respiratory Depth Deep Respiratory Pattern Tachypnea Blood Pressure 180/65 H 154/63 H Blood Pressure Mean 103 93 Pulse Ox 96 92 Oxygen Delivery Method Room Air Room Air Room Air 08/01/24 00:23 08/01/24 00:46 08/01/24 00:52 Temperature 97.9 F Temperature Source Pulse Rate 104 H 98 98 Respiratory Rate 22 H 28 H 22 H Respiratory Effort Respiratory Depth Respiratory Pattern Blood Pressure 166/83 H 166/83 H 166/83 H Blood Pressure Mean 110 110 110 Pulse Ox 96 96 96 Oxygen Delivery Method Room Air 08/01/24 01:00 Temperature 97.9 F Temperature Source Oral Pulse Rate 96 Respiratory Rate 22 H Respiratory Effort Respiratory Depth Respiratory Pattern Blood Pressure 166/83 H Blood Pressure Mean 110 Pulse Ox 98 Oxygen Delivery Method Room Air Positive well nourished and well developed General Appearance ED: well developed and NAD HEENT Reports moist mucous membranes normocephalic and atraumatic Eyes EOMs intact bilaterally and conjunctivae normal General Eye ED: Yes normal appearance of both eyes Neck no lymphadenopathy and supple General: Negative for tenderness Chest Wall Chest: Negative for tenderness Resp normal respiratory effort and normal air movement Effort and Inspection: symmetric chest movement; Negative for respiratory distress Cardio regular rate, regular rhythm and no murmurs Peripheral Pulses: pulses 2+ throughout GI normal to inspection, nondistended, normoactive bowel sounds and non-tender Palpation: Negative for guarding or rebound tenderness present Back/Spine no CVA tenderness and no thoracic nor lumbar tenderness Extremity normal to inspection Extremity Narrative: 2+ lower extremity edema wrapped in Himanshu wrap's. General Extremety ED: Yes edema; Negative for tenderness General Extremity: edema Neuro oriented x3 and no sensory deficits noted Sensorium / Orientation: awake and alert Skin no rashes or lesions noted and no wounds MDM MDM MDM Narrative Medical decision making narrative: Interventions / MDM: Differential diagnosis: CHF exacerbation, hypoxia, peripheral edema, leukocytosis Diagnosis considered but do not suspect: Intracranial hemorrhage however CT negative. No clinical pneumonia symptoms. UTI however labs normal. Pulm embolism however CT negative. My EKG interpretation: Sinus rhythm 95, no ST or T wave changes. Imaging independently reviewed and interpreted by myself: CT brain: No acute process. Chest x-ray: Vascular congestion. No infiltrates also read by radiology. CTA chest: No PE, no infiltrates. Also read by radiology CT abdomen pelvis IV contrast: Cholelithiasis, bilateral renal cysts. Also read by radiology External documents reviewed: N/A Test considered but not ordered:N/A ED course: Patient 93% on room air on arrival. He is A and O x 3. He is moving all 4 extremities. Had emesis during my evaluation. Nursing was cleaning the patient on arrival due to having soiled himself. Will check labs chest x-ray urine. CT brain with reported increasing confusion. Give Zofran due to his bout of emesis in the ED. 2330: Patient's white count returned at 17.6. 2 out of 4 SIRS criteria. Added sepsis labs and lactic acid and blood cultures. 0030: CT brain negative. Chest x-ray concern for vascular congestion with a normal BNP. Creatinine 1.08. Lactic acid normal at 1.1. Patient was 96% on room air during my evaluation no respiratory distress. Patient denies any recent cough symptoms. He had 1 emesis, denied any previous emesis while at the facility. Lower concerns for aspiration. Leukocytosis 17 with no clear source. No pneumonia no UTI findings. He ambulates with a walker at the facility with assist per son. He is at his baseline mentally. Will attempt to ambulate the patient for pulse ox evaluation as he was reported hypoxic at the facility. 0045: Per nursing with patient standing he dropped down to 86%. He is ordered for IV Lasix. Will discuss with hospitalist for admission. In addition after discussing again with son and patient. He is significantly less mobile at the facility. PE is in differential appears. Creatinine 1.08. Will send for CTA chest for further rule out with his hypoxia. 0059: Discussed with Dr. John, with leukocytosis, no cellulitic lesions or abscesses noted on his exam. He had continued findings of his groin. Will add abdomen pelvis CT for further evaluation. He will be admitted to PCU. 0200: CT results negative for PE or infiltrates. Cholelithiasis noted, bilateral renal cysts. Re-evaluation: stable Disposition discussed with patient/family/significant other: Patient and son Case discussed with consulting clinician: N/A This note was generated with [employer] dictation software. It may contain incorrect words, spelling, and punctuation that were not noted in checking the note before signing. Lab Data Attestation: I reviewed the patient's lab results. Labs: Laboratory Results - last 24 hr 07/31/24 07/31/24 07/31/24 23:08 23:08 23:45 WBC 17.6 H RBC 3.88 L Hgb 11.4 L Hct 34.4 L MCV 88.7 MCH 29.4 MCHC 33.1 RDW Std Deviation 50.0 H RDW Coeff of Mansi 15.6 H Plt Count 166 MPV 11.0 Immature Gran % (Auto) 1.100 H Neut % (Auto) 91.3 H Lymph % (Auto) 2.1 L [place] % (Auto) 5.2 Eos % (Auto) 0.1 Baso % (Auto) 0.2 Absolute Neuts (auto) 16.0 H Absolute Lymphs (auto) 0.37 L Nucleated RBC % 0 Sodium 136 Potassium 4.0 Chloride 102 Carbon Dioxide 26.0 Anion Gap 8 BUN 26 H Creatinine 1.08 Estim Creat Clear Calc 66.14 Est GFR (MDRD) Af Amer 83 Est GFR (MDRD) Non-Af 68 BUN/Creatinine Ratio 24.1 H Glucose 142 H Lactic Acid 1.1 Calcium 8.6 Total Bilirubin 0.50 AST 13 L ALT 20 Alkaline Phosphatase 81 B-Natriuretic Peptide 54.6 Cancelled Total Protein 7.3 Albumin 3.5 Globulin 3.8 Albumin/Globulin Ratio 0.9 Procalcitonin 0.20 H Urine Color Yellow Urine Clarity Clear Urine pH 6.0 Ur Specific [place] 1.020 Urine Protein 30 H Urine Glucose (UA) Normal Urine Ketones 5 H Urine Occult Blood 25 H Urine Nitrite Negative Urine Bilirubin Negative Urine Urobilinogen Normal Ur Leukocyte Esterase Negative Urine RBC 0 SEEN Urine WBC 0 SEEN Ur Squamous Epith Cells 0 SEEN Urine Bacteria 0 SEEN Urine Mucus 0 SEEN Ur Drug Screen Comment Radiography Diagnostic Testing: Clinical Impression(s) from Imaging Studies Brain CT 07/31/24 22:39 IMPRESSION: 1. No CT evidence of acute intracranial pathology. Chronic microvascular ischemic changes. 2. Mucosal thickening in the paranasal sinuses. Correlate for associated symptoms. Electronically Signed: Demetrio Campbell DO at 23:46 EST , Chest X-Ray 07/31/24 23:25 IMPRESSION: CHF. Electronically Signed: Gricelda Rodriguez MD at 0:10 EST , Chest CTA 08/01/24 00:49 IMPRESSION: No demonstrated pulmonary embolism or arterial dissection. There is prominence of the main pulmonary arteries without peripheral pulmonary vascular congestion, suggesting pulmonary hypertension. Electronically Signed: Gricelda Rodriguez MD at 1:54 EST , Abdomen/Pelvis CT 08/01/24 00:58 IMPRESSION: Multiple bilateral renal cysts, the largest measures 2.5 cm. Cholelithiasis. Electronically Signed: Gricelda Rodriguez MD at 1:58 EST , Discharge Plan Dx/Rx/DC Orders Clinical Impression: Hypoxia, CHF (congestive heart failure), Edema, peripheral, Leukocytosis, Vomiting, Cholelithiasis, Renal cysts, acquired, bilateral Disposition Disposition: Acute Care Hospital [facility]
[2024-07-31 22:52] VITALS: O2SAT 93
[2024-07-31 22:54] VITALS: O2SAT 93
[2024-07-31 23:17] LABS: Absolute Lymphocyte Count 0.37 X10^3/uL (0.83-4.51); Basophil# 0.03 X10^3/uL; Basophil% 0.2 % (0-1); Eosinophil# 0.02 X10^3/uL; Eosinophils% 0.1 % (0-5); Hematocrit 34.4 % (40-54); Hemoglobin 11.4 g/dL (13.0-16.5); Lymphocyte # 0.37 X10^3/ul (0.83-4.51); Lymphocyte % 2.1 % (19-41); Mean Corp Hgb Conc 33.1 g/dL (32-36); Mean Corpuscular Hgb 29.4 pg (27.0-32.0); Mean Corpuscular Volume 88.7 fL (80-94); Monocyte# 0.92 X10^3/uL; Monocyte% 5.2 % (0-10); NRBC Flagged by Analyzer 0 % (0-5); Neutrophil # 16.04 X10^3/uL (2.7-7.7); Neutrophil % 91.3 % (47-70); POSITIVE DIFFERENTIAL YES; Platelet Count 166 K/mm3 (150-450); RBC Distribution Width CV 15.6 % (11.6-14.6); Red Blood Count 3.88 M/mm3 (4.6-6.2); White Blood Count 17.6 K/mm3 (4.4-11.0)
--- NOTE | 2024-07-31 23:25 | RAD_ITS ---
INDICATION: dyspnea EXAMINATION/TECHNIQUE: X-RAY - XR Chest 1 View COMPARISON: No relevant prior comparison study available FINDINGS: LINES/DEVICES: None. LUNGS: There is perihilar vascular congestion. Increased perihilar interstitial markings suggesting mild pulmonary edema. MEDIASTINUM AND CARDIOVASCULAR STRUCTURES: Cardiac silhouette is moderately enlarged. Central airways and mediastinal contour are unremarkable. BONES AND SOFT TISSUES: Unremarkable. RAD/Chest 1 View (Portable) IMPRESSION: CHF. Electronically Signed: Gricelda Rodriguez MD at 0:10 EST ,
[2024-07-31 23:28] VITALS: BP 180/65; PULSE 93; RESP 18; TEMP 36.6; O2SAT 96
[2024-07-31 23:34] LABS: ALB/GLOB Ratio 0.9 RATIO (0.9-2.4); AST(SGOT) 13 U/L (15-37); Alanine Aminotransfer ALT/SGPT 20 U/L (16-61); Albumin, Serum 3.5 g/dL (3.2-5.0); Alkaline Phosphatase 81 U/L (45-117); Anion Gap 8 (5-15); BUN 26 mg/dL (7-18); BUN/Creat Ratio 24.1 RATIO (10-20); Calcium,Total 8.6 mg/dL (8.5-10.1); Chloride 102 mmol/L (98-107); Creatinine, Serum 1.08 mg/dL (0.70-1.30); EST Glomerular Filtration Rate 68 mL/min (>60); Est Glom Filt Rate - Afr Amer 83 mL/min (>60); Estimated Creatinine Clearance 66.14 ml/min; Globulin 3.8 g/dL (2.2-4.2); Glucose 142 mg/dL (74-106); Protein, Total 7.3 g/dL (6.4-8.2); Sodium Level 136 mmol/L (136-145)
[2024-07-31 23:54] LABS: Bacteria 0 SEEN /hpf (None Seen); Mucous, Urine 0 SEEN /hpf (<or=2+); Red Blood Cells-Urine 0 SEEN /hpf (0-5); Squamous Epithelial Cells - UA 0 SEEN /hpf (0-5); White Blood Cells 0 SEEN /hpf (0-5)
[2024-07-31 23:59] LABS: Lactic Acid 1.1 mmol/L (0.4-1.9)
[2024-08-01] VITALS (16 sets, daily range): BP systolic 102–166; BP diastolic 50–119; PULSE 84–104; RESP 18–28; TEMP 36.4–36.7; O2SAT 84–98; BMI 44.2
[2024-08-01 00:12] LABS: Color, Urine Yellow (Yellow); Glucose, Dipstick Normal (Normal); Ketone-Dipstick 5 mg/dl (Negative); Leukocyte Esterase-Dipstick Negative /ul (Negative); Nitrite-Dipstick Negative (Negative); Occult Blood-Urine 25 /ul (Negative); Protein-Dipstick 30 mg/dl (Negative); Urine Bilirubin Dipstick Negative (Negative); Urine Clarity Clear (Clear); Urine Urobilinogen Normal (Normal)
[2024-08-01 00:19] LABS: BNP,B-Type NATRIURETIC PEPTIDE 54.6 pg/mL (0-100)
--- NOTE | 2024-08-01 00:49 | CT_ITS ---
STUDY: CTA CHEST REASON FOR EXAM: Male, 89 years old. hypoxia RADIATION DOSAGE (If Supplied By Facility): CTDIvol = ( 37.96 ) mGy, DLP = ( 1092.66 ) mGycm TECHNIQUE: The examination was performed with the intravenous administration of IV 100mL [id number]-[id number]. Post-processing of the angiographic images was performed, with multiplanar reformation and 3D reconstruction. The protocol utilizes one or more of the following dose reduction techniques: automated exposure control, adjustment of mA and/or kV according to patient size,and/or use of iterative reconstruction technique. COMPARISON: No relevant prior comparison study available FINDINGS: Normal enhancement of the main pulmonary artery and right and left pulmonary arteries. Normal enhancement of the bilateral peripheral pulmonary arteries. There is no demonstrated pulmonary embolism. There is prominence of the main pulmonary arteries without peripheral pulmonary vascular congestion, suggesting pulmonary hypertension. Normal thoracic aorta and visualized great vessels. There is no demonstrated aortic dissection. Normal heart and pericardium. Normal mediastinum. Normal hilar regions. Normal visualized trachea and bronchi. Subsegmental atelectasis in the lung bases. Normal pleura. Normal chest wall structures. Normal osseous structures. Normal visualized upper abdomen. CT/CTA Chest W/WO Contrast IMPRESSION: No demonstrated pulmonary embolism or arterial dissection. There is prominence of the main pulmonary arteries without peripheral pulmonary vascular congestion, suggesting pulmonary hypertension. Electronically Signed: Gricelda Rodriguez MD at 1:54 EST ,
--- NOTE | 2024-08-01 00:58 | PCM.HP.STD ---
HPI - General General Date of Admission: 08/01/24 Date of Service: 08/01/24 Chief Complaint: SOB, Vomiting and Confusion. HPI Narrative HARINI AUGUSTE, is a 89 M with a past medical history of essential hypertension, morbid obesity; with BMI of 45.1 this admission, history of CHF; on Lasix and Aldactone, chronic anemia, history of COVID-19, GERD, history of Left rotator cuff tear, history of knee surgery, history of hip surgery, OA; with history of back surgery and chronic pain, chronic 3+ bilateral LE edema; with FRANCISCO JAVIER wraps in place and history of ankle fracture (04/2023); with chronically poor mobility using a walker to ambulate with patient residing at [facility] since that time who presents to [facility] ER after the staff at his F noted shortness of breath and confusion. Mr. Auguste is not a fully-reliable historian at this time so information was gathered from chart, medical staff and computer. According to the records the patient's son informed the ER physician that his father had a history of CHF but he denied any recent respiratory illness or cough. The patient denies being on supplemental oxygen at this time. F records reveal an oxygen saturation in the ~70% range on RA. He denies associated fever, chills, nausea, vomiting, diarrhea, chest pain or palpitations but he did have a bout of bilious emesis while being cleaned up by the nursing staff and is suspected to have a similar episode that precipitated his transfer here with patient noted to have arrived completely soiled with urine and feces. In the ER he was noted to have a CXR positive for diffuse bilateral infiltrates along with Leukocytosis of 17.6K with Left-shift present on admission due to suspected Aspiration Pneumonia with clinical evidence of Respiratory Insufficiency and Metabolic Encephalopathy and he was then admitted to the PCU for ongoing care for a stay that is expected to extend beyond 2 midnights. [facility] Medical History (Updated 08/01/24 @ 05:[address] Meño Dawn DO) Left rotator cuff tear arthropathy Lives in detention Uses wheelchair Gastric reflux Non-smoker History of CHF (congestive heart failure) Hx of fracture of ankle Tinea unguium Anemia Chronic pain Hypertension Pneumonia due to COVID-19 virus Home Medications ?Medication ?Instructions ?Recorded ?Last Taken ?Type sennosides 8.6 mg-docusate sodium 1 tab-cap PO DAILY Constipation 05/26/23 06/15/23 History 50 mg tablet (Stool Softener-Stimulant Laxative) ondansetron 4 mg disintegrating 4 mg PO Q4H PRN nausea and vomiting 07/29/23 Unknown History tablet acetaminophen 500 mg capsule 1,000 mg PO Q8H 07/31/24 Unknown History aspirin 81 mg capsule 81 mg PO DAILY 07/31/24 Unknown History calcium 500 mg (as 1 tab PO DAILY PRN Bone 07/31/24 Unknown History carbonate)-vitamin D3 15 mcg (600 unit) tablet (Os-He 500 + D3) fluticasone propionate 50 2 spray intranasal DAILY 07/31/24 Unknown History mcg/actuation nasal spray,suspension furosemide 20 mg tablet 20 mg PO DAILY 07/31/24 Unknown History hydrocortisone 2.5 % topical cream 1 applic topical BID 07/31/24 Unknown History loratadine 10 mg disintegrating 10 mg PO DAILY 07/31/24 Unknown History tablet (Alavert) potassium chloride 20 mEq 40 meq PO DAILY 07/31/24 Unknown History tablet,extended release(part/cryst) spironolactone 25 mg tablet 25 mg PO BID 07/31/24 Unknown History triamcinolone acetonide 0.1 % 1 applic topical BID 07/31/24 Unknown History topical cream Allergy/AdvReac Type Severity Reaction Status Date / Time No Known Allergies Allergy Verified 07/31/24 22:23 Family History Other Brain tumor Heart disease Surgical History H/O knee surgery History of hip surgery Previous back surgery Social History Smoking Status: Never smoker ROS ROS Narrative Full review of systems was not possible due to patient's lethargy and intermittent responsiveness to questioning. Vital Signs Vital Signs Vital Signs: 07/31/24 22:24 07/31/24 22:28 07/31/24 22:52 Temperature 98.4 F 98.4 F Temperature Source Oral Oral Pulse Rate 102 H 102 H Respiratory Rate 30 H 30 H Respiratory Effort Respiratory Depth Respiratory Pattern Blood Pressure 140/69 H 140/69 H Blood Pressure Mean 92 92 Pulse Ox 93 93 93 Oxygen Delivery Method Room Air Room Air Room Air 07/31/24 22:54 07/31/24 23:28 08/01/24 00:00 Temperature 97.9 F 97.9 F Temperature Source Oral Oral Pulse Rate 93 93 Respiratory Rate 18 22 H Respiratory Effort Short of Breath Respiratory Depth Deep Respiratory Pattern Tachypnea Blood Pressure 180/65 H 154/63 H Blood Pressure Mean 103 93 Pulse Ox 96 92 Oxygen Delivery Method Room Air Room Air Room Air 08/01/24 00:23 08/01/24 00:46 08/01/24 00:52 Temperature 97.9 F Temperature Source Pulse Rate 104 H 98 98 Respiratory Rate 22 H 28 H 22 H Respiratory Effort Respiratory Depth Respiratory Pattern Blood Pressure 166/83 H 166/83 H 166/83 H Blood Pressure Mean 110 110 110 Pulse Ox 96 96 96 Oxygen Delivery Method Room Air Weight Weight: 314 lb 6.067 oz Body Mass Index (BMI) 45.1 Physical Exam Const alert and no apparent distress Constitutional Narrative: Patient is morbidly obese and chronically ill. General Appearance: cooperative Orientation / Consciousness: lethargic HEENT normocephalic, head/scalp atraumatic and hearing grossly normal bilaterally HEENT Narrative: Mucous membranes dry. Eyes PERRL and EOMs intact bilaterally Neck no lymphadenopathy and supple Resp Resp Narrative: Diminished breath sounds throughout. Cardio regular rate and regular rhythm GI normal to inspection, nondistended, normoactive bowel sounds, soft to palpation, non-tender and non-distended Extremity Extremity Narrative: 3+ bilateral LE edema that is chronic in nature with dry, scaly skin in lower legs. Skin Skin Narrative: 3+ bilateral LE edema that is chronic in nature with dry, scaly skin in lower legs. Neuro CN's II-XII intact bilaterally, moves all extremities and no focal motor deficits Sensorium / Orientation: awake, alert, oriented to person and oriented to place Speech: speech normal Psych Psych Narrative: Patient is lethargic and somewhat confused with delayed answers or no response to questions intermittently. Results Medical Records Data Attestation: I reviewed the patient's medical records Lab / Micro Data Attestation: I reviewed the patient's lab results. 07/31/24 23:08 07/31/24 23:08 Labs: Laboratory Results - last 24 hr 07/31/24 23:08: WBC 17.6 H, RBC 3.88 L, Hgb 11.4 L, Hct 34.4 L, MCV 88.7, MCH 29.4, MCHC 33.1, RDW Std Deviation 50.0 H, RDW Coeff of Mansi 15.6 H, Plt Count 166, MPV 11.0, Immature Gran % (Auto) 1.100 H, Neut % (Auto) 91.3 H, Lymph % (Auto) 2.1 L, [place] % (Auto) 5.2, Eos % (Auto) 0.1, Baso % (Auto) 0.2, Absolute Neuts (auto) 16.0 H, Absolute Lymphs (auto) 0.37 L, Nucleated RBC % 0, Sodium 136, Potassium 4.0, Chloride 102, Carbon Dioxide 26.0, Anion Gap 8, BUN 26 H, Creatinine 1.08, Estim Creat Clear Calc 66.14, Est GFR (MDRD) Af Amer 83, Est GFR (MDRD) Non-Af 68, BUN/Creatinine Ratio 24.1 H, Glucose 142 H, Lactic Acid 1.1, Calcium 8.6, Total Bilirubin 0.50, AST 13 L, ALT 20, Alkaline Phosphatase 81, B-Natriuretic Peptide 54.6, Total Protein 7.3, Albumin 3.5, Globulin 3.8, Albumin/Globulin Ratio 0.9, Procalcitonin 0.20 H 07/31/24 23:45: Urine Color Yellow, Urine Clarity Clear, Urine pH 6.0, Ur Specific [place] 1.020, Urine Protein 30 H, Urine Glucose (UA) Normal, Urine Ketones 5 H, Urine Occult Blood 25 H, Urine Nitrite Negative, Urine Bilirubin Negative, Urine Urobilinogen Normal, Ur Leukocyte Esterase Negative, Urine RBC 0 SEEN, Urine WBC 0 SEEN, Ur Squamous Epith Cells 0 SEEN, Urine Bacteria 0 SEEN, Urine Mucus 0 SEEN Micro: Microbiology 07/31/24 22:50 Mucosa - Nose SARS-CoV-2, Influenza & RSV (PCR) - Final Imaging Radiology Impression Brain CT 07/31/24 22:39 IMPRESSION: 1. No CT evidence of acute intracranial pathology. Chronic microvascular ischemic changes. 2. Mucosal thickening in the paranasal sinuses. Correlate for associated symptoms. Electronically Signed: Demetrio Campbell DO at 23:46 EST , Chest X-Ray 07/31/24 23:25 IMPRESSION: CHF. Electronically Signed: Gricelda Rodriguez MD at 0:10 EST , [facility] [address] [place] [address] [id number] CTA Chest W/WO Contrast MR#: [id number] Acct: [id number] Name: HARINI AUGUSTE Rep #: [id number] : 1935 M 89 From: Gricelda Rodriguez MD PCP: Dr. Luba Multani MD Status: ADM IN Study: CTA Chest W/WO Contrast Date of Exam: 08/01/24 Exam# [id number] Ordering Dr: Primo Harris DO STUDY: CTA CHEST REASON FOR EXAM: Male, 89 years old. hypoxia RADIATION DOSAGE (If Supplied By Facility): CTDIvol = ( 37.96 ) mGy, DLP = ( 1092.66 ) mGycm TECHNIQUE: The examination was performed with the intravenous administration of IV 100mL [id number]-[id number]. Post-processing of the angiographic images was performed, with multiplanar reformation and 3D reconstruction. The protocol utilizes one or more of the following dose reduction techniques: automated exposure control, adjustment of mA and/or kV according to patient size,and/or use of iterative reconstruction technique. COMPARISON: No relevant prior comparison study available FINDINGS: Normal enhancement of the main pulmonary artery and right and left pulmonary arteries. Normal enhancement of the bilateral peripheral pulmonary arteries. There is no demonstrated pulmonary embolism. There is prominence of the main pulmonary arteries without peripheral pulmonary vascular congestion, suggesting pulmonary hypertension. Normal thoracic aorta and visualized great vessels. There is no demonstrated aortic dissection. Normal heart and pericardium. Normal mediastinum. Normal hilar regions. Normal visualized trachea and bronchi. Subsegmental atelectasis in the lung bases. Normal pleura. Normal chest wall structures. Normal osseous structures. Normal visualized upper abdomen. CT/CTA Chest W/WO Contrast IMPRESSION: No demonstrated pulmonary embolism or arterial dissection. There is prominence of the main pulmonary arteries without peripheral pulmonary vascular congestion, suggesting pulmonary hypertension. Electronically Signed: Gricelda Rodriguez MD at 1:54 EST , CC: Dr. Luba Multani MD; Dr. Primo Harris DO ~ Communication Equipment Repairer: Signed [facility] [address] [place] [address] Abdomen/Pelvis W IV Cont ONLY MR#: [id number] Acct: [id number] Name: HARINI AUGUSTE Rep #: [id number] : 1935 M 89 From: Gricelda Rodriguez MD PCP: Dr. Luba Multani MD Status: ADM IN Study: Abdomen/Pelvis W IV Cont ONLY Date of Exam: 08/01/24 Exam# [id number] Ordering Dr: Primo Harris DO STUDY: CT ABDOMEN AND PELVIS WITH CONTRAST - URINARY TRACT REASON FOR EXAM: Male, 89 years old. leukocytosis RADIATION DOSAGE (If Supplied By Facility): CTDIvol = ( 34.44 ) mGy, DLP = ( 2071.77 ) mGycm TECHNIQUE: IV 100mL Isovue-370 was administered. Transaxial images were obtained from the dome of the diaphragm to the symphysis pubis in the arterial, nephrographic and excretory phases. Multiplanar coronal and sagittal images were reformatted. The protocol utilizes one or more of the following dose reduction techniques: automated exposure control, adjustment of mA and/or kV according to patient size,and/or use of iterative reconstruction technique. COMPARISON: No relevant prior comparison study available FINDINGS: The visualized portions of the heart are within normal limits. Normal liver. There are multiple gallstones. Normal spleen. Normal pancreas. Normal bilateral adrenal glands. Normal visualized stomach. Normal small intestine. Normal colon. The appendix is visualized and appears normal. Normal abdominal aorta. No retroperitoneal adenopathy. Multiple bilateral renal cysts, the largest measures 2.5 cm. Normal urinary bladder. Normal abdominal wall. Normal osseous structures. CT/Abdomen/Pelvis W IV Cont ONLY IMPRESSION: Multiple bilateral renal cysts, the largest measures 2.5 cm. Cholelithiasis. Electronically Signed: Gricelda Rodriguez MD at 1:58 EST Reading Location ID and State: [facility] / [place] Tel , Service support , Assessment & Plan Assessment/Plan (1) Aspiration pneumonia: QUALIFIERS: Aspiration pneumonia type: unspecified Laterality: bilateral Lung location: unspecified part of lung Qualified Code(s): J69.0 - Pneumonitis due to inhalation of food and vomit (2) Leukocytosis: QUALIFIERS: Leukocytosis type: unspecified Qualified Code(s): D72.829 - Elevated white blood cell count, unspecified (3) Respiratory insufficiency: (4) D-dimer, elevated: (5) Metabolic encephalopathy: (6) Morbid obesity with BMI of 45.0-49.9, adult: (7) Chronic pain: QUALIFIERS: Chronic pain type: chronic pain syndrome Qualified Code(s): G89.4 - Chronic pain syndrome (8) History of CHF (congestive heart failure): PLAN: Plan 1. Leukocytosis of 17.6K with Left-shift present on admission due to suspected Aspiration Pneumonia with no other obvious source of infection plus elevated D-dimer of 2.12 present on admission - Admit to PCU. Start empiric IV Zosyn and IV Vancomycin for broad-coverage of potential MDR nosocomial pathogens with patient currently residing at [facility]. Check viral respiratory panel. Check bilateral LE Doppler with chronic LE lymphedema and MAR negative for evidence of current pharmacologic DVT prophylaxis in this chronically ill patient with significantly impaired mobility. Give Tylenol prn pain or fever. Finally, we will consult speech therapy for swallowing evaluation on-rounds in the AM with help appreciated in advance. 2. Respiratory Insufficiency arising from #1 - Wean supplemental oxygen as tolerated. 3. Dehydration evidenced by elevated BUN/creatinine ratio of 24.1 present on admission complicating #1 & #2 - Volume resuscitate and recheck renal indices daily to evaluate for improvement. 4. Metabolic Encephalopathy attributable to #1 - #3 - Minimize RENAL DIETITIAN-active medications and check B12, Folate and UDS to evaluate for potentially reversible causes of confusion. 5. Morbid Obesity; with BMI of 45.1 this admission adding to the medical complexity of #1 - #4 - Weight loss will be recommended. Check TSH. This complicated his case and may hamper his recovery. 6. History of ankle fracture (04/2023); with chronic LE lymphedema and chronically poor mobility using a walker to ambulate with patient residing at [facility] since that time - Noted. 7. OA; with history of back surgery and chronic pain adding to the burden of disease outlined from #1 - #6 - Noted. 8. History of CHF; on Lasix and Aldactone with BNP of only 54.6 pg/mL present on admission - Noted. Hold diuretics in light of #3 and until suspected infection outlined in #1 has been neutralized. 9. Essential hypertension - Give Hydralazine IV prn for systolic blood pressure > 160 mmHg. 10. Chronic anemia - Stable with hemoglobin of 11.4 g/dL present on admission. 11. History of COVID-19 - Noted. 12. GERD - Start Protonix 40 mg PO daily. 13. History of Left rotator cuff tear - Noted. This is adding another dimension to his poor mobility and functional status. 14. History of knee surgery - Noted. 15. History of hip surgery - Noted. 16. DVT prophylaxis - Lovenox 40 mg sq BID. Total time: Approximately (but not less than) 75 minutes. Charges/Coding Visit Charges Inpatient E&M: 81179 Init Hosp L3
[2024-08-01] MEDS: Furosemide 40 MG/4 ML Vial IV (01:24)
[2024-08-01 02:08] LABS: Amphetamine Urine VISTA NEGATIVE (<1000 ng/mL); Barbiturate Urine VISTA NEGATIVE (< 200 ng/mL); Benzodiazepine Urine VISTA NEGATIVE (< 200 ng/mL); Cocaine Urine VISTA NEGATIVE (< 300 ng/mL); Ecstacy Urine VISTA NEGATIVE (< 500 ng/mL); Methadone Urine VISTA NEGATIVE (< 300 ng/mL); PCP Urine VISTA NEGATIVE (< 25 ng/mL); THC Urine VISTA NEGATIVE (< 50 ng/mL); Vista UDS pH Range 5
[2024-08-01] MEDS: 0.9% Normal Saline (1000mL) 1,000 ML 100 ML IV (02:08)
[2024-08-01 02:19] LABS: D-Dimer Quantitative (DVT/PE) 2.12 FEU/ug/m (0.27-0.49)
--- NOTE | 2024-08-01 02:22 | VDLE_ITS ---
Reason For Study: Elevated D Dimer RIGHT LEFT GSV is normal. GSV is normal. CFV is compressible, spontaneous, phasic, CFV is compressible, spontaneous, phasic, competent and demonstrates normal competent, and demonstrates normal augmentation. augmentation. FV is compressible, spontaneous, phasic, FV is compressible, spontaneous, phasic, competent and demonstrates normal competent and demonstrates normal augmentation. augmentation. POP V is compressible, spontaneous, phasic, POP V is compressible, spontaneous, and competent and demonstrates normal phasic. augmentation. T/P Trunk is compressible. T/P Trunk is compressible. PTV is compressible. PTV is compressible. Unable to visualize LT Dist FV and Sam V due RT PerV is compressible. to swelling, body habitus and immobility. Procedure This is a venous duplex using B-mode, color flow and spectral Doppler. Exam performed portable in patient room. The exam was of poor technical quality due to Swelling, body habitus, patient immobility.. Limited views were obtained. A preliminary report was called and/or faxed to PCU painting instructor. VL/Venous Duplex US - Richard Extrem Interpretation Summary Deep veins of the lower extremities are bilaterally patent and compressible seg mentally. There is no evidence of deep vein thrombosis on either side. Valvular competence appears in tact within the proximal deep venous systems bilaterally. The great saphenous veins appear bila terally patent and compressible segmentally. The left distal femoral vein and peroneal vein were n ot visualized due to swelling and the patient's body habitus. Ordering Physician: Meño Dawn Referring Physician: uLba Multani Performed By: Dm Blanca RVT
[2024-08-01] MEDS: Vancomycin HCl 2,000 MG in 0.9% Normal Saline (500mL Bag) 500 ML 250 MG IV (03:47)
--- NOTE | 2024-08-01 03:55 | PCM.RX.CS ---
Consult Antibiotic Management Pharmacy has been consulted to manage selected antibiotic: Vancomycin Type of Intervention Type of Consult: New start Labs Labs: Sodium 136 mmol/L (136-145) 07/31/24 23:08 Potassium 4.0 mmol/L (3.5-5.1) 07/31/24 23:08 Chloride 102 mmol/L (98-107) 07/31/24 23:08 Carbon Dioxide 26.0 mmol/L (21.0-32.0) 07/31/24 23:08 Anion Gap 8 (5-15) 07/31/24 23:08 BUN 26 mg/dL (7-18) H 07/31/24 23:08 Creatinine 1.08 mg/dL (0.70-1.30) 07/31/24 23:08 Est GFR (MDRD) Af Amer 83 mL/min (>60) 07/31/24 23:08 Est GFR (MDRD) Non-Af 68 mL/min (>60) 07/31/24 23:08 BUN/Creatinine Ratio 24.1 RATIO (10-20) H 07/31/24 23:08 Glucose 142 mg/dL (74-106) H 07/31/24 23:08 Microbiology Microbiology: Microbiology 07/31/24 22:50 Mucosa - Nose SARS-CoV-2, Influenza & RSV (PCR) - Final Dosing Weight Weight used for dosin kg Estimated Creatinine Clearance Estimated Creatinine Clearance: 66.14 Goal Trough Goal Trough: 15-20 mcg/mL Pharmacy Plan for Drug Dosing Pharmacy Plan for Drug Dosing: Pharmacy Service will continue to monitor and adjust dosing as required. 2GM LOADING DOSE, 1500MG Q12H TROUGH PRIOR TO 4TH DOSE Follow-Up Labs Follow-Up Labs: Trough: Vancomycin Date/Time Labs Ordered Labs to be done on [date and time ordered]: 08/02 @ 1625
[2024-08-01] MEDS: Piperacil/Tazobactam 3.375 GM in 0.9% Normal Saline (50mL MB+) 50 ML IV ×3 (04:36→21:27)
[2024-08-01] MEDS: 0.9% Saline Lock 10 ML Syringe IV (04:36)
[2024-08-01] MEDS: Acetaminophen 500 MG Tablet PO ×2 (06:12→21:23)
--- NOTE | 2024-08-01 07:15 | PN.HOSP_ITS ---
Reason for Visit Reason for Visit: Diagnoses Elevated white blood cell count, unspecified (08/01/24) Morbid (severe) obesity due to excess calories (08/01/24) Chronic pain syndrome (08/01/24) Metabolic encephalopathy (08/01/24) Pneumonitis due to inhalation of food and vomit (08/01/24) Other abnormalities of breathing (08/01/24) Other specified abnormal findings of blood chemistry (08/01/24) Body mass index [BMI] 45.0-49.9, adult (08/01/24) Personal history of other diseases of the circulatory system (08/01/24) Objective Data Objective Data Vital Signs: Vital Signs Temp Pulse Resp BP Pulse Ox O2 Del Method 97.7 F L 92 18 154/119 H 93 Room Air 08/01/24 03:25 08/01/24 03:25 08/01/24 03:25 08/01/24 03:25 08/01/24 04:55 08/01/24 04:55 Oxygen Delivery Method Room Air Weight: 140 kg Body Mass Index (BMI) 44.2 Intake & Output: Intake and Output for Last 24 Hours 07/30/24 07/31/24 08/01/24 22:59 23:59 23:59 Intake Total 268.33 / 268.33 Output Total 1000 / 1000 Balance -731.67 / -731.67 Lab / Micro Data 07/31/24 23:08 07/31/24 23:08 Labs: Laboratory Results - last 24 hr 07/31/24 23:08: WBC 17.6 H, RBC 3.88 L, Hgb 11.4 L, Hct 34.4 L, MCV 88.7, MCH 29.4, MCHC 33.1, RDW Std Deviation 50.0 H, RDW Coeff of Mansi 15.6 H, Plt Count 166, MPV 11.0, Immature Gran % (Auto) 1.100 H, Neut % (Auto) 91.3 H, Lymph % (Auto) 2.1 L, [place] % (Auto) 5.2, Eos % (Auto) 0.1, Baso % (Auto) 0.2, Absolute Neuts (auto) 16.0 H, Absolute Lymphs (auto) 0.37 L, Nucleated RBC % 0, D-Dimer Quant (PE/DVT) 2.12 H*, Sodium 136, Potassium 4.0, Chloride 102, Carbon Dioxide 26.0, Anion Gap 8, BUN 26 H, Creatinine 1.08, Estim Creat Clear Calc 66.14, Est GFR (MDRD) Af Amer 83, Est GFR (MDRD) Non-Af 68, BUN/Creatinine Ratio 24.1 H, G lucose 142 H, Lactic Acid 1.1, Calcium 8.6, Total Bilirubin 0.50, AST 13 L, ALT 20, Alkaline Phosphatase 81, B-Natriuretic Peptide 54.6 07/31/24 23:08: B-Natriuretic Peptide Cancelled, Total Protein 7.3, Albumin 3.5, Globulin 3.8, Albumin/Globulin Ratio 0.9, Folate 6.80, Procalcitonin 0.20 H 07/31/24 23:45: Urine Color Yellow, Urine Clarity Clear, Urine pH 6.0, Ur Specific [place] 1.020, Urine Protein 30 H, Urine Glucose (UA) Normal, Urine Ketones 5 H, Urine Occult Blood 25 H, Urine Nitrite Negative, Urine Bilirubin Negative, Urine Urobilinogen Normal, Ur Leukocyte Esterase Negative, Urine RBC 0 SEEN, Urine WBC 0 SEEN, Ur Squamous Epith Cells 0 SEEN, Urine Bacteria 0 SEEN, Urine Mucus 0 SEEN, Urine Opiates Screen NEGATIVE, Urine Methadone Screen NEGATIVE, Ur Barbiturates Screen NEGATIVE, Ur Phencyclidine Scrn NEGATIVE, Ur Amphetamines Screen NEGATIVE, MDMA (Ecstasy) Screen NEGATIVE, U Benzodiazepines Scrn NEGATIVE, Urine Cocaine Screen NEGATIVE, U Cannabinoids Screen NEGATIVE, Ur Drug Screen Comment Micro: Microbiology 07/31/24 22:50 Mucosa - Nose SARS-CoV-2, Influenza & RSV (PCR) - Final Radiography Diagnostic Testing: Radiology Impression Brain CT 07/31/24 22:39 IMPRESSION: 1. No CT evidence of acute intracranial pathology. Chronic microvascular ischemic changes. 2. Mucosal thickening in the paranasal sinuses. Correlate for associated symptoms. Electronically Signed: Demetrio Campbell DO at 23:46 EST , Chest X-Ray 07/31/24 23:25 IMPRESSION: CHF. Electronically Signed: Gricelda Rodriguez MD at 0:10 EST Reading Location ID and State: [facility] / [place] Tel , Service support , Chest CTA 08/01/24 00:49 IMPRESSION: No demonstrated pulmonary embolism or arterial dissection. There is prominence of the main pulmonary arteries without peripheral pulmonary vascular congestion, suggesting pulmonary hypertension. Electronically Signed: Gricelda Rodriguez MD at 1:54 EST Reading Location ID and State: [facility] / [place] Tel , Service support , Abdomen/Pelvis CT 08/01/24 00:58 IMPRESSION: Multiple bilateral renal cysts, the largest measures 2.5 cm. Cholelithiasis. Electronically Signed: Gricelda Rodriguez MD at 1:58 EST Reading Location ID and State: [facility] / [place] Tel , Service support ,
[2024-08-01 08:02] LABS: Vitamin B12 408 pg/mL (211-911)
[2024-08-01 09:12] LABS: Absolute Neutrophil Count 20.1 X10^3/uL (2.0-7.7); Basophil# 0.06 X10^3/uL; Basophil% 0.3 % (0-1); Eosinophil# 0.02 X10^3/uL; Eosinophils% 0.1 % (0-5); Hematocrit 35.8 % (40-54); Hemoglobin 11.5 g/dL (13.0-16.5); Lymphocyte % 0.9 % (19-41); Mean Corp Hgb Conc 32.1 g/dL (32-36); Mean Corpuscular Hgb 29.3 pg (27.0-32.0); Mean Corpuscular Volume 91.3 fL (80-94); Mean Platelet Vol. 10.9 fl (6.2-12.0); Monocyte# 0.73 X10^3/uL; Monocyte% 3.4 % (0-10); NRBC Flagged by Analyzer 0 % (0-5); Neutrophil # 20.11 X10^3/uL (2.7-7.7); Neutrophil % 94.1 % (47-70); POSITIVE DIFFERENTIAL YES; POSITIVE MORPHOLOGY YES; Platelet Count 133 K/mm3 (150-450); RBC Distribution Width CV 15.8 % (11.6-14.6); RBC Distribution Width SD 52.5 fl (35.1-43.9); Red Blood Count 3.92 M/mm3 (4.6-6.2); White Blood Count 21.4 K/mm3 (4.4-11.0)
[2024-08-01 09:14] LABS: Differential Indicated SCAN CRITERIA MET
[2024-08-01] MEDS: Fluticasone 0.05% 1 SPRAY NASAL.SRY 2 SPRAY NASAL (09:34)
[2024-08-01] MEDS: Enoxaparin 40 MG/0.4 ML Syringe SC ×2 (09:34→21:21)
[2024-08-01] MEDS: Lactobacillis Acidophilus 1 CAP PO ×3 (09:35→21:21)
[2024-08-01] MEDS: Menthol/Lanolin/Calamine/Znox 113 GM Tube 1 APPLIC TOPICAL ×2 (09:35→21:22)
[2024-08-01] MEDS: Aspirin 81 MG TAB.CHEW PO (09:35)
[2024-08-01] MEDS: Potassium Chloride Oral Tablet 20 MEQ 40 MEQ PO (09:35)
[2024-08-01] MEDS: Senna/Docusate Sodium 1 Tablet PO (09:35)
[2024-08-01] MEDS: Loratadine 10 MG Tablet PO (09:35)
[2024-08-01] MEDS: Triamcinolone Acetonide 0.1% Cream 15 gm 1 APPLIC TOPICAL ×2 (09:36→21:22)
[2024-08-01] MEDS: Hydrocortisone 2.5% Crm 1 APPLIC TOPICAL ×2 (09:37→21:22)
[2024-08-01 09:40] LABS: ALB/GLOB Ratio 0.9 RATIO (0.9-2.4); AST(SGOT) 20 U/L (15-37); Alanine Aminotransfer ALT/SGPT 21 U/L (16-61); Albumin, Serum 3.3 g/dL (3.2-5.0); Alkaline Phosphatase 76 U/L (45-117); Anion Gap 10 (5-15); BUN 26 mg/dL (7-18); BUN/Creat Ratio 21.5 RATIO (10-20); Calcium,Total 8.4 mg/dL (8.5-10.1); Chloride 101 mmol/L (98-107); Creatinine, Serum 1.21 mg/dL (0.70-1.30); EST Glomerular Filtration Rate 60 mL/min (>60); Est Glom Filt Rate - Afr Amer 73 mL/min (>60); Estimated Creatinine Clearance 58.42 ml/min; Globulin 3.8 g/dL (2.2-4.2); Glucose 131 mg/dL (74-106); Magnesium 1.7 mg/dL (1.6-2.6); Potassium 3.5 mmol/L (3.5-5.1); Protein, Total 7.1 g/dL (6.4-8.2); Sodium Level 137 mmol/L (136-145)
--- NOTE | 2024-08-01 11:35 | CASEMGMT ---
Patient is from [place]. SW met with patient. Introduced self and role at [facility]. Patient stated his plan is to return to [place] at discharge. Alka TERSEA
--- NOTE | 2024-08-01 13:12 | SP.MBSS_ITS ---
Modified Barium Swallow Patient Information Study Date: 08/01/24 Study Time: 13:30 Direct Billable Minutes: 114 Total Minutes procedure & reportin Diagnosis: Aspiration PNA J69.0; Hypoxia R09.02 Referring Physician: Suzi Fonseca Reason for Referral: Objectively assess swallow function, assess risk for aspiration, and determine recommendations for least restrictive diet textures and compensatory strategies to improve safety of swallow. Medical History: PMH: essential HTN morbid obesity; with BMI of 45.1 this admission, history of CHF; on Lasix and Aldactone, chronic anemia, history of COVID-19, GERD, history of Left rotator cuff tear, history of knee surgery, history of hip surgery, OA; with history of back surgery and chronic pain, chronic 3+ bilateral LE edema; with FRANCISCO JAVIER wraps in place and history of ankle fracture (04/2023); with chronically poor mobility using a walker to ambulate with patient residing at [facility]. Pt presented to [facility] ED 07/31/2024 after the staff at his ECF noted shortness of breath and confusion. Per physician H&P: this patient is not a fully-reliable historian; the patient's son informed the ER physician that his father had a history of CHF but he denied any recent respiratory illness or cough; patient denies being on supplemental oxygen; ECF records reveal an oxygen saturation in the ~70% range on RA; denies fever, chills, nausea, vomiting, diarrhea, chest pain or palpitations but he did have a bout of bilious emesis; CXR positive for diffuse bilateral infiltrates along with Leukocytosis of 17.6K. Pt admitted to PCU d/t suspected Aspiration Pneumonia with clinical evidence of Respiratory Insufficiency and Metabolic Encephalopathy. BSE w/ MOTION PICTURE EQUIPMENT SUPERVISOR revealed moist coughing after trials of thin liquids, pudding, and cookie w/ MOTION PICTURE EQUIPMENT SUPERVISOR. He also had increased expiratory wheezing, SOB, and running nose w/ oral intake trials. Due to concerns for oropharyngeal dysphagia and aspiration, MOTION PI[employer]URE EQUIPMENT SUPERVISOR recommended pt for MBSS prior to diet advancement to further assess swallow function and determine safest, LRD textures. Current Diet Ordered: NPO Dentition: Natural Teeth and Missing Teeth Mental Status: Impaired (confusion; max cues and models required to follow simple commands, eyes closed most of study) Respiratory Status: Oxygenating on Room Air Penetration-Aspiration Scale Penetration-Aspiration Scale: OBJECTIVE ASSESSMENT OF SWALLOW FUNCTION (QUANTITATIVE ? PER TRIAL): PENETRATION / ASPIRATION SCALE (PAYAN): 1 = does not enter airway 2 = enters airway/above vocal folds/ejected 3 = enters airway/above vocal folds/not ejected 4 = enters airway/contacts vocal folds/ejected 5 = enters airway/contacts vocal folds/not ejected 6 = enters airway/below vocal folds/ejected 7 = enters airway/below vocal folds/not ejected despite effort 8 = enters airway/below vocal folds/no effort VIDEOFLOROSCOPIC SCALE SCORE (PAYAN): Grade I = aspiration of material that has penetrated into the laryngeal vestibule, intact cough reflex Grade II = aspiration < 10 % of the bolus, intact cough reflex Grade III = aspiration of < 10 % of the bolus, reduced cough reflex or aspiration of > 10 % of the bolus, intact cough reflex Grade IV = aspiration of > 10 % of the bolus, reduced cough reflex Penetration-Aspiration Scale Score Thin Liquid via teaspoon: Result: 1= does not enter airway Thin Liquid via teaspoon Trial 2: Result: 5= enters airways/contacts vocal folds/not ejected Comment: SILENT post prandial aspiration of this trial observed during subsequent trial. [place] Thick Liquid via teaspoon: Result: 1= does not enter airway [place] Thick Liquid via small single sip: cup: Result: 1= does not enter airway Pudding via teaspoon: Result: 1= does not enter airway Comment: Esophageal screen - Esophageal retention in mid and lower esophagus. [place] Thick Liquid via small single sip: cup Trial 2: Result: 1= does not enter airway Comment: Esophageal screen - Esophageal retention in mid and lower esophagus w/ retrograde flow. 09/30 Cookie: Result: 1= does not enter airway Comment: Esophageal screen - Esophageal retention in mid and lower esophagus. [place] Thick Liquid via small single sip: cup Trial 3: Result: 1= does not enter airway Comment: Esophageal screen - Esophageal retention in mid and lower esophagus w/ retrograde flow. Oral Phase Labial Seal: Escape progressing to mid-chin Tongue Control During Bolus Hold: Posterior escape of less than half of bolus Bolus Preparation/Mastication: Slow prolonged chewing/mashing with complete recollection Bolus Transport/Lingual Motion: Repetitive/disorganized tongue motion Oral Residue: Residue collection on oral structures Pharyngeal Phase Initiation of Pharyngeal Swallow: Bolus head at posterior laryngeal surgace of epiglottis Soft Palate Elevation: Trace column of contrast/air between soft palate and pharyngeal wall Laryngeal Elevation: Partial superior movement thyroid cart/partial apprx aryt- epig petiole Anterior Hyoid Excursion: Partial anterior movement Epiglottic Movement: Complete inversion Laryngeal Vestibule Closure at Height of Swallow: Incomplete; narrow column of air/contrast in laryngeal vestibule Pharyngeal Stripping Wave: Present - diminished Pharyngoesophageal Segment Opening: Complete distension and complete duration; no obstruction of flow Tongue Base Retraction: Narrow column of contrast between tongue base & post. pharyngeal wall Pharyngeal Residue: Trace residue within or on pharyngeal structures Esophageal Phase Esophageal Clearance: Esophageal retention w/ retrograde flow below pharyngoesophageal seg. Diagnosis/Impression Diagnosis: Moderate oropharyngeal dysphagia R13.12 Impression: Cannot definitively rule out aspiration for all the above mentioned trials due to pt's body habitus. No coughing throughout the evaluation. Also, MOTION PI[employer] EQUIP[employer] SUPERVISOR was unable to trial strategies today due to need for max cues and models to follow simple commands. He had eyes closed most of the study and required max verbal cues to keep them open for a few seconds. The oral phase is primarily marked by... -Decreased bolus control due to disorganized tongue motion w/ posterior loss to the posterior surface of the epiglottis prior to swallow onset. -A-P transport was both disorganized and slowed. -Prolonged, but complete mastication of 1/4 cookie. -Mild oral residue after the swallow. The pharyngeal phase is primarily marked by... -Mild pharyngeal residue due to decreased tongue base retraction and UES opening and duration. -Decreased airway closure during the swallow due to decreased anterior hyoid excursion and laryngeal elevation. -SILENT post prandial aspiration of thin liquids by tsp after laryngeal penetration of this trial to the vocal folds during the swallow. The esophageal phase is primarily marked by... -Retention of pudding, cookie, and mildly thick liquids w/ retrograde flow in the mid to lower esophagus. Recommendations Diet: Mechanical Soft Textures (Soft and Bite Size Textures - IDDSI Level 6) and [place]-thick Liquids (Mildly Thick Liquids - IDDSI Level 2) Comment: STOP meal if increased s/s of aspiration despite use of strategies and resume meal at a later time due to risk for reflux aspiration Compensatory Strategies: Small Bites, Small Sips, Slow Rate, Feed only when alert, Alternate bites/solids and sips/liquids and Sitting upright (During and 60min after meal) Supervision: Total Feed Recommend Repeat Modified Barium Swallow: Yes (1-2 weeks or sooner if improved alertness and ability to follow commands to determine if he is appropriate for diet advancement) Need for Skilled Speech Therapy Services: Yes Comment: -Train the staff and pt in use of strategies to decrease risk for aspiration and reflux aspiration. -Ongoing assessment of diet tolerance of recommended textures. Ok to trial Easy to Chew textures w/ MOTION PI[employer]URE EQUIPMENT SUPERVISOR in upcoming sessions to determine if pt is appropriate for advancement of solids pending improved alertness. Repeat MBSS recommended prior to advancement of liquids due to silent nature of aspiration observed during this MBSS. -If able to follow simple commands w/ improved accuracy in upcoming sessions, train the patient in oropharyngeal exercise program to improve bolus control, airway closure, TB retraction, and pharyngeal contraction (lingual resistance, [place], [place], Effortful). Recommended Referrals: GI Consult (Retention of pudding, cookie, and mildly thick liquids w/ retrograde flow in the mid to lower esophagus.) Education Completed: 1. Described result of evaluation. and 2. Pt understands evaluation & agrees with goals and treatment plan. Status Active ST Patient: Active Contact Information [facility] Speech Therapy:: Cassie Kaminski M.A. CCC-MOTION PICTURE EQUIPMENT SUPERVISOR? Speech-Language Pathologist?? [facility] [address] [place] [address]? [email or web address]?? [phone]
--- NOTE | 2024-08-01 16:02 | CHAPLAIN ---
Type of Pastoral Visit ___ Initial Visit ___ Follow-up Visit ___ On-call Visit ___ General Patient Visit ___ Spiritual Assessment ___ Family Conference ___ Bereavement ___ Rapid Response ___ Code Blue ___ Other (describe below) Pastoral Care Referral From ___ Patient ___ Family ___ Nurse ___ Physician ___ Painter Helper Sign ___ Concrete Worker ___ Other (describe below) Sacrament/Intervention ___ Active listening ___ Anointing ___ Holiness ___ Bereavement ___ Communion ___ Laura exploration ___ ___ Life review ___ Prayer ___ Reconciliation ___ Sacrament of Sick ___ Supportive presence ___ Wedding ___ Other (describe below) Pastoral Comments patient was sleeping and was not disturbed
--- NOTE | 2024-08-01 16:08 | PHA.PHARE_ITS ---
Consult Antibiotic Management Pharmacy has been consulted to manage selected antibiotic: Vancomycin Type of Intervention Type of Consult: New start Suspected Infection Suspected Infection: Pneumonia Prior Doses of Antibiotics Prior Doses of Antibiotics Received/Current Regimen: The patient received vanc 2000mg IV x1 this morning at 03:47 Labs Labs: Sodium 137 mmol/L (136-145) 08/01/24 09:00 Potassium 3.5 mmol/L (3.5-5.1) 08/01/24 09:00 Chloride 101 mmol/L (98-107) 08/01/24 09:00 Carbon Dioxide 27.0 mmol/L (21.0-32.0) 08/01/24 09:00 Anion Gap 10 (5-15) 08/01/24 09:00 BUN 26 mg/dL (7-18) H 08/01/24 09:00 Creatinine 1.21 mg/dL (0.70-1.30) 08/01/24 09:00 Est GFR (MDRD) Af Amer 73 mL/min (>60) 08/01/24 09:00 Est GFR (MDRD) Non-Af 60 mL/min (>60) 08/01/24 09:00 BUN/Creatinine Ratio 21.5 RATIO (10-20) H 08/01/24 09:00 Glucose 131 mg/dL (74-106) H 08/01/24 09:00 Microbiology Microbiology: Microbiology 07/31/24 23:59 Blood Culture (Wb) - Left Hand Blood Culture - Preliminary 08/01/24 05:00 Mucosa - Nasopharyngeal Respiratory Panel (PCR) - Final 07/31/24 22:50 Mucosa - Nose SARS-CoV-2, Influenza & RSV (PCR) - Final Dosing Weight Weight used for dosin kg Estimated Creatinine Clearance Estimated Creatinine Clearance: 58 ml/min Goal Trough Goal Trough: 15-20 mcg/mL Pharmacy Plan for Drug Dosing Pharmacy Plan for Drug Dosing: The patient is now being restarted on vanc. Starting 12 hours after the initial dose this morning, will continue with 1250mg IV q12h per [facility] dosing chart. Since the patient's CrCl is slightly lower today than yesterday, this is a slight reduction in the dose originally entered for the patient before it got discontinued this morning. Will order a trough to be drawn before the 4th overall dose. Pharmacy Service will continue to monitor and adjust dosing as required. Follow-Up Labs Follow-Up Labs: Trough: Vancomycin Date/Time Labs Ordered Labs to be done on [date and time ordered]: 08/02/24 16:30
--- NOTE | 2024-08-01 16:50 | PN.HOSP_ITS ---
Reason for Visit Reason for Visit: SOB/Vomiting and Confusion Subjective Subjective Patient is an 89-year-old white male who presented to the emergency department at [facility] on 07/31/2024 early in the evening due to increasing confusion and hypoxia. Patient had an ankle fracture about 12 months ago which has essentially left him with limited mobility and requiring a wheelchair. He can ambulate minimally with the assistance of a walker and currently sleeps in a recliner. Evidently, his pulse ox dipped into the 70s and he was placed on oxygen. He is not on oxygen at baseline. His son denied having any recent respiratory illness or cough. Patient denied fever, chills, nausea or vomiting, chest pain, palpitations but the patient did have a episode of bilious emesis in the emergency department and it is suspected that he had a similar episode prior to transfer. Vital signs on presentation showed a temperature of 98.4, heart rate 1002, respiratory rate was 30, blood pressure was 140/69 and pulse ox was 93% on room air. CBC showed a marked leukocytosis with a white count of 17.6 and a left shift with a 91.3% neutrophilia. The patient is anemic and currently at his baseline hemoglobin 11.4. Chemistry panel was overall unremarkable and blood glucose was 142. Lactic acid was 1.1. Liver function was unremarkable. Procalcitonin was mildly elevated 0.2. B12 and folate are within normal limits. TSH was normal at 1.49. UA is not consistent with infection and his toxicology screen was negative. D-dimer was elevated at 2.12 so a CTA of his chest was obtained and showed no demonstrated PE or arterial dissection, prominence of the main pulmonary arteries without peripheral vasculature congestion suggestive of pulmonary hypertension. No significant infiltrate was noted on CAT scan at the time. With his nausea and vomiting a CT of his abdomen pelvis was obtained and showed multiple bilateral renal cysts and cholelithiasis but no acute abnormalities. EKG had no acute findings. He was admitted to PCU with concern for aspiration pneumonia and was placed on broad-spectrum antibiotics after cultures were obtained. Current blood culture shows gram-positive cocci in chains and he is currently on Zosyn and vancomycin. No significant overnight issues. Patient has had fluctuating oxygen requirements. Is frustrated because he is n.p.o. for his swallow evaluation at the time of my evaluation however upon reevaluation he was on 2 L nasal cannula and had return from his modified barium swallow. Daughter was at the bedside at that time and we discussed the results and overall findings thus far. Objective Data Objective Data Vital Signs: Vital Signs Temp Pulse Resp BP Pulse Ox O2 Del Method O2 Flow Rate 97.6 F L 84 18 105/50 L 93 Nasal Cannula 2 08/01/24 14:31 08/01/24 14:31 08/01/24 14:31 08/01/24 14:31 08/01/24 14:59 08/01/24 14:59 08/01/24 14:59 Oxygen Flow Rate (L/min) 2 Oxygen Delivery Method Nasal Cannula Weight: 140 kg Body Mass Index (BMI) 44.2 Intake & Output: Intake and Output for Last 24 Hours 07/30/24 07/31/24 08/01/24 22:59 23:59 23:59 Intake Total 1226.66 / 1226.66 Output Total 1225 / 1225 Balance 1.66 / 1.66 Lab / Micro Data 08/01/24 09:00 08/01/24 09:00 Labs: Laboratory Results - last 24 hr 07/31/24 23:08: WBC 17.6 H, RBC 3.88 L, Hgb 11.4 L, Hct 34.4 L, MCV 88.7, MCH 29.4, MCHC 33.1, RDW Std Deviation 50.0 H, RDW Coeff of Mansi 15.6 H, Plt Count 166, MPV 11.0, Immature Gran % (Auto) 1.100 H, Neut % (Auto) 91.3 H, Lymph % (Auto) 2.1 L, [place] % (Auto) 5.2, Eos % (Auto) 0.1, Baso % (Auto) 0.2, Absolute Neuts (auto) 16.0 H, Absolute Lymphs (auto) 0.37 L, Nucleated RBC % 0, D-Dimer Quant (PE/DVT) 2.12 H*, Sodium 136, Potassium 4.0, Chloride 102, Carbon Dioxide 26.0, Anion Gap 8, BUN 26 H, Creatinine 1.08, Estim Creat Clear Calc 66.14, Est GFR (MDRD) Af Amer 83, Est GFR (MDRD) Non-Af 68, BUN/Creatinine Ratio 24.1 H, G lucose 142 H, Lactic Acid 1.1, Calcium 8.6, Total Bilirubin 0.50, AST 13 L, ALT 20, Alkaline Phosphatase 81, B-Natriuretic Peptide 54.6 07/31/24 23:08: B-Natriuretic Peptide Cancelled, Total Protein 7.3, Albumin 3.5, Globulin 3.8, Albumin/Globulin Ratio 0.9, Vitamin B12 408, Folate 6.80, P rocalcitonin 0.20 H 07/31/24 23:45: Urine Color Yellow, Urine Clarity Clear, Urine pH 6.0, Ur Specific [place] 1.020, Urine Protein 30 H, Urine Glucose (UA) Normal, Urine Ketones 5 H, Urine Occult Blood 25 H, Urine Nitrite Negative, Urine Bilirubin Negative, Urine Urobilinogen Normal, Ur Leukocyte Esterase Negative, Urine RBC 0 SEEN, Urine WBC 0 SEEN, Ur Squamous Epith Cells 0 SEEN, Urine Bacteria 0 SEEN, Urine Mucus 0 SEEN, Urine Opiates Screen NEGATIVE, Urine Methadone Screen NEGATIVE, Ur Barbiturates Screen NEGATIVE, Ur Phencyclidine Scrn NEGATIVE, Ur Amphetamines Screen NEGATIVE, MDMA (Ecstasy) Screen NEGATIVE, U Benzodiazepines Scrn NEGATIVE, Urine Cocaine Screen NEGATIVE, U Cannabinoids Screen NEGATIVE, Ur Drug Screen Comment 08/01/24 09:00: WBC 21.4 H, RBC 3.92 L, Hgb 11.5 L, Hct 35.8 L, MCV 91.3, MCH 29.3, MCHC 32.1, RDW Std Deviation 52.5 H, RDW Coeff of Mansi 15.8 H, Plt Count 133 L, MPV 10.9, Immature Gran % (Auto) 1.200 H, Neut % (Auto) 94.1 H, Lymph % (Auto) 0.9 L, [place] % (Auto) 3.4, Eos % (Auto) 0.1, Baso % (Auto) 0.3, Absolute Neuts (auto) 20.1 H, Absolute Lymphs (auto) 0.20 L, Nucleated RBC % 0, Differential Comment , Sodium 137, Potassium 3.5, Chloride 101, Carbon Dioxide 27.0, Anion Gap 10, BUN 26 H, Creatinine 1.21, Estim Creat Clear Calc 58.42, Est GFR (MDRD) Af Amer 73, Est GFR (MDRD) Non-Af 60, BUN/Creatinine Ratio 21.5 H, G lucose 131 H, Calcium 8.4 L, Phosphorus 3.0, Magnesium 1.7, Total Bilirubin 0.60, AST 20, ALT 21, Alkaline Phosphatase 76, Total Protein 7.1, Albumin 3.3, Globulin 3.8, Albumin/Globulin Ratio 0.9, TSH 1.490 Micro: Microbiology 07/31/24 23:59 Blood Culture (Wb) - Left Hand Blood Culture - Preliminary 08/01/24 05:00 Mucosa - Nasopharyngeal Respiratory Panel (PCR) - Final 07/31/24 22:50 Mucosa - Nose SARS-CoV-2, Influenza & RSV (PCR) - Final Radiography Diagnostic Testing: Radiology Impression Brain CT 07/31/24 22:39 IMPRESSION: 1. No CT evidence of acute intracranial pathology. Chronic microvascular ischemic changes. 2. Mucosal thickening in the paranasal sinuses. Correlate for associated symptoms. Electronically Signed: Demetrio Campbell DO at 23:46 EST , Chest X-Ray 07/31/24 23:25 IMPRESSION: CHF. Electronically Signed: Gricelda Rodriguez MD at 0:10 EST , Chest CTA 08/01/24 00:49 IMPRESSION: No demonstrated pulmonary embolism or arterial dissection. There is prominence of the main pulmonary arteries without peripheral pulmonary vascular congestion, suggesting pulmonary hypertension. Electronically Signed: Gricelda Rodriguez MD at 1:54 EST , Abdomen/Pelvis CT 08/01/24 00:58 IMPRESSION: Multiple bilateral renal cysts, the largest measures 2.5 cm. Cholelithiasis. Electronically Signed: Gricelda Rodriguez MD at 1:58 EST , Venous Doppler Study 08/01/24 02:22 Interpretation Summary Deep veins of the lower extremities are bilaterally patent and compressible segmentally. There is no evidence of deep vein thrombosis on either side. Valvular competence appears intact within the proximal deep venous systems bilaterally. The great saphenous veins appear bilaterally patent and compressible segmentally. The left distal femoral vein and peroneal vein were not visualized due to swelling and the patient's body habitus. Ordering Physician: Meño Dawn Referring Physician: Luba Multani Performed By: Dm Blanca RVT Assessment & Plan Assessment/Plan (1) D-dimer, elevated: (2) Positive blood cultures: (3) Leukocytosis: QUALIFIERS: Leukocytosis type: unspecified Qualified Code(s): D 72.829 - Elevated white blood cell count, unspecified (4) Aspiration pneumonia: QUALIFIERS: Aspiration pneumonia type: unspecified Laterality: b ilateral Lung location: unspecified part of lung Qualified Code(s): J69.0 - Pneumonitis due to inhalation of food and vomit (5) Hypoxia: PLAN: Plan Acute hypoxia secondary to suspected aspiration pneumonia -Modified barium swallow done today and patient does have significant issues with modified diet recommended being mechanical soft and nectar thick liquid diets with significant modifications and compensatory strategies -GI consultation was recommended and this was discussed with family -Patient has had significant decline in the last 12 months and there trying to figure out the best course and we will discuss things today and let me know tomorrow what they would like to pursue -Continue antibiotics as ordered with Zosyn and vancomycin -Continue speech therapy -Modified diet as recommended by speech therapy -COVID/flu/RSV/respiratory viral panel negative -Will give Lasix 40 mg IV push x 1 dose -Add I-S and Acapella Positive blood cultures -Thus far 1 blood cultures positive for gram-positive cocci in chains -Second blood cultures ordered and pending for today -May be contaminant but will await identification and second blood culture -Continue vancomycin and Zosyn for now -Procalcitonin is slightly elevated at 0.2 Elevated D-dimer -CTA of the chest is negative for PE -lower extremity Dopplers are negative -Suspect that elevation is likely related to acute infection Persistent leukocytosis -White count actually trended up -Does not appear that patient got steroids next-will continue vancomycin and Zosyn for now -Await cultures -Repeat lab in a.m. Chronic anemia -Baseline hemoglobin appears to run between 10.5 and 12 -Hemoglobin currently 11.5 -No signs of blood loss -continue to monitor Thrombocytopenia -This is new and mild at this time with a platelet count 133,000 -May be related to infection or Zosyn use -Continue to monitor Generalized weakness and debility -Per family he has not been mobile since he had an ankle fracture about 12 months ago -Has been slowly declining -Resides currently in alf -PT/OT/speech therapy following Toxic/metabolic encephalopathy -Per family he is back to baseline now -likely related to transient hypoxia and infection GERD -Continue Protonix 40 mg daily Seborrhea -Continue topicals Essential hypertension -Restart home Lasix -Restart home Aldactone History of BPH -Previously has been on Flomax but currently not taking anything monitor for signs of obstruction Morbid obesity -BMI is 44.3 -Recommend weight loss -Complicates treatment, prognosis, outcomes -Per family patient has gained considerable amount of weight since his ankle fracture DVT prophylaxis -Subcu enoxaparin twice daily CODE STATUS -Per discussion with patient and family today plan will be for DNR CCA no intubation Extensive conversation with regards to current issues and options for treatment. Given his dysphagia, overall progressive decline, and chronic medical issues options at this time or for restricted diet and EGD as recommended by gastroenterology as there were concerns of esophageal motility issues or consideration of hospice since he has had a significant decline in the last 12 months. Family is going to discuss further with both with all of his children and with the patient tonight and let me know tomorrow how they would like to proceed.
[2024-08-01] MEDS: Vancomycin HCl 1,250 MG in 0.9% Normal Saline (250mL Bag) 250 ML 167 MG IV (18:14)
[2024-08-01] MEDS: Spironolactone 25 MG Tablet PO (21:21)
[2024-08-02] VITALS (26 sets, daily range): BP systolic 93–140; BP diastolic 42–92; PULSE 80–150; RESP 16–25; TEMP 36.6–36.9; O2SAT 90–100; BMI 44.1
[2024-08-02] MEDS: Vancomycin HCl 1,250 MG in 0.9% Normal Saline (250mL Bag) 250 ML 167 MG IV (04:04)
[2024-08-02] MEDS: Acetaminophen 500 MG Tablet PO (05:42)
[2024-08-02] MEDS: Piperacil/Tazobactam 3.375 GM in 0.9% Normal Saline (50mL MB+) 50 ML IV ×2 (05:52→14:56)
[2024-08-02 05:55] LABS: Absolute Lymphocyte Count 0.13 X10^3/uL (0.83-4.51); Basophil# 0.04 X10^3/uL; Basophil% 0.3 % (0-1); Eosinophil# 0.12 X10^3/uL; Eosinophils% 0.8 % (0-5); Hematocrit 33.9 % (40-54); Lymphocyte # 0.13 X10^3/ul (0.83-4.51); Lymphocyte % 0.8 % (19-41); Mean Corp Hgb Conc 32.4 g/dL (32-36); Mean Corpuscular Hgb 29.6 pg (27.0-32.0); Mean Corpuscular Volume 91.4 fL (80-94); Mean Platelet Vol. 11.2 fl (6.2-12.0); Monocyte# 0.46 X10^3/uL; Monocyte% 2.9 % (0-10); NRBC Flagged by Analyzer 0.1 % (0-5); Neutrophil % 93.6 % (47-70); POSITIVE DIFFERENTIAL YES; Platelet Count 154 K/mm3 (150-450); RBC Distribution Width SD 53.9 fl (35.1-43.9); Red Blood Count 3.71 M/mm3 (4.6-6.2)
[2024-08-02 06:36] LABS: Anion Gap 7 (5-15); BUN 42 mg/dL (7-18); BUN/Creat Ratio 20.7 RATIO (10-20); Chloride 102 mmol/L (98-107); Creatinine, Serum 2.03 mg/dL (0.70-1.30); EST Glomerular Filtration Rate 33 mL/min (>60); Est Glom Filt Rate - Afr Amer 40 mL/min (>60); Estimated Creatinine Clearance 34.74 ml/min; Glucose 128 mg/dL (74-106); Sodium Level 136 mmol/L (136-145)
--- NOTE | 2024-08-02 07:35 | EKG12_ITS ---
Test Reason : ARRYTH Blood Pressure : */* mmHG Vent. Rate : 141 BPM Atrial Rate : * BPM P-R Int : * ms QRS Dur : 86 ms QT Int : 312 ms P-R-T Axes : * -25 108 degrees QTcB Int : 477 ms Critical Test Result: High HR Atrial fibrillation with rapid ventricular response Minimal voltage criteria for LVH, may be normal variant ( R in aVL ) Nonspecific ST and T wave abnormality Abnormal ECG When compared with ECG of 31-Jul-2024 23:17, Atrial fibrillation has replaced Sinus rhythm Inverted T waves have replaced nonspecific T wave abnormality in Lateral leads Confirmed by KATRINA BRYANT, CONSTANTINE ([id number]), advertising editor MARCI OROZCO ([id number]) on 08/02/2024 1:19:39 PM Referred By: TAWNYA Confirmed By: CONSTANTINE HERNDON MD
[2024-08-02] MEDS: Lactated Ringers 1,000 ML 100 ML IV (08:19)
[2024-08-02] MEDS: Amiodarone 150 MG in Dextrose 5%-Water (100mL Bag) 100 ML 600 MG IV BOLUS (09:32)
[2024-08-02] MEDS: Amiodarone 360 MG in Dextrose 5% Viaflo Bag 192.8 ML 33.3 MG CONT INF (09:57)
[2024-08-02] MEDS: Aspirin 81 MG TAB.CHEW PO (10:11)
[2024-08-02] MEDS: Menthol/Lanolin/Calamine/Znox 113 GM Tube 1 APPLIC TOPICAL ×2 (10:12→21:33)
[2024-08-02] MEDS: Hydrocortisone 2.5% Crm 1 APPLIC TOPICAL ×2 (10:14→21:34)
[2024-08-02] MEDS: Fluticasone 0.05% 1 SPRAY NASAL.SRY 2 SPRAY NASAL (10:14)
[2024-08-02] MEDS: Furosemide 20 MG Tablet PO (10:17)
[2024-08-02] MEDS: Enoxaparin 40 MG/0.4 ML Syringe SC (10:17)
[2024-08-02] MEDS: Triamcinolone Acetonide 0.1% Cream 15 gm 1 APPLIC TOPICAL ×2 (10:18→21:34)
--- NOTE | 2024-08-02 10:36 | CASEMGMT ---
Discharge Planning Updates sent to [facility] via [facility]. Sammi Montiel DC Planning Asst.
[2024-08-02 12:11] LABS: Allen Test Positive; Base Excess -4 mmol/L (-2 to +2); Bicarbonate 22.1 mmol/L (22-26); Blood Gas Specimen Type ART; Mode Not entered; O2 Delivery Device Cannula; PO2 93 mmHG (75-100); SITE L Radial; SO2 96 % (95-99); Total Carbon Dioxide 24 mmol/L; pCO2 45.4 mmHg (35-45)
--- NOTE | 2024-08-02 12:13 | RAD_ITS ---
INDICATION: hypoxia EXAMINATION/TECHNIQUE: X-RAY - XR Chest 1 View COMPARISON: Prior study dated: 07/31/2024 FINDINGS: LINES/DEVICES: None. LUNGS: Low lung volumes. No consolidation, edema or effusion. Decreased interstitial prominence from prior. No pneumothorax. MEDIASTINUM AND CARDIOVASCULAR STRUCTURES: Cardiac silhouette not enlarged. Central airways and mediastinal contour are unremarkable. BONES AND SOFT TISSUES: No acute abnormality. Degenerative change at the right glenohumeral joint. RAD/Chest 1 View (Portable) IMPRESSION: No acute pulmonary finding. Electronically Signed: Spencer Long MD at 12:30 EST ,
--- NOTE | 2024-08-02 13:08 | NURSING ---
silver watch from pt given to daughter.
--- NOTE | 2024-08-02 15:17 | PCM.PN.HOSP ---
Reason for Visit Reason for Visit: Shortness of breath/altered mental status/vomiting Subjective Subjective Patient more confused today compared to yesterday. Unclear if he had a restless night but ABG obtained and he does appear to be retaining some CO2 with a pH of 7.29. BiPAP initiated. He also transition into A-fib with RVR with rates 130 and 140. Amiodarone drip was started for this this morning by me. Discussed with speech therapy and they really feel he is not appropriate for any diet at this time and I do agree. Family at the bedside both this morning and this afternoon and I discussed ongoing plan with family who was present at the time during both visits. Objective Data Objective Data Vital Signs: Vital Signs Temp Pulse Resp BP Pulse Ox O2 Del Method O2 Flow Rate 98.0 F 108 H 21 H 106/57 L 98 Bi-pap 4 08/02/24 14:00 08/02/24 14:00 08/02/24 14:00 08/02/24 14:00 08/02/24 14:00 08/02/24 14:00 08/02/24 13:00 FiO2 75 08/02/24 13:15 Oxygen Flow Rate (L/min) 4 Oxygen Delivery Method Bi-pap Weight: 139.4 kg Body Mass Index (BMI) 44.1 Intake & Output: Intake and Output for Last 24 Hours 07/31/24 08/01/24 08/02/24 23:59 23:59 23:59 Intake Total 1551.66 / 1551.66 779.95 / 779.95 Output Total 1375 / 1375 250 / 250 Balance 176.66 / 176.66 529.95 / 529.95 Lab / Micro Data 08/02/24 05:37 08/02/24 05:37 Labs: Laboratory Results - last 24 hr 08/02/24 05:37: WBC 16.0 H, RBC 3.71 L, Hgb 11.0 L, Hct 33.9 L, MCV 91.4, MCH 29.6, MCHC 32.4, RDW Std Deviation 53.9 H, RDW Coeff of Mansi 16.0 H, Plt Count 154, MPV 11.2, Immature Gran % (Auto) 1.600 H, Neut % (Auto) 93.6 H, Lymph % (Auto) 0.8 L, [place] % (Auto) 2.9, Eos % (Auto) 0.8, Baso % (Auto) 0.3, Absolute Neuts (auto) 15.0 H, Absolute Lymphs (auto) 0.13 L, Nucleated RBC % 0.1, Sodium 136, Potassium 4.0, Chloride 102, Carbon Dioxide 27.0, Anion Gap 7, BUN 42 H, Creatinine 2.03 H, Estim Creat Clear Calc 34.74, Est GFR (MDRD) Af Amer 40 L, Est GFR (MDRD) Non-Af 33 L, BUN/Creatinine Ratio 20.7 H, Glucose 128 H, Calcium 8.0 L Micro: Microbiology 07/31/24 23:59 Blood Culture (Wb) - Left Hand Blood Culture - Preliminary 08/01/24 05:00 Mucosa - Nasopharyngeal Respiratory Panel (PCR) - Final 07/31/24 22:50 Mucosa - Nose SARS-CoV-2, Influenza & RSV (PCR) - Final ABG Data ABG results: ABG 08/02/24 12:07 Specimen Type ART Sample Site L Radial pH 7.30 L Bicarbonate Actual 22.1 Total CO2 24 Base Excess -4 L O2 Saturation 96 O2 % 4.0 ABG pCO2 45.4 H ABG pO2 93 Sudeep Test Positive O2 Delivery Device Cannula Vent Mode Not entered Radiography Diagnostic Testing: Radiology Impression Chest X-Ray 08/02/24 12:13 IMPRESSION: No acute pulmonary finding. Electronically Signed: Spencer Long MD at 12:30 EST Reading Location ID and State: [address] [place] [address] Tel , Service support , Physical Exam Const no apparent distress and well nourished; Negative for average body habitus or healthy appearing Constitutional Narrative: Sleepy, elderly, morbidly obese, white male, sitting up in bed, arouses slightly to name and tactile stimulation but falls back asleep quickly, appears ill, currently appears comfortable Orientation / Consciousness: confused and lethargic HEENT head/scalp atraumatic and moist oral mucous membranes HEENT Narrative: Mallampati 4, no thrush Head and Scalp: normocephalic Eyes PERRL and conjunctivae normal Eyes Narrative: No scleral icterus Neck no lymphadenopathy and supple Neck Narrative: Neck is short and thick, trachea midline Resp Resp Narrative: Scattered rhonchi, also upper airway wheeze noted and I suspect he is not clearing his secretions well, no wheeze, diminished at bases bilaterally Auscultation: rhonchi and wheezes; Negative for crackles Cardio S1 normal heart sound, S2 normal heart sound, no murmurs, no rub, no gallops and no clicks; Negative for regular rate or regular rhythm Cardio Narrative: Tachycardic with irregularly irregular rhythm GI normal to inspection, nondistended, normoactive bowel sounds, soft to palpation and non-tender GI Narrative: Large protuberant abdomen Extremity Extremity Narrative: Diffuse edema bilateral upper and lower extremity edema that is pitting in nature, seems consistent with anasarca, no clubbing or cyanosis Skin skin turgor normal, no jaundice, no petechiae and no mottling Neuro No oriented x3 and moves all extremities Neuro Narrative: Marked generalized weakness noted, patient spontaneously moves all 4 extremities but fairly somnolent today Psych Psych Narrative: Unable to fully assess today due to mental status Assessment & Plan Assessment/Plan (1) Positive blood cultures: (2) D-dimer, elevated: (3) Metabolic encephalopathy: (4) 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: (5) Dysphagia: (6) Aspiration pneumonia: QUALIFIERS: Aspiration pneumonia type: unspecified Laterality: bilateral Lung location: unspecified part of lung Qualified Code(s): J69.0 - Pneumonitis due to inhalation of food and vomit PLAN: Plan Acute hypoxia and hypercapnic respiratory failure secondary to suspected aspiration pneumonia/untreated NICANOR -Modified barium swallow done 08/01/2024 and patient does have significant issues with modified diet recommended being mechanical soft and nectar thick liquid diets with significant modifications and compensatory strategies -Today with altered mental status patient remain n.p.o. -ABG is consistent with some retention of CO2 showing a pH of 7.29 with an elevated pCO2 however I do suspect that some of this acidosis is related to his worsening renal function -Patient placed on BiPAP via AutoPap with repeat ABG pending for 1529 -GI consultation was recommended and this was discussed with family--> will hold off for now as respiratory status and mental status do not prevent -Patient has had significant decline in the last 12 months and there trying to figure out the best course and we will discuss things today and let me know tomorrow what they would like to pursue -Continue antibiotics as ordered with Zosyn and vancomycin -Continue speech therapy -N.p.o. for now -COVID/flu/RSV/respiratory viral panel negative -Add I-S and Acapella New onset A-fib with RVR -Heparin drip initiated -Amnio bolus with drip -Heart rate still up but better than prior to initiation of amiodarone -Will give digoxin x 1 dose 250 mcg -Would avoid subsequent digoxin dosing due to JESÚS -TSH is within normal limits -Check echocardiogram Toxic/metabolic encephalopathy -Suspect related to the above -ABG does show slight acidosis -Will check ammonia level Positive blood cultures -Thus far 1 blood cultures positive for gram-positive cocci in chains--> identification remains pending -Repeat blood culture from 08/01/2024 is pending -May be contaminant but will await identification and second blood culture -Continue vancomycin and Zosyn for now -Procalcitonin is slightly elevated at 0.2 JESÚS -Etiology is unclear -patient was not significantly hypotensive -serum creatinine yesterday was 1.21 and creatinine today is 2.03 -Place Greenwood -Will give fluid challenge with 1 L -Recheck BMP at 1330 -If no improvement will pursue further workup -Hold home Aldactone and furosemide Elevated D-dimer -CTA of the chest is negative for PE -lower extremity Dopplers are negative -Suspect that elevation is likely related to acute infection -Patient is now on a heparin drip due to atrial fibrillation Persistent leukocytosis -White count did trend down overnight and is currently 16,000 down from 21.4 -Continue antibiotics as noted above -Continue to await cultures -Repeat lab in a.m. Chronic anemia -Baseline hemoglobin appears to run between 10.5 and 12 -Hemoglobin currently 11.0 and relatively stable -No signs of blood loss -continue to monitor Thrombocytopenia -Resolved -Continue to monitor Generalized weakness and debility -Per family he has not been mobile since he had an ankle fracture about 12 months ago -Has been slowly declining -Resides currently in senior living -PT/OT/speech therapy following Toxic/metabolic encephalopathy -Per family he is back to baseline now -likely related to transient hypoxia and infection GERD -Continue Protonix 40 mg daily Seborrhea -Continue topicals Essential hypertension -Restart home Lasix -Restart home Aldactone History of BPH -Previously has been on Flomax but currently not taking anything monitor for signs of obstruction -Greenwood to be placed due to elevated renal function Morbid obesity -BMI is 44.3 -Recommend weight loss -Complicates treatment, prognosis, outcomes -Per family patient has gained considerable amount of weight since his ankle fracture DVT prophylaxis -Discontinue subcu enoxaparin -Add heparin drip due to A-fib CODE STATUS -DNR CCA with no intubation Disposition: Again extensive conversation with family that included 2 of his daughters and his son. There is another daughter who is flying from [place]. I did express his overall prognosis is poor at this time. They would like to persist with what we are doing currently but again no aggressive resuscitation attempts are desired. We did discuss that he will remain on broad-spectrum antibiotics and BiPAP for now. They are aware that his renal function is worse and that he is currently n.p.o. due to his mental status and poor swallowing at baseline. Will likely need further conversation. Highly anticipate that hospice may need to be pursued. Charges/Coding Visit Charges Inpatient E&M: 37648 Subs Hosp L3
--- NOTE | 2024-08-02 15:22 | ECHOCS_ITS ---
Reason For Study: [facility] Procedure This was a 2D Doppler, Color Flow transthoracic echocardiogram. The study was technically difficult. Contrast injection was performed. Exam performed portable in patient room. Left Ventricle Normal LV size. Moderate concentric left ventricular hypertrophy. The left ventricular ejection fraction is 65 %. Normal diastology for age. Right Ventricle Normal right ventricle. Atria There is mild biatrial dilatation. Mitral Valve Trivial mitral valve insufficiency. Tricuspid Valve Trivial tricuspid valve insufficiency. Unable to estimate RV systolic pressure due to insufficient tricuspid regurgitant envelope. Aortic Valve Aortic valve sclerosis. Aortic valve mean peak gradient 9 mmHg. Trivial aortic valve regurgitation. Pulmonic Valve The pulmonic valve is not well visualized. Great Vessels Normal sized aortic root. Pericardium/Pleural No pericardial effusion. Medication Diluted definity 3.5ml given slow IV push to enhance endocardial definition. MMode/2D Measurements & Calculations LVIDd: 5.1 cm IVSd: 1.5 cm LVOT diam: 2.0 cm LVIDs: 3.3 cm LVPWd: 1.5 cm FS: 35.1 % LVOT area: 3.2 cm2 asc Aorta Diam: 2.9 cm LAV(MOD-bp): 49.0 ml LA A4 area: 14.2 cm2 LAV(MOD-bp) Indexed: 19.5 ml/m2 LAV(MOD-sp2): 70.9 ml LAV(MOD-sp4): 33.1 ml RA A4 area: 15.9 cm2 Time Measurements MV dec time: 0.18 sec Doppler Measurements & Calculations MV E max triston: 72.2 cm/sec Lat Peak E' Triston: 11.3 cm/sec Med Peak E' Triston: 7.8 cm/sec MV A max triston: 96.2 cm/sec E/E' lat: 6.4 E/E' med: 9.3 MV E/A: 0.75 MV dec slope: 407.4 cm/sec2 Ao V2 max: 204.7 cm/sec LV V1 max: 111.6 cm/sec Ao max P.9 mmHg LV V1 max P.0 mmHg Ao V2 mean: 139.1 cm/sec LV V1 mean P.9 mmHg Ao mean P.9 mmHg LV V1 mean: 80.8 cm/sec Ao V2 VTI: 36.2 cm LV V1 VTI: 20.6 cm AV (velocity ratio): 0.57 RENETTA(I,D): 1.8 cm2 RENETTA(V,D): 1.7 cm2 SV(LVOT): 65.4 ml PA V2 max: 118.7 cm/sec TR max triston: 186.8 cm/sec TR max P.0 mmHg ECHO/Echo Complete W/ Contrast Interpretation Summary The study was technically difficult. Moderate concentric left ventricular hypertrophy. The left ventricular ejection fraction is 65 %. There is mild biatrial dilatation. Aortic valve sclerosis. Aortic valve mean peak gradient 9 mmHg. Trivial aortic valve regurgitation. Ordering Physician: Suzi Fonseca Referring Physician: Luba Multani Performed By: Fatou Somers and Student
[2024-08-02 15:45] LABS: Allen Test Positive; Base Excess -3 mmol/L (-2 to +2); Bicarbonate 22.3 mmol/L (22-26); Blood Gas Specimen Type ART; Mode Not entered; O2 Delivery Device BiPAP; PO2 158 mmHG (75-100); SITE L Radial; SO2 99 % (95-99); Total Carbon Dioxide 24 mmol/L; pCO2 39.2 mmHg (35-45); pH 7.36 (7.35-7.45)
[2024-08-02] MEDS: Amiodarone 360 MG in Dextrose 5% Viaflo Bag 192.8 ML 16.7 MG CONT INF (15:45)
[2024-08-02] MEDS: Digoxin 250 MCG/ML Ampul IV (15:48)
[2024-08-02] MEDS: Vancomycin Trough/Random Due 1 LAB MC (16:03)
[2024-08-02 16:24] LABS: Partial Thromboplast Time 35.4 Seconds (24.1-36.2)
[2024-08-02 16:39] LABS: Anion Gap 12 (5-15); BUN 48 mg/dL (7-18); BUN/Creat Ratio 20.4 RATIO (10-20); Calcium,Total 7.6 mg/dL (8.5-10.1); Chloride 102 mmol/L (98-107); Creatinine, Serum 2.35 mg/dL (0.70-1.30); EST Glomerular Filtration Rate 28 mL/min (>60); Est Glom Filt Rate - Afr Amer 34 mL/min (>60); Estimated Creatinine Clearance 30.01 ml/min; Glucose 145 mg/dL (74-106); Potassium 4.5 mmol/L (3.5-5.1); Sodium Level 135 mmol/L (136-145); Vancomycin, Trough Level 20.5 ug/mL (5.0-15.0)
--- NOTE | 2024-08-02 16:48 | PCM.RX.CS ---
Consult Antibiotic Management Pharmacy has been consulted to manage selected antibiotic: Vancomycin Type of Intervention Type of Consult: Follow-up Suspected Infection Suspected Infection: Bacteremia Labs Labs: Sodium 135 mmol/L (136-145) L 08/02/24 15:55 Potassium 4.5 mmol/L (3.5-5.1) 08/02/24 15:55 Chloride 102 mmol/L (98-107) 08/02/24 15:55 Carbon Dioxide 22.0 mmol/L (21.0-32.0) 08/02/24 15:55 Anion Gap 12 (5-15) 08/02/24 15:55 BUN 48 mg/dL (7-18) H 08/02/24 15:55 Creatinine 2.35 mg/dL (0.70-1.30) H 08/02/24 15:55 Est GFR (MDRD) Af Amer 34 mL/min (>60) L 08/02/24 15:55 Est GFR (MDRD) Non-Af 28 mL/min (>60) L 08/02/24 15:55 BUN/Creatinine Ratio 20.4 RATIO (10-20) H 08/02/24 15:55 Glucose 145 mg/dL (74-106) H 08/02/24 15:55 Vancomycin Trough 20.5 ug/mL (5.0-15.0) H 08/02/24 15:55 Microbiology Microbiology: Microbiology 07/31/24 23:59 Blood Culture (Wb) - Left Hand Blood Culture - Preliminary 08/01/24 05:00 Mucosa - Nasopharyngeal Respiratory Panel (PCR) - Final 07/31/24 22:50 Mucosa - Nose SARS-CoV-2, Influenza & RSV (PCR) - Final Pharmacy Plan for Drug Dosing Pharmacy Plan for Drug Dosing: VANCOMYCIN LEVEL RECEIVED Current Vancomycin Dose: 1250MG Q12 Number of Doses Received: 3 Vancomycin Level: 20.5 MG/DL Hours Since Last Dose: 12 Renal Function: SCR 2.35 MG/DL, CRCL 29.5 MG/DL Renal Function Trend: worsening Lab/Micro: preliminary blood cx with gram (+) cocci in chains, repeat pending Vancomycin Plan/Comments: 12 hour trough is slightly supratherapeutic at 20.5 mg/dL (goal 15-20). Will hold dosing for now and get a random level in 8 hours. Pending Level: 08/03/24 @ 0000 Pharmacy Service will continue to monitor and adjust dosing as required.
[2024-08-02] MEDS: HEPARIN/D5w 25,000 UNITS 25,000 UNITS/250 ML IV.SOLN. 10 UNITS CONT INF (16:52)
[2024-08-02] MEDS: Heparin Injection (Vial) 5,000 UNIT/ML VIAL 4000 UNIT IV (16:52)
--- NOTE | 2024-08-02 16:57 | US_ITS ---
EXAM: US RETROPERITONEAL LIMITED, RENAL CLINICAL INDICATION: JESÚS TECHNIQUE: Limited grayscale and color Doppler sonographic evaluation of the retroperitoneum was performed. COMPARISON: CT abdomen and pelvis, 08/01/2024. FINDINGS: LIMITATIONS: Examination limited due to patient body habitus and bowel gas. RIGHT KIDNEY: Renal cysts correlating with the comparison CT are partially visualized in the right kidney for which no follow-up is indicated. No hydronephrosis. No shadowing calculus. No perinephric collection is demonstrated. The right kidney measures 10.8 cm in length. LEFT KIDNEY: The left kidney measures 14.4 cm in length, somewhat hypertrophic. Renal cysts correlating with the comparison CT are partially visualized in the left kidney for which no follow-up is indicated. No hydronephrosis. No shadowing calculus. No perinephric collection is demonstrated. BLADDER: There is a Greenwood catheter within the urinary bladder which is decompressed. Ureteral jets are not visualized. US/Kidney and Bladder IMPRESSION: 1. Bilateral renal cyst correlating with the comparison examination for which no follow-up is indicated. The left kidney appears hypertrophic. No additional renal abnormality. 2. There is a Greenwood catheter within the urinary bladder which is decompressed. Electronically Signed: Demetrio Campbell DO at 23:01 EST ,
--- NOTE | 2024-08-02 18:34 | EKG12_ITS ---
Test Reason : CONVERTED TO NSR Blood Pressure : */* mmHG Vent. Rate : 93 BPM Atrial Rate : 93 BPM P-R Int : 178 ms QRS Dur : 86 ms QT Int : 336 ms P-R-T Axes : 41 -32 41 degrees QTcB Int : 417 ms Normal sinus rhythm Left axis deviation Low voltage QRS Nonspecific ST and T wave abnormality Abnormal ECG When compared with ECG of 02-Aug-2024 07:49, Sinus rhythm has replaced Atrial fibrillation Vent. rate has decreased by 48 bpm Confirmed by Gt Hauser ([id number]), market editor AMANDA STALLWORTH ([id number]) on 08/03/2024 10:03:18 AM Referred By: Confirmed By: Gt Hauser
--- NOTE | 2024-08-02 19:01 | CT_ITS ---
EXAM: CT HEAD WITHOUT INTRAVENOUS CONTRAST CLINICAL INDICATION: LOC TECHNIQUE: Multiple axial images were obtained of the head without intravenous contrast. This CT exam was performed using one or more of the following dose reduction techniques: automated exposure control, adjustment of the mA and/or kV according to patient size, and/or use of iterative reconstruction technique. COMPARISON: 07/31/2024 FINDINGS: BRAIN AND EXTRA-AXIAL SPACES: Ex vacuo enlargement of the frontal horns of the lateral ventricles. There is non-specific periventricular hypoattenuation which is most commonly related to chronic microvascular ischemic disease in a patient of this age. There is no mass, mass-effect, or shift of the midline structures. No evidence of acute infarct or acute intracranial hemorrhage. There is no evidence of pathologic extra-axial fluid. There is no hydrocephalus. Patent basal cisterns. BONES/JOINTS: No significant abnormality. No discrete lytic or blastic abnormalities. VASCULATURE: Arteriosclerosis. SINUSES: Trace mucosal thickening in the paranasal sinuses. MASTOID AIR CELLS: Trace left mastoid effusion. ORBITS: No acute findings. CT/Brain/Head without Contrast IMPRESSION: Chronic microvascular ischemic changes. No significant change since prior examination. No acute infarct or hemorrhage. Electronically Signed: Demetrio Campbell DO at 21:36 EST ,
[2024-08-02] MEDS: 0.9% Saline Lock 10 ML Syringe IV (21:33)
[2024-08-02 23:24] LABS: Mucous, Urine 0 SEEN /hpf (<or=2+)
[2024-08-02 23:25] LABS: Color, Urine Yellow (Yellow); Glucose, Dipstick Normal (Normal); Ketone-Dipstick Negative (Negative); Leukocyte Esterase-Dipstick 500 /ul (Negative); Nitrite-Dipstick Negative (Negative); Occult Blood-Urine 250 /ul (Negative); Protein-Dipstick 30 mg/dl (Negative); Urine Bilirubin Dipstick Negative (Negative); Urine Clarity Cloudy (Clear); Urine Urobilinogen 1 mg/dl (Normal)
[2024-08-02 23:31] LABS: Partial Thromboplast Time 81.2 Seconds (24.1-36.2)
[2024-08-02 23:40] LABS: Urea Nitrogen, Urine 431 mg/dL (NO RANGE EST.); Urine Sodium 30 mmol/L (Not Establ.)
[2024-08-02 23:54] LABS: Bacteria 4+ /hpf (None Seen); Fine Granular Cast- Urine 5-10 SEEN /lpf (0-5); Hyaline Cast 5-10 SEEN /lpf (0-5); Red Blood Cells-Urine 10-25 SEEN /hpf (0-5); Squamous Epithelial Cells - UA 0-5 SEEN /hpf (0-5); White Blood Cells 10-25 SEEN /hpf (0-5)
[2024-08-02 23:56] LABS: Vancomycin, Random Level 23.5 ug/mL (0.0-15.0)
[2024-08-03] VITALS (22 sets, daily range): BP systolic 92–133; BP diastolic 43–103; PULSE 76–95; RESP 15–29; TEMP 35.9–36.6; O2SAT 92–99; BMI 44.0
--- NOTE | 2024-08-03 00:26 | PCM.RX.CS ---
Consult Antibiotic Management Pharmacy has been consulted to manage selected antibiotic: Vancomycin Type of Intervention Type of Consult: Follow-up Suspected Infection Suspected Infection: Pneumonia Labs Labs: Sodium 135 mmol/L (136-145) L 08/02/24 15:55 Potassium 4.5 mmol/L (3.5-5.1) 08/02/24 15:55 Chloride 102 mmol/L (98-107) 08/02/24 15:55 Carbon Dioxide 22.0 mmol/L (21.0-32.0) 08/02/24 15:55 Anion Gap 12 (5-15) 08/02/24 15:55 BUN 48 mg/dL (7-18) H 08/02/24 15:55 Creatinine 2.35 mg/dL (0.70-1.30) H 08/02/24 15:55 Est GFR (MDRD) Af Amer 34 mL/min (>60) L 08/02/24 15:55 Est GFR (MDRD) Non-Af 28 mL/min (>60) L 08/02/24 15:55 BUN/Creatinine Ratio 20.4 RATIO (10-20) H 08/02/24 15:55 Glucose 145 mg/dL (74-106) H 08/02/24 15:55 Vancomycin Trough 20.5 ug/mL (5.0-15.0) H 08/02/24 15:55 Random Vancomycin 23.5 ug/mL (0.0-15.0) H 08/02/24 23:08 Microbiology Microbiology: Microbiology 07/31/24 23:59 Blood Culture (Wb) - Left Hand Blood Culture - Preliminary 08/01/24 05:00 Mucosa - Nasopharyngeal Respiratory Panel (PCR) - Final 07/31/24 22:50 Mucosa - Nose SARS-CoV-2, Influenza & RSV (PCR) - Final Dosing Weight Weight used for dosin.4 kg Estimated Creatinine Clearance Estimated Creatinine Clearance: 30 Goal Trough Goal Trough: 15-20 mcg/mL Pharmacy Plan for Drug Dosing Pharmacy Plan for Drug Dosing: Random vancomycin level, which was drawn 19 hours after last dose given, was still high at 23.5. Will continue holding dose, and will draw another random vanco level in 12 hours. Pharmacy Service will continue to monitor and adjust dosing as required. Follow-Up Labs Follow-Up Labs: Trough: Vancomycin (random) Date/Time Labs Ordered Labs to be done on [date and time ordered]: 08/03/24 @1100 (random)
[2024-08-03] MEDS: Amiodarone 360 MG in Dextrose 5% Viaflo Bag 192.8 ML 16.7 MG CONT INF (05:00)
[2024-08-03] MEDS: Piperacil/Tazobactam 3.375 GM in 0.9% Normal Saline (50mL MB+) 50 ML IV ×3 (05:10→22:37)
[2024-08-03 09:59] LABS: Absolute Lymphocyte Count 0.19 X10^3/uL (0.83-4.51); Absolute Neutrophil Count 10.2 X10^3/uL (2.0-7.7); Basophil# 0.06 X10^3/uL; Basophil% 0.5 % (0-1); Eosinophil# 0.37 X10^3/uL; Eosinophils% 3.3 % (0-5); Hematocrit 33.9 % (40-54); Hemoglobin 10.6 g/dL (13.0-16.5); Lymphocyte # 0.19 X10^3/ul (0.83-4.51); Lymphocyte % 1.7 % (19-41); Mean Corp Hgb Conc 31.3 g/dL (32-36); Mean Corpuscular Hgb 29.5 pg (27.0-32.0); Mean Corpuscular Volume 94.4 fL (80-94); Mean Platelet Vol. 10.9 fl (6.2-12.0); Monocyte# 0.36 X10^3/uL; Monocyte% 3.2 % (0-10); NRBC Flagged by Analyzer 0.2 % (0-5); Neutrophil # 10.15 X10^3/uL (2.7-7.7); Neutrophil % 89.6 % (47-70); POSITIVE COUNT YES; POSITIVE DIFFERENTIAL YES; POSITIVE MORPHOLOGY YES; RBC Distribution Width CV 16.1 % (11.6-14.6); Red Blood Count 3.59 M/mm3 (4.6-6.2); White Blood Count 11.3 K/mm3 (4.4-11.0)
[2024-08-03 10:07] LABS: Partial Thromboplast Time 50.6 Seconds (24.1-36.2)
[2024-08-03 10:12] LABS: ALB/GLOB Ratio 0.6 RATIO (0.9-2.4); AST(SGOT) 39 U/L (15-37); Alanine Aminotransfer ALT/SGPT 36 U/L (16-61); Albumin, Serum 2.4 g/dL (3.2-5.0); Alkaline Phosphatase 65 U/L (45-117); Anion Gap 7 (5-15); BUN 63 mg/dL (7-18); BUN/Creat Ratio 22.7 RATIO (10-20); Calcium,Total 7.3 mg/dL (8.5-10.1); Chloride 104 mmol/L (98-107); Creatinine, Serum 2.78 mg/dL (0.70-1.30); EST Glomerular Filtration Rate 23 mL/min (>60); Est Glom Filt Rate - Afr Amer 28 mL/min (>60); Estimated Creatinine Clearance 25.35 ml/min; Globulin 3.7 g/dL (2.2-4.2); Glucose 177 mg/dL (74-106); Magnesium 1.9 mg/dL (1.6-2.6); Phosphorus 4.1 mg/dL (2.5-4.9); Potassium 3.8 mmol/L (3.5-5.1); Protein, Total 6.1 g/dL (6.4-8.2); Sodium Level 136 mmol/L (136-145)
[2024-08-03 10:17] LABS: Differential Indicated SCAN CRITERIA MET
[2024-08-03 10:18] LABS: Platelet Estimate MOD DEC (ADEQ)
[2024-08-03] MEDS: Lactated Ringers 1,000 ML 200 ML IV ×2 (10:55→17:00)
[2024-08-03] MEDS: Lactobacillis Acidophilus 1 CAP PO ×3 (14:06→22:23)
[2024-08-03] MEDS: Fluticasone 0.05% 1 SPRAY NASAL.SRY 2 SPRAY NASAL (14:06)
[2024-08-03] MEDS: Potassium Chloride Oral Tablet 20 MEQ 40 MEQ PO (14:07)
[2024-08-03] MEDS: Senna/Docusate Sodium 1 Tablet PO (14:07)
[2024-08-03] MEDS: Aspirin 81 MG TAB.CHEW PO (14:07)
[2024-08-03] MEDS: Acetaminophen 500 MG Tablet PO ×2 (14:07→22:25)
[2024-08-03] MEDS: Triamcinolone Acetonide 0.1% Cream 15 gm 1 APPLIC TOPICAL ×2 (14:08→22:24)
[2024-08-03] MEDS: Menthol/Lanolin/Calamine/Znox 113 GM Tube 1 APPLIC TOPICAL ×2 (14:08→22:22)
[2024-08-03] MEDS: Loratadine 10 MG Tablet PO (14:08)
[2024-08-03] MEDS: Hydrocortisone 2.5% Crm 1 APPLIC TOPICAL ×2 (14:08→22:24)
--- NOTE | 2024-08-03 14:30 | CHAPLAIN ---
Type of Pastoral Visit _x__ Initial Visit ___ Follow-up Visit ___ On-call Visit ___ General Patient Visit ___ Spiritual Assessment ___ Family Conference ___ Bereavement ___ Rapid Response ___ Code Blue ___ Other (describe below) Pastoral Care Referral From ___ Patient _x__ Family ___ Nurse ___ Physician ___ Circular Knife Cutter Machine ___ Pad Machine Operator ___ Other (describe below) Sacrament/Intervention ___ Active listening ___ Anointing ___ Orthodox ___ Bereavement ___ Communion ___ Laura exploration ___ ___ Life review ___ Prayer ___ Reconciliation ___ Sacrament of Sick _x__ Supportive presence ___ Wedding ___ Other (describe below) Pastoral Comments patient is sleeping but daughter is in the room; daughter states that patient has not been alert but was actually able to communicate with the family today; pt needs rest and daughter gives brief idea of how to be supportive; daughter is not needing anything at this time; offer of support given for whatever pt and family desires
--- NOTE | 2024-08-03 16:36 | PCM.PN.HOSP ---
Reason for Visit Reason for Visit: Shortness of breath/altered mental status Subjective Subjective Patient is more alert and interactive today. Still very debilitated and weak. Patient did cardiovert with amiodarone. Family had multiple questions and I did meet with them individually for discussion with regards to current problems overall plan of care and prognosis. See assessment plan for details. Objective Data Objective Data Vital Signs: Vital Signs Temp Pulse Resp BP Pulse Ox O2 Del Method O2 Flow Rate 97.7 F L 89 24 H 127/57 H 93 Nasal Cannula 3 08/03/24 08:00 08/03/24 14:00 08/03/24 14:00 08/03/24 14:00 08/03/24 14:00 08/03/24 14:00 08/03/24 14:00 FiO2 35 08/03/24 09:45 Oxygen Flow Rate (L/min) 3 Oxygen Delivery Method Nasal Cannula Weight: 139.2 kg Body Mass Index (BMI) 44.0 Intake & Output: Intake and Output for Last 24 Hours 08/01/24 08/02/24 08/03/24 23:59 23:59 23:59 Intake Total 1551.66 / 1551.66 1797.83 / 1814.53 520.62 / 520.62 Output Total 1375 / 1375 250 / 350 700 / 700 Balance 176.66 / 176.66 1547.83 / 1464.53 -179.38 / -179.38 Lab / Micro Data 08/03/24 09:49 08/03/24 09:49 Labs: Laboratory Results - last 24 hr 08/02/24 15:55: Sodium 135 L, Potassium 4.5, Chloride 102, Carbon Dioxide 22.0, Anion Gap 12, BUN 48 H, Creatinine 2.35 H, Estim Creat Clear Calc 30.01, Est GFR (MDRD) Af Amer 34 L, Est GFR (MDRD) Non-Af 28 L, BUN/Creatinine Ratio 20.4 H, Glucose 145 H, Calcium 7.6 L, Vancomycin Trough 20.5 H 08/02/24 21:51: Urine Color Yellow, Urine Clarity Cloudy, Urine pH 5.0, Ur Specific [place] 1.020, Urine Protein 30 H, Urine Glucose (UA) Normal, Urine Ketones Negative, Urine Occult Blood 250 H, Urine Nitrite Negative, Urine Bilirubin Negative, Urine Urobilinogen 1 H, Ur Leukocyte Esterase 500 H, Urine RBC 10-25 SEEN, Urine WBC 10-25 SEEN, Ur Squamous Epith Cells 0-5 SEEN, Urine Bacteria 4+, Hyaline Casts 5-10 SEEN, Fine Granular Casts 5-10 SEEN, Urine Mucus 0 SEEN, Ur Random Sodium 30, Urine Creatinine 147.00, Urine Urea Nitrogen 431 08/02/24 23:08: APTT 81.2 H, Random Vancomycin 23.5 H 08/03/24 09:49: WBC 11.3 H, RBC 3.59 L, Hgb 10.6 L, Hct 33.9 L, MCV 94.4 H, MCH 29.5, MCHC 31.3 L, RDW Std Deviation 56.0 H, RDW Coeff of Mansi 16.1 H, Plt Count , MPV 10.9, Immature Gran % (Auto) 1.700 H, Neut % (Auto) 89.6 H, Lymph % (Auto) 1.7 L, [place] % (Auto) 3.2, Eos % (Auto) 3.3, Baso % (Auto) 0.5, Absolute Neuts (auto) 10.2 H, Absolute Lymphs (auto) 0.19 L, Nucleated RBC % 0.2, Differential Comment , Platelet Estimate MOD DEC, APTT 50.6 H, Sodium 136, Potassium 3.8, Chloride 104, Carbon Dioxide 25.0, Anion Gap 7, BUN 63 H, Creatinine 2.78 H, Estim Creat Clear Calc 25.35, Est GFR (MDRD) Af Amer 28 L, Est GFR (MDRD) Non-Af 23 L, BUN/Creatinine Ratio 22.7 H, Glucose 177 H, Calcium 7.3 L, Phosphorus 4.1, Magnesium 1.9, Total Bilirubin 0.40, AST 39 H, ALT 36, Alkaline Phosphatase 65, Total Protein 6.1 L, Albumin 2.4 L, Globulin 3.7, Albumin/Globulin Ratio 0.6 L Micro: Microbiology 07/31/24 23:59 Blood Culture (Wb) - Left Hand Blood Culture - Final Enterococcus faecalis 08/01/24 05:00 Mucosa - Nasopharyngeal Respiratory Panel (PCR) - Final 07/31/24 22:50 Mucosa - Nose SARS-CoV-2, Influenza & RSV (PCR) - Final Radiography Diagnostic Testing: Radiology Impression Echocardiogram 08/02/24 15:22 Interpretation Summary The study was technically difficult. Moderate concentric left ventricular hypertrophy. The left ventricular ejection fraction is 65 %. There is mild biatrial dilatation. Aortic valve sclerosis. Aortic valve mean peak gradient 9 mmHg. Trivial aortic valve regurgitation. Ordering Physician: Suzi Fonseca Referring Physician: Luba Multani Performed By: Fatou Somers and Student Renal Ultrasound 08/02/24 16:57 IMPRESSION: 1. Bilateral renal cyst correlating with the comparison examination for which no follow-up is indicated. The left kidney appears hypertrophic. No additional renal abnormality. 2. There is a Greenwood catheter within the urinary bladder which is decompressed. Electronically Signed: Demetrio Campbell DO at 23:01 EST , Brain CT 08/02/24 19:01 IMPRESSION: Chronic microvascular ischemic changes. No significant change since prior examination. No acute infarct or hemorrhage. Electronically Signed: Demetrio Campbell DO at 21:36 EST , Physical Exam Const alert, no apparent distress and well nourished; Negative for average body habitus or healthy appearing Constitutional Narrative: Elderly, morbidly obese, white male, lying in bed, much more arousable and interactive today than yesterday but still appears extraordinarily weak, appears ill but not particularly toxic, remains somewhat confused, still appears fairly fatigued HEENT normocephalic, head/scalp atraumatic and moist oral mucous membranes HEENT Narrative: Mallampati 3, no thrush, moderate hearing loss Eyes EOMs intact bilaterally and conjunctivae normal Eyes Narrative: No scleral icterus Neck supple Neck Narrative: Large thick neck, trachea midline Resp Resp Narrative: Patient continues with scattered rhonchi, decreased upper airway wheeze but still noted intermittently, mildly tachypneic but no significant accessory use or retractions Auscultation: rhonchi and wheezes; Negative for crackles Cardio regular rate, regular rhythm, S1 normal heart sound, S2 normal heart sound, no murmurs, no rub, no gallops and no clicks Cardio Narrative: Normal sinus rhythm GI normal to inspection, nondistended, normoactive bowel sounds, soft to palpation and non-tender GI Narrative: Large protuberant abdomen Extremity Extremity Narrative: Diffuse edema bilateral upper and lower extremity edema that is pitting in nature, seems consistent with anasarca, no clubbing or cyanosis Skin Skin Narrative: 3+ bilateral LE edema lower extremity, 2+ pitting edema upper extremity, fingers are slightly cyanotic bilaterally, no clubbing Neuro moves all extremities and no focal motor deficits Neuro Narrative: Patient with severe generalized weakness, can spontaneously move all extremities but takes a significant amount of effort, fatigues easily Speech: speech normal Psych Psych Narrative: Unable to fully assess today due to mental status Assessment & Plan Assessment/Plan (1) Positive blood cultures: (2) D-dimer, elevated: (3) Metabolic encephalopathy: (4) 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: (5) Dysphagia: (6) Aspiration pneumonia: QUALIFIERS: Aspiration pneumonia type: unspecified Laterality: bilateral Lung location: unspecified part of lung Qualified Code(s): J69.0 - Pneumonitis due to inhalation of food and vomit PLAN: Plan Enterococcal bacteremia bacteremia -Vanco sensitive -Echocardiogram performed and showed an EF of 65% with normal diastolic dysfunction, mild biatrial dilation, aortic valve sclerosis with no stenosis and trivial aortic valve regurgitation -No vegetations noted -Repeat blood cultures for clearance -Continue vancomycin and Zosyn for now and if cultures are stable with enterococcal bacteremia tomorrow will likely discontinue and transition to narrow antibiotics but will need to cover aspiration as well -Consult infectious disease -Possible urine etiology Acute hypoxia and hypercapnic respiratory failure secondary to suspected aspiration pneumonia/untreated NICANOR -Modified barium swallow done 08/01/2024 and patient does have significant issues with modified diet recommended being mechanical soft and nectar thick liquid diets with significant modifications and compensatory strategies -Okay for modified diet per speech therapy today -Respiratory acidosis has resolved -Would recommend continued BiPAP at night as long as patient will be compliant -GI consultation was recommended and this was discussed with family--> continue to hold off on this for now due to ongoing medical issues and family's consideration of hospice -Continue vancomycin and Zosyn for now--> if blood cultures remain as they are currently will transition to Zosyn only to cover both aspiration and bacteremia -Continue speech therapy -Continue I-S and Acapella as patient able Dysphagia -Modified diet per speech therapy -Continue speech therapy involvement New onset A-fib with RVR -Patient has completed amiodarone drip and converted back to normal sinus rhythm -Echocardiogram performed and no marked abnormalities -Start amiodarone 200 mg p.o. twice daily x 7 days then transition to amiodarone daily -TSH is within normal limits -Liver enzymes are okay -Transition from heparin drip to oral Eliquis 2.5 mg p.o. twice daily due to age and renal function Toxic/metabolic encephalopathy -Suspect related to the above -ABG does show slight acidosis -Ammonia level within normal limits -CT of the brain repeat was unremarkable -Improved today JESÚS -Appears to be prerenal per FeNa -LR at 200 cc/h x 2 L -Continue Greenwood -Family indicates they would not want dialysis so will not pursue any nephrology follow-up at this time -Renal ultrasound shows renal cyst but otherwise unremarkable -Hold home Aldactone and furosemide Marked debility and generalized weakness secondary to acute medical issues on baseline chronic debility -Continue PT/OT/speech therapy -Patient will require intensive therapy after discharge Elevated D-dimer -CTA of the chest is negative for PE -lower extremity Dopplers are negative -Suspect that elevation is likely related to acute infection Persistent leukocytosis -Trending down with antibiotics continue to follow Chronic anemia -Hgb stable Thrombocytopenia -Resolved -Continue to monitor Generalized weakness and debility -Per family he has not been mobile since he had an ankle fracture about 12 months ago -Has been slowly declining -Resides currently in residential -PT/OT/speech therapy following GERD -Continue Protonix 40 mg daily Seborrhea -Continue topicals Essential hypertension -Hold home Lasix and Aldactone due to JESÚS History of BPH -Previously has been on Flomax but currently not taking anything monitor for signs of obstruction -Greenwood to be placed due to elevated renal function Morbid obesity -BMI is 44. -Recommend weight loss -Complicates treatment, prognosis, outcomes -Per family patient has gained considerable amount of weight since his ankle fracture DVT prophylaxis -Transition to Eliquis 2.5 mg p.o. twice daily today CODE STATUS -DNR CCA with no intubation Disposition: Extensive family discussion today with all 4 of his children. We did discuss his bacteremia and his worsening renal function. I did discuss what we were performing now with regards to treatment. I did impress upon them that he is going to have a long uphill cedillo with regards to rehab after discharge and I do not think he will ever be able to return back home. He was markedly debilitated prior to coming in. Even with resolution of his current ongoing medical issues resulting in hospitalization as well as his chronic comorbidities I would recommend hospice at discharge. Conversation with family was greater than 30 minutes in duration. Charges/Coding Visit Charges Inpatient E&M: 79499 Subs Hosp L3 Procedures Hospitalists Procedures: 89453 Advncd Care Plan 30 Min
[2024-08-03] MEDS: APIXABAN 2.5 MG TABLET (WCH) PO (18:05)
[2024-08-03] MEDS: 0.9% Normal Saline (500mL Bag) 500 ML 15 ML IV (19:13)
[2024-08-03 19:20] LABS: Vancomycin, Random Level 17.4 ug/mL (0.0-15.0)
--- NOTE | 2024-08-03 19:27 | PCM.RX.CS ---
Consult Antibiotic Management Pharmacy has been consulted to manage selected antibiotic: Vancomycin Type of Intervention Type of Consult: Follow-up Suspected Infection Suspected Infection: Pneumonia Prior Doses of Antibiotics Prior Doses of Antibiotics Received/Current Regimen: Vancomycin 1250 mg given last 06/02/24 @ 0404 Labs Labs: Sodium 136 mmol/L (136-145) 08/03/24 09:49 Potassium 3.8 mmol/L (3.5-5.1) 08/03/24 09:49 Chloride 104 mmol/L (98-107) 08/03/24 09:49 Carbon Dioxide 25.0 mmol/L (21.0-32.0) 08/03/24 09:49 Anion Gap 7 (5-15) 08/03/24 09:49 BUN 63 mg/dL (7-18) H 08/03/24 09:49 Creatinine 2.78 mg/dL (0.70-1.30) H 08/03/24 09:49 Est GFR (MDRD) Af Amer 28 mL/min (>60) L 08/03/24 09:49 Est GFR (MDRD) Non-Af 23 mL/min (>60) L 08/03/24 09:49 BUN/Creatinine Ratio 22.7 RATIO (10-20) H 08/03/24 09:49 Glucose 177 mg/dL (74-106) H 08/03/24 09:49 Vancomycin Trough 20.5 ug/mL (5.0-15.0) H 08/02/24 15:55 Random Vancomycin 17.4 ug/mL (0.0-15.0) H 08/03/24 18:23 Microbiology Microbiology: Microbiology 07/31/24 23:59 Blood Culture (Wb) - Left Hand Blood Culture - Final Enterococcus faecalis 08/01/24 05:00 Mucosa - Nasopharyngeal Respiratory Panel (PCR) - Final 07/31/24 22:50 Mucosa - Nose SARS-CoV-2, Influenza & RSV (PCR) - Final Dosing Weight Weight used for dosin.2 kg Estimated Creatinine Clearance Estimated Creatinine Clearance: ~ 25 Goal Trough Goal Trough: 15-20 mcg/mL Pharmacy Plan for Drug Dosing Pharmacy Plan for Drug Dosing: Vancomycin random level 17.4, will resume dosing at 1500 mg q24h Pharmacy Service will continue to monitor and adjust dosing as required. Follow-Up Labs Follow-Up Labs: Trough: Vancomycin Date/Time Labs Ordered Labs to be done on [date and time ordered]: 08/05/24 @ 1933
[2024-08-03] MEDS: Vancomycin HCl 1,500 MG in 0.9% Normal Saline (500mL Bag) 500 ML 250 MG IV (20:05)
[2024-08-03] MEDS: 0.9% Saline Lock 10 ML Syringe IV ×2 (20:06→22:26)
[2024-08-03] MEDS: Amiodarone 200 MG Tablet PO (22:23)
[2024-08-04] VITALS (19 sets, daily range): BP systolic 99–118; BP diastolic 45–62; PULSE 80–126; RESP 16–27; TEMP 35.9–36.5; O2SAT 94–100; BMI 43.9
[2024-08-04] MEDS: Acetaminophen 500 MG Tablet PO ×3 (05:00→20:40)
[2024-08-04] MEDS: 0.9% Saline Lock 10 ML Syringe IV ×3 (05:01→20:21)
[2024-08-04] MEDS: Piperacil/Tazobactam 3.375 GM in 0.9% Normal Saline (50mL MB+) 50 ML IV (05:01)
[2024-08-04 06:50] LABS: Absolute Lymphocyte Count 0.25 X10^3/uL (0.83-4.51); Absolute Neutrophil Count 9.8 X10^3/uL (2.0-7.7); Basophil# 0.04 X10^3/uL; Basophil% 0.4 % (0-1); Eosinophil# 0.52 X10^3/uL; Eosinophils% 4.7 % (0-5); Hematocrit 32.3 % (40-54); Hemoglobin 10.3 g/dL (13.0-16.5); Lymphocyte # 0.25 X10^3/ul (0.83-4.51); Lymphocyte % 2.2 % (19-41); Mean Corp Hgb Conc 31.9 g/dL (32-36); Mean Corpuscular Hgb 29.1 pg (27.0-32.0); Mean Corpuscular Volume 91.2 fL (80-94); Mean Platelet Vol. 10.8 fl (6.2-12.0); Monocyte# 0.41 X10^3/uL; Monocyte% 3.7 % (0-10); NRBC Flagged by Analyzer 0 % (0-5); Neutrophil # 9.76 X10^3/uL (2.7-7.7); Neutrophil % 87.3 % (47-70); POSITIVE DIFFERENTIAL YES; Platelet Count 136 K/mm3 (150-450); RBC Distribution Width CV 16.2 % (11.6-14.6); RBC Distribution Width SD 55.1 fl (35.1-43.9); Red Blood Count 3.54 M/mm3 (4.6-6.2); White Blood Count 11.2 K/mm3 (4.4-11.0)
[2024-08-04 08:56] LABS: Anion Gap 9 (5-15); BUN 76 mg/dL (7-18); BUN/Creat Ratio 21.7 RATIO (10-20); Calcium,Total 7.3 mg/dL (8.5-10.1); Chloride 106 mmol/L (98-107); Creatinine, Serum 3.51 mg/dL (0.70-1.30); EST Glomerular Filtration Rate 18 mL/min (>60); Est Glom Filt Rate - Afr Amer 21 mL/min (>60); Estimated Creatinine Clearance 20.05 ml/min; Glucose 143 mg/dL (74-106); Potassium 4.3 mmol/L (3.5-5.1); Sodium Level 139 mmol/L (136-145)
[2024-08-04] MEDS: Amiodarone 200 MG Tablet PO ×2 (09:24→20:40)
[2024-08-04] MEDS: Fluticasone 0.05% 1 SPRAY NASAL.SRY 2 SPRAY NASAL (09:24)
[2024-08-04] MEDS: Loratadine 10 MG Tablet PO (09:24)
[2024-08-04] MEDS: Aspirin 81 MG TAB.CHEW PO (09:24)
[2024-08-04] MEDS: Potassium Chloride Oral Tablet 20 MEQ 40 MEQ PO (09:24)
[2024-08-04] MEDS: Lactobacillis Acidophilus 1 CAP PO ×3 (09:24→20:41)
[2024-08-04] MEDS: APIXABAN 2.5 MG TABLET (WCH) PO ×2 (09:24→20:41)
[2024-08-04] MEDS: Senna/Docusate Sodium 1 Tablet PO (09:24)
[2024-08-04] MEDS: Menthol/Lanolin/Calamine/Znox 113 GM Tube 1 APPLIC TOPICAL (09:25)
[2024-08-04] MEDS: Triamcinolone Acetonide 0.1% Cream 15 gm 1 APPLIC TOPICAL (09:26)
[2024-08-04] MEDS: Hydrocortisone 2.5% Crm 1 APPLIC TOPICAL (09:49)
[2024-08-04] MEDS: Ampicillin/Sulbactam 3 GM in 0.9% Normal Saline (100mL MB+) 100 ML IV (10:32)
--- NOTE | 2024-08-04 11:09 | CASEMGMT ---
Discharge Planning [facility] updated that pt/family is considering hospice and IPU unit. Sammi Montiel DC Planning Asst.
[2024-08-04] MEDS: Amiodarone 150 MG in Dextrose 5%-Water (100mL Bag) 100 ML 600 MG IV BOLUS (11:13)
--- NOTE | 2024-08-04 13:57 | CON.PCM.ID_ITS ---
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 Recommend narrow vanc/zosyn to unasyn. Family having goals of care discusssions. Plan on 1 week total of abx. Will follow, thank you, d/w Dr. Fonseca HPI Consult Data Date of Consult: 08/04/24 HPI Narrative Reason for Consultation: pneumonia HPI Narrative: HARINI AUGUSTE, is a 89 M with h/o htn, presented to ED 07/31 from [facility] with acute onset dyspnea, altered mental status. Found to be 70% on RA. Admitted on vanc/zosyn. Bcx (+), concern for aspiration pneumonia and progressive JESÚS. Family at bedside provided history. He reports feeling no pain, some dyspnea. Full ROS limited by mental status [facility] Medical History Left rotator cuff tear arthropathy Lives in group home Uses wheelchair Gastric reflux Non-smoker History of CHF (congestive heart failure) Hx of fracture of ankle Tinea unguium Anemia Chronic pain Hypertension Pneumonia due to COVID-19 virus Home Medications ?Medication ?Instructions ?Recorded ?Last Taken ?Type sennosides 8.6 mg-docusate sodium 1 tab-cap PO DAILY Constipation 05/26/23 06/15/23 History 50 mg tablet (Stool Softener-Stimulant Laxative) ondansetron 4 mg disintegrating 4 mg PO Q4H PRN nausea and vomiting 07/29/23 Unknown History tablet acetaminophen 500 mg capsule 1,000 mg PO Q8H 07/31/24 Unknown History aspirin 81 mg capsule 81 mg PO DAILY 07/31/24 Unknown History calcium 500 mg (as 1 tab PO DAILY PRN Bone 07/31/24 Unknown History carbonate)-vitamin D3 15 mcg (600 unit) tablet (Os-He 500 + D3) fluticasone propionate 50 2 spray intranasal DAILY 07/31/24 Unknown History mcg/actuation nasal spray,suspension furosemide 20 mg tablet 20 mg PO DAILY 07/31/24 Unknown History hydrocortisone 2.5 % topical cream 1 applic topical BID 07/31/24 Unknown History loratadine 10 mg disintegrating 10 mg PO DAILY 07/31/24 Unknown History tablet (Alavert) potassium chloride 20 mEq 40 meq PO DAILY 07/31/24 Unknown History tablet,extended release(part/cryst) spironolactone 25 mg tablet 25 mg PO BID 07/31/24 Unknown History triamcinolone acetonide 0.1 % 1 applic topical BID 07/31/24 Unknown History topical cream Allergy/AdvReac Type Severity Reaction Status Date / Time No Known Allergies Allergy Verified 07/31/24 22:23 Family History Other Brain tumor Heart disease Surgical History H/O knee surgery History of hip surgery Previous back surgery Social History Smoking Status: Never smoker Physical Exam Const no apparent distress General Appearance: lethargic HEENT normocephalic and head/scalp atraumatic Eyes PERRL and EOMs intact bilaterally Neck supple and No nodes Resp Auscultation: rhonchi and diminished lung sounds Cardio regular rate and regular rhythm GI soft to palpation, non-tender and non-distended Extremity General Extremity: edema Skin no rashes or lesions noted Neuro CN's II-XII intact bilaterally Lab / Micro Data Attestation: I reviewed the patient's lab results. 08/04/24 06:15 08/04/24 06:30 Labs: Laboratory Results - last 24 hr 08/03/24 18:23: Random Vancomycin 17.4 H 08/04/24 06:15: WBC 11.2 H, RBC 3.54 L, Hgb 10.3 L, Hct 32.3 L, MCV 91.2, MCH 29.1, MCHC 31.9 L, RDW Std Deviation 55.1 H, RDW Coeff of Mansi 16.2 H, Plt Count 136 L, MPV 10.8, Immature Gran % (Auto) 1.700 H, Neut % (Auto) 87.3 H, Lymph % (Auto) 2.2 L, [place] % (Auto) 3.7, Eos % (Auto) 4.7, Baso % (Auto) 0.4, Absolute Neuts (auto) 9.8 H, Absolute Lymphs (auto) 0.25 L, Nucleated RBC % 0 08/04/24 06:30: Sodium 139, Potassium 4.3, Chloride 106, Carbon Dioxide 24.0, Anion Gap 9, BUN 76 H, Creatinine 3.51 H, Estim Creat Clear Calc 20.05, Est GFR (MDRD) Af Amer 21 L, Est GFR (MDRD) Non-Af 18 L, BUN/Creatinine Ratio 21.7 H, G lucose 143 H, Calcium 7.3 L Micro: Microbiology 08/01/24 18:05 Blood Culture (Wb) - Left Hand Blood Culture - Preliminary No growth in 48 hours.
--- NOTE | 2024-08-04 15:43 | CASEMGMT ---
Per physician patient's family would like to talk to Hospice. Physician said Hospice should call patient's son. SW called Hospice with referral and asked that they call the son for a meeting. SW also asked that Hospice call PCU with meeting time. SW faxed referral to Hospice also. Alka TERESA
--- NOTE | 2024-08-04 17:54 | DS.PCM_ITS ---
Providers Date of Admission: 08/01/24 Primary Care Physician: Dr. Luba Multani MD Consultations 08/03/24 10:59 Consult: Infectious Disease Routine Consulting Provider: Mio Montgomery Reason for Consult: enterococcus bacteremia EMERGENT Consult: No MD Notified: Yes Date Notified: 08/03/24 Time Notified: 11:03 Method of Notification: Text Reason For Visit: ASPIRATION PNEUMONIA, LEUKOCYTOSIS WITH LEFT Diagnosis Discharge Diagnosis (1) Positive blood cultures: Status: Acute Code(s): R78.81 - Bacteremia (2) 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: Status: Acute Code(s): J96.01 - Acute respiratory failure with hypoxia; J96.12 - Chronic respiratory failure with hypercapnia Medications at Discharge Home Medications sennosides 8.6 mg-docusate sodium 50 mg tablet (Stool Softener-Stimulant Laxative) 1 tab-cap PO DAILY Constipation 05/26/23 ondansetron 4 mg disintegrating tablet 4 mg PO Q4H PRN nausea and vomiting 07/29/23 acetaminophen 500 mg capsule 1,000 mg PO Q8H 07/31/24 fluticasone propionate 50 mcg/actuation nasal spray,suspension 2 spray intranasal DAILY 07/31/24 Hospital Course Operations None Procedures 2-D Echocardiogram, EKG, Modified Barium Swallow and - (Chest x-ray x 2/CTA chest/CT abdomen pelvis/venous duplex/renal ultrasound) Summary of Care Provided Minutes Spent on Discharge: 45 Hospital Course: Patient is an 89-year-old white male who presented to the emergency department at [facility] on 07/31/2024 early in the evening due to increasing confusion and hypoxia. Patient had an ankle fracture about 12 months ago which has essentially left him with limited mobility and requiring a wheelchair. He can ambulate minimally with the assistance of a walker and currently sleeps in a recliner. Evidently, his pulse ox dipped into the 70s and he was placed on oxygen. He is not on oxygen at baseline. His son denied having any recent respiratory illness or cough. Patient denied fever, chills, nausea or vomiting, chest pain, palpitations but the patient did have a episode of bilious emesis in the emergency department and it is suspected that he had a similar episode prior to transfer. Vital signs on presentation showed a temperature of 98.4, heart rate 102, respiratory rate was 30, blood pressure was 140/69 and pulse ox was 93% on room air. CBC showed a marked leukocytosis with a white count of 17.6 and a left shift with a 91.3% neutrophilia. The patient is anemic and currently at his baseline hemoglobin 11.4. Chemistry panel was overall unremarkable and blood glucose was 142. Lactic acid was 1.1. Liver function was unremarkable. Procalcitonin was mildly elevated 0.2. B12 and folate are within normal limits. TSH was normal at 1.49. UA is not consistent with infection and his toxicology screen was negative. D-dimer was elevated at 2.12 so a CTA of his chest was obtained and showed no demonstrated PE or arterial dissection, prominence of the main pulmonary arteries without peripheral vasculature congestion suggestive of pulmonary hypertension. No significant infiltrate was noted on CAT scan at the time. With his nausea and vomiting a CT of his abdomen pelvis was obtained and showed multiple bilateral renal cysts and cholelithiasis but no acute abnormalities. EKG had no acute findings. He was admitted to PCU with concern for aspiration pneumonia and was placed on broad-spectrum antibiotics after cultures were obtained. Speech therapy was consulted and a modified barium swallow was performed which showed concern for dysphagia and they also recommended a GI consult because there was retention of fluid in his esophagus during his modified study. Unfortunately patient was not clinically stable enough to pursue this. Current blood culture shows gram-positive cocci in chains and he is currently on Zosyn and vancomycin. Blood cultures did grow Enterococcus faecalis that was Vanco sensitive. Echocardiogram was performed and did not show any signs of vegetations, normal ejection fraction at 65% with moderate concentric LVH, mild biatrial dilation, and aortic valve sclerosis without stenosis. He developed A-fib with RVR and was placed on amiodarone drip and a heparin drip and did transiently convert to normal sinus rhythm at which time he was transition to oral amiodarone and p.o. Eliquis 2.5 mg twice daily due to age and renal function. He did revert into atrial fibrillation which I was unable to get him to convert and his rate was very difficult to control. He was aggressively volume resuscitated due to concerns for sepsis and for worsening renal function. His kidney function on presentation was 1.08 and at the time of discharge had worsened to 3.51. FeNa appeared like this was prerenal azotemia but had no response to fluid resuscitation. He was markedly edematous. I had extensive conversations with family on multiple occasions with regards to his overall prognosis and plan of care. They did understand that his recovery would be extensive to get him back to his prehospital functional status which they reported was extremely poor. Unfortunately clinically he did not improve very significantly and ultimately family decided to pursue hospice and focus on quality of life rather than quantity. Hospice was consulted and patient was able to be discharged to the inpatient hospice unit here in [place]. Discharge diagnoses: Sepsis secondary to enterococcal bacteremia Acute hypoxemic and hypercapnic respiratory failure Aspiration pneumonia Untreated NICANOR Dysphagia New onset A-fib with RVR Anasarca JESÚS Toxic/metabolic encephalopathy Marked debility and generalized weakness secondary to acute medical issues on baseline chronic debility Elevated D-dimer Persistent leukocytosis Chronic anemia Thrombocytopenia GERD Seborrhea Essential hypertension History of BPH Morbid obesity Physical Exam Narrative Family reports that patient has stated several times today that he is ready to go. Const alert, no apparent distress and well nourished; Negative for average body habitus or healthy appearing Constitutional Narrative: Elderly, morbidly obese, white male, lying in bed, was arousable and interactive today, still appears quite ill and markedly weak, family at bedside General Appearance: cooperative, comfortable, well kempt and well developed Orientation / Consciousness: lethargic Nutritional Appearance: morbidly obese HEENT normocephalic, head/scalp atraumatic, hearing grossly normal bilaterally and moist oral mucous membranes HEENT Narrative: Mallampati 3, no thrush Eyes PERRL, EOMs intact bilaterally and conjunctivae normal Eyes Narrative: No scleral icterus Neck no lymphadenopathy and supple Neck Narrative: Large thick neck, trachea midline Resp Resp Narrative: Patient continues with scattered rhonchi, upper airway wheeze has resolved, remains mildly tachypneic Auscultation: rhonchi; Negative for crackles or wheezes Cardio S1 normal heart sound, S2 normal heart sound, no murmurs, no rub, no gallops and no clicks Cardio Narrative: Tachycardia with irregular irregular rhythm GI normal to inspection, nondistended, normoactive bowel sounds, soft to palpation and non-tender GI Narrative: Large protuberant abdomen Extremity Extremity Narrative: Severe diffuse edema bilateral upper and lower extremity edema that is pitting in nature, no clubbing, fingertips are mildly cyanotic Skin No skin turgor normal, no jaundice, no petechiae and No no mottling Skin Narrative: Mild mottling distal upper extremities Neuro No oriented x3 and no focal motor deficits Neuro Narrative: Patient with severe generalized weakness, can spontaneously move all extremities but takes a significant amount of effort, fatigues easily Psych Psych Narrative: Unable to fully assess today due to mental status Weight / BMI Weight Weight: 138.9 kg Body Mass Index (BMI) 43.9 ABG / Lab / Microbiology Data 08/04/24 06:15 08/04/24 06:30 Laboratory: Laboratory Results - last 24 hr 08/03/24 18:23: Random Vancomycin 17.4 H 08/04/24 06:15: WBC 11.2 H, RBC 3.54 L, Hgb 10.3 L, Hct 32.3 L, MCV 91.2, MCH 29.1, MCHC 31.9 L, RDW Std Deviation 55.1 H, RDW Coeff of Mansi 16.2 H, Plt Count 136 L, MPV 10.8, Immature Gran % (Auto) 1.700 H, Neut % (Auto) 87.3 H, Lymph % (Auto) 2.2 L, [place] % (Auto) 3.7, Eos % (Auto) 4.7, Baso % (Auto) 0.4, Absolute Neuts (auto) 9.8 H, Absolute Lymphs (auto) 0.25 L, Nucleated RBC % 0 08/04/24 06:30: Sodium 139, Potassium 4.3, Chloride 106, Carbon Dioxide 24.0, Anion Gap 9, BUN 76 H, Creatinine 3.51 H, Estim Creat Clear Calc 20.05, Est GFR (MDRD) Af Amer 21 L, Est GFR (MDRD) Non-Af 18 L, BUN/Creatinine Ratio 21.7 H, G lucose 143 H, Calcium 7.3 L Microbiology: Microbiology 08/01/24 18:05 Blood Culture (Wb) - Left Hand Blood Culture - Preliminary No growth in 48 hours. 07/31/24 23:59 Blood Culture (Wb) - Left Hand Blood Culture - Final Enterococcus faecalis 08/01/24 05:00 Mucosa - Nasopharyngeal Respiratory Panel (PCR) - Final 07/31/24 22:50 Mucosa - Nose SARS-CoV-2, Influenza & RSV (PCR) - Final D/C Instructions Discharge Diet: No restrictions Meaningful Use Info Meaningful Use Meaningful Use Diagnoses (Choose all that apply): None applicable Ischemic Stroke Statin Dosing Therapy Reference: STATIN DOSE THERAPY REFERENCE: * Patients > 75 years receive moderate or high dose statin therapy. * Patients 75 years or YOUNGER should receive HIGH intensity statin dose unless contraindicated. You will be required to document reason for non-treatment if statin daily dose does not meet guidelines. HIGH DOSE STATIN THERAPY DAILY Atorvastatin > than or = to 40 mg Rosuvastatin > than or = to 20 mg Amlodipine + Atorvastatin > than or = to 2.5/40 mg Ezetimibe + Simvastatin 10/80 mg Simvastatin 80mg Discharge Plan Admission Admit Date/Time: 08/01/24 01:49 Primary Reason for Your Visit: Shortness of breath/altered mental status Attending Provider: Suzi Fonseca Primary Care Provider: Luba Multani Consulting Providers: Meño Dawn; Mio Montgomery Discharge Orders/Prescriptions Prescriptions: Continued ondansetron 4 mg tablet,disintegrating 4 mg PO Q4H PRN (Reason: nausea and vomiting) sennosides-docusate sodium [Stool Softener-Stimulant Laxat] 8.6-50 mg Tablet 1 tab-cap PO DAILY acetaminophen 500 mg capsule 1,000 mg PO Q8H fluticasone propionate 50 mcg/actuation spray,suspension 2 spray INTRANASAL DAILY Discontinued spironolactone 25 mg tablet 25 mg PO BID hydrocortisone 2.5 % cream 1 applic topical BID potassium chloride 20 mEq tablet,ER particles/crystals 40 meq PO DAILY furosemide 20 mg tablet 20 mg PO DAILY triamcinolone acetonide 0.1 % cream 1 applic topical BID loratadine [Alavert] 10 mg tablet,disintegrating 10 mg PO DAILY calcium carbonate-vitamin D3 [Os-He 500 + D3] 500 mg-15 mcg (600 unit) tablet 1 tab PO DAILY PRN (Reason: Bone) aspirin 81 mg capsule 81 mg PO DAILY Referrals / Follow Up: Luba Multani MD [Primary Care Provider] - Disposition Disposition (needs filled in before D/C Order can be placed): Hospice in Medical Facility Charges/Coding Visit Charges Inpatient E&M: 40904 Disch Hosp >30min
--- NOTE | 2024-08-04 19:31 | NURSING ---
Report called to WEI Chanel at hospice
[2024-08-05] VITALS: BP 89/46; PULSE 110; RESP 20; TEMP 36.3; O2SAT 99
[2024-08-05] MEDS: Ampicillin/Sulbactam 3 GM in 0.9% Normal Saline (100mL MB+) 100 ML IV (00:14)
[2024-08-05] MEDS: 0.9% Saline Lock 10 ML Syringe IV (00:15)
[2024-08-05 01:05] VITALS: BP 89/46; PULSE 119; RESP 22; TEMP 36.1; O2SAT 99
== END 2024-08-05 01:47 | disposition hospice, inpatient (51) | DRG 871 ==
LOC: ED 08-01 00:52 → PCU 08-01 01:49
PROVIDERS: Admitting Provider Internal Medicine; Emergency Provider Emergency Medicine; PCP Internal Medicine; Visit Provider Internal Medicine
DX: A41.81 Sepsis due to Enterococcus (principal); J69.0 Pneumonitis due to inhalation of food and vomit; J96.01 Acute respiratory failure with hypoxia; G92.8 Other toxic encephalopathy; Z68.41 Body mass index [BMI] 40.0-44.9, adult; J96.12 Chronic respiratory failure with hypercapnia; N17.9 Acute kidney failure, unspecified; Z66 Do not resuscitate; I11.0 Hypertensive heart disease with heart failure; D64.9 Anemia, unspecified; I35.8 Other nonrheumatic aortic valve disorders; D69.6 Thrombocytopenia, unspecified; I48.91 Unspecified atrial fibrillation; E66.01 Morbid (severe) obesity due to excess calories; I50.9 Heart failure, unspecified; K21.9 Gastro-esophageal reflux disease without esophagitis; K80.20 Calculus of gallbladder without cholecystitis without obstruction; G47.33 Obstructive sleep apnea (adult) (pediatric); D72.829 Elevated white blood cell count, unspecified; L21.9 Seborrheic dermatitis, unspecified; R13.10 Dysphagia, unspecified; G89.4 Chronic pain syndrome; Z86.16 Personal history of COVID-19; R79.89 Other specified abnormal findings of blood chemistry; Z74.09 Other reduced mobility; N28.1 Cyst of kidney, acquired; Z11.52 Encounter for screening for COVID-19; R53.81 Other malaise; N40.0 Benign prostatic hyperplasia without lower urinary tract symptoms; Z99.89 Dependence on other enabling machines and devices; Z79.899 Other long term (current) drug therapy; Z79.02 Long term (current) use of antithrombotics/antiplatelets; Z87.81 Personal history of (healed) traumatic fracture
CPT/HCPCS: 36415; 36600; 70450; 71045; 71275; 74177; 74230; 76770; 80048; 80053; 80202; 80307; 81001; 82140; 82570; 82607; 82746; 82803; 83605; 83735; 83880; 84100; 84145; 84300; 84443; 84540; 85025; 85379; 85730; 87040; 87077; 87086; 87186; 87631; 87633; 92526; 92610; 92611; 93005; 93306; 93970; 94002; 94003; 94762; 97163; 97166; 97803; 99285; Q9957; Q9967; A4216; C8929; J0295; J1940